=== PATIENT | female | born 1950 | race Caucasian/White ===

== ENCOUNTER → 2017-12-15 10:20 | Outpatient (CLI) | payer MEDICARE, OTHER, SELFPAY ==
--- NOTE | 2017-12-15 10:50 | MRI_ITS ---
STUDY: MRI RIGHT SHOULDER REASON FOR EXAM: Right shoulder pain, no specific injury. TECHNIQUE: Standardized fat and water weighted pulse sequences were obtained in all 3 orthogonal planes. COMPARISON: Radiographs 09/30/2017. FINDINGS: There is supraspinatus tendinosis (T2 coronal images 9-13) without discrete tendon tear. Normal infraspinatus tendon. Normal subscapularis tendon. Normal teres minor tendon. Normal supraspinatus muscle. There is a small cyst at the infraspinatus musculotendinous junction (T2 coronal image 6). Normal subscapularis muscle. Normal teres minor muscle. There is mild glenohumeral arthrosis with small marginal osteophytes of the humeral head, mild chondral thinning (T2 coronal image 11) and a small subchondral cyst of the glenoid. There is mild cystic change of the greater tuberosity. There is a tear with nonvisualization of the intracapsular long biceps tendon. Normal labrum. There is soft tissue fullness in the rotator interval and thickening of the coracohumeral ligament (T2 sagittal image 18). Normal acromioclavicular articulation. There is a Type II morphology (curved), with a neutral orientation. There is subacromial-subdeltoid bursal fluid. Normal deltoid muscle. Normal trapezius muscle. MRI/Upper Ext Joint Only(Routine) IMPRESSION: Supraspinatus tendinosis without demonstrated rotator cuff tear. Tear of the long biceps tendon. Mild glenohumeral arthrosis. Soft tissue fullness in the rotator cuff interval and thickening of the coracohumeral ligament, possible MRI manifestations of adhesive capsulitis. Subacromial-subdeltoid bursitis. Electronically Signed: Rik Connor MD at 12:54 EDT Tel , Service support ,
[2017-12-15 11:02] LABS: Absolute Lymphocyte Count 1.42 X10^3/ul (0.83-4.51); Absolute Neutrophil Count 2.4 X10^3/uL (2.0-7.7); Basophil# 0.03 X10^3/uL; Basophil% 0.7 % (0-1); Eosinophil# 0.13 X10^3/uL; Hematocrit 42.2 % (37-47); Hemoglobin 13.4 g/dl (12.0-15.0); Lymphocyte # 1.42 X10^3/ul (4.0); Lymphocyte % 32.3 % (19-41); Mean Corp Hgb Conc 31.8 g/gl (32-36); Mean Corpuscular Hgb 28.8 pg (27.0-32.0); Mean Corpuscular Volume 90.6 fL (81-99); Mean Platelet Vol. 10.8 fl (6.2-12.0); Monocyte# 0.36 X10^3/uL; Monocyte% 8.2 % (0-10); Neutrophil # 2.44 X10^3/uL (2.7-7.7); Neutrophil % 55.6 % (47-70); Platelet Count 177 K/mm3 (150-450); RBC Distribution Width SD 42.6 fl (35.1-43.9); Red Blood Count 4.66 M/mm3 (4.2-5.4); White Blood Count 4.4 K/mm3 (4.4-11.0)
[2017-12-15 11:05] LABS: POSITIVE COUNT NO; POSITIVE DIFFERENTIAL NO; POSITIVE MORPHOLOGY NO
[2017-12-15 11:33] LABS: ALB/GLOB Ratio 0.9 RATIO (0.9-2.4); AST(SGOT) 27 U/L (15-37); Alanine Aminotransfer ALT/SGPT 41 U/L (13-56); Albumin, Serum 3.4 g/dL (3.2-5.0); Alkaline Phosphatase 101 U/L (45-117); Anion Gap 5 (5-15); BUN 17 mg/dL (7-18); BUN/Creat Ratio 26.4 RATIO (10-20); Calcium,Total 8.9 mg/dL (8.5-10.1); Chloride 101 mmol/L (98-107); Creatinine, Serum 0.64 mg/dL (0.55-1.02); EST Glomerular Filtration Rate 98 mL/min (>60); Est Glom Filt Rate - Afr Amer 118 mL/min (>60); Globulin 3.9 g/dL (2.2-4.2); Glucose 105 mg/dL (74-106); Potassium 3.3 mmol/L (3.5-5.1); Protein, Total 7.3 g/dL (6.4-8.2); Sodium Level 140 mmol/L (136-145)
== END ==
PROVIDERS: Internal Medicine Rheumatology; Family Provider Family Medicine; PCP Family Medicine; Visit Provider Family Medicine
DX: M25.511 Pain in right shoulder (principal); M06.4 Inflammatory polyarthropathy; Z79.899 Other long term (current) drug therapy; D86.9 Sarcoidosis, unspecified; M79.7 Fibromyalgia; G47.33 Obstructive sleep apnea (adult) (pediatric); K21.9 Gastro-esophageal reflux disease without esophagitis; F41.9 Anxiety disorder, unspecified; K76.0 Fatty (change of) liver, not elsewhere classified
CPT/HCPCS: 36415; 73221; 80053; 85025

== ENCOUNTER → 2018-01-05 10:17 | Outpatient (CLI) | payer MEDICARE, OTHER, SELFPAY ==
--- NOTE | 2018-01-05 10:21 | BI_ITS ---
MAMMOGRAPHY - BILATERAL SCREENING REASON FOR EXAM: Female, 67 years old. Routine annual screening examination. PERTINENT HISTORY: Mother with breast cancer. TECHNIQUE: Digital bilateral breast shameka (3D mammographic acquisition) in the CC and MLO projections. 2-D mediolateral oblique (MLO) and craniocaudad (CC) views of both breasts were obtained. CAD: Full Field Digital Mammography with Computer Added Detection was performed. COMPARISON: Comparison is made with prior study dated November 19, 2016 and August 24, 2015. FINDINGS: Breast Composition: There are scattered areas of fibroglandular density. There are no dominant masses or suspicious calcifications. No other significant abnormalities are identified. There has been no significant change since the prior study. BI/SCREENING MAMM (CAD), BILAT IMPRESSION: Stable bilateral screening mammogram. Yearly follow-up mammogram recommended. (A) ASSESSMENT CATEGORY: BIRADS Category 1: Negative. A letter regarding these results will be sent to the patient by the facility within 30 days. Approximately 10% of breast cancers are not detected by mammography. A normal mammogram should not delay biopsy of a clinically suspicious abnormality. [id number] Electronically Signed: Jovanny Antoine MD at 14:36 EDT Tel [phone], Service support ,
== END ==
PROVIDERS: Family Provider Family Medicine; PCP Family Medicine; Visit Provider Family Medicine
DX: Z12.31 Encounter for screening mammogram for malignant neoplasm of breast (principal)
CPT/HCPCS: 77063; 77067

== ENCOUNTER → 2018-03-29 09:57 | Outpatient (CLI) | payer MEDICARE, OTHER, SELFPAY ==
[2018-03-29 11:57] LABS: Absolute Lymphocyte Count 1.05 X10^3/ul (0.83-4.51); Absolute Neutrophil Count 2.3 X10^3/uL (2.0-7.7); Basophil# 0.02 X10^3/uL; Basophil% 0.5 % (0-1); Eosinophils% 2.6 % (0-5); Hematocrit 41.2 % (37-47); Hemoglobin 13.1 g/dl (12.0-15.0); Lymphocyte # 1.05 X10^3/ul (4.0); Lymphocyte % 27.1 % (19-41); Mean Corp Hgb Conc 31.8 g/gl (32-36); Mean Corpuscular Hgb 28.5 pg (27.0-32.0); Mean Corpuscular Volume 89.8 fL (81-99); Mean Platelet Vol. 11.4 fl (6.2-12.0); Monocyte# 0.42 X10^3/uL; Monocyte% 10.9 % (0-10); Neutrophil # 2.28 X10^3/uL (2.7-7.7); Neutrophil % 58.9 % (47-70); Platelet Count 163 K/mm3 (150-450); RBC Distribution Width CV 13.1 % (11.6-14.6); RBC Distribution Width SD 42.7 fl (35.1-43.9); Red Blood Count 4.59 M/mm3 (4.2-5.4); White Blood Count 3.9 K/mm3 (4.4-11.0)
[2018-03-29 11:58] LABS: POSITIVE COUNT NO; POSITIVE DIFFERENTIAL NO; POSITIVE MORPHOLOGY NO
[2018-03-29 12:16] LABS: AST(SGOT) 35 U/L (15-37); Alanine Aminotransfer ALT/SGPT 55 U/L (13-56); Albumin, Serum 3.6 g/dL (3.2-5.0); Alkaline Phosphatase 96 U/L (45-117); Anion Gap 7 (5-15); BUN 23 mg/dL (7-18); BUN/Creat Ratio 32.9 RATIO (10-20); Chloride 104 mmol/L (98-107); EST Glomerular Filtration Rate 89 mL/min (>60); Est Glom Filt Rate - Afr Amer 107 mL/min (>60); Globulin 3.6 g/dL (2.2-4.2); Glucose 101 mg/dL (74-106); Potassium 3.9 mmol/L (3.5-5.1); Protein, Total 7.2 g/dL (6.4-8.2); Sodium Level 141 mmol/L (136-145)
== END ==
PROVIDERS: Family Provider Family Medicine; PCP Family Medicine; Visit Provider Internal Medicine Rheumatology
DX: M06.4 Inflammatory polyarthropathy (principal); Z79.899 Other long term (current) drug therapy; D86.9 Sarcoidosis, unspecified; M79.7 Fibromyalgia; M75.41 Impingement syndrome of right shoulder; M17.0 Bilateral primary osteoarthritis of knee; M18.0 Bilateral primary osteoarthritis of first carpometacarpal joints; K22.70 Barrett's esophagus without dysplasia; K76.0 Fatty (change of) liver, not elsewhere classified; H35.30 Unspecified macular degeneration; G47.33 Obstructive sleep apnea (adult) (pediatric); K21.9 Gastro-esophageal reflux disease without esophagitis; F41.9 Anxiety disorder, unspecified
CPT/HCPCS: 36415; 80053; 85025

== ENCOUNTER 2018-04-09 13:00 | Outpatient (RCR) | payer MEDICARE, OTHER, SELFPAY ==
--- NOTE | 2018-02-01 09:46 | HP.PTEVAL_ITS ---
Patient's Visit Information RICKIE OCONNOR is a 67 year old F referred to Physical Therapy by Leydi Hobbs DO with a diagnosis of R SHLD TRC TENDONITIS/SUBACROMIAL IMPINGEMENT. Date of Evaluation: 02/01/18 Physical Therapist: Deepthi San - Visit Plan Frequency: 2-3x /Week Duration: 4-6 Weeks Plan: RIGHT SHOULDER US, MH, AND/OR CP NEEDED. POSTURE CORRECTION/ STRENGTHENING, INSTRUCTION IN APPROPRIATE BODY MECHANICS AND ACTIVITY MODIFICATIONS. SYDNEE UE ROM, STRETCHING AND STRENGTHENING. HEP INSTRUCTION. - Subjective Subjective: Diagnosis: R SHLD TRC TENDONITIS/SUBACROMIAL IMPINGEMENT. Work/ Leisure: RETIRED. Disability: NOT NOW BUT RETIRED DUE TO DISABILITY FOR SARCOIDOSIS AND FIBROMYALGIA. Present symptoms: RIGHT SHOULDER PAIN. NO NUMBNESS OR TINGLING. NO NECK PAIN. Present since: ABOUT MAY 2017. Pain Scale: WORST: 10/10. LEAST: 10/07. Currently: 10/07. Commenced as a result of: NO APPARENT REASON. Symptoms at onset: RIGHT SHOULDER. Worse: PULLING, REACHING UP, GETTING DRESSED, PUTTING DEODRANT ON, COOKING, LAUNDRY, LIFTING, VACUUMING, SWEEPING. Better: ALEVE. Disturbed sleep: YES. Previous history/ Previous treatment: NO PRIOR HISTORY OF RIGHT SHOULDER PROBLEMS. NO HISTORY OF NECK PROBLEMS. NO SHOULDER OR NECK SURGERY OF HISTORY OF INJECTIONS UNTIL RIGHT SHOULDER INJECTION BY DR. OHBBS ABOUT 3 WEEKS AGO THAT RESULTED IN RELEIF FOR ABOUT 4 DAYS. THIS EPISODE, PATIENT REPORTS THAT SHE DECIDED TO GO TO A CHIROPRACTOR TO SEE IF ADJUSTING HER SPINE WOULD HELP HER SHOULDER PAIN. SHE STARTED GOING IN JUNE AND SHE IS STILL GOING BUT HE HAS QUIT WORKING ON THE SHOULDER. HER SHOULDER HAS CONTINUED TO WORSEN SINCE STARTING WITH THE CHIROPRACTOR. MASSAGE THURSDAY - HELPED SOME BUT DIDN'T WORK ON THE SHOULDER A LOT. Dizziness: NO. Tinnitis: YES. Nausea: NO. Difficulty Swollowing: NO. Gait: NORMAL WITH NO AD USE. Accidents: NO. Unexplained weight loss: NO. Imaging: MILD CHANGES RIGHT SHOULDER ON X-RAY. RECENT MRI: IMPRESSION: Supraspinatus tendinosis without demonstrated rotator cuff tear. Tear of the long biceps tendon. Mild glenohumeral arthrosis. Soft tissue fullness in the rotator cuff interval and thickening of the. coracohumeral ligament, possible MRI manifestations of adhesive capsulitis. Subacromial-subdeltoid bursitis. PMH: FIBROMYALGIA, SARCOIDOSIS, ALLEN'S ESOPHAGUS. Recent major surgery: NO - Objective Sitting Posture: POOR. Standing Posture: POOR. Active Correction of posture : NE. Other Observations: PATIENT IS RIGHT HAND DOMINANT. INDEP GAIT AND TRANSFERS. 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 LEFT UE WFL. Sensory deficit: NO. ROM deficit : LEFT SHOULDER WFL. RIGHT SHOULDER ACTIVE FLEX IN SITTING 60 DEG, ABD 50 DEG. SUPINE PROM FLEX 140 DEG, ABD 130 DEG, ER 75 DEG, IR 30 DEG. ERP AT THE END OF THE AVAILABLE RANGE ALL PLANES. Cervical Mvmt Loss: Flex: NIL. Pro: NIL. Ext: MOD. Ret: [place]. RSB: MOD. LSB: MOD. R Rot: MOD. L Rot: MOD. Postural strength: POOR. Palpation: NO ACUTE TENDERNESS WITH PALPATION OF THE CERVICAL OR UPPER THORACIC SPINE. NO ACUTE TENDERNESS OF RIGHT SHOULDER EITHER AND PATIENT REPORTS SHE FEELS IT IS DEEP INSIDE. - Goals Goal 1:: DECREASE C/O RIGHT SHOULER PAIN Goal Time Frame: 4-6 Weeks Goal 2:: IMPROVE LIFTING, REACHING, ADL AND SLEEP FUNCTION Goal Time Frame: 4-6 Weeks Goal 3:: INDEP HEP Goal Time Frame: 4-6 Weeks - Rehabilitation Potential Rehabilitation Potential: Fair - Anticipated Interventions Patient/Client Instruction: Educate patient on: Condition, Plan of Care, Risk Factors, Benefits of Fitness Program For the Purpose of:: To improve self management Therapeutic Exercise to Include: Strength training, Body mechanics, Postural training, Passive ROM, Active ROM, Scapular Strength/Stabilization For the Purpose of:: To improve ability of physical actions for home/community/ work/leisure Cryotherapy (ice pack, ice massage): Yes Thermo therapy (hot pack): Yes Ultrasound (thermal/non thermal): Yes For the Purpose of:: To decrease pain, To decrease swelling/inflammation, To increase ROM Thank you for the opportunity to evaluate your patient. For Medicare and Medicare HMO plans, please review the plan of care and approve it. It will need to be FAXED BACK to us at [phone] for Medicare purposes. Please let me know if there are questions or concerns regarding this plan of care. Physician Signature: Date:
--- NOTE | 2018-04-09 13:58 | HP.PTDCSUM_ITS ---
HP - PT D/C Summary It has been my pleasure to treat RICKIE OCONNOR under orders from Leydi Hobbs DO, for the diagnosis of R SHLD TRC TENDONITIS/SUBACROMIAL IMPINGEMENT for a total of 18 visit(s). Discharge Date: Please see the following information for a summary of their discharge status. - Subjective Subjective: PATIENT REPORTS HER SHOULDER FEELS BETTER SINCE RESTING IT BUT IT IS STILL ACHING AND KEEPING HER AWAKE. SHE REPORTS THAT HER RIGHT SHOULDER IS A LEAST 75% BETTER THAN IT WAS BEFORE SHE STARTED ANY PT BECAUSE SHE CAN REACH UP NOW AND LESS PAIN. SHE HAS AN APPOINTMENT WITH DR. QUESADA AT 1:45. SHE HAS NOT FOLLOWED UP WITH DR. HOBBS. SHE STATES IF SHE HAS TO GET SOMETHING HEAVY REACHING UP SHE JUST DOESN'T HAVE ANY STRENGTH AND TRYING TO STRENGTHENING IT SEEMED TO START TO MAKE IT WORSE. SHE REPORTS SHE IS GETTING BETTER AT DOING HER HAIR. RIGHT SHOULDER PAIN CURRENTLY RANGES FROM 2/10 TO 7/ 10. SHE REPORTS IT USE TO GET UP TO A 10 AND SHE WOULD CRY. - Pain R SH Pain Intensity (Out of 10): 2 - Overall Improvement % Improvement: 75 - Objective Objective/Function: PATIENT HAS HAD SIGNIFICANT IMPROVEMENT WITH PT AND IS INDEP WITH A HEP BUT NOT TOLERATING FURTHER PROGRESSION OF STRENGTHENING WELL AT THIS TIME. RECOMMENDED FOLLOW UP WITH DR. HOBBS AND CONTINUED HEP TOLERATED. UPON EXAM: AROM IN SITTING RIGHT SHOULD FLEX 170 DEG, SCAPTION 168. SUPINE RIGHT SHOULDER FLEX 167 DEG, ABD 160 DEG, IR 68 DEG, ER 75 DEG (WITH 90 DEG ABD). PATIENT HAS PAIN AT THE END OF THE AVAILABLE ROM WITH TESTING ALL PLANES. - Goals Goal 1:: DECREASE C/O RIGHT SHOULER PAIN Goal Progress: Not Progressing Goal 2:: IMPROVE LIFTING, REACHING, ADL AND SLEEP FUNCTION Goal Progress: Goal Met Goal 3:: INDEP HEP Goal Progress: Goal Met - Plan Plan: D/C TO INDEP HEP AND FOLLOW UP WITH DR. HOBBS - D/C Information If there are questions or concerns regarding this patient's physical therapy, please feel free to call me at [phone]. Thank you for the referral of this patient. Sincerely, Deepthi San
--- NOTE | 2018-04-09 13:58 | HP.PTEVAL ---
Patient's Visit Information RICKIE OCONNOR is a 67 year old F referred to Physical Therapy by Leydi Hobbs DO with a diagnosis of R SHLD TRC TENDONITIS/SUBACROMIAL IMPINGEMENT. Date of Evaluation: 02/01/18 Physical Therapist: Deepthi Gomez Visit Plan Frequency: 2-3x /Week Duration: 4-6 Weeks Plan: D/C TO [facility] AND FOLLOW UP WITH DR. HOBBS - Subjective Subjective: Diagnosis: R SHLD TRC TENDONITIS/SUBACROMIAL IMPINGEMENT. Work/Leisure: RETIRED. Disability: NOT NOW BUT RETIRED DUE TO DISABILITY FOR SARCOIDOSIS AND FIBROMYALGIA. Present symptoms: RIGHT SHOULDER PAIN. NO NUMBNESS OR TINGLING. NO NECK PAIN. Present since: ABOUT MAY 2017. Pain Scale: WORST: 10/10. LEAST: 10/07. Currently: 10/07. Commenced as a result of: NO APPARENT REASON. Symptoms at onset: RIGHT SHOULDER. Worse: PULLING, REACHING UP, GETTING DRESSED, PUTTING DEODRANT ON, COOKING, LAUNDRY, LIFTING, VACUUMING, SWEEPING. Better: ALEVE. Disturbed sleep: YES. Previous history/Previous treatment: NO PRIOR HISTORY OF RIGHT SHOULDER PROBLEMS. NO HISTORY OF NECK PROBLEMS. NO SHOULDER OR NECK SURGERY OF HISTORY OF INJECTIONS UNTIL RIGHT SHOULDER INJECTION BY DR. HOBBS ABOUT 3 WEEKS AGO THAT RESULTED IN RELEIF FOR ABOUT 4 DAYS. THIS EPISODE, PATIENT REPORTS THAT SHE DECIDED TO GO TO A CHIROPRACTOR TO SEE IF ADJUSTING HER SPINE WOULD HELP HER SHOULDER PAIN. SHE STARTED GOING IN JUNE AND SHE IS STILL GOING BUT HE HAS QUIT WORKING ON THE SHOULDER. HER SHOULDER HAS CONTINUED TO WORSEN SINCE STARTING WITH THE CHIROPRACTOR. MASSAGE THURSDAY - HELPED SOME BUT DIDN'T WORK ON THE SHOULDER A LOT. Dizziness: NO. Tinnitis: YES. Nausea: NO. Difficulty Swollowing: NO. Gait: NORMAL WITH NO AD USE. Accidents: NO. Unexplained weight loss: NO. Imaging: MILD CHANGES RIGHT SHOULDER ON X-RAY. RECENT MRI: IMPRESSION: Supraspinatus tendinosis without demonstrated rotator cuff tear. Tear of the long biceps tendon. Mild glenohumeral arthrosis. Soft tissue fullness in the rotator cuff interval and thickening of the. coracohumeral ligament, possible MRI manifestations of adhesive capsulitis. Subacromial-subdeltoid bursitis. PMH: FIBROMYALGIA, SARCOIDOSIS, ALLEN'S ESOPHAGUS. Recent major surgery: NO - Pain R SH Pain Intensity (Out of 10): 2 Comment: anterior - Objective Sitting Posture: POOR. Standing Posture: POOR. Active Correction of posture: NE. Other Observations: PATIENT IS RIGHT HAND DOMINANT. INDEP GAIT AND TRANSFERS. 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 LEFT UE WFL. Sensory deficit: NO. ROM deficit: LEFT SHOULDER WFL. RIGHT SHOULDER ACTIVE FLEX IN SITTING 60 DEG, ABD 50 DEG. SUPINE PROM FLEX 140 DEG, ABD 130 DEG, ER 75 DEG, IR 30 DEG. ERP AT THE END OF THE AVAILABLE RANGE ALL PLANES. Cervical Mvmt Loss: Flex: NIL. Pro: NIL. Ext: MOD. Ret: [place]IV[place]AD. RSB: MOD. LSB: MOD. R Rot: MOD. L Rot: MOD. Postural strength: POOR. Palpation: NO ACUTE TENDERNESS WITH PALPATION OF THE CERVICAL OR UPPER THORACIC SPINE. NO ACUTE TENDERNESS OF RIGHT SHOULDER EITHER AND PATIENT REPORTS SHE FEELS IT IS DEEP INSIDE. - Goals Goal 1:: DECREASE C/O RIGHT SHOULER PAIN Goal Time Frame: 4-6 Weeks Goal 2:: IMPROVE LIFTING, REACHING, ADL AND SLEEP FUNCTION Goal Time Frame: 4-6 Weeks Goal 3:: INDEP HEP Goal Time Frame: 4-6 Weeks - Rehabilitation Potential Rehabilitation Potential: Fair - Anticipated Interventions Patient/Client Instruction: Educate patient on: Condition, Plan of Care, Risk Factors, Benefits of Fitness Program For the Purpose of:: To improve self management Therapeutic Exercise to Include: Strength training, Body mechanics, Postural training, Passive ROM, Active ROM, Scapular Strength/Stabilization For the Purpose of:: To improve ability of physical actions for home/community/work/leisure Cryotherapy (ice pack, ice massage): Yes Thermo therapy (hot pack): Yes Ultrasound (thermal/non thermal): Yes For the Purpose of:: To decrease pain, To decrease swelling/inflammation, To increase ROM Thank you for the opportunity to evaluate your patient. For Medicare and Medicare HMO plans, please review the plan of care and approve it. It will need to be FAXED BACK to us at [phone] for Medicare purposes. Please let me know if there are questions or concerns regarding this plan of care. Physician Signature: Date:
== END 2018-04-09 19:00 | disposition home or self-care (01) ==
LOC: PT 13:00
PROVIDERS: Family Provider Family Medicine; PCP Family Medicine; Visit Provider Orthopaedic Surgery
DX: S46.011D Strain of muscle(s) and tendon(s) of the rotator cuff of right shoulder, subsequent encounter (principal); M25.811 Other specified joint disorders, right shoulder
CPT/HCPCS: 97035; 97110; 97140; 97162; 97164; 97530; G8978; G8979

== ENCOUNTER → 2018-06-02 12:28 | Outpatient (CLI) | payer MEDICARE, OTHER, SELFPAY ==
[2018-06-02 14:46] LABS: Absolute Neutrophil Count 3.7 X10^3/uL (2.0-7.7); Basophil# 0.02 X10^3/uL; Basophil% 0.4 % (0-1); Eosinophil# 0.11 X10^3/uL; Eosinophils% 2.1 % (0-5); Hematocrit 40.9 % (37-47); Hemoglobin 13.4 g/dl (12.0-15.0); Lymphocyte % 20.8 % (19-41); Mean Corp Hgb Conc 32.8 g/gl (32-36); Mean Corpuscular Hgb 29.5 pg (27.0-32.0); Mean Corpuscular Volume 90.1 fL (81-99); Mean Platelet Vol. 11.3 fl (6.2-12.0); Monocyte# 0.39 X10^3/uL; Monocyte% 7.4 % (0-10); Neutrophil # 3.65 X10^3/uL (2.7-7.7); Neutrophil % 69.1 % (47-70); Platelet Count 190 K/mm3 (150-450); RBC Distribution Width SD 42.4 fl (35.1-43.9); Red Blood Count 4.54 M/mm3 (4.2-5.4); White Blood Count 5.3 K/mm3 (4.4-11.0)
[2018-06-02 14:50] LABS: POSITIVE COUNT NO; POSITIVE DIFFERENTIAL NO; POSITIVE MORPHOLOGY NO
[2018-06-02 15:11] LABS: ALB/GLOB Ratio 1.1 RATIO (0.9-2.4); AST(SGOT) 26 U/L (15-37); Alanine Aminotransfer ALT/SGPT 45 U/L (13-56); Albumin, Serum 3.5 g/dL (3.2-5.0); Alkaline Phosphatase 86 U/L (45-117); Anion Gap 9 (5-15); BUN 17 mg/dL (7-18); Calcium,Total 9.2 mg/dL (8.5-10.1); Chloride 103 mmol/L (98-107); Creatinine, Serum 0.71 mg/dL (0.55-1.02); EST Glomerular Filtration Rate 87 mL/min (>60); Est Glom Filt Rate - Afr Amer 106 mL/min (>60); Globulin 3.3 g/dL (2.2-4.2); Glucose 91 mg/dL (74-106); Potassium 3.7 mmol/L (3.5-5.1); Protein, Total 6.8 g/dL (6.4-8.2); Sodium Level 143 mmol/L (136-145)
== END ==
PROVIDERS: Family Provider Family Medicine; PCP Family Medicine; Visit Provider Internal Medicine Rheumatology
DX: M06.4 Inflammatory polyarthropathy (principal); D86.9 Sarcoidosis, unspecified; M79.7 Fibromyalgia; M75.41 Impingement syndrome of right shoulder; M17.0 Bilateral primary osteoarthritis of knee; M18.0 Bilateral primary osteoarthritis of first carpometacarpal joints; K76.0 Fatty (change of) liver, not elsewhere classified; K22.70 Barrett's esophagus without dysplasia; H35.30 Unspecified macular degeneration; G47.33 Obstructive sleep apnea (adult) (pediatric); K21.9 Gastro-esophageal reflux disease without esophagitis; F41.9 Anxiety disorder, unspecified; Z79.899 Other long term (current) drug therapy
CPT/HCPCS: 36415; 80053; 85025

== ENCOUNTER → 2018-07-01 13:55 | Outpatient (CLI) | payer MEDICARE, OTHER, SELFPAY ==
--- NOTE | 2018-07-01 13:58 | CT_ITS ---
STUDY: CT ABDOMEN AND PELVIS WITHOUT CONTRAST REASON FOR EXAM: Female, 68 years old. Flank pain. Family history of kidney cancer. RADIATION DOSAGE (If Supplied By Facility): CTDIvol = ( 22.46 ) mGy, DLP = ( 1060.34 ) mGycm TECHNIQUE: Transaxial images were obtained from the dome of the diaphragm to the symphysis pubis without oral contrast, and without intravenous contrast. Sagittal and coronal images were reconstructed. Individualized dose optimization techniques were used for this CT. COMPARISON: None. FINDINGS: Limited views through the lower chest show a 5 mm pleural-based nodule in the right middle lobe on image 3. There is a 7 mm nodule in the center of the left lung base, image 14. There is fatty liver with hepatomegaly. No definite focal mass. The gallbladder is not seen, question cholecystectomy for complete contraction. No definite stones. Pancreas and spleen are unremarkable. Normal right adrenal gland. Left adrenal gland has a 4.8 cm mass with a few calcifications. This needs further evaluation. No definite abnormalities of the kidneys. No stones. No hydronephrosis. There are no definite masses but note that noncontrast CT is limited when evaluating the kidneys. Evaluation of the GI tract is limited by absence of oral contrast. Cannot exclude stomach wall thickening. No dilated loops of bowel or evidence for obstruction. Cannot exclude segmental thickening of the [place] of the small or large bowel. Cannot exclude enteritis or colitis. Moderate to marked diffuse fecal retention. Appendix not definitely seen. Normal aorta. No retroperitoneal adenopathy. In the pelvis, normal uterus. Normal bladder contour. No free fluid. Skeletal structures show degenerative changes of the lower lumbar spine. CT/Abdomen/Pelvis without Cont IMPRESSION: Exam is limited by the absence of IV contrast. There is a 4.8 cm mass of the left adrenal gland, further evaluation with contrasted CT is recommended. Fatty liver with hepatomegaly. Electronically Signed: Cesar Mujica MD at 17:56 EDT , Service support ,
== END ==
PROVIDERS: Family Provider Family Medicine; PCP Family Medicine; Referring Provider Family Medicine; Visit Provider Family Medicine
DX: R10.9 Unspecified abdominal pain (principal); Z80.51 Family history of malignant neoplasm of kidney
CPT/HCPCS: 74176

== ENCOUNTER → 2018-07-02 13:49 | Outpatient (CLI) | payer MEDICARE, OTHER, SELFPAY ==
--- NOTE | 2018-07-02 13:54 | CT_ITS ---
STUDY: CT RIGHT SHOULDER REASON FOR EXAM: Female, 68 years old. Right shoulder pain RADIATION DOSAGE (If Supplied By Facility): CTDIvol = ( 73.65 ) mGy, DLP = ( 998.25 ) mGycm TECHNIQUE: The patient was scanned in a multi detector CT scanner. High resolution transaxial imaging was performed without the administration of intravenous contrast material. Sagittal and coronal images were reconstructed. Individualized dose optimization techniques were used for this CT. COMPARISON: X-ray right shoulder 09/30/2017. FINDINGS: Particular soft tissues exhibit no acute process. There is a moderate joint effusion. The achromic liquor joint exhibits no significant degenerative features. There is mild narrowing of the glenohumeral articulation suggesting chondral degeneration. There is superior subluxation of the humeral head to the undersurface of the acromion, consistent with subacromial impingement. Also consistent with rotator cuff insufficiency. The supraspinatus appears to be attenuated. There is inferior joint margin osteophytic lipping of the glenohumeral articulation. There is subcortical cyst formation of the greater tubercle of the humerus also consistent with subacromial impingement. CT/Extremity Upper without Contra IMPRESSION: Prominent joint effusion. Possible synovitis. Suspected rotator cuff insufficiency/tear. Suspected subacromial impingement. Electronically Signed: [place] Juan, at 12:52 EDT Tel , Service support ,
== END ==
PROVIDERS: Family Provider Family Medicine; PCP Family Medicine; Referring Provider Specialist; Visit Provider Specialist
DX: M19.011 Primary osteoarthritis, right shoulder (principal)
CPT/HCPCS: 73200

== ENCOUNTER → 2018-08-04 12:35 | Outpatient (CLI) | payer MEDICARE, OTHER, SELFPAY ==
--- NOTE | 2018-08-04 14:48 | CT_ITS ---
STUDY: CT ABDOMEN AND PELVIS WITH CONTRAST REASON FOR EXAM: Female, 68 years old. Left adrenal mass RADIATION DOSAGE (If Supplied By Facility): CTDIvol = ( 23.95 ) mGy, DLP = ( 1949.76 ) mGycm TECHNIQUE: Transaxial images were obtained from the lower chest to the upper thighs without oral contrast. 100 ml of Isovue 300 contrast was administered. Sagittal and coronal images were reconstructed. Individualized dose optimization techniques were used for this CT. COMPARISON: CT abdomen and pelvis without contrast dated July 01, 2018 FINDINGS: There is minimal dependent atelectasis in both lung bases. A 5 mm opacity is again seen in the periphery of the right middle lobe on image 5. A 7-8 mm opacity is again seen in the periphery of the left lower lobe at the diaphragm on image 9. There is no pleural effusion. The heart is normal in size. There is fatty infiltration of the liver. The gallbladder is surgically absent. The spleen is unremarkable. The pancreas is unremarkable. The right adrenal gland is normal in appearance. A 4.7 cm mass is again seen in the left adrenal gland with minimal coarse calcifications. At three different levels of the lesion, absolute washout ranges from about 28% to about 45%. No level shows absolute washout greater than 60%. Additionally, relative washout ranges from about 23% to about 35% and does not measure more than 40%. The right kidney is unremarkable. There is no dilatation of the collecting system in the right kidney. The left kidney is unremarkable. There is no dilatation of the collecting system in the left kidney. The stomach is unremarkable. The small bowel is unremarkable. There are diverticula in the distal colon without adjacent stranding. The appendix is surgically absent. There are minimal vascular calcifications. The inferior vena cava is unremarkable. The retroperitoneum is unremarkable. There is no free fluid in the abdomen. The urinary bladder is unremarkable. The uterus is normal in appearance. There are no abnormal masses in the adnexal regions. There are small phleboliths scattered in the lower pelvis. The soft tissues of the abdominal wall are unremarkable. There are moderate degenerative changes in the visualized spine. This is most pronounced at L5-S1. CT/Abdomen/Pelvis WITH Contrast IMPRESSION: A mass is again seen in the left adrenal gland measuring at least 4.7 cm in size. Assessment of absolute and relative washouts using Hounsfield units do not definitively confirm an adenoma. Although characterization may be altered by the size of the lesion and the presence of calcifications, consideration should be made for needle biopsy or short-term follow-up CT in 2-3 months. Given the persistent small opacities in both lung bases, a CT of the chest can also be obtained in 2-3 months to reassess the 7-8 mm nodule in the left lower lobe and to assess the remainder of the lungs. There is diverticulosis of the distal colon. There is no ascites or significant lymphadenopathy. Electronically Signed: Mary Hurst MD at 0:43 EST Tel Direct: [phone], Service support ,
[2018-08-04 15:15] LABS: CREATININE FINGERSTICK 0.8 mg/dL (0.55-1.02); EGFR FINGERSTICK > 60.0000 mL/min (>60)
== END ==
PROVIDERS: Family Provider Family Medicine; PCP Family Medicine; Referring Provider Family Medicine; Visit Provider Family Medicine
DX: E27.9 Disorder of adrenal gland, unspecified (principal)
CPT/HCPCS: 74177; Q9967

== ENCOUNTER 2018-08-17 08:27 | Inpatient (IN) | payer MEDICARE, OTHER, SELFPAY ==
[2018-08-04 13:24] VITALS: BP 151/79; PULSE 82; RESP 16; TEMP 36.3; O2SAT 95; BMI 43.0
--- NOTE | 2018-08-04 14:37 | SDCEKG_ITS ---
Test Reason : Blood Pressure : / mmHG Vent. Rate : 079 BPM Atrial Rate : 079 BPM P-R Int : 186 ms QRS Dur : 076 ms QT Int : 394 ms P-R-T Axes : 078 051 041 degrees QTc Int : 451 ms Normal sinus rhythm Normal ECG Confirmed by SHERRIE SMITH ([id number]), movie editor KELLEY WHITLOCK ([id number]) on 08/09/2018 2:34:06 PM Referred By: Sotero Crabtree Confirmed By:SHERRIE SMITH
[2018-08-04 16:44] LABS: Absolute Lymphocyte Count 1.31 X10^3/ul (0.83-4.51); Absolute Neutrophil Count 3.1 X10^3/uL (2.0-7.7); Basophil# 0.03 X10^3/uL; Basophil% 0.6 % (0-1); Eosinophil# 0.09 X10^3/uL; Eosinophils% 1.8 % (0-5); Hemoglobin 13.6 g/dl (12.0-15.0); Lymphocyte # 1.31 X10^3/ul (4.0); Lymphocyte % 26.2 % (19-41); Mean Corp Hgb Conc 32.4 g/gl (32-36); Mean Corpuscular Hgb 29.4 pg (27.0-32.0); Mean Corpuscular Volume 90.9 fL (81-99); Mean Platelet Vol. 10.8 fl (6.2-12.0); Monocyte# 0.48 X10^3/uL; Monocyte% 9.6 % (0-10); Neutrophil # 3.08 X10^3/uL (2.7-7.7); Neutrophil % 61.6 % (47-70); Platelet Count 188 K/mm3 (150-450); RBC Distribution Width CV 13.5 % (11.6-14.6); RBC Distribution Width SD 44.7 fl (35.1-43.9); Red Blood Count 4.62 M/mm3 (4.2-5.4)
--- NOTE | 2018-08-04 16:54 | PCM.HP.BLA ---
History and Physical DATE OF SURGERY: 08/17/2018 SCHEDULED PROCEDURE: Right Reverse Total Shoulder Arthroplasty HISTORY OF PRESENT ILLNESS: This is a 68-year-old female who is been having ongoing pain in her right dominant shoulder for over one year. Patient was seen in the past with previous MRI in November 2017. Patient saw Dr. Fili Brown in April in which a repeat MRI was done. MRI did reveal rotator cuff tear. Patient's pain can reach is highly as a 9/10. Her pain has been intermittent, dull, aching, sharp, and sore. She does complain of grinding sensation and popping in the right shoulder. She has difficult time with activities of daily living that require any overhead activity. She also gets pain with driving. Pain does awaken her at night. Patient has tried conservative measures in the past including 6 weeks of physical therapy with no improvement in motion. Previous corticosteroid injection with minimal relief, nonsteroidal anti-inflammatories. After failing conservative measures and discussing all treatment options with Dr. Sotero Crabtree, the patient would like to proceed with a right reverse total shoulder arthroplasty. Patient has a medical history pertinent for sarcoidosis, hypertension, and Haney's esophagitis, and fibromyalgia. She currently denies chest pain, shortness of breath, fevers chills, recent infections. We are obtaining surgical clearance from patient's primary care physician. REVIEW OF SYSTEMS: ROS: Const: Reports weight change, but denies anorexia, change in appetite, fever, hard of hearing and vision problems. CV: Denies chest pain, heart murmur, irregular heartbeat and peripheral vascular disease. Resp: Reports sleep apnea, SOB and wheezing, but denies asthma, cough, pneumonia and tuberculosis. GI: Reports constipation and difficulty swallowing, but denies diarrhea, heartburn, nausea, bloody stools and vomiting. : Urinary: reports incontinence. Musculo: Reports leg swelling, trouble walking and weakness, but denies limp. Skin: Denies Raynaud's, history of shingles and tattoo. Neuro: Reports numbness/tingling but denies ambulatory dysfunction, dizziness and tremor. Psych: Reports anxiety, depression, insomnia and stress, but denies mental illness. Romario/Lymph: Denies anemia, bleeding/bruising tendency and past transfusion. Reviewed, no changes. PAST MEDICAL HISTORY: PMH: Problem List: Body mass index 40+ - severely obese, Obesity, Essential hypertension, Localized, secondary osteoarthritis of the shoulder region, Bicipital tenosynovitis, Sprain of shoulder rotator cuff, Acquired spondylolisthesis, Degeneration of lumbar intervertebral disc, Displacement of lumbar intervertebral disc without myelopathy, Low back pain, Disorder of bursa of shoulder region, Degenerative joint disease of shoulder region Medical Problems: Arthritis, Fibromyalgia, High Blood Pressure, Barretts Esophageous, Sarcoidoisis Accidents: None Surgical Hx: Appendectomy - 1970,[facility] Gallbladder - 1970,[facility] Tonsillectomy - 1954,[place],[facility] Tubal Ligation - 1979,[facility] Reverse Tubal Ligation,[facility],1983, Lung Biopsy,2007,[facility] Carpal Tunnel Release LT - 2000 K[facility] SANDERS Carpal Tunnel Release RT - 2000 [facility] Anesthesia Complications: None Assistive Devices: Glasses, Hearing Aid - ONE EAR Reviewed, no changes. SOCIAL HISTORY: SH: Marital: .Occupation: Disabled.Work Status: Disabled.Hand Dominance: Right-handed. Personal Habits: Cigarette Use: Former.Alcohol: Weekly use.Drug Use: Denies Use.Enjoy Exercising: Never Exercises. Reviewed, no changes. VITALS: Ht: 62 Wt: 235lb Wt k.596 BMI: 43.0 BP: 146/72 Pulse: 91 Resp: 16 T: 97.9 T: 36.6C ALLERGIES: Celebrex - Hives,Swelling,Itching MEDICATIONS: Meloxicam 7.5 mg 1 by mouth twice a day, Lyrica 100 mg 1 po Tid, Alprazolam 0.1 mg tid, prn, Vitamin D3 1000 Unit 1 tab pq qday, Calcium 600 600-400 MG-Unit 1po qday, Cpap Machine qhs, Melatonin 10 mg 1po qhs, Zinc 100 mg 1po qday, Vitamin B Complex 1po qday, Folic Acid 1 mg 2po qday, Losartan Potassium/Hydrochlorothiazide 100-25 mg 1po qday, Venlafaxine HCL 75 mg 1po qday, Methotrexate 2.5 mg 5 once weekly, Dexilant 60 mg 1po qday, Tramadol HCL 50 mg 1-2 by mouth every 6 hours as needed pain, Amlodipine Besylate 5 mg 1po qday, Magnesium 250 mg 2po qday, Lutein 20 mg 1po qday, Vitamin C 1000 mg 1po qday, Biotin 60498 mcg 1po qday PRE-OP EXAM: General appearance:NORMAL Other: Eyes: Conjunctivae and lids: NORMAL Pupils: ERR Ears, Nose, Mouth, and Throat: NORMAL Other: Inspection of lips, teeth and gums: NORMAL Other: Neck: Examination of neck: no masses noted. Respiratory: Assessment of respiratory effort: NORMAL Other: Auscultation of lungs: clear to auscultation no wheezes, rhonchi or rales. Cardiovascular: Auscultation of heart: regular rate and rhythm, no murmurs, gallops or rubs. Exam of carotid arteries: NORMAL Other: Gastrointestinal: Exam of abdomen: soft, nontender, nondistended bowel sounds present. PHYSICAL EXAMINATION: Right shoulder is cool to touch without erythema. Patient has tenderness to palpation along the anterior and lateral shoulder. Range of motion right shoulder: Active forward flexion 110, 150 passive range of motion, internal rotation to T7 on the left and L2 on the right, external rotation 5 on the right, 15 on the left. Patient has significant weakness with the supraspinatus testin/5 on the right and 5/5 on the left. Sensation intact to light touch. Neurovascularly intact. IMAGING STUDIES: MRI was done in April 2018 which does show severe retracted supraspinatus rotator cuff tear to be at the level of the glenoid. There is significant atrophy of the supraspinatus. Superior head migration and articular cartilage wear. Saline of the humeral head and associated subchondral edema consistent with severe osteoarthritis of the right shoulder. IMPRESSION: 1. Severe right shoulder osteoarthritis with retracted rotator cuff tear 2. Fibromyalgia 3. Sarcoidosis 4. Haney's esophagitis 5. Hypertension 6. Lumbar degenerative disc disease PLAN: Dr. Sotero Crabtree did discuss and review with the patient all treatment options including surgical versus nonsurgical options. Patient does wish to proceed with the above-stated procedure. Potential risks, benefits, and complications of the procedure were discussed in detail including but not limited to , infection, nerve and blood vessel damage, persistent pain, numbness, tingling, paresthesias, blood clot, pulmonary embolism, and requirement for possible further surgery. The patient expressed full understanding and has no further questions for the doctor. Patient does agree to proceed with the above-stated procedure and has signed the surgery consent form. This dictation was created using voice recognition software. Phonetic and/or grammatical errors may exist.. ___ I have re-examined the patient. There are no clinical changes since date of exam. ___ See progress notes for changes. ___ Dictated on admission Date: Time: Signature:
[2018-08-04 17:10] LABS: POSITIVE COUNT NO; POSITIVE DIFFERENTIAL NO; POSITIVE MORPHOLOGY NO
[2018-08-04 17:22] LABS: Anion Gap 7 (5-15); BUN 23 mg/dL (7-18); BUN/Creat Ratio 31.2 RATIO (10-20); Calcium,Total 9.1 mg/dL (8.5-10.1); Chloride 104 mmol/L (98-107); Creatinine, Serum 0.74 mg/dL (0.55-1.02); EST Glomerular Filtration Rate 83 mL/min (>60); Est Glom Filt Rate - Afr Amer 101 mL/min (>60); Estimated Creatinine Clearance 42.59 ml/min; Glucose 96 mg/dL (74-106); Potassium 3.6 mmol/L (3.5-5.1); Sodium Level 143 mmol/L (136-145)
[2018-08-11 17:38] LABS: Albumin, Serum 3.9 g/dL (3.2-5.0)
[2018-08-17] VITALS (9 sets, daily range): BP systolic 92–142; BP diastolic 49–111; PULSE 75–85; RESP 14–18; TEMP 36.4–36.9; O2SAT 94–100; BMI 43.0
[2018-08-17] MEDS: Acetaminophen 500 MG Tablet 1000 MG PO ×2 (09:27→22:40)
[2018-08-17] MEDS: oxyCODONE HCl Cr 10 MG Tablet PO (09:27)
[2018-08-17] MEDS: Cefazolin 2 GM in 0.9% Normal Saline 100 ML IV (11:35)
--- NOTE | 2018-08-17 13:17 | PCM.OPRPT ---
Report of Operation Date of Procedure: 08/17/18 Pre-Operative Diagnosis: Right shoulder cuff tear arthropathy Post-Operative Diagnosis: Right shoulder cuff tear arthropathy Surgery/Procedure Performed:: Right reverse total shoulder replacement Description of Surgical Findings:: Stable shoulder buckle coverer: Juancarlos Ramon Type of Anesthesia:: General Anesthesiologist: Roberto Sage Special Medications: 2 g Ancef, 1 g TXA at incision, 1 g TXA closure, 10 mg Decadron, joint cocktail (5 mg Duramorph, 30 mL of 0.5% Ropivicaine, 1000 units of epinephrine, 30 mg of Toradol), IV vancomycin throughout the case Specimen's removed: esteban cuts Estimated Blood Loss (mL): 150 Fluids Replaced: 1500 ml crystalloid Description of Procedure: Components used 1. glenoid baseplate from Navi for reverse TSA 2. 32, +6 mm Glenosphere 3. 32 mm, 4mm humeral liner 4. reverse TSA humeral adapter tray 4mm 5. humeral stem primary press-fit 9mm size Brief history/Operative indications: 68 yo f with history of right shoulder pain and cuff tear arthropathy. Patient failed conservative measures as mentioned in the H&P. After discussion of risk and benefits of reverse total shoulder replacement including but not limited to blood loss, DVTs, PEs, nerve vessel damage, infection, general risk of anesthesia including loss of life, instability and stiffness patient demonstrating understanding wish to proceed was able to sign informed consent. Medical clearance was obtained. Procedure: On the date of the procedure, patient's R upper extremity was marked in the preoperative area. Patient was taken back to the operating room where they were placed on the table in the supine position. Anesthesia assumed control of the C-spine and airway, then administered anesthetic. All bony prominences were identified well-padded, the head was secured and the patient was placed in the beachchair position at about 35? inclination. Anesthesia remained in control of the C-spine airway throughout the remainder of the procedure. Patient was then appropriately fastened to the table and the R upper extremity was prepped in a sterile fashion. The surgeons then scrubbed. Upon reentering the room, the R upper extremity was draped in a sterile fashion and the incision was marked out. Timeout was called, everyone agreed upon the side, the site, the procedure to be performed, patient identity and antibiotics given. Incision was taken down through skin and subcutaneous tissue, fat down to fascia. The stripe of the deltopectoral interval and cephalic vein were identified and blunt dissection was used to retract the deltoid. The cephalic vein was retracted laterally. Clavipectoral fascia was then incised and a cobra retractor was placed in the wound. The proximal one third of the pectoralis major insertion was released. Pectoralis tendon insertion was used to tenodesed the biceps tendon which was identified in the bicipital groove. Tenodesis was done with #1 Vicryl. Proximally we followed the biceps tendon after transecting it into the rotator interval. The rotator interval was split and the arm was externally rotated. The split was 1 cm medial to the bicipital groove. Subscapularis tendon was released. We released down the anterior portion of the humeral head and a stroud elevator was used to release the inferior portion of the humeral head. The arm was externally rotated and the shoulder was dislocated. The humeral head cutting guide was used to make humeral cut. This was done at 20? retroversion. Once his humeral head cut was made humerus was retracted out of the way and the glenoid was exposed. After exposing the glenoid, the labrum and the remaining proximal biceps were debrided. At this time we are able to view the entire outer edge of the glenoid. A central pin was placed we sequentially reamed over this central pin to 32mm. Once this was completed the central pedicle was drilled. The glenoid baseplate was impacted into place. Wound was closely irrigated out with normal saline we then drilled sequentially for 4 screws. Screws were placed superiorly and inferiorly and tightened down the screws. Then anteriorly and posteriorly. Once the screws were appropriately tightened into place the glenoid baseplate was compressed against the exposed subchondral bone. A 32, +6mm glenosphere was impacted into place engaging the Flores taper. Attention was then turned towards the humerus. The humerus was again externally rotated exposing the proximal portion of the humerus. Central canal finder was then used to open up the canal. We reamed to a 9mm reamer. We then broached to a 9mm stem. We trialed the 4mm liner, with the 4mm humeral baseplate. We obtained an adequate reduction at this time with a nice stable shoulder. Good internal rotation to the gluteus, forward elevation to 140?, external rotation to 20?. Final components were then assembled on the back table, trials were removed and the wound was copiously irrigated with normal saline after dislocating the shoulder. Once the final components were assembled they were impacted into place. Shoulder was then reduced and found to be stable with good range of motion. Subscapularis tendon not repairable. The wound was then copiously irrigated out with a 1 L normal saline lavage. The deltopectoral fascia was then closed using #1 Vicryl skin was closed using 2-0 Vicryl interrupted sutures and final skin closure was done with 3-0 Monocryl. Steri-Strips are placed for final skin closure. Sterile dressing was placed patient was then placed in a sling and awakened by anesthesia. Patient was then transferred to the PACU for recovery. Postoperative plan: Patient will be admitted to the hospital overnight. They will get physical therapy starting in 2 weeks with normal postoperative regimen. Patient will be placed on 325 mg daily for DVT prophylaxis. The first postoperative appointment will be in 2 weeks for wound check and initiation of phase 1 physical therapy. Grafts/Implants Used: Navi reunion total shoulder reverse - Complications None - Admit VTE Documentation VTE Present on Admission: No VTE Mechan Device Prophylaxis: SCD's, Knee High TUNDE Hose VTE Pharm Prophylaxis ordered?: Yes
--- NOTE | 2018-08-17 14:20 | RAD_ITS ---
STUDY: X-RAY - RIGHT SHOULDER REASON FOR EXAM: Female, 68 years old. Postop total shoulder arthroplasty. TECHNIQUE: 1 view(s) of the shoulder. COMPARISON: 4 images of the right shoulder September 30, 2017. FINDINGS: The patient has undergone right total shoulder arthroplasty. Following resection of the humeral head, a metal prosthesis was placed, its stem extending to nearly the mid humeral shaft. The metal prosthesis at the glenoid of the scapula secured by at least 3 metal screws. The metal prosthetic components are in anatomic alignment. Normal acromioclavicular joint. Normal acromion. The soft tissue structures are unremarkable. There is no demonstrated acute fracture. Normal visualized pulmonary apex. RAD/Shoulder One View IMPRESSION: Status post right total shoulder arthroplasty. Electronically Signed: Suhail Hui MD at 18:22 EST , Service support ,
[2018-08-17] MEDS: Ondansetron 4 MG/2 ML Vial IV (16:04)
[2018-08-17] MEDS: Cefazolin 1 GM/50 ML BAG IV (18:54)
[2018-08-17] MEDS: Lactated Ringers 1,000 ML 125 ML IV (20:16)
[2018-08-17] MEDS: oxyCODONE 5 MG Tablet PO (20:24)
[2018-08-17] MEDS: MELATONIN 10 MG TABLET PO (22:40)
[2018-08-17] MEDS: Meloxicam 7.5 MG Tablet PO (22:41)
[2018-08-17] MEDS: Pregabalin 50 MG Capsule 100 MG PO (22:58)
[2018-08-18] MEDS: Cefazolin 1 GM/50 ML BAG IV (03:51)
[2018-08-18 03:59] VITALS: BP 118/53; PULSE 93; RESP 18; TEMP 37.3; O2SAT 95
[2018-08-18] MEDS: Acetaminophen 500 MG Tablet 1000 MG PO ×2 (06:24→14:34)
[2018-08-18] MEDS: Pregabalin 50 MG Capsule 100 MG PO ×2 (06:24→14:34)
[2018-08-18 07:25] VITALS: BP 126/57; PULSE 87; RESP 16; TEMP 37.2; O2SAT 93
--- NOTE | 2018-08-18 07:34 | PCM.PN.ORT ---
Subjective: Patient sitting at bedside eating breakfast. Patient states pain is well managed. Denies chest pain, shortness breath, calf pain, nausea vomiting. Patient states she is ready for discharge home today Objective: Dressings clean dry intact. Negative signs and symptoms of DVT. Patient's last vitals are within normal limits. Patient has no respiratory distress. 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 Flexion extension of the elbow with good strength good supination pronation of the wrist. - Physical Exam General: Alert, Oriented x3, Cooperative Oral: Moist Mucosa Neurological: Cranial nerves II-XII grossly intact Psych/Mental Status: Normal Affect, Alert and oriented to time, place, person, mood and affect Vital Signs Temp Pulse Resp BP Pulse Ox 99.0 F 87 16 126/57 H 93 08/18/18 07:25 08/18/18 07:25 08/18/18 07:25 08/18/18 07:25 08/18/18 07:25 Oxygen Flow Rate (L/min) 4 Oxygen Delivery Method Room Air Weight: 106.594 kg Body Mass Index (BMI) 43.0 Intake and Output for Last 24 Hours 08/16/18 08/17/18 08/18/18 23:59 23:59 23:59 Intake Total 1300 / 1300 1823 / 1823 Balance 1300 / 1300 1823 / 1823 Medical Necessity - Tobacco Use Smoking Status: Former smoker Assessment/Plan That is post right shoulder hemiarthroplasty Plan 1. Continue all pain medications as prescribed 2. Aspirin 81 mg as prescribed for postop DVT prophylaxis 3. Continue postop physical therapy 4. Encourage incentive spirometry 5. Probable discharge home this afternoon after being seen by Dr. Crabtree.
--- NOTE | 2018-08-18 07:37 | PN.ORTHO_ITS ---
Subjective: Patient sitting at bedside eating breakfast. Patient states pain is well managed. Denies chest pain, shortness breath, calf pain, nausea vomiting. Patient states she is ready for discharge home today Objective: Dressings clean dry intact. Negative signs and symptoms of DVT. Patient's last vitals are within normal limits. Patient has no respiratory distress. 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 Flexion extension of the elbow with good strength good supination pronation of the wrist. - Physical Exam General: Alert, Oriented x3, Cooperative Oral: Moist Mucosa Neurological: Cranial nerves II-XII grossly intact Psych/Mental Status: Normal Affect, Alert and oriented to time, place, person, mood and affect Vital Signs Temp Pulse Resp BP Pulse Ox 99.0 F 87 16 126/57 H 93 08/18/18 07:25 08/18/18 07:25 08/18/18 07:25 08/18/18 07:25 08/18/18 07:25 Oxygen Flow Rate (L/min) 4 Oxygen Delivery Method Room Air Weight: 106.594 kg Body Mass Index (BMI) 43.0 Intake and Output for Last 24 Hours 08/16/18 08/17/18 08/18/18 23:59 23:59 23:59 Intake Total 1300 / 1300 1823 / 1823 Balance 1300 / 1300 1823 / 1823 Medical Necessity - Tobacco Use Smoking Status: Former smoker Assessment/Plan That is post right shoulder hemiarthroplasty Plan 1. Continue all pain medications as prescribed 2. Aspirin 81 mg as prescribed for postop DVT prophylaxis 3. Continue postop physical therapy 4. Encourage incentive spirometry 5. Probable discharge home this afternoon after being seen by Dr. Crabtree.
[2018-08-18] MEDS: Calcium (Elemental) 500 MG Tablet PO (07:41)
[2018-08-18] MEDS: Folic Acid 1 MG Tablet PO (07:41)
[2018-08-18] MEDS: Vitamin B Comp W-C Capsule 1 CAP PO (07:41)
[2018-08-18] MEDS: Aspirin 325 MG Tablet PO (07:41)
[2018-08-18] MEDS: Losartan Potassium 100 MG Tablet PO (09:12)
[2018-08-18] MEDS: Venlafaxine HCl 75 MG Tablet PO (09:13)
[2018-08-18] MEDS: hydroCHLOROthiazide 25 MG Tablet PO (09:13)
[2018-08-18] MEDS: Leflunomide 10 MG TABLET PO (09:15)
[2018-08-18] MEDS: Magnesium Oxide 400 MG Tablet 200 MG PO (09:15)
[2018-08-18] MEDS: Pantoprazole Sodium 40 MG Tablet PO (09:22)
[2018-08-18] MEDS: Famotidine 20 MG Tablet PO (09:22)
[2018-08-18] MEDS: amLODIPine 5 MG Tablet PO (09:22)
[2018-08-18] MEDS: Meloxicam 7.5 MG Tablet PO (09:22)
[2018-08-18] MEDS: Ascorbic Acid 500 MG Tablet 1000 MG PO (09:23)
[2018-08-18 14:36] VITALS: BP 136/80; PULSE 82; RESP 18; TEMP 36.9; O2SAT 94
--- NOTE | 2018-08-18 15:37 | DCINST_ITS ---
Discharge Diet: No Restrictions Discharge Activity: May Not Drive May shower in (days): 1 Ice area for (Minutes): 20 - Ice area for 20 minutes each hour while awake Weight Bearing Status: No weight bearing - R arm Call your doctor if your incision/area has: Continuous Slow Oozing, Sudden Increased Bleeding, Increased Pain/ Swelling, Increased Redness, Foul Smelling Discharge Call your doctor if you observe: Fever of 101 or Higher, Coldness, Increased Pain, Numbness or Tingling, Change in Color Remove Dressing in (days):: 08-22-2018 Cleanse incision/area with: Soap & Water Additional Dressing/Incision Instructions:: If incision is clean dry and intact may leave the wound open to air and continue showering. If there is continued drainage continue daily dry dressing changes and keep incision clean dry and intact until there is no drainage. Allergies/Adverse Reactions: Allergies Sulfa (Sulfonamide Antibiotics) Allergy (Mild, Verified 08/04/18 13:10) Unknown Medications to take at Discharge alprazolam 1 mg tablet 1 mg PO TID PRN 30 Days #90 01/05/18 ascorbic acid (vitamin C) 500 mg capsule 1,000 mg PO DAILY 01/05/18 calcium carbonate 500 mg calcium (1,250 mg) tablet 600 mg PO DAILY tab 01/05/18 cholecalciferol (vitamin D3) 1,000 unit capsule 1,000 unit PO QDAY 01/05/18 dexlansoprazole 60 mg capsule,biphase delayed release 60 mg PO DAILY 90 Days #90 01/05/18 leflunomide 10 mg tablet 10 mg PO DAILY 30 Days #15 01/05/18 losartan 100 mg-hydrochlorothiazide 25 mg tablet 1 tab PO DAILY 90 Days #90 01/05/18 lutein 20 mg-zeaxanthin 1,000 mcg capsule 1 cap PO DAILY 01/05/18 magnesium 30 mg tablet 250 mg PO DAILY 01/05/18 potassium chloride ER 20 mEq tablet,extended release 20 meq PO BID 90 Days #180 01/05/18 tramadol 50 mg tablet 50 mg PO PRN PRN 30 Days #90 01/05/18 venlafaxine 75 mg tablet 75 mg PO DAILY 90 Days #90 01/05/18 vitamin B complex tablet 1 tab PO QDAY 01/05/18 zinc 50 mg tablet 100 mg PO QDAY 01/05/18 Amlodipine Besylate [Norvasc] 5 mg PO DAILY 08/04/18 Biotin 1 mg PO DAILY 08/04/18 Folic Acid 1 mg PO DAILY 08/04/18 Melatonin 10 mg PO QHS 08/04/18 Meloxicam [Mobic] 7.5 mg PO BID 08/04/18 Methotrexate 12.5 mg PO Q7D 08/04/18 Pregabalin [Lyrica] 100 mg PO TID 08/04/18 Acetaminophen [Tylenol] 1,000 mg PO Q8 #90 tablet 08/18/18 Aspirin 325 mg PO DAILY@0800 #30 tablet 08/18/18 Ensure Enlive 120 ml PO TID liquid 08/18/18 Famotidine [Pepcid] 20 mg PO DAILY #30 tablet 08/18/18 Oxycodone [Oxyir] 5 - 10 mg PO Q4H PRN PRN 7 Days #60 tablet 08/18/18 Senna/Docusate Sodium [Senokot-S] 2 tablet PO BID PRN PRN #30 tablet 08/18/18 The following prescriptions were given: Oxycodone [Oxyir] 5 - 10 mg PO Q4H PRN PRN 7 Days #60 tablet PRN Reason: Pain Acetaminophen [Tylenol] 1,000 mg PO Q8 #90 tablet Aspirin 325 mg PO DAILY@0800 #30 tablet Famotidine [Pepcid] 20 mg PO DAILY #30 tablet Senna/Docusate Sodium [Senokot-S] 2 tablet PO BID PRN PRN #30 tablet PRN Reason: Constipation Primary Care Physician: Shakira Fuchs DO [Primary Care Provider] - Test Results: Test results from this visit will be discussed in further detail at your follow- up appointment, if applicable. Please Follow Up With: Prosper Bustillos PA-C When: 08-30-2018
--- NOTE | 2018-08-18 15:53 | CASEMGMT ---
RN NAS Face to Face with patient for initial transition planning/care coordination assessment. RN CM introduced self and role at [facility]. Patient lying in bed, alert and oriented. Patient willing to participate in assessment and is able to answer all questions appropriately. Care providers, pharmacy, and demographics verified. Patient wishes to discharge home, denies need for home health at this time. Patient states she has no further needs or concerns at this time. CM to follow for discharge planning needs that may arise. PCP: Shila Specialists: None Preferred Pharmacy: [facility] Insurance: [facility] Prescription Benefit: Silver Script Living Will/HPOA: None LNOK: Living Arrangements: Patient lives with in 2 story home with bed and bath on first floor. Transportation: DME/HHC: walker Disposition Plan: Patient to discharge with family support and follow-up plans in place. Tiffany PATTERSON, RN, CM
== END 2018-08-18 16:21 | disposition home or self-care (01) | DRG 483 ==
LOC: ACINP 08:28 → MS3 11:40
PROVIDERS: Admitting Provider Specialist; Family Provider Family Medicine; PCP Family Medicine; Referring Provider Specialist; Visit Provider Specialist
PROC: 0RRJ00Z Replacement of Right Shoulder Joint with Reverse Ball and Socket Synthetic Substitute, Open Approach (ICD-10-PCS; CPT 23472; principal; 2018-08-17 10:30)
DX: M75.101 Unspecified rotator cuff tear or rupture of right shoulder, not specified as traumatic (principal); Z68.41 Body mass index [BMI] 40.0-44.9, adult; M12.811 Other specific arthropathies, not elsewhere classified, right shoulder; I10 Essential (primary) hypertension; D86.9 Sarcoidosis, unspecified; M79.7 Fibromyalgia; E66.01 Morbid (severe) obesity due to excess calories; K22.70 Barrett's esophagus without dysplasia; M51.36 Other intervertebral disc degeneration, lumbar region; Z87.891 Personal history of nicotine dependence
CPT/HCPCS: 36415; 73020; 80048; 82040; 85025; 87081; 93005; 97165; C1776; J7040; J7120; J2405

== ENCOUNTER → 2018-08-26 14:51 | Outpatient (CLI) | payer MEDICARE, OTHER, SELFPAY ==
[2018-08-17 15:10] VITALS: BMI 43.0
[2018-08-26 17:33] LABS: Absolute Lymphocyte Count 1.39 X10^3/ul (0.83-4.51); Absolute Neutrophil Count 4.9 X10^3/uL (2.0-7.7); Basophil# 0.03 X10^3/uL; Basophil% 0.4 % (0-1); Eosinophil# 0.15 X10^3/uL; Eosinophils% 2.1 % (0-5); Hematocrit 39.7 % (37-47); Hemoglobin 12.6 g/dl (12.0-15.0); Lymphocyte # 1.39 X10^3/ul (4.0); Lymphocyte % 19.8 % (19-41); Mean Corp Hgb Conc 31.7 g/gl (32-36); Mean Corpuscular Hgb 29.2 pg (27.0-32.0); Mean Corpuscular Volume 91.9 fL (81-99); Mean Platelet Vol. 10.5 fl (6.2-12.0); Monocyte# 0.53 X10^3/uL; Monocyte% 7.5 % (0-10); Neutrophil # 4.91 X10^3/uL (2.7-7.7); Neutrophil % 70.1 % (47-70); Platelet Count 283 K/mm3 (150-450); RBC Distribution Width CV 13.5 % (11.6-14.6); RBC Distribution Width SD 44.2 fl (35.1-43.9); Red Blood Count 4.32 M/mm3 (4.2-5.4)
[2018-08-26 17:38] LABS: POSITIVE COUNT NO; POSITIVE DIFFERENTIAL NO; POSITIVE MORPHOLOGY NO
[2018-08-26 17:51] LABS: ALB/GLOB Ratio 0.9 RATIO (0.9-2.4); AST(SGOT) 24 U/L (15-37); Alanine Aminotransfer ALT/SGPT 75 U/L (13-56); Albumin, Serum 3.5 g/dL (3.2-5.0); Alkaline Phosphatase 153 U/L (45-117); Anion Gap 4 (5-15); BUN 18 mg/dL (7-18); BUN/Creat Ratio 23.3 RATIO (10-20); Calcium,Total 9.4 mg/dL (8.5-10.1); Chloride 103 mmol/L (98-107); Creatinine, Serum 0.77 mg/dL (0.55-1.02); EST Glomerular Filtration Rate 79 mL/min (>60); Est Glom Filt Rate - Afr Amer 96 mL/min (>60); Globulin 4.1 g/dL (2.2-4.2); Glucose 96 mg/dL (74-106); Potassium 4.1 mmol/L (3.5-5.1); Protein, Total 7.6 g/dL (6.4-8.2); Sodium Level 142 mmol/L (136-145)
--- OUTSIDE RECORDS SUMMARY | 2018-10-21 20:26 | XMS RPT_ITS ---
:1950 Author Organization OHIP Support Name Relationship Address Phone RIK OCONNOR Unavailable [id number] + [place] [address] R Unavailable Unavailable Unavailable OCONNOR, RIK Unavailable [address] + [place] [address] R Unavailable Unavailable Unavailable OCONNOR, RIK Unavailable [address] + [place] [address] R Unavailable Unavailable Unavailable OCONNOR, RIK Unavailable [address] + [place] [address] R Unavailable Unavailable Unavailable OCONNOR, RIK Unavailable [address] + [place] [address] R Unavailable Unavailable Unavailable OCONNOR, RIK Unavailable [address] + [place] [address] R Unavailable Unavailable Unavailable OCONNOR, RIK Unavailable [address] + [place] [address] R Unavailable Unavailable Unavailable OCONNOR, RIK Unavailable [address] + [place] [address] R Unavailable Unavailable Unavailable OCONNOR, RIK Unavailable [address] + [place] [address] R Unavailable Unavailable Unavailable OCONNOR, RIK Unavailable [address] [phone] [place] [address] R Unavailable Unavailable Unavailable OCONNOR, RIK Unavailable [address] [phone] [place] [address] R Unavailable Unavailable Unavailable OCONNOR, RIK Unavailable [address] [phone] [place] [address] R Unavailable Unavailable Unavailable OCONNOR, RIK Unavailable [address] [phone] [place] [address] R Unavailable Unavailable Unavailable OCONNOR, RIK Unavailable [address] [phone] [place] [address] R Unavailable Unavailable Unavailable Care Team Providers Name Role Phone Fredericlanjl, Jocelin Attending Unavailable Malys, Shakira Primary Care Unavailable Vellanki, Jocelin Attending Unavailable Vellanki, Jocelin Referring Unavailable Malys, Shakira Primary Care Unavailable Malys, Shakira Attending Unavailable Malys, Shakira Primary Care Unavailable Malys, Shakira Attending Unavailable Malys, Shakira Primary Care Unavailable Chicorelli, Leydi Attending Unavailable Malys, Shakira Referring Unavailable Malys, Shakira Primary Care Unavailable Chicorelli, Leydi Attending Unavailable Chicorelli, Leydi Referring Unavailable Malys, Shakira Primary Care Unavailable Vellanki, Jocelin Attending Unavailable Vellanki, Jocelin Referring Unavailable Malys, Shakira Primary Care Unavailable Vellanki, Jocelin Attending Unavailable Vellanki, Jocelin Referring Unavailable Malys, Shakira Primary Care Unavailable Malys, Shakira Attending Unavailable Malys, Shakira Primary Care Unavailable Malys, Shakira Referring Unavailable Sotero Crabtree Attending Unavailable Bro, Sotero Referring Unavailable Malys, Shakira Primary Care Unavailable Sotero Crabtree Admitting Unavailable BroSotero Attending Unavailable Bro, Sotero Referring Unavailable Malys, Shakira Primary Care Unavailable Malys, Shakira Attending Unavailable Malys, Shakira Referring Unavailable Malys, Shakira Primary Care Unavailable Stone Smith Attending Unavailable Bro, Sotero Referring Unavailable Vellanki, Jocelin Attending Unavailable Vellanki, Jocelin Referring Unavailable Malys, Shakira Primary Care Unavailable PROBLEMS PROBLEMS DATE TYPE CONDITION / CODE ATTENDING STATUS SOURCE 08/18/2018 Unknown G89.18 - Other acute Sotero Crabtree [facility] postprocedural pain / Community G89.18(ICD-10) Hospital Repository 08/17/2018 Unknown Z01.810 - Encounter Stone Smith [facility] for preprocedural [facility] cardiovascular Hospital examination / Repository Z01.810(ICD-10) 06/02/2018 Unknown Z79.899 - Other long Vellanlj, Jocelin [facility] term (current[facility] drug [facility] therapy / Hospital Z79.899(ICD-10) Repository 06/02/2018 Unknown D86.9 - Sarcoidosis, Vellanki, Jocelin [facility] unspecified / Community D86.9(ICD-10) Hospital Repository 06/02/2018 Unknown M79.7 - Fibromyalgia Vellanki, Jocelin [facility] / M79.7(ICD-10) [facility] Hospital Repository 06/02/2018 Unknown M17.0 - Bilateral Vellanki, Jocelin [facility] primary [facility] osteoarthritis of Hospital knee / M17.0(ICD-10) Repository 06/02/2018 Unknown M18.0 - Bilateral Vellanki, Jocelin [facility] primary [facility] osteoarthritis of Hospital first carpometacarpal Repository joints / M18.0(ICD-10) 06/02/2018 Unknown M15.9 - Vellanki, 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, Community unspecified / Hospital M15.9(ICD-10) Repository 06/02/2018 Unknown M75.41 - Impingement Vellanki, Jocelin [facility] syndrome of right Community shoulder / Hospital M75.41(ICD-10) Repository 06/02/2018 Unknown K76.0 - Fatty (change Vellanki, Jocelin [facility] of) liver, not Community elsewhere classified Hospital / K76.0(ICD-10) Repository 06/02/2018 Unknown 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, 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 / Hospital K22.70(ICD-10) Repository 06/02/2018 Unknown H35.30 - Unspecified Vellanki, Jocelin [facility] macular degeneration Community / H35.30(ICD-10) Hospital Repository 06/02/2018 Unknown G47.33 - Obstructive Vellanki, Jocelin [facility] sleep apnea (adult) Community (pediatric) / Hospital G47.33(ICD-10) Repository 06/02/2018 Unknown K21.9 - Vellanki, Jocelin [facility] Gastro-esophageal Community reflux disease Hospital without esophagitis / Repository K21.9(ICD-10) 06/02/2018 Unknown F41.9 - Anxiety Vellanki, Jocelin [facility] disorder, unspecified Community / F41.9(ICD-10) Hospital Repository 04/12/2018 Unknown S46.011D - Strain of Chicorelli, [facility] muscle(s) and Leydi Community tendon(s) of the Hospital rotator cuff of right Repository shoulder, subsequent encounter / S46.011D(ICD-10) 01/05/2018 Unknown Z12.31 - Encounter Shakira Fuchs [facility] for screening Community mammogram for Hospital malignant neoplasm of Repository breast / Z12.31(ICD-10) 12/15/2017 Unknown M25.511 - Pain in Shakira Fuchs [facility] right shoulder / Community M25.511(ICD-10) Hospital Repository 09/30/2017 Unknown 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 / [facility] M06.4(ICD-10) Hospital Repository PROCEDURES PROCEDURES No Procedure Records FoundRESULTS RESULTS CBC W/DIFF, AUTOMATED Collected: 08/26/2018 Status: F Source: [facility] 2:57 PM [facility] TYPE CODE TESTS RESULT OUT OF RANGE REFERENCE UNITS LAB L100.1000 4.4-11.0 K/mm3 Normal WBC 7.0 LAB L100.1200 4.2-5.4 M/mm3 Normal RBC 4.32 LAB L100.1300 12.0-15.0 g/dl Normal HGB 12.6 LAB L100.1400 37-47 % Normal HCT 39.7 LAB L100.1500 81-99 fL Normal MCV 91.9 LAB L100.1600 27.0-32.0 pg Normal MCH 29.2 LAB L100.1700 32-36 g/gl Low MCHC 31.7 LAB L100.1810 11.6-14.6 % Normal RDW CV 13.5 LAB L100.1820 35.1-43.9 fl High RDW SD 44.2 LAB L100.1900 150-450 K/mm3 Normal PLT 283 LAB L100.2000 6.2-12.0 fl Normal MPV 10.5 LAB L100.2100 47-70 % High NEUT% 70.1 LAB L100.2200 19-41 % Normal LY% 19.8 LAB L100.2300 0-10 % Normal MONO% 7.5 LAB L100.2400 0-5 % Normal EO% 2.1 LAB L100.2500 0-1 % Normal BASO% 0.4 LAB L100.2550 0.0-0.9 % Normal IM GRAN % 0.100 Result Comment: IG% - Immature Granulocytes (promyelocytes, myelocytes and metamyelocytes) > 1% indicates that a LEFT SHIFT is Present. LAB L100.2620 2.0-7.7 X10 3/uL Normal Absolute Neut 4.9 LAB L100.2720 0.83-4.51 X10 3/ul Normal Absolute Lymph 1.39 Performed By: #### L100.0100 #### [facility] [address] [place], [address] COMPREHENSIVE METABOLIC Collected: 08/26/2018 Status: F Source: [facility] 2:57 PM [facility] REPOSITORY TYPE CODE TESTS RESULT OUT OF RANGE REFERENCE UNITS LAB L501.0100 74-106 mg/dL Normal GLU 96 Result Comment: Please note revised GLUCOSE reference range effective 2017. LAB L501.1000 7-18 mg/dL Normal BUN 18 LAB L501.1100 0.55-1.02 mg/dL Normal CREAT,SERUM 0.77 Result Comment: The validity of the calculated GFR AND GFRAA in patients over 70 years has not been determined. Clinical correlation is essential. LAB L501.1110 >60 mL/min Normal EST GFR 79 Result Comment: Non- GFR Calc LAB L501.1115 >60 mL/min Normal EST GFR - AA 96 Result Comment: GFR Calc LAB L501.1300 10-20 RATIO High BUN/CRE 23.3 LAB L501.1500 6.4-8.2 g/dL T Normal PROT 7.6 LAB L501.1800 3.2-5.0 g/dL Normal ALB 3.5 LAB L501.1950 2.2-4.2 g/dL Normal GLOB 4.1 LAB L501.2000 0.9-2.4 RATIO Normal A/G 0.9 LAB L501.2200 8.5-10.1 mg/dL CA Normal 9.4 LAB L501.4100 15-37 U/L Normal AST 24 LAB L501.4305 45-117 U/L High ALK P 153 LAB L501.4405 13-56 U/L High ALT 75 LAB L501.4600 0.20-1.00 mg/dL T Normal BILI 0.30 LAB L501.5300 136-145 mmol/L NA Normal 142 LAB L501.5600 3.5-5.1 mmol/L K Normal 4.1 LAB L501.5900 98-107 mmol/L CL Normal 103 LAB L501.6100 21.0-32.0 mmol/L High CO2 35.0 LAB L501.6200 5-15 Low GAP 4 Performed By: #### L500.4050 #### [facility] [address] [place], [address] DISCHARGE INSTRUCTION Observed: 08/18/2018 Status: F Source: [facility] 3:37 PM [facility] REPOSITORY [facility] Medical Records Department [address] [place] [address] Instructions for Home/Discharge Instructions 08/18/18 1536 MR#: [id number] Acct: [id number] Name: JAMILAH OCONNOR Rep #: [id number] : 1950 68 From: Sotero Crabtree MD PCP: Shakira Fuchs DO Status: ADM IN Discharge Diet: No Restrictions Discharge Activity: May Not Drive May shower in (days): 1 Ice area for (Minutes): 20 - Ice area for 20 minutes each hour while awake Weight Bearing Status: No weight bearing - R arm Call your doctor if your incision/area has: Continuous Slow Oozing, Sudden Increased Bleeding, Increased Pain/ Swelling, Increased Redness, Foul Smelling Discharge Call your doctor if you observe: Fever of 101 or Higher, Coldness, Increased Pain, Numbness or Tingling, Change in Color Remove Dressing in (days):: 08-22-2018 Cleanse incision/area with: Soap AND Water Additional Dressing/Incision Instructions:: If incision is clean dry and intact may leave the wound open to air and continue showering. If there is continued drainage continue daily dry dressing changes and keep incision clean dry and intact until there is no drainage. Allergies/Adverse Reactions: Allergies Sulfa (Sulfonamide Antibiotics) Allergy (Mild, Verified 08/04/18 13:10) Unknown Medications to take at Discharge alprazolam 1 mg tablet 1 mg PO TID PRN 30 Days #90 01/05/18 ascorbic acid (vitamin C) 500 mg capsule 1,000 mg PO DAILY 01/05/18 calcium carbonate 500 mg calcium (1,250 mg) tablet 600 mg PO DAILY tab 01/05/18 cholecalciferol (vitamin D3) 1,000 unit capsule 1,000 unit PO QDAY 01/05/18 dexlansoprazole 60 mg capsule,biphase delayed release 60 mg PO DAILY 90 Days #90 01/05/18 leflunomide 10 mg tablet 10 mg PO DAILY 30 Days #15 01/05/18 losartan 100 mg-hydrochlorothiazide 25 mg tablet 1 tab PO DAILY 90 Days #90 01/05/18 lutein 20 mg-zeaxanthin 1,000 mcg capsule 1 cap PO DAILY 01/05/18 magnesium 30 mg tablet 250 mg PO DAILY 01/05/18 potassium chloride ER 20 mEq tablet,extended release 20 meq PO BID 90 Days #180 01/05/18 tramadol 50 mg tablet 50 mg PO PRN PRN 30 Days #90 01/05/18 venlafaxine 75 mg tablet 75 mg PO DAILY 90 Days #90 01/05/18 vitamin B complex tablet 1 tab PO QDAY 01/05/18 zinc 50 mg tablet 100 mg PO QDAY 01/05/18 Amlodipine Besylate [Norvasc] 5 mg PO DAILY 08/04/18 Biotin 1 mg PO DAILY 08/04/18 Folic Acid 1 mg PO DAILY 08/04/18 Melatonin 10 mg PO QHS 08/04/18 Meloxicam [Mobic] 7.5 mg PO BID 08/04/18 Methotrexate 12.5 mg PO Q7D 08/04/18 Pregabalin [Lyrica] 100 mg PO TID 08/04/18 Acetaminophen [Tylenol] 1,000 mg PO Q8 #90 tablet 08/18/18 Aspirin 325 mg PO DAILY@0800 #30 tablet 08/18/18 Ensure Enlive 120 ml PO TID liquid 08/18/18 Famotidine [Pepcid] 20 mg PO DAILY #30 tablet 08/18/18 Oxycodone [Oxyir] 5 - 10 mg PO Q4H PRN PRN 7 Days #60 tablet 08/18/18 Senna/Docusate Sodium [Senokot-S] 2 tablet PO BID PRN PRN #30 tablet 08/18/18 The following prescriptions were given: Oxycodone [Oxyir] 5 - 10 mg PO Q4H PRN PRN 7 Days #60 tablet PRN Reason: Pain Acetaminophen [Tylenol] 1,000 mg PO Q8 #90 tablet Aspirin 325 mg PO DAILY@0800 #30 tablet Famotidine [Pepcid] 20 mg PO DAILY #30 tablet Senna/Docusate Sodium [Senokot-S] 2 tablet PO BID PRN PRN #30 tablet PRN Reason: Constipation Primary Care Physician: Shakira Fuchs DO [Primary Care Provider] - Test Results: Test results from this visit will be discussed in further detail at your follow-up appointment, if applicable. Please Follow Up With: Prosper Bustillos PA-C When: 08-30-2018 08/18/18 1537 <Electronically signed by Sotero Crabtree MD> Date Sotero Crabtree MD CC: Shakira Fuchs DO OPERATIVE REPORT Observed: 08/18/2018 Status: F Source: [facility] 3:35 PM [facility] REPOSITORY [facility] Medical Records Department [address] [place] [address] Operative Report 08/17/18 1317 MR#: [id number] Acct: [id number] Name: JAMILAH OCONNOR Rep #: [id number] : 1950 68 From: Sotero Crabtree MD PCP: Shakira Fuchs DO Status: ADM IN [facility] Operation Date of Procedure: 08/17/18 Pre-Operative Diagnosis: Right shoulder cuff tear arthropathy Post-Operative Diagnosis: Right shoulder cuff tear arthropathy Surgery/Procedure Performed:: Right reverse total shoulder replacement Description of Surgical Findings:: Stable shoulder ham pumper: Juancarlos Ramon Type of Anesthesia:: General Anesthesiologist: Roberto Sage Special Medications: 2 g Ancef, 1 g TXA at incision, 1 g TXA closure, 10 mg Decadron, joint cocktail (5 mg Duramorph, 30 mL of 0.5% Ropivicaine, 1000 units of epinephrine, 30 mg of Toradol), IV vancomycin throughout the case Specimen's removed: esteban cuts Estimated Blood Loss (mL): 150 Fluids Replaced: 1500 ml crystalloid Description of Procedure: Components used 1. glenoid baseplate from Navi for reverse TSA 2. 32, +6 mm Glenosphere 3. 32 mm, 4mm humeral liner 4. reverse TSA humeral adapter tray 4mm 5. humeral stem primary press-fit 9mm size Brief history/Operative indications: 68 yo f with history of right shoulder pain and cuff tear arthropathy. Patient failed conservative measures as mentioned in the H AND P. After discussion of risk and benefits of reverse total shoulder replacement including but not limited to blood loss, DVTs, PEs, nerve vessel damage, infection, general risk of anesthesia including loss of life, instability and stiffness patient demonstrating understanding wish to proceed was able to sign informed consent. Medical clearance was obtained. Procedure: On the date of the procedure, patient's R upper extremity was marked in the preoperative area. Patient was taken back to the operating room where they were placed on the table in the supine position. Anesthesia assumed control of the C-spine and airway, then administered anesthetic. All bony prominences were identified well-padded, the head was secured and the patient was placed in the beachchair position at about 35 inclination. Anesthesia remained in control of the C-spine airway throughout the remainder of the procedure. Patient was then appropriately fastened to the table and the R upper extremity was prepped in a sterile fashion. The surgeons then scrubbed. Upon reentering the room, the R upper extremity was draped in a sterile fashion and the incision was marked out. Timeout was called, everyone agreed upon the side, the site, the procedure to be performed, patient identity and antibiotics given. Incision was taken down through skin and subcutaneous tissue, fat down to fascia. The stripe of the deltopectoral interval and cephalic vein were identified and blunt dissection was used to retract the deltoid. The cephalic vein was retracted laterally. Clavipectoral fascia was then incised and a cobra retractor was placed in the wound. The proximal one third of the pectoralis major insertion was released. Pectoralis tendon insertion was used to tenodesed the biceps tendon which was identified in the bicipital groove. Tenodesis was done with #1 Vicryl. Proximally we followed the biceps tendon after transecting it into the rotator interval. The rotator interval was split and the arm was externally rotated. The split was 1 cm medial to the bicipital groove. Subscapularis tendon was released. We released down the anterior portion of the humeral head and a stroud elevator was used to release the inferior portion of the humeral head. The arm was externally rotated and the shoulder was dislocated. The humeral head cutting guide was used to make humeral cut. This was done at 20 retroversion. Once his humeral head cut was made humerus was retracted out of the way and the glenoid was exposed. After exposing the glenoid, the labrum and the remaining proximal biceps were debrided. At this time we are able to view the entire outer edge of the glenoid. A central pin was placed we sequentially reamed over this central pin to 32mm. Once this was completed the central pedicle was drilled. The glenoid baseplate was impacted into place. Wound was closely irrigated out with normal saline we then drilled sequentially for 4 screws. Screws were placed superiorly and inferiorly and tightened down the screws. Then anteriorly and posteriorly. Once the screws were appropriately tightened into place the glenoid baseplate was compressed against the exposed subchondral bone. A 32, +6mm glenosphere was impacted into place engaging the Flores taper. Attention was then turned towards the humerus. The humerus was again externally rotated exposing the proximal portion of the humerus. Central canal finder was then used to open up the canal. We reamed to a 9mm reamer. We then broached to a 9mm stem. We trialed the 4mm liner, with the 4mm humeral baseplate. We obtained an adequate reduction at this time with a nice stable shoulder. Good internal rotation to the gluteus, forward elevation to 140 , external rotation to 20 . Final components were then assembled on the back table, trials were removed and the wound was copiously irrigated with normal saline after dislocating the shoulder. Once the final components were assembled they were impacted into place. Shoulder was then reduced and found to be stable with good range of motion. Subscapularis tendon not repairable. The wound was then copiously irrigated out with a 1 L normal saline lavage. The deltopectoral fascia was then closed using #1 Vicryl skin was closed using 2-0 Vicryl interrupted sutures and final skin closure was done with 3- 0 Monocryl. Steri-Strips are placed for final skin closure. Sterile dressing was placed patient was then placed in a sling and awakened by anesthesia. Patient was then transferred to the PACU for recovery. Postoperative plan: Patient will be admitted to the hospital overnight. They will get physical therapy starting in 2 weeks with normal postoperative regimen. Patient will be placed on 325 mg daily for DVT prophylaxis. The first postoperative appointment will be in 2 weeks for wound check and initiation of phase 1 physical therapy. Grafts/Implants Used: Navi reunion total shoulder reverse - Complications None - Admit VTE Documentation VTE Present on Admission: No VTE Mechan Device Prophylaxis: SCD's, Knee High TUNDE Hose VTE Pharm Prophylaxis ordered?: Yes 08/18/18 1535 <Electronically signed by Sotero Crabtree MD> Date Sotero Crabtree MD CC: Shakira Fuchs DO; Sotero Crabtree MD Signed SHOULDER ONE VIEW Observed: 08/17/2018 Status: F Source: [facility] 1:16 PM [facility] REPOSITORY [facility] Imaging Services [address] [place] [address] Shoulder One View MR#: [id number] Acct: [id number] Name: JAMILAH OCONNOR Rep #: [id number] : 1950 F 68 From: Crow Hui MD PCP: Shakira Fuchs DO Status: ADM IN Study: Shoulder One View Date of Exam: 08/17/18 Exam# [id number] Ordering Dr: Sotero Crabtree MD STUDY: X-RAY - RIGHT SHOULDER REASON FOR EXAM: Female, 68 years old. Postop total shoulder arthroplasty. TECHNIQUE: 1 view(s) of the shoulder. COMPARISON: 4 images of the right shoulder September 30, 2017. FINDINGS: The patient has undergone right total shoulder arthroplasty. Following resection of the humeral head, a metal prosthesis was placed, its stem extending to nearly the mid humeral shaft. The metal prosthesis at the glenoid of the scapula secured by at least 3 metal screws. The metal prosthetic components are in anatomic alignment. Normal acromioclavicular joint. Normal acromion. The soft tissue structures are unremarkable. There is no demonstrated acute fracture. Normal visualized pulmonary apex. RAD/Shoulder One View IMPRESSION: Status post right total shoulder arthroplasty. Electronically Signed: Suhail Hui MD at 18:22 EST , Service support , CC: Shakira Fuchs DO; Sotero Crabtree MD Deicer Repairer: Signed ALBUMIN, SERUM Collected: 08/11/2018 Status: F Source: [facility] 2:58 PM [facility] REPOSITORY TYPE CODE TESTS RESULT OUT OF RANGE REFERENCE UNITS LAB L501.1800 3.2-5.0 g/dL Normal ALB 3.9 Performed By: #### L501.1800 #### [facility] [address] [facility] [place], [address] 12 LEAD ELECTROCARDIOGRAM Observed: 08/09/2018 Status: F Source: [facility] 2:34 PM [facility] REPOSITORY [facility] Cardiovascular Services [address] [place] [address] EKG - [facility] 08/04/18 1406 MR#: [id number] Acct: [id number] Name: JAMILAH OCONNOR Rep #: [id number] : 1950 68 From: Stone Smith MD Attending Dr: Sotero Crabtree MD Status: PRE IN Ordering Dr: Sotero Crabtree MD Date: 08/04/18 Location: [facility] Sex: F C Admitted: Test Reason : Blood Pressure : / mmHG Vent. Rate : 079 BPM Atrial Rate : 079 BPM P-R Int : 186 ms QRS Dur : 076 ms QT Int : 394 ms P-R-T Axes : 078 051 041 degrees QTc Int : 451 ms Normal sinus rhythm Normal ECG Confirmed by STONE SMITH ([id number]), staff editor KELLEY WHITLOCK ([id number]) on 08/09/2018 2:34:06 PM Referred By: Sotero Crabtree Confirmed By:STONE SMITH 08/09/18 1434 Date Stone Smith MD CC: Shakira Fuchs DO; Sotero Crabtree MD Date Dictated: 08/04/181405 Date Transcribed: 08/04/181405 Deicer Repairer: Signed HISTORY AND PHYSICAL Observed: 08/04/2018 Status: F Source: [facility]AM 4:57 PM [facility] REPOSITORY [facility] Medical Records Department [address] [place] [address] History and Physical 08/04/18 1654 MR#: [id number] Acct: [id number] Name: JAMILAH OCONNOR Rep #: [id number] : 1950 68 From: Prosper Bustillos PA-C PCP: Shakira Fuchs DO Status: PRE IN Y Location: [facility] History and Physical DATE OF SURGERY: 08/17/2018 SCHEDULED PROCEDURE: Right Reverse Total Shoulder Arthroplasty HISTORY OF PRESENT ILLNESS: This is a 68-year-old female who is been having ongoing pain in her right dominant shoulder for over one year. Patient was seen in the past with previous MRI in November 2017. Patient saw Dr. Fili Brown in April in which a repeat MRI was done. MRI did reveal rotator cuff tear. Patient's pain can reach is highly as a 9/10. Her pain has been intermittent, dull, aching, sharp, and sore. She does complain of grinding sensation and popping in the right shoulder. She has difficult time with activities of daily living that require any overhead activity. She also gets pain with driving. Pain does awaken her at night. Patient has tried conservative measures in the past including 6 weeks of physical therapy with no improvement in motion. Previous corticosteroid injection with minimal relief, nonsteroidal anti-inflammatories. After failing conservative measures and discussing all treatment options with Dr. Sotero Crabtree, the patient would like to proceed with a right reverse total shoulder arthroplasty. Patient has a medical history pertinent for sarcoidosis, hypertension, and Haney's esophagitis, and fibromyalgia. She currently denies chest pain, shortness of breath, fevers chills, recent infections. We are obtaining surgical clearance from patient's primary care physician. REVIEW OF SYSTEMS: ROS: Const: Reports weight change, but denies anorexia, change in appetite, fever, hard of hearing and vision problems. CV: Denies chest pain, heart murmur, irregular heartbeat and peripheral vascular disease. Resp: Reports sleep apnea, SOB and wheezing, but denies asthma, cough, pneumonia and tuberculosis. GI: Reports constipation and difficulty swallowing, but denies diarrhea, heartburn, nausea, bloody stools and vomiting. : Urinary: reports incontinence. Musculo: Reports leg swelling, trouble walking and weakness, but denies limp. Skin: Denies Raynaud's, history of shingles and tattoo. Neuro: Reports numbness/tingling but denies ambulatory dysfunction, dizziness and tremor. Psych: Reports anxiety, depression, insomnia and stress, but denies mental illness. Romario/Lymph: Denies anemia, bleeding/bruising tendency and past transfusion. Reviewed, no changes. PAST MEDICAL HISTORY: PMH: Problem List: Body mass index 40+ - severely obese, Obesity, Essential hypertension, Localized, secondary osteoarthritis of the shoulder region, Bicipital tenosynovitis, Sprain of shoulder rotator cuff, Acquired spondylolisthesis, Degeneration of lumbar intervertebral disc, Displacement of lumbar intervertebral disc without myelopathy, Low back pain, Disorder of bursa of shoulder region, Degenerative joint disease of shoulder region Medical Problems: Arthritis, Fibromyalgia, High Blood Pressure, Barretts Esophageous, Sarcoidoisis Accidents: None Surgical Hx: Appendectomy - 1970,[facility] Gallbladder - 1970,[facility] Tonsillectomy - 1954,[facility] Tubal Ligation - 1979,[facility] Reverse Tubal Ligation,[facility],1983, Lung Biopsy,2007,[facility] Carpal Tunnel Release LT - 2000 KISHAN SANDERS Carpal Tunnel Release RT - 2000 KISHAN SANDERS Anesthesia Complications: None Assistive Devices: Glasses, Hearing Aid - ONE EAR Reviewed, no changes. SOCIAL HISTORY: SH: Marital: .Occupation: Disabled.Work Status: Disabled.Hand Dominance: Right-handed. Personal Habits: Cigarette Use: Former.Alcohol: Weekly use.Drug Use: Denies Use.Enjoy Exercising: Never Exercises. Reviewed, no changes. VITALS: Ht: 62 Wt: 235lb Wt k.596 BMI: 43.0 BP: 146/72 Pulse: 91 Resp: 16 T: 97.9 T: 36.6C ALLERGIES: Celebrex - Hives,Swelling,Itching MEDICATIONS: Meloxicam 7.5 mg 1 by mouth twice a day, Lyrica 100 mg 1 po Tid, Alprazolam 0.1 mg tid, prn, Vitamin D3 1000 Unit 1 tab pq qday, Calcium 600 600-400 MG- Unit 1po qday, Cpap Machine qhs, Melatonin 10 mg 1po qhs, Zinc 100 mg 1po qday, Vitamin B Complex 1po qday, Folic Acid 1 mg 2po qday, Losartan Potassium/Hydrochlorothiazide 100-25 mg 1po qday, Venlafaxine HCL 75 mg 1po qday, Methotrexate 2.5 mg 5 once weekly, Dexilant 60 mg 1po qday, Tramadol HCL 50 mg 1-2 by mouth every 6 hours as needed pain, Amlodipine Besylate 5 mg 1po qday, Magnesium 250 mg 2po qday, Lutein 20 mg 1po qday, Vitamin C 1000 mg 1po qday, Biotin 95005 mcg 1po qday PRE-OP EXAM: General appearance:NORMAL Other: Eyes: Conjunctivae and lids: NORMAL Pupils: ERR Ears, Nose, Mouth, and Throat: NORMAL Other: Inspection of lips, teeth and gums: NORMAL Other: Neck: Examination of neck: no masses noted. Respiratory: Assessment of respiratory effort: NORMAL Other: Auscultation of lungs: clear to auscultation no wheezes, rhonchi or rales. Cardiovascular: Auscultation of heart: regular rate and rhythm, no murmurs, gallops or rubs. Exam of carotid arteries: NORMAL Other: Gastrointestinal: Exam of abdomen: soft, nontender, nondistended bowel sounds present. PHYSICAL EXAMINATION: Right shoulder is cool to touch without erythema. Patient has tenderness to palpation along the anterior and lateral shoulder. Range of motion right shoulder: Active forward flexion 110, 150 passive range of motion, internal rotation to T7 on the left and L2 on the right, external rotation 5 on the right, 15 on the left. Patient has significant weakness with the supraspinatus testin/5 on the right and 5/5 on the left. Sensation intact to light touch. Neurovascularly intact. IMAGING STUDIES: MRI was done in April 2018 which does show severe retracted supraspinatus rotator cuff tear to be at the level of the glenoid. There is significant atrophy of the supraspinatus. Superior head migration and articular cartilage wear. Saline of the humeral head and associated subchondral edema consistent with severe osteoarthritis of the right shoulder. IMPRESSION: 1. Severe right shoulder osteoarthritis with retracted rotator cuff tear 2. Fibromyalgia 3. Sarcoidosis 4. Haney's esophagitis 5. Hypertension 6. Lumbar degenerative disc disease PLAN: Dr. Sotero Crabtree did discuss and review with the patient all treatment options including surgical versus nonsurgical options. Patient does wish to proceed with the above-stated procedure. Potential risks, benefits, and complications of the procedure were discussed in detail including but not limited to , infection, nerve and blood vessel damage, persistent pain, numbness, tingling, paresthesias, blood clot, pulmonary embolism, and requirement for possible further surgery. The patient expressed full understanding and has no further questions for the doctor. Patient does agree to proceed with the above-stated procedure and has signed the surgery consent form. This dictation was created using voice recognition software. Phonetic and/or grammatical errors may exist.. ___ I have re-examined the patient. There are no clinical changes since date of exam. ___ See progress notes for changes. ___ Dictated on admission Date: Time: Signature: 08/04/18 1657 <Electronically signed by Prosper Bustillos PA-C> Date Prosper Bustillos PA-C Cosigner Signature: Date (if applicable) CC: Shakira Fuchs DO; Prosper PARKER Signed CREATININE FINGERSTICK Collected: 08/04/2018 Status: F Source: [place] 3:06 PM [facility] REPOSITORY TYPE CODE TESTS RESULT OUT OF RANGE REFERENCE UNITS LAB L9100.0210 0.55-1.02 mg/dL Normal CREATININE WB 0.8 LAB L9100.0220 >60 mL/min EGFR WB Normal > 60.0000 Performed By: #### L9100.0200 #### [facility] Laboratory Point of Care [address] [place] [address] ABDOMEN/PELVIS WITH Observed: 08/04/2018 Status: F Source: [place] CONTRAST 2:48 PM [facility] REPOSITORY [facility] Imaging Services [address] [place] [address] Abdomen/Pelvis WITH Contrast MR#: [id number] Acct: [id number] Name: JAMILAH OCONNOR Rep #: [id number] : 1950 F 68 From: Mary Hurst MD PCP: Shakira Fuchs DO Status: REG CLI Study: Abdomen/Pelvis WITH Contrast Date of Exam: 08/04/18 Exam# [id number] Ordering Dr: Shakira Fuchs DO STUDY: CT ABDOMEN AND PELVIS WITH CONTRAST REASON FOR EXAM: Female, 68 years old. Left adrenal mass RADIATION DOSAGE (If Supplied By Facility): CTDIvol = ( 23.95 ) mGy, DLP = ( 1949.76 ) mGycm TECHNIQUE: Transaxial images were obtained from the lower chest to the upper thighs without oral contrast. 100 ml of Isovue 300 contrast was administered. Sagittal and coronal images were reconstructed. Individualized dose optimization techniques were used for this CT. COMPARISON: CT abdomen and pelvis without contrast dated July 01, 2018 FINDINGS: There is minimal dependent atelectasis in both lung bases. A 5 mm opacity is again seen in the periphery of the right middle lobe on image 5. A 7-8 mm opacity is again seen in the periphery of the left lower lobe at the diaphragm on image 9. There is no pleural effusion. The heart is normal in size. There is fatty infiltration of the liver. The gallbladder is surgically absent. The spleen is unremarkable. The pancreas is unremarkable. The right adrenal gland is normal in appearance. A 4.7 cm mass is again seen in the left adrenal gland with minimal coarse calcifications. At three different levels of the lesion, absolute washout ranges from about 28% to about 45%. No level shows absolute washout greater than 60%. Additionally, relative washout ranges from about 23% to about 35% and does not measure more than 40%. The right kidney is unremarkable. There is no dilatation of the collecting system in the right kidney. The left kidney is unremarkable. There is no dilatation of the collecting system in the left kidney. The stomach is unremarkable. The small bowel is unremarkable. There are diverticula in the distal colon without adjacent stranding. The appendix is surgically absent. There are minimal vascular calcifications. The inferior vena cava is unremarkable. The retroperitoneum is unremarkable. There is no free fluid in the abdomen. The urinary bladder is unremarkable. The uterus is normal in appearance. There are no abnormal masses in the adnexal regions. There are small phleboliths scattered in the lower pelvis. The soft tissues of the abdominal wall are unremarkable. There are moderate degenerative changes in the visualized spine. This is most pronounced at L5-S1. CT/Abdomen/Pelvis WITH Contrast IMPRESSION: A mass is again seen in the left adrenal gland measuring at least 4.7 cm in size. Assessment of absolute and relative washouts using Hounsfield units do not definitively confirm an adenoma. Although characterization may be altered by the size of the lesion and the presence of calcifications, consideration should be made for needle biopsy or short-term follow-up CT in 2-3 months. Given the persistent small opacities in both lung bases, a CT of the chest can also be obtained in 2-3 months to reassess the 7-8 mm nodule in the left lower lobe and to assess the remainder of the lungs. There is diverticulosis of the distal colon. There is no ascites or significant lymphadenopathy. Electronically Signed: Mary Hurst MD at 0:43 EST Tel Direct: [phone], Service support , CC: Shakira Fuchs DO Deicer Repairer: Signed CBC W/DIFF, AUTOMATED Collected: 08/04/2018 Status: F Source: [place] 2:36 PM [facility] REPOSITORY TYPE CODE TESTS RESULT OUT OF RANGE REFERENCE UNITS LAB L100.1000 4.4-11.0 K/mm3 Normal WBC 5.0 LAB L100.1200 4.2-5.4 M/mm3 Normal RBC 4.62 LAB L100.1300 12.0-15.0 g/dl Normal HGB 13.6 LAB L100.1400 37-47 % Normal HCT 42.0 LAB L100.1500 81-99 fL Normal MCV 90.9 LAB L100.1600 27.0-32.0 pg Normal MCH 29.4 LAB L100.1700 32-36 g/gl Normal MCHC 32.4 LAB L100.1810 11.6-14.6 % Normal RDW CV 13.5 LAB L100.1820 35.1-43.9 fl High RDW SD 44.7 LAB L100.1900 150-450 K/mm3 Normal PLT 188 LAB L100.2000 6.2-12.0 fl Normal MPV 10.8 LAB L100.2100 47-70 % Normal NEUT% 61.6 LAB L100.2200 19-41 % Normal LY% 26.2 LAB L100.2300 0-10 % Normal MONO% 9.6 LAB L100.2400 0-5 % Normal EO% 1.8 LAB L100.2500 0-1 % Normal BASO% 0.6 LAB L100.2550 0.0-0.9 % Normal IM GRAN % 0.200 Result Comment: IG% - Immature Granulocytes (promyelocytes, myelocytes and metamyelocytes) > 1% indicates that a LEFT SHIFT is Present. LAB L100.2620 2.0-7.7 X10 3/uL Normal Absolute Neut 3.1 LAB L100.2720 0.83-4.51 X10 3/ul Normal Absolute Lymph 1.31 Performed By: #### L100.0100 #### [facility] [address] [place], [place], [address] BASIC METABOLIC Collected: 08/04/2018 Status: F Source: [place] PROFILE (BMP) 2:36 PM [facility] REPOSITORY TYPE CODE TESTS RESULT OUT OF RANGE REFERENCE UNITS LAB L501.0100 74-106 mg/dL Normal GLU 96 Result Comment: Please note revised GLUCOSE reference range effective 2017. LAB L501.1000 7-18 mg/dL High BUN 23 LAB L501.1100 0.55-1.02 mg/dL Normal CREAT,SERUM 0.74 Result Comment: The validity of the calculated GFR AND GFRAA in patients over 70 years has not been determined. Clinical correlation is essential. LAB L501.1110 >60 mL/min Normal EST GFR 83 Result Comment: Non- GFR Calc LAB L501.1115 >60 mL/min Normal EST GFR - AA 101 Result Comment: GFR Calc LAB L501.1255 ml/min Normal Estimated CRCL 42.59 LAB L501.1300 10-20 RATIO High BUN/CRE 31.2 LAB L501.2200 8.5-10 mg/dL Normal .1 CA 9.1 LAB L501.5300 136-14 mmol/L Normal 5 NA 143 LAB L501.5600 3.5-5. mmol/L Normal 1 K 3.6 LAB L501.5900 98-107 mmol/L Normal CL 104 LAB L501.6100 21.0-3 mmol/L Normal 2.0 CO2 32.0 LAB L501.6200 5-15 Normal GAP 7 Performed By: #### L500.2500 #### [facility] [address] [place], [place], [address] Observed: 08/04/2018 Status: F Source: [place] MRSA/SAID SCREEN 2:36 PM [facility] REPOSITORY MRSA/SAID SCRN S. AUREUS S. aureus Negative MRSA MRSA Negative Performed By: #### M100.651 #### [facility] [address] [place], [place], [address] EXTREMITY UPPER Observed: 07/02/2018 Status: F Source: [place] WITHOUT CONTRA 1:54 PM [facility] REPOSITORY [facility] Imaging Services [address] [place] [address] Extremity Upper without Contra MR#: [id number] Acct: [id number] Name: JAMILAH COONNOR Rep #: [id number] : 1950 F 68 From: [place] Juan MD PCP: Shakira Fuchs DO Status: REG CLI Study: Extremity Upper without Contra Date of Exam: 07/02/18 Exam# [id number] Ordering Dr: Sotero Crabtree MD STUDY: CT RIGHT SHOULDER REASON FOR EXAM: Female, 68 years old. Right shoulder pain RADIATION DOSAGE (If Supplied By Facility): CTDIvol = ( 73.65 ) mGy, DLP = ( 998.25 ) mGycm TECHNIQUE: The patient was scanned in a multi detector CT scanner. High resolution transaxial imaging was performed without the administration of intravenous contrast material. Sagittal and coronal images were reconstructed. Individualized dose optimization techniques were used for this CT. COMPARISON: X-ray right shoulder 09/30/2017. FINDINGS: Particular soft tissues exhibit no acute process. There is a moderate joint effusion. The achromic liquor joint exhibits no significant degenerative features. There is mild narrowing of the glenohumeral articulation suggesting chondral degeneration. There is superior subluxation of the humeral head to the undersurface of the acromion, consistent with subacromial impingement. Also consistent with rotator cuff insufficiency. The supraspinatus appears to be attenuated. There is inferior joint margin osteophytic lipping of the glenohumeral articulation. There is subcortical cyst formation of the greater tubercle of the humerus also consistent with subacromial impingement. CT/Extremity Upper without Contra IMPRESSION: Prominent joint effusion. Possible synovitis. Suspected rotator cuff insufficiency/tear. Suspected subacromial impingement. Electronically Signed: Washingotn Yessica, at 12:52 EDT Tel , Service support , CC: Shakira Fuchs DO; Sotero Crabtree MD Deicer Repairer: Signed ABDOMEN/PELVIS WITHOUT Observed: 07/01/2018 Status: F Source: [place] CONT 1:59 PM [facility] REPOSITORY [facility] Imaging Services [address] [place] [address] Abdomen/Pelvis without Cont MR#: [id number] Acct: [id number] Name: JAMILAH OCONNOR Rep #: [id number] : 1950 F 68 From: Cesar Mujica MD PCP: Shakira Fuchs DO Status: REG CLI Study: Abdomen/Pelvis without Cont Date of Exam: 07/01/18 Exam# [id number] Ordering Dr: Shakira Fuchs DO STUDY: CT ABDOMEN AND PELVIS WITHOUT CONTRAST REASON FOR EXAM: Female, 68 years old. Flank pain. Family history of kidney cancer. RADIATION DOSAGE (If Supplied By Facility): CTDIvol = ( 22.46 ) mGy, DLP = ( 1060.34 ) mGycm TECHNIQUE: Transaxial images were obtained from the dome of the diaphragm to the symphysis pubis without oral contrast, and without intravenous contrast. Sagittal and coronal images were reconstructed. Individualized dose optimization techniques were used for this CT. COMPARISON: None. FINDINGS: Limited views through the lower chest show a 5 mm pleural- based nodule in the right middle lobe on image 3. There is a 7 mm nodule in the center of the left lung base, image 14. There is fatty liver with hepatomegaly. No definite focal mass. The gallbladder is not seen, question cholecystectomy for complete contraction. No definite stones. Pancreas and spleen are unremarkable. Normal right adrenal gland. Left adrenal gland has a 4.8 cm mass with a few calcifications. This needs further evaluation. No definite abnormalities of the kidneys. No stones. No hydronephrosis. There are no definite masses but note that noncontrast CT is limited when evaluating the kidneys. Evaluation of the GI tract is limited by absence of oral contrast. Cannot exclude stomach wall thickening. No dilated loops of bowel or evidence for obstruction. Cannot exclude segmental thickening of the [place] of the small or large bowel. Cannot exclude enteritis or colitis. Moderate to marked diffuse fecal retention. Appendix not definitely seen. Normal aorta. No retroperitoneal adenopathy. In the pelvis, normal uterus. Normal bladder contour. No free fluid. Skeletal structures show degenerative changes of the lower lumbar spine. CT/Abdomen/Pelvis without Cont IMPRESSION: Exam is limited by the absence of IV contrast. There is a 4.8 cm mass of the left adrenal gland, further evaluation with contrasted CT is recommended. Fatty liver with hepatomegaly. Electronically Signed: Cesar Mujica MD at 17:56 EDT , Service support , CC: Shakira Fuchs DO Deicer Repairer: Signed CBC W/DIFF, AUTOMATED Collected: 06/02/2018 Status: F Source: [place] 12:32 PM [facility] REPOSITORY TYPE CODE TESTS RESULT OUT OF RANGE REFERENCE UNITS LAB L100.1000 4.4-11.0 K/mm3 Normal WBC 5.3 LAB L100.1200 4.2-5.4 M/mm3 Normal RBC 4.54 LAB L100.1300 12.0-15.0 g/dl Normal HGB 13.4 LAB L100.1400 37-47 % Normal HCT 40.9 LAB L100.1500 81-99 fL Normal MCV 90.1 LAB L100.1600 27.0-32.0 pg Normal MCH 29.5 LAB L100.1700 32-36 g/gl Normal MCHC 32.8 LAB L100.1810 11.6-14.6 % Normal RDW CV 13.0 LAB L100.1820 35.1-43.9 fl Normal RDW SD 42.4 LAB L100.1900 150-450 K/mm3 Normal PLT 190 LAB L100.2000 6.2-12.0 fl Normal MPV 11.3 LAB L100.2100 47-70 % Normal NEUT% 69.1 LAB L100.2200 19-41 % Normal LY% 20.8 LAB L100.2300 0-10 % Normal MONO% 7.4 LAB L100.2400 0-5 % Normal EO% 2.1 LAB L100.2500 0-1 % Normal BASO% 0.4 LAB L100.2550 0.0-0.9 % Normal IM GRAN % 0.200 Result Comment: IG% - Immature Granulocytes (promyelocytes, myelocytes and metamyelocytes) > 1% indicates that a LEFT SHIFT is Present. LAB L100.2620 2.0-7.7 X10 3/uL Normal Absolute Neut 3.7 LAB L100.2720 0.83-4.51 X10 3/ul Normal Absolute Lymph 1.10 Performed By: #### L100.0100 #### [facility] [address] [place], [place], [address] COMPREHENSIVE METABOLIC Collected: 06/02/2018 Status: F Source: [place] 12:32 PM [facility] REPOSITORY TYPE CODE TESTS RESULT OUT OF RANGE REFERENCE UNITS LAB L501.0100 74-106 mg/dL Normal GLU 91 Result Comment: Please note revised GLUCOSE reference range effective 2017. LAB L501.1000 7-18 mg/dL Normal BUN 17 LAB L501.1100 0.55-1.02 mg/dL Normal CREAT,SERUM 0.71 Result Comment: The validity of the calculated GFR AND GFRAA in patients over 70 years has not been determined. Clinical correlation is essential. LAB L501.1110 >60 mL/min Normal EST GFR 87 Result Comment: Non- GFR Calc LAB L501.1115 >60 mL/min Normal EST GFR - AA 106 Result Comment: GFR Calc LAB L501.1300 10-20 RATIO High BUN/CRE 24.0 LAB L501.1500 6.4-8.2 g/dL T Normal PROT 6.8 LAB L501.1800 3.2-5.0 g/dL Normal ALB 3.5 LAB L501.1950 2.2-4.2 g/dL Normal GLOB 3.3 LAB L501.2000 0.9-2.4 RATIO Normal A/G 1.1 LAB L501.2200 8.5-10.1 mg/dL CA Normal 9.2 LAB L501.4100 15-37 U/L Normal AST 26 LAB L501.4305 45-117 U/L Normal ALK P 86 LAB L501.4405 13-56 U/L Normal ALT 45 LAB L501.4600 0.20-1.00 mg/dL T Normal BILI 0.30 LAB L501.5300 136-145 mmol/L NA Normal 143 LAB L501.5600 3.5-5.1 mmol/L K Normal 3.7 LAB L501.5900 98-107 mmol/L CL Normal 103 LAB L501.6100 21.0-32.0 mmol/L Normal CO2 31.0 LAB L501.6200 5-15 Normal GAP 9 Performed By: #### L500.4050 #### [facility] [address] [place], [address] INITAL EVALUATION (1) Observed: 04/09/2018 Status: F Source: [place] - PT 1:58 PM [facility] REPOSITORY [facility] Therapy [facility] [address] [place], [place] [address] Fax REHABILITATION SERVICES INITIAL EVALUATION MR#: [id number] Acct: [id number] Name: JAMILAH OCONNOR Rep #: [id number] : 1950 67 From: Deepthi San PT, Cert. MDT Referring Dr.: Leydi Younger DO Status: REG RCR Insurance: MEDICARE PART A B [facility] Patient's Visit Information JAMILAH OCONNOR is a 67 year old F referred to Physical Therapy by Leydi Younger DO with a diagnosis of R SHLD TRC TENDONITIS/SUBACROMIAL IMPINGEMENT. Date of Evaluation: 02/01/18 Physical Therapist: Deepthi San - Visit Plan Frequency: 2-3x /Week Duration: 4-6 Weeks Plan: D/C TO [facility] AND FOLLOW UP WITH DR. YOUNGER - Subjective Subjective: Diagnosis: R SHLD TRC TENDONITIS/SUBACROMIAL IMPINGEMENT. Work/Leisure: RETIRED. Disability: NOT NOW BUT RETIRED DUE TO DISABILITY FOR SARCOIDOSIS AND FIBROMYALGIA. Present symptoms: RIGHT SHOULDER PAIN. NO NUMBNESS OR TINGLING. NO NECK PAIN. Present since: ABOUT MAY 2017. Pain Scale: WORST: 10/10. LEAST: /10. Currently: 10/07. Commenced as a result of: NO APPARENT REASON. Symptoms at onset: RIGHT SHOULDER. Worse: PULLING, REACHING UP, GETTING DRESSED, PUTTING DEODRANT ON, COOKING, LAUNDRY, LIFTING, VACUUMING, SWEEPING. Better: ALEVE. Disturbed sleep: YES. Previous history/Previous treatment: NO PRIOR HISTORY OF RIGHT SHOULDER PROBLEMS. NO HISTORY OF NECK PROBLEMS. NO SHOULDER OR NECK SURGERY OF HISTORY OF INJECTIONS UNTIL RIGHT SHOULDER INJECTION BY DR. YOUNGER ABOUT 3 WEEKS AGO THAT RESULTED IN RELEIF FOR ABOUT 4 DAYS. THIS EPISODE, PATIENT REPORTS THAT SHE DECIDED TO GO TO A CHIROPRACTOR TO SEE IF ADJUSTING HER SPINE WOULD HELP HER SHOULDER PAIN. SHE STARTED GOING IN JUNE AND SHE IS STILL GOING BUT HE HAS QUIT WORKING ON THE SHOULDER. HER SHOULDER HAS CONTINUED TO WORSEN SINCE STARTING WITH THE CHIROPRACTOR. MASSAGE THURSDAY - HELPED SOME BUT DIDN'T WORK ON THE SHOULDER A LOT. Dizziness: NO. Tinnitis: YES. Nausea: NO. Difficulty Swollowing: NO. Gait: NORMAL WITH NO AD USE. Accidents: NO. Unexplained weight loss: NO. Imaging: MILD CHANGES RIGHT SHOULDER ON X-RAY. RECENT MRI: IMPRESSION: Supraspinatus tendinosis without demonstrated rotator cuff tear. Tear of the long biceps tendon. Mild glenohumeral arthrosis. Soft tissue fullness in the rotator cuff interval and thickening of the. coracohumeral ligament, possible MRI manifestations of adhesive capsulitis. Subacromial-subdeltoid bursitis. PMH: FIBROMYALGIA, SARCOIDOSIS, HANEY'S ESOPHAGUS. Recent major surgery: NO - Pain R SH Pain Intensity (Out of 10): 2 Comment: anterior - Objective Sitting Posture: POOR. Standing Posture: POOR. Active Correction of posture: NE. Other Observations: PATIENT IS RIGHT HAND DOMINANT. INDEP GAIT AND TRANSFERS. Motor deficit: RIGHT SHOULDER FLEX 2-/5, ABD 2-/5, ELBOW FLEX 3-/5, ELBOW EXT 3+/5, PRO 3/5, SUPINATION 3/5, WRIST FLEX 3+/5, WRIST EXT 3+/5, RIGHT DIET TECHNICIAN REGISTERED 35 LBS, LEFT 45 LBS. LEFT UE WFL. Sensory deficit: NO. ROM deficit: LEFT SHOULDER WFL. RIGHT SHOULDER ACTIVE FLEX IN SITTING 60 DEG, ABD 50 DEG. SUPINE PROM FLEX 140 DEG, ABD 130 DEG, ER 75 DEG, IR 30 DEG. ERP AT THE END OF THE AVAILABLE RANGE ALL PLANES. Cervical Mvmt Loss: Flex: NIL. Pro: NIL. Ext: MOD. Ret: [place]. RSB: MOD. LSB: MOD. R Rot: MOD. L Rot: MOD. Postural strength: POOR. Palpation: NO ACUTE TENDERNESS WITH PALPATION OF THE CERVICAL OR UPPER THORACIC SPINE. NO ACUTE TENDERNESS OF RIGHT SHOULDER EITHER AND PATIENT REPORTS SHE FEELS IT IS DEEP INSIDE. - Goals Goal 1:: DECREASE C/O RIGHT SHOULER PAIN Goal Time Frame: 4-6 Weeks Goal 2:: IMPROVE LIFTING, REACHING, ADL AND SLEEP FUNCTION Goal Time Frame: 4-6 Weeks Goal 3:: INDEP HEP Goal Time Frame: 4-6 Weeks - Rehabilitation Potential Rehabilitation Potential: Fair - Anticipated Interventions Patient/Client Instruction: Educate patient on: Condition, Plan of Care, Risk Factors, Benefits of Fitness Program For the Purpose of:: To improve self management Therapeutic Exercise to Include: Strength training, Body mechanics, Postural training, Passive ROM, Active ROM, Scapular Strength/Stabilization For the Purpose of:: To improve ability of physical actions for home/community/work/leisure Cryotherapy (ice pack, ice massage): Yes Thermo therapy (hot pack): Yes Ultrasound (thermal/non thermal): Yes For the Purpose of:: To decrease pain, To decrease swelling/inflammation, To increase ROM Thank you for the opportunity to evaluate your patient. For Medicare and Medicare HMO plans, please review the plan of care and approve it. It will need to be FAXED BACK to us at [phone] for Medicare purposes. Please let me know if there are questions or concerns regarding this plan of care. Physician Signature: Date: <Electronically signed by Deepthi San PT, Cert. MDT> 04/09/18 1358 CC: Leydi Fuchs DO RADHA Signed For Medicare only, by signing this I certify the plan of care. Physicians Signature Date PT D/C SUMMARY (1) Observed: 04/09/2018 Status: F Source: [place] 1:58 PM [facility] REPOSITORY [facility] [address] [place] [address]. [address] [place] [address] Fax REHABILITATION SERVICES DISCHARGE SUMMARY MR#: [id number] Acct: [id number] Name: JAMILAH OCONNOR Rep #: [id number] : 1950 67 From: Deepthi San PT, Cert. MDT Referring DrDinora: Leydi Younger DO Status: REG RCR Insurance: MEDICARE PART A B AARP HP - PT D/C Summary It has been my pleasure to treat JAMILAH OCONNOR under orders from Leydi Younger DO, for the diagnosis of R SHLD TRC TENDONITIS/SUBACROMIAL IMPINGEMENT for a total of 18 visit(s). Discharge Date: Please see the following information for a summary of their discharge status. - Subjective Subjective: PATIENT REPORTS HER SHOULDER FEELS BETTER SINCE RESTING IT BUT IT IS STILL ACHING AND KEEPING HER AWAKE. SHE REPORTS THAT HER RIGHT SHOULDER IS A LEAST 75% BETTER THAN IT WAS BEFORE SHE STARTED ANY PT BECAUSE SHE CAN REACH UP NOW AND LESS PAIN. SHE HAS AN APPOINTMENT WITH DR. QUESADA AT 1:45. SHE HAS NOT FOLLOWED UP WITH DR. YOUNGER. SHE STATES IF SHE HAS TO GET SOMETHING HEAVY REACHING UP SHE JUST DOESN'T HAVE ANY STRENGTH AND TRYING TO STRENGTHENING IT SEEMED TO START TO MAKE IT WORSE. SHE REPORTS SHE IS GETTING BETTER AT DOING HER HAIR. RIGHT SHOULDER PAIN CURRENTLY RANGES FROM 2/10 TO 7/10. SHE REPORTS IT USE TO GET UP TO A 10 AND SHE WOULD CRY. - Pain R SH Pain Intensity (Out of 10): 2 - Overall Improvement % Improvement: 75 - Objective Objective/Function: PATIENT HAS HAD SIGNIFICANT IMPROVEMENT WITH PT AND IS INDEP WITH A HEP BUT NOT TOLERATING FURTHER PROGRESSION OF STRENGTHENING WELL AT THIS TIME. RECOMMENDED FOLLOW UP WITH DR. YOUNGER AND CONTINUED HEP TOLERATED. UPON EXAM: AROM IN SITTING RIGHT SHOULD FLEX 170 DEG, SCAPTION 168. SUPINE RIGHT SHOULDER FLEX 167 DEG, ABD 160 DEG, IR 68 DEG, ER 75 DEG (WITH 90 DEG ABD). PATIENT HAS PAIN AT THE END OF THE AVAILABLE ROM WITH TESTING ALL PLANES. - Goals Goal 1:: DECREASE C/O RIGHT SHOULER PAIN Goal Progress: Not Progressing Goal 2:: IMPROVE LIFTING, REACHING, ADL AND SLEEP FUNCTION Goal Progress: Goal Met Goal 3:: INDEP HEP Goal Progress: Goal Met - Plan Plan: D/C TO INDEP HEP AND FOLLOW UP WITH DR. YOUNGER - D/C Information If there are questions or concerns regarding this patient's physical therapy, please feel free to call me at [phone]. Thank you for the referral of this patient. Sincerely, Deepthi San <Electronically signed by Deepthi San PT, Cert. MDT> 04/09/18 1358 CC: Leydi Carisa DO; Shakira Fuchs DO RADHA Signed CBC W/DIFF, AUTOMATED Collected: 03/29/2018 Status: F Source: [place] 10:05 AM [facility] REPOSITORY TYPE CODE TESTS RESULT OUT OF RANGE REFERENCE UNITS LAB L100.1000 4.4-11.0 K/mm3 Low WBC 3.9 LAB L100.1200 4.2-5.4 M/mm3 Normal RBC 4.59 LAB L100.1300 12.0-15.0 g/dl Normal HGB 13.1 LAB L100.1400 37-47 % Normal HCT 41.2 LAB L100.1500 81-99 fL Normal MCV 89.8 LAB L100.1600 27.0-32.0 pg Normal MCH 28.5 LAB L100.1700 32-36 g/gl Low MCHC 31.8 LAB L100.1810 11.6-14.6 % Normal RDW CV 13.1 LAB L100.1820 35.1-43.9 fl Normal RDW SD 42.7 LAB L100.1900 150-450 K/mm3 Normal PLT 163 LAB L100.2000 6.2-12.0 fl Normal MPV 11.4 LAB L100.2100 47-70 % Normal NEUT% 58.9 LAB L100.2200 19-41 % Normal LY% 27.1 LAB L100.2300 0-10 % High MONO% 10.9 LAB L100.2400 0-5 % Normal EO% 2.6 LAB L100.2500 0-1 % Normal BASO% 0.5 LAB L100.2550 0.0-0.9 % Normal IM GRAN % 0.000 Result Comment: IG% - Immature Granulocytes (promyelocytes, myelocytes and metamyelocytes) > 1% indicates that a LEFT SHIFT is Present. LAB L100.2620 2.0-7.7 X10 3/uL Normal Absolute Neut 2.3 LAB L100.2720 0.83-4.51 X10 3/ul Normal Absolute Lymph 1.05 Performed By: #### L100.0100 #### [facility] [address] [place], [place], [id number] COMPREHENSIVE METABOLIC Collected: 03/29/2018 Status: F Source: [place] TERAN 10:05 AM [facility] REPOSITORY TYPE CODE TESTS RESULT OUT OF RANGE REFERENCE UNITS LAB L501.0100 74-106 mg/dL Normal GLU 101 Result Comment: Fasting Glucose result from 100 to 125 mg/dL suggests IMPAIRED HOMEOSTASIS per A.D.A. criteria. Please note revised GLUCOSE reference range effective 2017. LAB L501.1000 7-18 mg/dL High BUN 23 LAB L501.1100 0.55-1.02 mg/dL Normal CREAT,SERUM 0.70 Result Comment: The validity of the calculated GFR AND GFRAA in patients over 70 years has not been determined. Clinical correlation is essential. LAB L501.1110 >60 mL/min Normal EST GFR 89 Result Comment: Non- GFR Calc LAB L501.1115 >60 mL/min Normal EST GFR - AA 107 Result Comment: GFR Calc LAB L501.1300 10-20 RATIO High BUN/CRE 32.9 LAB L501.1500 6.4-8.2 g/dL T Normal PROT 7.2 LAB L501.1800 3.2-5.0 g/dL Normal ALB 3.6 LAB L501.1950 2.2-4.2 g/dL Normal GLOB 3.6 LAB L501.2000 0.9-2.4 RATIO Normal A/G 1.0 LAB L501.2200 8.5-10.1 mg/dL CA Normal 9.0 LAB L501.4100 15-37 U/L Normal AST 35 LAB L501.4305 45-117 U/L Normal ALK P 96 LAB L501.4405 13-56 U/L Normal ALT 55 LAB L501.4600 0.20-1.00 mg/dL T Normal BILI 0.40 LAB L501.5300 136-145 mmol/L NA Normal 141 LAB L501.5600 3.5-5.1 mmol/L K Normal 3.9 LAB L501.5900 98-107 mmol/L CL Normal 104 LAB L501.6100 21.0-32.0 mmol/L Normal CO2 30.0 LAB L501.6200 5-15 Normal GAP 7 Performed By: #### L500.4050 #### [facility] [address] [place], [address] INITAL EVALUATION (1) Observed: 02/01/2018 Status: F Source: [place] - PT 9:46 AM [facility] REPOSITORY [facility] [address] [place] [address] Fax REHABILITATION SERVICES INITIAL EVALUATION MR#: [id number] Acct: [id number] Name: JAMILAH OCONNOR Rep #: [id number] : 1950 67 From: Deepthi San PT, Cert. MDT Referring Dr.: Leydi Younger DO Status: REG RCR Insurance: MEDICARE PART A B [facility] Patient's Visit Information JAMILAH OCONNOR is a 67 year old F referred to Physical Therapy by Leydi Younger DO with a diagnosis of R SHLD TRC TENDONITIS/SUBACROMIAL IMPINGEMENT. Date of Evaluation: 02/01/18 Physical Therapist: Deepthi San - Visit Plan Frequency: 2-3x /Week Duration: 4-6 Weeks Plan: RIGHT SHOULDER US, MH, AND/OR CP NEEDED. POSTURE CORRECTION/STRENGTHENING, INSTRUCTION IN APPROPRIATE BODY MECHANICS AND ACTIVITY MODIFICATIONS. SYDNEE UE ROM, STRETCHING AND STRENGTHENING. HEP INSTRUCTION. - Subjective Subjective: Diagnosis: R SHLD TRC TENDONITIS/SUBACROMIAL IMPINGEMENT. Work/Leisure: RETIRED. Disability: NOT NOW BUT RETIRED DUE TO DISABILITY FOR SARCOIDOSIS AND FIBROMYALGIA. Present symptoms: RIGHT SHOULDER PAIN. NO NUMBNESS OR TINGLING. NO NECK PAIN. Present since: ABOUT MAY 2017. Pain Scale: WORST: 10/10. LEAST: /10. Currently: 10/07. Commenced as a result of: NO APPARENT REASON. Symptoms at onset: RIGHT SHOULDER. Worse: PULLING, REACHING UP, GETTING DRESSED, PUTTING DEODRANT ON, COOKING, LAUNDRY, LIFTING, VACUUMING, SWEEPING. Better: ALEVE. Disturbed sleep: YES. Previous history/Previous treatment: NO PRIOR HISTORY OF RIGHT SHOULDER PROBLEMS. NO HISTORY OF NECK PROBLEMS. NO SHOULDER OR NECK SURGERY OF HISTORY OF INJECTIONS UNTIL RIGHT SHOULDER INJECTION BY DR. YOUNGER ABOUT 3 WEEKS AGO THAT RESULTED IN RELEIF FOR ABOUT 4 DAYS. THIS EPISODE, PATIENT REPORTS THAT SHE DECIDED TO GO TO A CHIROPRACTOR TO SEE IF ADJUSTING HER SPINE WOULD HELP HER SHOULDER PAIN. SHE STARTED GOING IN JUNE AND SHE IS STILL GOING BUT HE HAS QUIT WORKING ON THE SHOULDER. HER SHOULDER HAS CONTINUED TO WORSEN SINCE STARTING WITH THE CHIROPRACTOR. MASSAGE THURSDAY - HELPED SOME BUT DIDN'T WORK ON THE SHOULDER A LOT. Dizziness: NO. Tinnitis: YES. Nausea: NO. Difficulty Swollowing: NO. Gait: NORMAL WITH NO AD USE. Accidents: NO. Unexplained weight loss: NO. Imaging: MILD CHANGES RIGHT SHOULDER ON X-RAY. RECENT MRI: IMPRESSION: Supraspinatus tendinosis without demonstrated rotator cuff tear. Tear of the long biceps tendon. Mild glenohumeral arthrosis. Soft tissue fullness in the rotator cuff interval and thickening of the. coracohumeral ligament, possible MRI manifestations of adhesive capsulitis. Subacromial-subdeltoid bursitis. PMH: FIBROMYALGIA, SARCOIDOSIS, HANEY'S ESOPHAGUS. Recent major surgery: NO - Objective Sitting Posture: POOR. Standing Posture: POOR. Active Correction of posture: NE. Other Observations: PATIENT IS RIGHT HAND DOMINANT. INDEP GAIT AND TRANSFERS. Motor deficit: RIGHT SHOULDER FLEX 2-/5, ABD 2-/5, ELBOW FLEX 3-/5, ELBOW EXT 3+/5, PRO 3/5, SUPINATION 3/5, WRIST FLEX 3+/5, WRIST EXT 3+/5, RIGHT DIET TECHNICIAN REGISTERED 35 LBS, LEFT 45 LBS. LEFT UE WFL. Sensory deficit: NO. ROM deficit: LEFT SHOULDER WFL. RIGHT SHOULDER ACTIVE FLEX IN SITTING 60 DEG, ABD 50 DEG. SUPINE PROM FLEX 140 DEG, ABD 130 DEG, ER 75 DEG, IR 30 DEG. ERP AT THE END OF THE AVAILABLE RANGE ALL PLANES. Cervical Mvmt Loss: Flex: NIL. Pro: NIL. Ext: MOD. Ret: [place]IV[place]. RSB: MOD. LSB: MOD. R Rot: MOD. L Rot: MOD. Postural strength: POOR. Palpation: NO ACUTE TENDERNESS WITH PALPATION OF THE CERVICAL OR UPPER THORACIC SPINE. NO ACUTE TENDERNESS OF RIGHT SHOULDER EITHER AND PATIENT REPORTS SHE FEELS IT IS DEEP INSIDE. - Goals Goal 1:: DECREASE C/O RIGHT SHOULER PAIN Goal Time Frame: 4-6 Weeks Goal 2:: IMPROVE LIFTING, REACHING, ADL AND SLEEP FUNCTION Goal Time Frame: 4-6 Weeks Goal 3:: INDEP HEP Goal Time Frame: 4-6 Weeks - Rehabilitation Potential Rehabilitation Potential: Fair - Anticipated Interventions Patient/Client Instruction: Educate patient on: Condition, Plan of Care, Risk Factors, Benefits of Fitness Program For the Purpose of:: To improve self management Therapeutic Exercise to Include: Strength training, Body mechanics, Postural training, Passive ROM, Active ROM, Scapular Strength/Stabilization For the Purpose of:: To improve ability of physical actions for home/community/work/leisure Cryotherapy (ice pack, ice massage): Yes Thermo therapy (hot pack): Yes Ultrasound (thermal/non thermal): Yes For the Purpose of:: To decrease pain, To decrease swelling/inflammation, To increase ROM Thank you for the opportunity to evaluate your patient. For Medicare and Medicare HMO plans, please review the plan of care and approve it. It will need to be FAXED BACK to us at [phone] for Medicare purposes. Please let me know if there are questions or concerns regarding this plan of care. Physician Signature: Date: <Electronically signed by Deepthi San PT, Cert. MDT> 02/01/18 0946 CC: Leydi Younger DOAlessandra Fuchs DO RADHA Signed For Medicare only, by signing this I certify the plan of care. Physicians Signature Date ORTHOPEDIC VISIT Observed: 01/05/2018 Status: F Source: [place] REPORT 1:51 PM [facility] REPOSITORY [facility] Orthopaedics AND Sports Medicine [address] [place] [address] [place] [address] OFFICE VISIT Date of Service: 01/05/18 MR#: [id number] Acct: [id number] Name: JAMILAH OCONNOR Rep #: [id number] : 1950 Provider: Leydi Younger DO Age/Sex: 67/F Location: [facility] [place] Status: Signed Intake Vital Signs01/05/18 Height 5 ft Intake Visit Reasons: RIGHT SHOULDER Acid Bleacher Required: No Accompanied by: None Is patient in pain?: Yes (right shoulder) Pain scale (1-10): 1 Allergies Sulfa (Sulfonamide Antibiotics) Allergy (Mild, Verified 01/05/18 12:52) Unknown Medications alprazolam 1 mg tablet PO 30 Days #90 01/05/18 [History Confirmed 01/05/18] ascorbic acid (vitamin C) 500 mg capsule mg PO 01/05/18 [History Confirmed 01/05/18] calcium carbonate 500 mg calcium (1,250 mg) tablet 500 mg PO BID tab 01/05/18 [History Confirmed 01/05/18] cholecalciferol (vitamin D3) 1,000 unit capsule 1,000 unit PO QDAY 01/05/18 [History Confirmed 01/05/18] dexlansoprazole 60 mg capsule,biphase delayed release PO 90 Days #90 01/05/18 [History Confirmed 01/05/18] hydrochlorothiazide 25 mg tablet PO 30 Days #30 01/05/18 [History Confirmed 01/05/18] ibuprofen 200 mg tablet 200 mg PO TID-QID PRN 01/05/18 [History Confirmed 01/05/18] leflunomide 10 mg tablet PO 30 Days #15 01/05/18 [History Confirmed 01/05/18] losartan 100 mg-hydrochlorothiazide 25 mg tablet PO 90 Days #90 01/05/18 [History Confirmed 01/05/18] lutein 20 mg-zeaxanthin 1,000 mcg capsule cap PO 01/05/18 [History Confirmed 01/05/18] magnesium 30 mg tablet PO 01/05/18 [History Confirmed 01/05/18] potassium chloride ER 20 mEq tablet,extended release PO 90 Days #180 01/05/18 [History Confirmed 01/05/18] pregabalin 100 mg capsule PO 30 Days #90 01/05/18 [History Confirmed 01/05/18] tramadol 50 mg tablet PO 30 Days #90 01/05/18 [History Confirmed 01/05/18] venlafaxine 75 mg tablet PO 90 Days #90 01/05/18 [History Confirmed 01/05/18] vitamin B complex tablet 1 tab PO QDAY 01/05/18 [History Confirmed 01/05/18] zinc 50 mg tablet 50 mg PO QDAY 01/05/18 [History Confirmed 01/05/18] [facility] Medical History Barretts esophagus (Acute) Fibromyalgia (Acute) Sarcoidosis (Acute) HTN (hypertension) (Chronic) Surgical History History of appendectomy (Acute) History of carpal tunnel surgery (Acute) History of cholecystectomy (Acute) History of reversal of tubal ligation (Acute) History of tubal ligation (Acute) Family History Mother Breast cancer Hypertension Father Myocardial infarction Dementia Brother Cancer Social History Smoking Status: Former smoker alcohol intake: current alcohol intake frequency: a few times a week Alcohol type: wine, beer what type of physical activity do you participate in: none HPI RIGHT SHOULDER: Details: JAMILAH OCONNOR is a 67 year old F here today for right shoulder pain. Patient states no known injury. Patient states she has been having shoulder pain for about 7 or 8 months. She has previously seen a chiropractor, had xrays and mri done in September and November respectively both done [facility], no therapy, no injections. Patient rates her pain 1/10 and describes as deep dull ache that hurts more when she raises her arm up and back. The pain is worse when trying to sleep and is somewhat relieved with rest and some medication. The pain is mostly in the posterior shoulder and sometimes radiates to the anterior. Patient denies numbness or tingling. Ortho Exam Right Shoulder Skin/Wound: Yes CDI Contralateral Normal: Yes Testing: Positive AROM-Forward Elevation 0-180 (160), Neer's, TTP Biceps, empty can and Hawkin's; negative Drop Arm Internal Rotation: T12 SHOULDER: subscap intact, Office Procedures Ortho Injections Injections Yes Subacromial Injection Right Details: Obtained consent for injection. Under sterile conditions, injected the patients right subacromial joint with a 10cc cocktail of 8cc bupivacaine and 2cc kenalog. The patient tolerated the injection well without any noted complication. Patient should call our office if redness develops, pain worsens or if they have any concerns. Office Meds Kenindigo Performing Provider: Leydi Younger DO Administered by: Leydi Younger DO on 01/05/18 13:41 Dose Route Admin Location Lot Number Expiration DateNDC Merchandise Distributor 2 mg Intra-Articularright [id number] 01/26/19 4865-1611-51 JABIER BAHENA [employer] Assessment AND Plan 1. Subacromial impingement of right shoulder M75.41 Plan Personally reviewed the patient's medical history, medications, surgeries and recent exams if available. MRI and X-rays were reviewed. Educated the patient on the anatomy of the shoulder and etiology of her pain. Her MRI shows tendonitis and a partial rtc and bicep tear. She has impingement and rtc syndrome with beginning OA. Her treatment options are do nothing, HEP and/or steroid injection. Explained that too many injections can weakned the rtc and that she can have them 4 months apart. Follow up as needed or sooner if pain, swelling, numbness or associated symptoms, or concerns develop. All questions answered. Patient in agreement of plan. Orders Orders: Medications Discontinued: Kenalog (triamcinolone acetonide) Disc2 mg (0.2 mL) Intra- Articular ONCE NS Carter Perrin ontinued Reason: Office Medication has b een Documented as given 2. Rotator cuff syndrome of right shoulder M75.101 Coding Level of Care Code Off vis,new,level 3 Diagnoses Subacromial impingement of right shoulder M75.41 Rotator cuff syndrome of right shoulder M75.101 Additional Codes hand drawer in helper.sub ([id number]) 01/05/18 1351 <Electronically signed by Leydi Younger DO> Date Leydi Younger DO Cosigner Signature: Date (if applicable) CC: Shakira Fuchs DO SCREENING MAMM (CAD), Observed: 01/05/2018 Status: F Source: [place] MAXWELL 10:21 AM [facility] REPOSITORY [facility] Imaging Services [address] [place] [place] [address] SCREENING MAMM (CAD), BILJUDI MR#: [id number] Acct: [id number] Name: JAMILAH OCONNOR Rep #: [id number] : 1950 F 67 From: Jovanny Antoine MD PCP: Shakira Fuchs DO Status: REG CLI Study: SCREENING MAMM (CAD), BILAT Date of Exam: 01/05/18 Exam# [id number] Ordering Dr: Shakira Fuchs DO MAMMOGRAPHY - BILATERAL SCREENING REASON FOR EXAM: Female, 67 years old. Routine annual screening examination. PERTINENT HISTORY: Mother with breast cancer. TECHNIQUE: Digital bilateral breast shameka (3D mammographic acquisition) in the CC and MLO projections. 2-D mediolateral oblique (MLO) and craniocaudad (CC) views of both breasts were obtained. CAD: Full Field Digital Mammography with Computer Added Detection was performed. COMPARISON: Comparison is made with prior study dated November 19, 2016 and August 24, 2015. FINDINGS: Breast Composition: There are scattered areas of fibroglandular density. There are no dominant masses or suspicious calcifications. No other significant abnormalities are identified. There has been no significant change since the prior study. BI/SCREENING MAMM (CAD), BILAT IMPRESSION: Stable bilateral screening mammogram. Yearly follow-up mammogram recommended. (A) ASSESSMENT CATEGORY: BIRADS Category 1: Negative. A letter regarding these results will be sent to the patient by the facility within 30 days. Approximately 10% of breast cancers are not detected by mammography. A normal mammogram should not delay biopsy of a clinically suspicious abnormality. [id number] Electronically Signed: Jovanny Antoine MD at 14:36 EDT Tel [phone], Service support , CC: Shakira Fuchs DO Deicer Repairer: Signed UPPER EXT JOINT Observed: 12/15/2017 Status: F Source: [place] ONLY(ROUTINE) 10:51 AM [facility] REPOSITORY [facility] Imaging Services [address] [place] [address] Upper Ext Joint Only(Routine) MR#: [id number] Acct: [id number] Name: JAMILAH OCONNOR Rep #: [id number] : 1950 F 67 From: Rik Connor MD PCP: Shakira Fuchs DO Status: REG CLI Study: Upper Ext Joint Only(Routine) Date of Exam: 12/15/17 Exam# [id number] Ordering Dr: Shakira Fuchs DO STUDY: MRI RIGHT SHOULDER REASON FOR EXAM: Right shoulder pain, no specific injury. TECHNIQUE: Standardized fat and water weighted pulse sequences were obtained in all 3 orthogonal planes. COMPARISON: Radiographs 09/30/2017. FINDINGS: There is supraspinatus tendinosis (T2 coronal images 9-13) without discrete tendon tear. Normal infraspinatus tendon. Normal subscapularis tendon. Normal teres minor tendon. Normal supraspinatus muscle. There is a small cyst at the infraspinatus musculotendinous junction (T2 coronal image 6). Normal subscapularis muscle. Normal teres minor muscle. There is mild glenohumeral arthrosis with small marginal osteophytes of the humeral head, mild chondral thinning (T2 coronal image 11) and a small subchondral cyst of the glenoid. There is mild cystic change of the greater tuberosity. There is a tear with nonvisualization of the intracapsular long biceps tendon. Normal labrum. There is soft tissue fullness in the rotator interval and thickening of the coracohumeral ligament (T2 sagittal image 18). Normal acromioclavicular articulation. There is a Type II morphology (curved), with a neutral orientation. There is subacromial-subdeltoid bursal fluid. Normal deltoid muscle. Normal trapezius muscle. MRI/Upper Ext Joint Only(Routine) IMPRESSION: Supraspinatus tendinosis without demonstrated rotator cuff tear. Tear of the long biceps tendon. Mild glenohumeral arthrosis. Soft tissue fullness in the rotator cuff interval and thickening of the coracohumeral ligament, possible MRI manifestations of adhesive capsulitis. Subacromial-subdeltoid bursitis. Electronically Signed: Rik Connor MD at 12:54 EDT Tel , Service support , CC: Shakira Fuchs DO Deicer Repairer: Signed CBC W/DIFF, AUTOMATED Collected: 12/15/2017 Status: F Source: [place] 10:25 AM [facility] REPOSITORY TYPE CODE TESTS RESULT OUT OF RANGE REFERENCE UNITS LAB L100.1000 4.4-11.0 K/mm3 Normal WBC 4.4 LAB L100.1200 4.2-5.4 M/mm3 Normal RBC 4.66 LAB L100.1300 12.0-15.0 g/dl Normal HGB 13.4 LAB L100.1400 37-47 % Normal HCT 42.2 LAB L100.1500 81-99 fL Normal MCV 90.6 LAB L100.1600 27.0-32.0 pg Normal MCH 28.8 LAB L100.1700 32-36 g/gl Low MCHC 31.8 LAB L100.1810 11.6-14.6 % Normal RDW CV 13.0 LAB L100.1820 35.1-43.9 fl Normal RDW SD 42.6 LAB L100.1900 150-450 K/mm3 Normal PLT 177 LAB L100.2000 6.2-12.0 fl Normal MPV 10.8 LAB L100.2100 47-70 % Normal NEUT% 55.6 LAB L100.2200 19-41 % Normal LY% 32.3 LAB L100.2300 0-10 % Normal MONO% 8.2 LAB L100.2400 0-5 % Normal EO% 3.0 LAB L100.2500 0-1 % Normal BASO% 0.7 LAB L100.2550 0.0-0.9 % Normal IM GRAN % 0.200 Result Comment: IG% - Immature Granulocytes (promyelocytes, myelocytes and metamyelocytes) > 1% indicates that a LEFT SHIFT is Present. LAB L100.2620 2.0-7.7 X10 3/uL Normal Absolute Neut 2.4 LAB L100.2720 0.83-4.51 X10 3/ul Normal Absolute Lymph 1.42 Performed By: #### L100.0100 #### [facility] [address] [place], [address] COMPREHENSIVE METABOLIC Collected: 12/15/2017 Status: F Source: [place] [facility] 10:25 AM [facility] REPOSITORY TYPE CODE TESTS RESULT OUT OF RANGE REFERENCE UNITS LAB L501.0100 74-106 mg/dL Normal GLU 105 Result Comment: Fasting Glucose result from 100 to 125 mg/dL suggests IMPAIRED HOMEOSTASIS per A.D.A. criteria. Please note revised GLUCOSE reference range effective 2017. LAB L501.1000 7-18 mg/dL Normal BUN 17 LAB L501.1100 0.55-1.02 mg/dL Normal CREAT,SERUM 0.64 Result Comment: The validity of the calculated GFR AND GFRAA in patients over 70 years has not been determined. Clinical correlation is essential. LAB L501.1110 >60 mL/min Normal EST GFR 98 Result Comment: Non- GFR Calc LAB L501.1115 >60 mL/min Normal EST GFR - AA 118 Result Comment: GFR Calc LAB L501.1300 10-20 RATIO High BUN/CRE 26.4 LAB L501.1500 6.4-8.2 g/dL T Normal PROT 7.3 LAB L501.1800 3.2-5.0 g/dL Normal ALB 3.4 LAB L501.1950 2.2-4.2 g/dL Normal GLOB 3.9 LAB L501.2000 0.9-2.4 RATIO Normal A/G 0.9 LAB L501.2200 8.5-10.1 mg/dL CA Normal 8.9 LAB L501.4100 15-37 U/L Normal AST 27 LAB L501.4305 45-117 U/L Normal ALK P 101 LAB L501.4405 13-56 U/L Normal ALT 41 Result Comment: Please note revised ALT reference range effective 2017. LAB L501.4600 0.20-1.00 mg/dL Normal T BILI 0.30 LAB L501.5300 136-145 mmol/L Normal NA 140 LAB L501.5600 3.5-5.1 mmol/L Low K 3.3 LAB L501.5900 98-107 mmol/L Normal CL 101 LAB L501.6100 21.0-32.0 mmol/L High CO2 34.0 LAB L501.6200 5-15 Normal GAP 5 Performed By: #### L500.4050 #### [facility] [address] [facility] [place], [address] SHOULDER MIN 2 VIEWS Observed: 09/30/2017 Status: F Source: [place] 4:27 PM [facility] REPOSITORY [facility] Imaging Services [address] [place] [address] Shoulder min 2 Views MR#: [id number] Acct: [id number] Name: JAMILAH OCONNOR Rep #: [id number] : 1950 F 67 From: Sotero Augustin MD PCP: Shakira Fuchs DO Status: REG CLI Study: Shoulder min 2 Views Date of Exam: 09/30/17 Exam# [id number] Ordering Dr: Jocelin Barclay MD STUDY: X-RAY - RIGHT SHOULDER REASON FOR EXAM: Female, 67 years old. Inflammatory arthropathy TECHNIQUE: 4 view(s) of the shoulder. COMPARISON: None. FINDINGS: There is mild spurring at the glenohumeral joint. Normal acromioclavicular joint. Normal acromion. Normal humeral head and visualized proximal humerus. The soft tissue structures are unremarkable. Normal visualized pulmonary apex. RAD/Shoulder min 2 Views IMPRESSION: Mild degenerative spurring of the glenohumeral joint Electronically Signed: Sotero Augustin MD at 21:38 EST Tel , Service support , CC: Shakira Fuchs DO; Jocelin Barclay MD Deicer Repairer: Signed CBC W/DIFF, AUTOMATED Collected: 09/25/2017 Status: F Source: [place] 12:58 PM [facility] REPOSITORY TYPE CODE TESTS RESULT OUT OF RANGE REFERENCE UNITS LAB L100.1000 4.4-11.0 K/mm3 Normal WBC 5.4 LAB L100.1200 4.2-5.4 M/mm3 Normal RBC 4.89 LAB L100.1300 12.0-15.0 g/dl Normal HGB 14.2 LAB L100.1400 37-47 % Normal HCT 44.1 LAB L100.1500 81-99 fL Normal MCV 90.2 LAB L100.1600 27.0-32.0 pg Normal MCH 29.0 LAB L100.1700 32-36 g/gl Normal MCHC 32.2 LAB L100.1810 11.6-14.6 % Normal RDW CV 13.4 LAB L100.1820 35.1-43.9 fl High RDW SD 44.1 LAB L100.1900 150-450 K/mm3 Normal PLT 205 LAB L100.2000 6.2-12.0 fl Normal MPV 11.4 LAB L100.2100 47-70 % Normal NEUT% 64.6 LAB L100.2200 19-41 % Normal LY% 26.6 LAB L100.2300 0-10 % Normal MONO% 7.1 LAB L100.2400 0-5 % Normal EO% 1.1 LAB L100.2500 0-1 % Normal BASO% 0.4 LAB L100.2550 0.0-0.9 % Normal IM GRAN % 0.200 Result Comment: IG% - Immature Granulocytes (promyelocytes, myelocytes and metamyelocytes) > 1% indicates that a LEFT SHIFT is Present. LAB L100.2620 2.0-7.7 X10 3/uL Normal Absolute Neut 3.5 LAB L100.2720 0.83-4.51 X10 3/ul Normal Absolute Lymph 1.43 Performed By: #### L100.0100 #### [facility] [address]. [place], [place], [id number] VITAMIN D,25 HYDROXY Collected: 09/25/2017 Status: F Source: [place] 12:58 PM [facility] REPOSITORY TYPE CODE TESTS RESULT OUT OF RANGE REFERENCE UNITS LAB L506.1000 ng/mL Normal Vitamin D 47.1 25-OH Result Comment: Vitamin D 25(OH) Status Range Deficiency <20 ng/mL (50nmol/L) Insuffciency 20 - 30 ng/mL (50 - 75 nmol/L) Sufficiency 30 - 100 ng/mL (75 - 250 nmol/L) Toxicity >100 ng/mL (>250 nmol/L) Performed By: #### L506.1000 #### [facility] [address] [place], [place], [address] COMPREHENSIVE METABOLIC Collected: 09/25/2017 Status: F [facility] PM [facility] REPOSITORY TYPE CODE TESTS RESULT OUT OF RANGE REFERENCE UNITS LAB L501.0100 70-110 mg/dL Normal GLU 96 LAB L501.1000 7-18 mg/dL Normal BUN 13 LAB L501.1100 0.55-1.02 mg/dL Normal 0.73 CREAT,SERUM Result Comment: The validity of the calculated GFR AND GFRAA in patients over 70 years has not been determined. Clinical correlation is essential. LAB L501.1110 >60 mL/min Normal EST GFR 85 Result Comment: Non- GFR Calc LAB L501.1115 >60 mL/min Normal EST GFR - AA 102 Result Comment: GFR Calc LAB L501.1300 10-20 RATIO Normal BUN/CRE 17.8 LAB L501.1500 6.4-8.2 g/dL T Normal PROT 7.8 LAB L501.1800 3.4-5.0 g/dL Normal ALB 3.9 Result Comment: Please note revised Albumin AND Globulin reference range effective 2017. LAB L501.1950 2.2-4.2 g/dL Normal GLOB 3.9 LAB L501.2000 0.9-2.4 RATIO Normal A/G 1.0 LAB L501.2200 8.5-10.1 mg/dL Normal CA 9.3 LAB L501.4100 15-37 U/L Normal AST 26 LAB L501.4305 45-117 U/L Normal ALK P 98 LAB L501.4405 12-78 U/L Normal ALT 42 LAB L501.4600 0.20-1.00 mg/dL Normal T BILI 0.30 LAB L501.5300 136-145 mmol/L Normal NA 139 LAB L501.5600 3.5-5.1 mmol/L Normal K 3.5 LAB L501.5900 98-107 mmol/L Normal CL 101 LAB L501.6100 21.0-32.0 mmol/L Normal CO2 31.0 LAB L501.6200 5-15 Normal GAP 7 Performed By: #### L500.4050, L500.4100 #### [facility] [address] [place], [place], [address] LIPID PROFILE Collected: 09/25/2017 Status: F Source: [place] 12:58 PM [facility] REPOSITORY TYPE CODE TESTS RESULT OUT OF RANGE REFERENCE UNITS LAB L501.4900 200 mg/dL Normal CHOL 179 Result Comment: <200 mg/dL Desirable 200-240 mg/dL Borderline >240 mg/dL High Risk LAB L501.5000 mg/dL Normal TRIG 137 Result Comment: The drugs N-Acetylcysteine and Metamizole may falsely depress this assay. Serum Triglycerides Reference Interval Normal <150 mg/dL Borderline high 150 - 199 mg/dL High 200 - 499 mg/dL Very High > or = 500 mg/dL LAB L501.6400 mg/dL Normal HDL 59 Result Comment: The drugs N-Acetylcysteine and Metamizole may falsely depress this assay. Reference Range HDL <40 mg/dL Low HDL Cholesterol HDL >or= 60 mg/dL High HDL Cholesterol LAB L501.6500 0-130 mg/dL Normal LDL 93 LAB L501.6600 5-40 mg/dL Normal VLDL 27 Performed By: #### L500.4050, L500.4100 #### [facility] [address] [facility] [place], [address] ALLERGIES ALLERGIES DATE TYPE / CODE NAME / CODE REACTION SEVERITY SOURCE 08/04/2018 Drug Sulfa Unknown [facility] Allergy/4160 (Sulfonamide Hospital 37438(SNOMED Antibiotics)/ Repository CT) [id number](RX NORM) ENCOUNTERS ENCOUNTERS ADMIT/DISCHARGE ACCOUNT ADMITTING ENCOUNTER LOCATION SOURCE NUMBER CLASS 08/26/2018 [id number] Ambulatory [place] 1 [facility] Hospital ing:MTLAB Repository 08/17/2018/ [id number] Bro, Inpatient [place] 8 1 [place] Encounter [facility] ing:ZY3Erlh: Repository ZJ087Fns: 1 08/04/2018 [id number] Ambulatory [place] [facility] 1 [facility] Hospital ing:CT Repository 08/04/2018 [id number] Ambulatory BMSBuilding:W [place] 2 [facility] Repository 07/02/2018 [id number] Ambulatory [place] 6 [facility] ing:CT Repository 07/01/2018 [id number] Ambulatory [place] 0 [facility] Hospital ing:CT Repository 06/02/2018 [id number] Ambulatory [place] 4 [facility] Hospital ing:MTLAB Repository 04/09/2018/ [id number] Ambulatory [place] 8 1 [facility] Hospital ing:PT Repository 03/29/2018 [id number] Ambulatory [place] [facility] 3 [facility] Hospital ing:MTLAB Repository 01/05/2018/ [id number] Ambulatory BMSBuilding:B [place] 8 2 [facility] Repository 01/05/2018 [id number] Ambulatory [place] 2 [facility] Hospital ing:OPBI Repository 12/15/2017 [id number] Ambulatory [place] 9 [facility] Hospital ing:MRI Repository 09/30/2017 [id number] Ambulatory [place] 6 [facility] Hospital ing:MTRAD Repository 09/25/2017 [id number] Ambulatory [place] 2 [facility] Hospital ing:MTLAB Repository PAYERS PAYERS ENCOUNTER GUARANTOR PAYER SUBSCRIBER SOURCE 08/26/2018 JAMILAH James Primary JAMILAH [id number] TR Insurance:MEDICARE BARNESDOB: [address] PART A [facility] [id number] Hospital [address]Etv: (330) Number: Repository [phone] (HP) [id number] Date:2018-08-26 08/26/2018 Secondary JAMILAH K [place] Insurance:AARPPolicy BARNESDOB: Community Number: [id number] Hospital [id number] Repository Date:4872-40-21[address], [place] [address]LB: 08/26/2018 Tertiary NOT GIVENUNK [place] Insurance:SELF PAY [facility] Number: Effective Repository Date:2018-08-26 08/17/2018 JAMILAH K Primary JAMILAH K [place] [id number] TR Insurance:MEDICARE BARNESDOB: Community [address] [place] [address] PART A [facility] [id number] Hospital [address]89[address]Xgt: (330) Number: Repository [phone] ) [id number] Date:2018-07-02 08/17/2018 Secondary JAMILAH K [place] Insurance:AARPPolicy BARNESDOB: Community Number: [id number] Hospital [id number] Repository Date:4388-30-31[address], [place] [address]OB: 08/17/2018 Tertiary NOT GIVENUNK [place] Insurance:SELF PAY [facility] Number: Effective Repository Date:2018-07-02 08/04/2018 JAMILAH Erika Primary JAMILAH Erika [place] [id number] TR Insurance:MEDICARE BARNESDOB: [address] PART A [facility] [id number] Hospital [address]Irl: (330) Number: Repository [phone] () [id number] Date:2018-07-19 08/04/2018 Secondary JAMILAH K [place] Insurance:AARPPolicy BARNESDOB: Community Number: [id number] Hospital [id number] Repository Date:7324-22-44[address]X [address], [place] [address]RV: 08/04/2018 Tertiary NOT GIVENUNK [place] Insurance:SELF PAY [facility] Number: Effective Repository Date:2018-07-19 08/04/2018 JAMILAH K Primary JAMILAH K [place] [id number] TR Insurance:MEDICARE BARNESDOB: Community [address] [place] [address], [place] PART [place] olic [id number] Hospital [address]Kzt: (330) Number: Repository [phone] () [id number] Date:2018-07-19 08/04/2018 Secondary JAMILAH Erika [place] Insurance:AARPPolicy BARNESDOB: Community Number: [id number] Hospital [id number] Repository Date:5341-28-66HG [facility] [address], [place] [address]RB: 08/04/2018 Tertiary NOT GIVENUNK [place] Insurance:SELF PAY [facility] Number: Effective Repository Date:2018-08-04 07/02/2018 JAMILAH K Primary JAMILAH K [place] [id number] TR Insurance:MEDICARE BARNESDOB: [address] PART A olic [id number] Hospital [address]Cfy: (330) Number: Repository [phone] () [id number] Date:2018-07-01 07/02/2018 Secondary JAMILAH K [place] Insurance:AARPPolicy BARNESDOB: Community Number: [id number] Hospital [id number] Repository Date:1115-42-55NZ [facility] [place], [place] [address]FI: 07/02/2018 Tertiary NOT GIVENUNK [place] Insurance:SELF PAY [facility] Number: Effective Repository Date:2018-07-01 07/01/2018 JAMILAH K Primary JAMILAH Erika [place] [id number] TR Insurance:MEDICARE BARNESDOB: [address] PART A [facility] [id number] Hospital [address]Pdn: (330) Number: Repository [phone] () [id number] Date:2018-06-15 07/01/2018 Secondary JAMILAH K [place] Insurance:AARPPolicy BARNESDOB: Community Number: [id number] Hospital [id number] Repository Date:9912-02-40YX [facility] [address]66[address], [place] [address]HC: 07/01/2018 Tertiary NOT GIVENUNK [place] Insurance:SELF PAY [facility] Number: Effective Repository Date:2018-06-15 06/02/2018 JAMILAH James Primary JAMILAH James [place] [id number] TR Insurance:MEDICARE BARNESDOB: Community [address] [place] [address], pr PART A [facility] [id number] Hospital 37696Rxz: (330) Number: Repository [phone] () [id number] Date:2018-06-02 06/02/2018 Secondary JAMILAH K [place] Insurance:AARPPolicy BARNESDOB: Community Number: [id number] Hospital [id number] Repository Date:1551-95-30NB [facility] [place]18[place], [place] [address]VL: 06/02/2018 Tertiary NOT GIVENUNK [place] Insurance:SELF PAY [facility] Number: Effective Repository Date:2018-06-02 04/09/2018 JAMILAH K Primary JAMILAH James [place] [id number] TR Insurance:MEDICARE BARNESDOB: Community [address] [place] [address] PART A [facility] [id number] Hospital 079[address]Kkt: (330) Number: Repository [phone] () [id number] Date:2010-03-28 04/09/2018 Secondary JAMILAH Erika [place] Insurance:AARPPolicy BARNESDOB: Community Number: [id number] Hospital [id number] Repository Date:3115-48-55[address], [place] [address]SH: 04/09/2018 Tertiary NOT GIVENUNK [place] Insurance:SELF PAY [facility] Number: Effective Repository Date:2018-01-29 03/29/2018 JAMILAH Erika Primary JAMILAH Erika [place] [id number] TR Insurance:MEDICARE BARNESDOB: Community [address] [place] [address], pr [facility] [id number] Hospital [address]Jqr: (330) Number: Repository [phone] () [id number] Date:2018-03-29 03/29/2018 Secondary JAMILAH K [place] Insurance:AARPPolicy BARNESDOB: Community Number: [id number] Hospital [id number] Repository Date:0093-58-69YN [facility] [address]99[place], [place] [address]QE: 03/29/2018 Tertiary NOT GIVENUNK [place] Insurance:SELF PAY [facility] Number: Effective Repository Date:2018-03-29 01/05/2018 JAMILAH K Primary JAMILAH K [place] [id number] TR Insurance:MEDICARE BARNESDOB: Community [address] [place] [address] PART A [facility] [id number] Hospital 579[address]Xdt: Number: Repository [phone] [id number] (HP) Date:2017-12-16 01/05/2018 Secondary JAMILAH K [place] Insurance:AARPPolicy BARNESDOB: Community Number: [id number] Hospital [id number] Repository Date:8013-00-32ZP [facility] 3624[place], [place] [address]PD: 01/05/2018 Tertiary NOT GIVENUNK [place] Insurance:SELF PAY [facility] Number: Effective Repository Date:2017-12-28 01/05/2018 JAMILAH K Primary JAMILAH K [place] [id number] TR Insurance:MEDICARE BARNESDOB: [address], pr PART A [facility] [id number] Hospital [address]Rnt: Number: Repository [phone] [id number] (HP) Date:2017-12-07 01/05/2018 Secondary JAMILAH K [place] Insurance:AARPPolicy BARNESDOB: Community Number: [id number] Hospital [id number] Repository Date:7794-40-13[address], [place] [address]IZ: 01/05/2018 Tertiary NOT GIVENUNK [place] Insurance:SELF PAY [facility] Number: Effective Repository Date:2017-12-07 12/15/2017 Jamilha K Primary Jamilah K [place] [id number] Tr Insurance:MEDICARE BarnesDOB: [address], [place] PART A [facility] [id number] Hospital [address]Avk: Number: Repository [phone] [id number] (HP) Date:2017-12-07 12/15/2017 Secondary Jamilah Erika [place] Insurance:AARPPolicy BarnesDOB: Community Number: [id number] Hospital [id number] Repository Date:2117-38-89TW [facility] [address]32[address], [place] [address]TV: 12/15/2017 Tertiary NOT GIVENUNK [place] Insurance:SELF PAY [facility] Number: Effective Repository Date:2017-12-07 09/30/2017 Jamilah K Primary Jamilah Erika [place] [id number] Tr Insurance:MEDICARE BarnesDOB: [address] PART A [facility] [id number] Hospital [address]Gzu: Number: Repository [phone] [id number] (HP) Date:2017-09-30 09/30/2017 Secondary Jamilah K [place] Insurance:AARPPolicy BarnesDOB: Community Number: [id number] Hospital [id number] Repository Date:0405-20-01WN [address], [place] [address]KU: 09/30/2017 Tertiary NOT GIVENUNK [place] Insurance:SELF PAY [facility] Number: Effective Repository Date:2017-09-30 09/25/2017 Jamilah K Primary Jamilah Erika [place] [id number] Tr Insurance:MEDICARE BarnesDOB: [address] PART A [facility] [id number] Hospital [address]Kzj: Number: Repository [phone] [id number] (HP) Date:2017-09-25 09/25/2017 Secondary Jamilah K [place] Insurance:AARPPolicy BarnesDOB: Community Number: [id number] Hospital [id number] Repository Date:5601-79-44YW [facility] [place]05[place], [place] [address]EM: 09/25/2017 Tertiary NOT GIVENUNK [place] Insurance:SELF PAY [facility] Number: Effective Repository Date:2017-09-25
== END ==
PROVIDERS: Family Provider Family Medicine; PCP Family Medicine; Referring Provider Internal Medicine Rheumatology; Visit Provider Internal Medicine Rheumatology
DX: M06.4 Inflammatory polyarthropathy (principal)
CPT/HCPCS: 36415; 80053; 85025

== ENCOUNTER → 2018-10-18 12:44 | Outpatient (CLI) | payer MEDICARE, SELFPAY ==
[2018-08-17 15:10] VITALS: BMI 43.0
[2018-10-18 13:58] LABS: Absolute Lymphocyte Count 1.16 X10^3/ul (0.83-4.51); Absolute Neutrophil Count 2.9 X10^3/uL (2.0-7.7); Basophil# 0.03 X10^3/uL; Basophil% 0.7 % (0-1); Eosinophil# 0.08 X10^3/uL; Eosinophils% 1.8 % (0-5); Hematocrit 43.5 % (37-47); Lymphocyte # 1.16 X10^3/ul (4.0); Lymphocyte % 25.4 % (19-41); Mean Corp Hgb Conc 32.2 g/gl (32-36); Mean Corpuscular Volume 90.2 fL (81-99); Mean Platelet Vol. 10.7 fl (6.2-12.0); Monocyte% 8.8 % (0-10); Neutrophil # 2.89 X10^3/uL (2.7-7.7); Neutrophil % 63.1 % (47-70); Platelet Count 184 K/mm3 (150-450); RBC Distribution Width CV 13.3 % (11.6-14.6); RBC Distribution Width SD 43.6 fl (35.1-43.9); Red Blood Count 4.82 M/mm3 (4.2-5.4); White Blood Count 4.6 K/mm3 (4.4-11.0)
[2018-10-18 13:59] LABS: POSITIVE COUNT NO; POSITIVE DIFFERENTIAL NO; POSITIVE MORPHOLOGY NO
[2018-10-18 14:05] LABS: ALB/GLOB Ratio 1.1 RATIO (0.9-2.4); AST(SGOT) 30 U/L (15-37); Alanine Aminotransfer ALT/SGPT 52 U/L (13-56); Albumin, Serum 3.9 g/dL (3.2-5.0); Alkaline Phosphatase 111 U/L (45-117); Anion Gap 7 (5-15); BUN 22 mg/dL (7-18); BUN/Creat Ratio 29.9 RATIO (10-20); Calcium,Total 9.7 mg/dL (8.5-10.1); Chloride 103 mmol/L (98-107); Creatinine, Serum 0.74 mg/dL (0.55-1.02); EST Glomerular Filtration Rate 83 mL/min (>60); Est Glom Filt Rate - Afr Amer 101 mL/min (>60); Globulin 3.6 g/dL (2.2-4.2); Glucose 109 mg/dL (74-106); Potassium 3.7 mmol/L (3.5-5.1); Protein, Total 7.5 g/dL (6.4-8.2); Sodium Level 141 mmol/L (136-145)
--- OUTSIDE RECORDS SUMMARY | 2018-12-20 23:44 | XMS RPT_ITS ---
:1950 Author Organization OHIP Support Name Relationship Address Phone RIK OCONNOR Unavailable [id number] + [place] [address] R Unavailable Unavailable Unavailable OCONNOR, RIK Unavailable [address] + [place] [address] R Unavailable Unavailable Unavailable OCONNOR, RIK Unavailable [address] + [place] [address] R Unavailable Unavailable Unavailable OCONNOR, RIK Unavailable [address] + [place] [address] R Unavailable Unavailable Unavailable OCONNOR, RIK Unavailable [address] + [place] [address] R Unavailable Unavailable Unavailable OCONNOR, RIK Unavailable [address] + [place] [address] R Unavailable Unavailable Unavailable OCONNOR, RIK Unavailable [address] + [place] [address] R Unavailable Unavailable Unavailable OCONNOR, RIK Unavailable [address] + [place] [address] R Unavailable Unavailable Unavailable OCONNOR, RIK Unavailable [address] + [place] [address] R Unavailable Unavailable Unavailable OCONNOR, RIK Unavailable [address] + [place] [address] R Unavailable Unavailable Unavailable OCONNOR, RIK Unavailable [address] [phone] [place] [address] R Unavailable Unavailable Unavailable OCONNOR, RIK Unavailable [address] [phone] [place] [address] R Unavailable Unavailable Unavailable OCONNOR, RIK Unavailable [address] [phone] [place] [address] R Unavailable Unavailable Unavailable Care Team Providers Name Role Phone Vellanki, Jocelin Attending Unavailable Malys, Shakira Primary Care Unavailable Vellanki, Jocelin Referring Unavailable Malys, Shakira Attending Unavailable Malys, Shakira [...] Primary Care Unavailable Malys, Shakira Referring Unavailable Bro, Sotero Attending Unavailable Bro, Sotero Referring Unavailable Malys, Shakira Primary Care Unavailable Bro, Sotero Admitting Unavailable Bro, Sotero Attending Unavailable Bro, Sotero Referring Unavailable Malys, [...] G89.18 - Other acute Sotero Crabtree Active [place] postprocedural pain / Community G89.18(ICD-10) Hospital Repository 08/17/2018 Unknown Z01.810 - Encounter Stone Smith Active [place] for preprocedural [facility] cardiovascular Hospital examination / Repository Z01.810(ICD-10) 06/02/2018 Unknown M75.41 - Impingement Vellanlj, Jocelin Active [place] syndrome of right Community shoulder / Hospital M75.41(ICD-10) Repository 06/02/2018 Unknown Z79.899 - Other long Vellanki, Jocelin Active [place] term (current) drug Community therapy / Hospital Z79.899(ICD-10) Repository 06/02/2018 Unknown D86.9 - Sarcoidosis, Vellanki, Jocelin Active [place] unspecified / Community D86.9(ICD-10) Hospital Repository 06/02/2018 Unknown M79.7 - Fibromyalgia Fredericlanlj, Jocelin Active [place] / M79.7(ICD-10) Community Hospital Repository 06/02/2018 Unknown M17.0 - Bilateral Vellanki, Jocelin Active [place] primary Community osteoarthritis of Hospital knee / M17.0(ICD-10) Repository 06/02/2018 Unknown M18.0 - Bilateral Vellanki, Jocelin Active [place] primary Community osteoarthritis of Hospital first carpometacarpal Repository joints / M18.0(ICD-10) 06/02/2018 Unknown M15.9 - Vellanki, 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, Community unspecified / Hospital M15.9(ICD-10) Repository 06/02/2018 Unknown K76.0 - Fatty (change Vellanki, Jocelin Active [place] of) liver, not Community elsewhere classified Hospital / K76.0(ICD-10) Repository 06/02/2018 Unknown 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, 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 / Hospital K22.70(ICD-10) Repository 06/02/2018 Unknown H35.30 - Unspecified Vellanki, Jocelin Active [place] macular degeneration Community / H35.30(ICD-10) Hospital Repository 06/02/2018 Unknown G47.33 - Obstructive Vellanki, Jocelin Active [place] sleep apnea (adult) Community (pediatric) / Hospital G47.33(ICD-10) Repository 06/02/2018 Unknown K21.9 - Vellanki, Joceiln Active [place] Gastro-esophageal Community reflux disease Hospital without esophagitis / Repository K21.9(ICD-10) 06/02/2018 Unknown F41.9 - Anxiety Vellanki, Jocelin Active [place] disorder, unspecified Community / F41.9(ICD-10) Hospital Repository 04/12/2018 Unknown S46.011D - Strain of Chicorelli, Active [place] muscle(s) and Leydi Community tendon(s) of the Hospital rotator cuff of right Repository shoulder, subsequent encounter / S46.011D(ICD-10) 01/05/2018 Unknown Z12.31 - Encounter RojeliorenettaShakira Active [place] for screening Community mammogram for Hospital malignant neoplasm of Repository breast / Z12.31(ICD-10) 12/15/2017 Unknown M25.511 - Pain in Malys, Shakira Active [place] right shoulder / Community M25.511(ICD-10) Hospital Repository PROCEDURES PROCEDURES No Procedure Records FoundRESULTS RESULTS CBC W/DIFF, AUTOMATED Collected: 10/18/2018 Status: F Source: [place] 12:55 PM [facility] REPOSITORY TYPE CODE TESTS RESULT OUT OF RANGE REFERENCE UNITS LAB L100.1000 4.4-11.0 K/mm3 Normal WBC 4.6 LAB L100.1200 4.2-5.4 M/mm3 Normal RBC 4.82 LAB L100.1300 12.0-15.0 g/dl Normal HGB 14.0 LAB L100.1400 37-47 % Normal HCT 43.5 LAB L100.1500 81-99 fL Normal MCV 90.2 LAB L100.1600 27.0-32.0 pg Normal MCH 29.0 LAB L100.1700 32-36 g/gl Normal MCHC 32.2 LAB L100.1810 11.6-14.6 % Normal RDW CV 13.3 LAB L100.1820 35.1-43.9 fl Normal RDW SD 43.6 LAB L100.1900 150-450 K/mm3 Normal PLT 184 LAB L100.2000 6.2-12.0 fl Normal MPV 10.7 LAB L100.2100 47-70 % Normal NEUT% 63.1 LAB L100.2200 19-41 % Normal LY% 25.4 LAB L100.2300 0-10 % Normal MONO% 8.8 LAB L100.2400 0-5 % Normal EO% 1.8 LAB L100.2500 0-1 % Normal BASO% 0.7 LAB L100.2550 0.0-0.9 % Normal IM GRAN % 0.200 Result Comment: IG% - Immature Granulocytes (promyelocytes, myelocytes and metamyelocytes) > 1% indicates that a LEFT SHIFT is Present. LAB L100.2620 2.0-7.7 X10 3/uL Normal Absolute Neut 2.9 LAB L100.2720 0.83-4.51 X10 3/ul Normal Absolute Lymph 1.16 Performed By: #### L100.0100 #### [facility] [address] [place], [address] COMPREHENSIVE METABOLIC Collected: 10/18/2018 Status: F Source: [place] TERAN 12:55 PM [facility] REPOSITORY TYPE CODE TESTS RESULT OUT OF RANGE REFERENCE UNITS LAB L501.0100 74-106 mg/dL High GLU 109 Result Comment: Fasting Glucose result from 100 to 125 mg/dL suggests IMPAIRED HOMEOSTASIS per A.D.A. criteria. Please note revised GLUCOSE reference range effective 2017. LAB L501.1000 7-18 mg/dL High BUN 22 LAB L501.1100 0.55-1.02 mg/dL Normal CREAT,SERUM 0.74 Result Comment: The validity of the calculated GFR AND GFRAA in patients over 70 years has not been determined. Clinical correlation is essential. LAB L501.1110 >60 mL/min Normal EST GFR 83 Result Comment: Non- GFR Calc LAB L501.1115 >60 mL/min Normal EST GFR - AA 101 Result Comment: GFR Calc LAB L501.1300 10-20 RATIO High BUN/CRE 29.9 LAB L501.1500 6.4-8.2 g/dL T Normal PROT 7.5 LAB L501.1800 3.2-5.0 g/dL Normal ALB 3.9 LAB L501.1950 2.2-4.2 g/dL Normal GLOB 3.6 LAB L501.2000 0.9-2.4 RATIO Normal A/G 1.1 LAB L501.2200 8.5-10.1 mg/dL CA Normal 9.7 LAB L501.4100 15-37 U/L Normal AST 30 LAB L501.4305 45-117 U/L Normal ALK P 111 LAB L501.4405 13-56 U/L Normal ALT 52 LAB L501.4600 0.20-1.00 mg/dL T Normal BILI 0.30 LAB L501.5300 136-145 mmol/L NA Normal 141 LAB L501.5600 3.5-5.1 mmol/L K Normal 3.7 LAB L501.5900 98-107 mmol/L CL Normal 103 LAB L501.6100 21.0-32.0 mmol/L Normal CO2 31.0 LAB L501.6200 5-15 Normal GAP 7 Performed By: #### L500.4050 #### [facility] [place], [address] CBC W/DIFF, AUTOMATED Collected: 08/26/2018 Status: F Source: [place] 2:57 PM [facility] REPOSITORY TYPE CODE TESTS RESULT OUT OF [...] Lymph 1.39 Performed By: #### L100.0100 #### [facility] [address] [place], [place], [address] COMPREHENSIVE METABOLIC Collected: 08/26/2018 Status: F Source: [facility] 2:57 PM [facility] REPOSITORY TYPE CODE TESTS RESULT OUT OF [...] GAP 4 Performed By: #### L500.4050 #### [facility] [address] [place], [address] DISCHARGE INSTRUCTION Observed: 08/18/2018 Status: F Source: [place] 3:37 PM [facility] REPOSITORY [facility] Medical Records Department [facility] [place] [address] Instructions for Home/Discharge Instructions 11/21/18 1536 MR#: [id number] Acct: [id number] Name: JAMILAH OCONNOR Rep #: [id number] : 1950 68 From: Sotero Crabtree MD [...] OPERATIVE REPORT Observed: 08/18/2018 Status: F Source: [place] 3:35 PM [facility] REPOSITORY [facility] Medical Records Department [address] [place] [address] Operative Report 08/17/18 1317 MR#: [id number] Acct: [id number] Name: JAMILAH OCONNOR Rep #: [id number] : 1950 68 From: Sotero Crabtree MD PCP: Shakira Fuchs DO Status: ADM IN Y [facility] Report of Operation Date of Procedure: 08/17/18 Pre-Operative Diagnosis: Right shoulder cuff tear arthropathy Post-Operative Diagnosis: Right shoulder cuff tear arthropathy Surgery/Procedure Performed:: Right reverse total shoulder replacement Description of Surgical Findings:: Stable shoulder food supervisor: Juancarlos Ramon Type of Anesthesia:: General Anesthesiologist: [...] of phase 1 physical therapy. Grafts/Implants Used: [employer] reunion total shoulder reverse - Complications None - Admit VTE Documentation VTE Present on Admission: No VTE Mechan Device Prophylaxis: SCD's, Knee High TUNDE Hose VTE Pharm Prophylaxis ordered?: Yes 08/18/18 5375 <Electronically signed by Sotero Crabtree MD> Date Sotero Crabtree MD CC: Shakira Fuchs DO; Sotero Crabtree MD Signed SHOULDER ONE VIEW Observed: 08/17/2018 Status: F Source: [place] 1:16 PM [facility] REPOSITORY [facility] Imaging Services [address] [place] [address] Shoulder One View MR#: [id number] Acct: [id number] Name: JAMILAH OCONNOR Rep #: [id number] : 1950 F 68 From: Crow Hui MD PCP: Shakira Fuchs DO Status: ADM IN Study: Shoulder One View Date of Exam: 08/17/18 Exam# [id number] Ordering Dr: Sotero Crabtree MD STUDY: X-RAY [...] CC: Shakira Fuchs DO; Sotero Crabtree MD Building Construction Ironworker: Signed ALBUMIN, SERUM Collected: 08/11/2018 Status: F Source: [place] 2:58 PM [facility] REPOSITORY TYPE CODE TESTS RESULT OUT OF RANGE REFERENCE UNITS LAB L501.1800 3.2-5.0 g/dL Normal ALB 3.9 Performed By: #### L501.1800 #### [facility] [address] [place], [address] 12 LEAD ELECTROCARDIOGRAM Observed: 08/09/2018 Status: F Source: [place] 2:34 PM [facility] REPOSITORY [facility] Cardiovascular Services [address] [place] [address] EKG - SDC 08/04/18 1406 MR#: [id number] Acct: [id number] Name: JAMILAH OCONNOR Rep #: [id number] : 1950 68 From: Stone Smith MD Attending Dr: Sotero Crabtree MD Status: PRE IN Ordering Dr: Sotero Crabtree MD Date: 08/04/18 Location: [facility] Sex: F C Admitted: Test Reason : Blood Pressure : / mmHG Vent. Rate : 079 BPM Atrial Rate : 079 BPM P-R Int : 186 ms QRS Dur : 076 ms QT Int : 394 ms P-R-T Axes : 078 051 041 degrees QTc Int : 451 ms Normal sinus rhythm Normal ECG Confirmed by STONE SMITH ([id number]), film editor KELLEY WHITLOCK ([id number]) on 08/09/2018 2:34:06 PM Referred By: Sotero Crabtree Confirmed By:STONE SMITH 08/09/18 1434 Date Stone Smith MD CC: Shakira Fuchs DO; Sotero Crabtree MD Date Dictated: 08/04/18 140 Date Transcribed: 08/04/18 140 Building Construction Ironworker: Signed HISTORY AND PHYSICAL Observed: 08/04/2018 Status: F Source: [place] EXAM 4:57 PM [facility] REPOSITORY [facility] Medical Records Department [address] [address] History and Physical 08/04/18 1654 MR#: [id number] Acct: [id number] Name: JAMILAH OCONNOR Rep #: [id number] : 1950 68 From: Prosper Bustillos PA-C PCP: Shakira Fuchs DO Status: PRE IN Y Location: [facility] History and Physical DATE OF SURGERY: 08/17/2018 [...] Sarcoidoisis Accidents: None Surgical Hx: Appendectomy - 1970,[facility] Gallbladder - 1970,[facility] Tonsillectomy - [facility] Tubal Ligation - 1979,[facility] Reverse Tubal Ligation,[facility],1983, Lung Biopsy,2007,[facility] Carpal Tunnel Release LT - 2000 [...] Vitamin C 1000 mg 1po qday, Biotin 12458 mcg 1po qday PRE-OP EXAM: General appearance:NORMAL [...] ___ Dictated on admission Date: Time: Signature: 08/04/181656 <Electronically signed by Prosper Bustillos PA-C> Date Prosper Bustillos PA-C Cosigner Signature: Date (if applicable) CC: Shakira Fuchs DO; Prosper PARKER Signed CREATININE FINGERSTICK Collected: 08/04/2018 Status: F Source: [place] 3:06 PM [facility] REPOSITORY TYPE CODE TESTS RESULT OUT OF RANGE REFERENCE UNITS LAB L9100.0210 0.55-1.02 mg/dL Normal CREATININE WB 0.8 LAB L9100.0220 >60 mL/min EGFR WB Normal > 60.0000 Performed By: #### L9100.0200 #### [facility] Point of Care [facility] [place] [address] ABDOMEN/PELVIS WITH Observed: 08/04/2018 Status: F Source: [place] CONTRAST 2:48 PM [facility] REPOSITORY [facility] Imaging Services [address] [place] [address] Abdomen/Pelvis WITH Contrast MR#: [id number] Acct: [id number] Name: JAMILAH OCONNOR Rep #: [id number] : 1950 F 68 From: Mary Hurst MD PCP: Shakira Fuchs DO Status: REG CLI Study: Abdomen/Pelvis WITH Contrast Date of Exam: 08/04/18 Exam# [id number] Ordering Dr: Shakira Fuchs DO STUDY: CT [...] Hurst MD at 0:43 EST Tel Direct: [phone], Service support , CC: Shakira Fuchs DO Building Construction Ironworker: Signed CBC W/DIFF, AUTOMATED Collected: 08/04/2018 Status: F Source: [place] 2:36 PM [facility] REPOSITORY TYPE CODE TESTS RESULT OUT OF [...] Lymph 1.31 Performed By: #### L100.0100 #### [facility] [address] [place], [address] BASIC METABOLIC Collected: 08/04/2018 Status: F Source: [facility] PROFILE ([facility]) 2:36 PM [facility] REPOSITORY TYPE CODE TESTS RESULT OUT OF [...] GAP 7 Performed By: #### L500.2500 #### [facility] [address] [place], [address] Observed: 08/04/2018 Status: F Source: [facility] MRSA/SAID SCREEN 2:36 PM [facility] REPOSITORY MRSA/SAID SCRN S. AUREUS S. aureus Negative MRSA MRSA Negative Performed By: #### M100.651 #### [facility] [address] [place], [place], [address] EXTREMITY UPPER Observed: 07/02/2018 Status: F Source: [place] WITHOUT CONTRA 1:54 PM [facility] REPOSITORY [facility] Imaging Services [address] [place] [address] Extremity Upper without Contra MR#: [id number] Acct: [id number] Name: JAMILAH OOCNNOR Erika Rep #: [id number] : 1950 F 68 From: Washington Juan MD PCP: Shakira Fuhcs DO Status: REG CLI Study: Extremity Upper without Contra Date of Exam: 07/02/18 Exam# [id number] Ordering Dr: Sotero Crabtree MD STUDY: CT [...] cuff insufficiency/tear. Suspected subacromial impingement. Electronically Signed: Washington Juan, at 12:52 EDT Tel , Service support , CC: Shakira Fuchs DO; Sotero Crabtree MD Building Construction Ironworker: Signed ABDOMEN/PELVIS WITHOUT Observed: 07/01/2018 Status: F Source: [facility] CONT 1:59 PM [facility] REPOSITORY [facility] Imaging Services [address] [place] [address] Abdomen/Pelvis without Cont MR#: [id number] Acct: [id number] Name: JAMILAH OCONNOR Rep #: [id number] : 1950 F 68 From: Cesar Mujica MD PCP: Shakira Fuchs DO Status: REG CLI Study: Abdomen/Pelvis without Cont Date of Exam: 07/01/18 Exam# [id number] Ordering Dr: Shakira Fuchs DO STUDY: CT [...] Service support , CC: Shakira Fuchs DO Building Construction Ironworker: Signed CBC W/DIFF, AUTOMATED Collected: 06/02/2018 Status: F Source: [place] 12[facility] PM [facility] TYPE CODE TESTS [...] Lymph 1.10 Performed By: #### L100.0100 #### [facility], [address] COMPREHENSIVE METABOLIC Collected: 06/02/2018 Status: F Source: [facility] 12:32 PM [facility] REPOSITORY TYPE CODE TESTS RESULT OUT OF [...] GAP 9 Performed By: #### L500.4050 #### [facility] [address] [place], [place], [address] INITAL EVALUATION (1) Observed: 04/09/2018 Status: F Source: [place] - PT 1:58 PM [facility] REPOSITORY [facility] [address] [place] [address]. [address] [place], [place] [address] Fax REHABILITATION SERVICES INITIAL EVALUATION MR#: [id number] Acct: [id number] Name: JAMILAH OCONNOR Rep #: [id number] : 1950 67 From: Deepthi San PT, Cert. MDT Referring DrDinora: Leydi Younger DO Status: REG RCR Insurance: MEDICARE PART A B [facility] Patient's Visit Information JAMILAH OCONNOR is a 67 year old F referred to Physical Therapy by Leydi Younger DO with a diagnosis of R SHLD TRC TENDONITIS/SUBACROMIAL IMPINGEMENT. Date of Evaluation: 02/01/18 Physical Therapist: Deepthi San - Visit Plan Frequency: 2-3x /Week Duration: 4-6 Weeks Plan: D/C TO [facility] AND FOLLOW UP WITH DR. YOUNGER - Subjective Subjective: Diagnosis: R SHLD TRC TENDONITIS/SUBACROMIAL IMPINGEMENT. Work/Leisure: RETIRED. Disability: NOT NOW BUT RETIRED DUE TO DISABILITY FOR SARCOIDOSIS AND FIBROMYALGIA. Present symptoms: RIGHT SHOULDER PAIN. NO NUMBNESS OR TINGLING. NO NECK PAIN. Present since: ABOUT MAY 2017. Pain Scale: WORST: 10/10. LEAST: 10/07. Currently: 10/07. Commenced as a result of: [...] WRIST FLEX 3+/5, WRIST EXT 3+/5, RIGHT PHOTORESIST CONTACT PRINTER 35 LBS, LEFT 45 LBS. LEFT UE [...] to be FAXED BACK to us at [phone] for Medicare purposes. Please let me know if there are questions or concerns regarding this plan of care. Physician Signature: Date: <Electronically signed by Cert. FILIPPO Davila PTT> 04/09/18 1358 CC: Leydi Younger DO; Shakira Fuchs DO RADHA Signed For Medicare only, by signing this I certify the plan of care. Physicians Signature Date PT D/C SUMMARY (1) Observed: 04/09/2018 Status: F Source: [facility] 1:58 PM [facility] REPOSITORY [facility] [address] [place] [address] Fax REHABILITATION SERVICES DISCHARGE SUMMARY MR#: [id number] Acct: [id number] Name: JAMILAH OCONNOR Rep #: [id number] : 1950 67 From: Deepthi San PT CertDinora BARKLEYT Referring Dr.: Leydi Younger DO Status: REG [...] please feel free to call me at [phone]. Thank you for the referral of this patient. Sincerely, Deepthi San <Electronically signed by Deepthi San PT, Cert. MDT> 04/09/18 1358 CC: Leydi Younger DO; Shakira Fuchs DO RADHA Signed CBC W/DIFF, AUTOMATED Collected: 03/29/2018 Status: F Source: [place] 10:05 AM [facility] REPOSITORY TYPE CODE TESTS RESULT OUT OF [...] Lymph 1.05 Performed By: #### L100.0100 #### [facility] [address] [place], [place], [address] COMPREHENSIVE METABOLIC Collected: 03/29/2018 Status: F Source: [facility] 10:05 AM [facility] REPOSITORY TYPE CODE TESTS RESULT OUT OF [...] GAP 7 Performed By: #### L500.4050 #### [facility] [address] [place], [place], [address] INITAL EVALUATION (1) Observed: 02/01/2018 Status: F Source: [place] - UNA 9:46 AM [facility] REPOSITORY [facility] [address] [place], [place] [address] Fax REHABILITATION SERVICES INITIAL EVALUATION MR#: [id number] Acct: [id number] Name: JAMILAH OCONNOR Rep #: [id number] : 1950 67 From: Deepthi San PT, Cert. MDT Referring Dr.: Leydi Younger DO Status: REG RCR Insurance: MEDICARE PART A B [facility] Patient's Visit Information JAMILAH OCONNOR is a [...] MAY 2017. Pain Scale: WORST: 10/10. LEAST: 1/10. Currently: 10/07. Commenced as a result of: [...] WRIST FLEX 3+/5, WRIST EXT 3+/5, RIGHT PHOTORESIST CONTACT PRINTER 35 LBS, LEFT 45 LBS. LEFT UE [...] to be FAXED BACK to us at [phone] for Medicare purposes. Please let me know if there are questions or concerns regarding this plan of care. Physician Signature: Date: <Electronically signed by Deepthi San PT, Cert. MDT> 02/01/18 0946 CC: Leydi Younger DO; Shakira Fuchs DO RADHA Signed For Medicare only, by signing this I certify the plan of care. Physicians Signature Date ORTHOPEDIC VISIT Observed: 01/05/2018 Status: F Source: [place] REPORT 1:51 PM [facility] REPOSITORY [facility] Orthopaedics AND Sports Medicine [address] [place] [address] OFFICE VISIT Date of Service: 01/05/18 MR#: [id number] Acct: [id number] Name: JAMILAH OCONNOR Rep #: [id number] : 1950 Provider: Leydi Younger DO Age/Sex: 67/F Location: [facility] Status: Signed Intake Vital Signs01/05/18 Height 5 ft Intake Visit Reasons: RIGHT SHOULDER Humidifier Operator Required: No Accompanied by: None Is patient [...] mg PO QDAY 01/05/18 [History Confirmed 01/05/18] PFSH Medical History Barretts esophagus (Acute) Fibromyalgia (Acute) [...] in September and November respectively [facility], no therapy, no injections. Patient rates her [...] if they have any concerns. Office Meds Kenalog Performing Provider: Leydi Younger DO Administered by: Leydi Younger DO on 01/05/18 13:41 Dose Route Admin Location Lot Number Expiration DateNDC Senior Oracle Database Administrator 2 mg Intra-Articularright [id number] 01/26/19 8725-1475-09 [employer] Assessment AND Plan 1. Subacromial impingement of [...] syndrome of right shoulder M75.101 Additional Codes pv design and installation technician.sub ([id number]) 01/05/18 1351 <Electronically signed by Leydi Younger DO> Date Leydi Younger DO Cosigner Signature: Date (if applicable) CC: Shakira Fuchs DO SCREENING MAMM (CAD), Observed: 01/05/2018 Status: F Source: [facility] 10:21 AM [facility] REPOSITORY [facility] Imaging Services [address] [place] [address] SCREENING MAMM (CAD), BILAT MR#: [id number] Acct: [id number] Name: JAMILAH OCONNOR Rep #: [id number] : 1950 F 67 From: Jovanny Antoine MD PCP: Shakira Fuchs DO Status: [facility] Study: SCREENING MAMM (CAD), BILAT Date of Exam: 01/05/18 Exam# [id number] Ordering Dr: Shakiar Fuchs DO MAMMOGRAPHY - BILATERAL SCREENING REASON [...] delay biopsy of a clinically suspicious abnormality. [id number] Electronically Signed: Jovanny Antoine MD at 14:36 EDT Tel [phone], Service support , CC: Shakira Fuchs DO Building Construction Ironworker: Signed UPPER EXT JOINT Observed: 12/15/2017 Status: F Source: [facility] ONLY(ROUTINE) 10:51 AM [facility] REPOSITORY [facility] Imaging Services [address] [place] [address] Upper Ext Joint Only(Routine) MR#: [id number] Acct: [id number] Name: JAMILAH OCONNOR Rep #: [id number] : 1950 F 67 From: Rik Connor MD PCP: Shakira Fuchs DO Status: REG CLI Study: Upper Ext Joint Only(Routine) Date of Exam: 12/15/17 Exam# [id number] Ordering Dr: Shakira Fuchs DO STUDY: MRI [...] Service support , CC: Shakira Fuchs DO Building Construction Ironworker: Signed CBC W/DIFF, AUTOMATED Collected: 12/15/2017 Status: F Source: [facility] 10:25 AM [facility] REPOSITORY TYPE CODE TESTS RESULT OUT OF [...] Lymph 1.42 Performed By: #### L100.0100 #### [facility] [place], [address] COMPREHENSIVE METABOLIC Collected: 12/15/2017 Status: F Source: [facility] 10:25 AM [facility] REPOSITORY TYPE CODE TESTS RESULT OUT OF [...] GAP 5 Performed By: #### L500.4050 #### [facility] [address] [place], [address] ALLERGIES ALLERGIES DATE TYPE / CODE NAME / CODE REACTION SEVERITY SOURCE 08/04/[address] [facility] Allergy/4160 (Sulfonamide Hospital 34531(SNOMED Antibiotics)/ Repository CT) [id number](RX NORM) ENCOUNTERS ENCOUNTERS ADMIT/DISCHARGE ACCOUNT ADMITTING ENCOUNTER LOCATION SOURCE NUMBER CLASS 10/18/2018 [id number] Ambulatory [place] 9 [facility] ing:LAB.KULWANT Repository E 08/26/2018 [id number] Ambulatory [place] 1 [facility] ing:MTLAB Repository 08/17/2018/ [id number] Bro, Inpatient [place] 1 [facility] ing:MR2Cwak: Repository CB258Meg: 1 08/04/2018 [id number] Ambulatory [place] [facility] ing:CT Repository 08/04/2018 [id number] Ambulatory BMSBuilding:W [place] 2 [facility] Repository 07/02/2018 [id number] Ambulatory [place] 6 [facility] ing:CT Repository 07/01/2018 [id number] Ambulatory [place] 0 [facility] ing:CT Repository 06/02/2018 [id number] Ambulatory [place] 4 [facility] ing:MTLAB Repository 04/09/2018/ [id number] Ambulatory [place] 8 1 [facility] ing:PT Repository 03/29/2018 [id number] Ambulatory [place] 3 [facility] ing:MTLAB Repository 01/05/2018/ [id number] Ambulatory BMSBuilding:B [place] 8 2 [place] Repository 01/05/2018 [id number] Ambulatory [place] 2 [facility] ing:OPBI Repository 12/15/2017 [id number] Ambulatory [place] 9 [facility] ing:MRI Repository PAYERS PAYERS ENCOUNTER GUARANTOR PAYER SUBSCRIBER SOURCE 10/18/2018 JAMILAH James Primary JAMILAH [id number] TR Insurance:MEDICARE BARNESDOB: [address] PART A [facility] [id number] Hospital [address]Pwr: (330) Number: Repository [phone] () [id number] Date:2018-10-16 10/18/2018 Secondary JAMILAH K [place] Insurance:MMO BARNESDOB: Community MEDICAREPolicy [id number] Hospital Number: Repository [id number] Date:6299-08-44[address] [place] [address]RU: 10/18/2018 Tertiary NOT GIVENUNK [place] Insurance:SELF PAY [facility] Number: Effective Repository Date:2018-10-16 08/26/2018 JAMILAH K Primary JAMILAH K [place] [id number] TR Insurance:MEDICARE BARNESDOB: [address] PART A [facility] [id number] Hospital [address]Kvh: (330) Number: Repository [phone] () [id number] Date:2018-08-26 08/26/2018 Secondary JAMILAH K [place] Insurance:AARPPolicy BARNESDOB: Community Number: [id number] Hospital [id number] Repository Date:3949-41-31WH [facility] 471034BHVJYBH, [place] [address]EU: 08/26/2018 Tertiary NOT GIVENUNK [place] Insurance:SELF PAY [facility] Number: Effective Repository Date:2018-08-26 08/17/2018 JAMILAH K Primary JAMILAH K [place] [id number] TR Insurance:MEDICARE BARNESDOB: [address] PART A [facility] [id number] Hospital [address]Cur: (330) Number: Repository [phone] () [id number] Date:2018-07-02 08/17/2018 Secondary JAMILAH K [place] Insurance:AARPPolicy BARNESDOB: Community Number: [id number] Hospital [id number] Repository Date:7311-64-22[address]RX, [place] [address]VX: 08/17/2018 Tertiary NOT GIVENUNK [place] Insurance:SELF PAY [facility] Number: Effective Repository Date:2018-07-02 08/04/2018 JAMILAH K Primary JAMILAH K [place] [id number] TR Insurance:MEDICARE BARNESDOB: Community [address] [place] [address], [place] [facility] [id number] Hospital [address]Qth: (330) Number: Repository [phone] () [id number] Date:2018-07-19 08/04/2018 Secondary JAMILAH K [place] Insurance:AARPPolicy BARNESDOB: Community Number: [id number] Hospital [id number] Repository Date:9228-16-62ZP [facility] 122295HKFNBOO, [place] [address]YV: 08/04/2018 Tertiary NOT GIVENUNK [place] Insurance:SELF PAY [facility] Number: Effective Repository Date:2018-07-19 08/04/2018 JAMILAH K Primary JAMILAH K [place] [id number] TR Insurance:MEDICARE BARNESDOB: Community [address] [place] [address], [place] [facility] [id number] Hospital [address]Qlh: (330) Number: Repository [phone] () [id number] Date:2018-07-19 08/04/2018 Secondary JAMILAH K [place] Insurance:AARPPolicy BARNESDOB: Community Number: [id number] Hospital [id number] Repository Date:8958-29-07WP [facility] 912708EVSRHSD, [place] [address]BE: 08/04/2018 Tertiary NOT GIVENUNK [place] Insurance:SELF PAY [facility] Number: Effective Repository Date:2018-08-04 07/02/2018 JAMILAH K Primary JAMILAH K [place] [id number] TR Insurance:MEDICARE BARNESDOB: Community [address] [place] [address], [place] [facility] [id number] Hospital [address]Xih: (330) Number: Repository [phone] () [id number] Date:2018-07-01 07/02/2018 Secondary JAMILAH K [place] Insurance:AARPPolicy BARNESDOB: Community Number: [id number] Hospital [id number] Repository Date:2763-13-11FA [facility] 773050LSMBGBP, [place] [address]HB: 07/02/2018 Tertiary NOT GIVENUNK [place] Insurance:SELF PAY [facility] Number: Effective Repository Date:2018-07-01 07/01/2018 JAMILAH K Primary JAMILAH K [place] [id number] TR Insurance:MEDICARE BARNESDOB: Community [address] [place] [address] PART A [facility] [id number] Hospital [address]Fnx: (330) Number: Repository [phone] () [id number] Date:2018-06-15 07/01/2018 Secondary JAMILAH K [place] Insurance:AARPPolicy BARNESDOB: Community Number: [id number] Hospital [id number] Repository Date:4938-37-07SI [facility] 808300[place]PT[place]VD[place], [place] [address]DY: 07/01/2018 Tertiary NOT GIVENUNK [place] Insurance:SELF PAY [facility] Number: Effective Repository Date:2018-06-15 06/02/2018 JAMILAH K Primary JAMILAH K [place] [id number] TR Insurance:MEDICARE BARNESDOB: Community [address] [place] [address] PART A [facility] [id number] Hospital [address]Wfq: (330) Number: Repository [phone] () [id number] Date:2018-06-02 06/02/2018 Secondary JAMILAH K [place] Insurance:AARPPolicy BARNESDOB: Community Number: [id number] Hospital [id number] Repository Date:5588-57-43DC [facility] 825723GLTUG[place], [place] [address]KM: 06/02/2018 Tertiary NOT GIVENUNK [place] Insurance:SELF PAY [facility] Number: Effective Repository Date:2018-06-02 04/09/2018 JAMILAH K Primary JAMILAH K [place] [id number] TR Insurance:MEDICARE BARNESDOB: [facility] [place] [facility] [id number] Hospital [address]Mhl: (330) Number: Repository [phone] () [id number] Date:2010-03-28 04/09/2018 Secondary JAMILAH K [place] Insurance:AARPPolicy BARNESDOB: Community Number: [id number] Hospital [id number] Repository Date:3054-04-86UC [facility] 370190A[place], [place] [address]DA: 04/09/2018 Tertiary NOT GIVENUNK [place] Insurance:SELF PAY [facility] Number: Effective Repository Date:2018-01-29 03/29/2018 JAMILAH K Primary JAMILAH K [place] [id number] TR Insurance:MEDICARE BARNESDOB: [address] PART A [facility] [id number] Hospital [address]Nqt: (330) Number: Repository [phone] () [id number] Date:2018-03-29 03/29/2018 Secondary JAMILAH K [place] Insurance:AARPPolicy BARNESDOB: Community Number: [id number] Hospital [id number] Repository Date:7910-98-11EJ [facility] 557367AIHUDRU, [place] [address]ZD: 03/29/2018 Tertiary NOT GIVENUNK [place] Insurance:SELF PAY [facility] Number: Effective Repository Date:2018-03-29 01/05/2018 JAMILAH K Primary JAMILAH K [place] [id number] TR Insurance:MEDICARE BARNESDOB: [address] PART A [facility] [id number] Hospital 67[address]Zwl: Number: Repository [phone] [id number] () Date:2017-12-16 01/05/2018 Secondary JAMILAH K [place] Insurance:AARPPolicy BARNESDOB: Community Number: [id number] Hospital [id number] Repository Date:3992-20-83ZS [facility] 843750[place], [place] [address]DK: 01/05/2018 Tertiary NOT GIVENUNK [place] Insurance:SELF PAY [facility] Number: Effective Repository Date:2017-12-28 01/05/2018 JAMILAH James Primary JAMILAH James [place] [id number] TR Insurance:MEDICARE BARNESDOB: Community [address] [place] [address] PART A [facility] [id number] Hospital [address]10[address]Idt: Number: Repository [phone] [id number] (HP) Date:2017-12-07 01/05/2018 Secondary JAMILAH Erika [place] Insurance:AARPPolicy BARNESDOB: Community Number: [id number] Hospital [id number] Repository Date:9818-89-54BU [facility] 710236[place]FY[place]K, [place] [address]YA: 01/05/2018 Tertiary NOT GIVENUNK [place] Insurance:SELF PAY [facility] Number: Effective Repository Date:2017-12-07 12/15/2017 Jamilah James Primary Jamilah James [place] [id number] Tr Insurance:MEDICARE BarnesDOB: [address] PART A [facility] [id number] Hospital [address]Yct: Number: Repository [phone] [id number] (HP) Date:2017-12-07 12/15/2017 Secondary Jamilah Erika [place] Insurance:AARPPolicy BarnesDOB: Community Number: [id number] Hospital [id number] Repository Date:3475-37-65BY [facility] 660501XJBEEFN, [place] [address]US: 12/15/2017 Tertiary NOT GIVENUNK [place] Insurance:SELF PAY [facility] Number: Effective Repository Date:2017-12-07
== END ==
PROVIDERS: Family Provider Family Medicine; PCP Family Medicine; Referring Provider Internal Medicine Rheumatology; Visit Provider Internal Medicine Rheumatology
DX: M06.4 Inflammatory polyarthropathy (principal); Z79.899 Other long term (current) drug therapy; D86.9 Sarcoidosis, unspecified; M79.7 Fibromyalgia; M75.41 Impingement syndrome of right shoulder; M17.0 Bilateral primary osteoarthritis of knee; M18.0 Bilateral primary osteoarthritis of first carpometacarpal joints; K76.0 Fatty (change of) liver, not elsewhere classified; K22.70 Barrett's esophagus without dysplasia; H35.30 Unspecified macular degeneration; K21.9 Gastro-esophageal reflux disease without esophagitis; F41.9 Anxiety disorder, unspecified
CPT/HCPCS: 36415; 80053; 85025

== ENCOUNTER → 2018-11-30 12:38 | Outpatient (CLI) | payer MEDICARE, OTHER, SELFPAY ==
[2018-08-17 15:10] VITALS: BMI 43.0
--- NOTE | 2018-11-30 13:07 | CT_ITS ---
STUDY: CT CHEST WITH CONTRAST REASON FOR EXAM: Female, 68 years old. Follow-up nodules of the left lung. Follow-up liver and adrenal. Sarcoidosis. RADIATION DOSAGE (If Supplied By Facility): CTDIvol = ( 18.09 ) mGy, DLP = ( 1611.04 ) mGycm TECHNIQUE: Transaxial imaging was performed following intravenous administration of Isovue 300 100 IV. Coronal and sagittal 2-D MPR Individualized dose optimization techniques were used for this CT. COMPARISON: CT abdomen and pelvis 11/30/2018, 08/04/2018, 07/01/2018. X-ray chest 07/03/2015. There is no prior CT chest imaging available for comparison.. FINDINGS: Supraclavicular: Normal. Body wall soft tissues: No acute process. Upper abdomen: Partially evaluated left adrenal nodule. The evaluated portions measure 4.65 cm anterior-posterior, 3.1 cm transverse, and greater than 3.4 cm craniocaudal. Please see report of CT abdomen and pelvis performed today for additional details. There is evidence of hepatic steatosis and pancreatic atrophy. Osseous structures: No acute process. Mediastinum: Normal esophagus. No mass or lymphadenopathy. Lungs: Right lower lobe lateral basilar segment 3 mm pulmonary nodule, stable compared to CT abdomen and pelvis imaging of 07/01/2018. Right upper lobe anterior segment subpleural 5 mm pulmonary nodule, stable. Left lung base 7 mm pulmonary nodule abutting the diaphragmatic pleura, stable. Lingular subpleural 2.5 mm pulmonary nodule. This nodule was not visualized within the [id number] on prior CT abdomen and pelvis imaging. Cardiovascular: Unremarkable heart. No evidence of coronary atherosclerosis. Nondilated aorta with mild arch atherosclerosis. Unremarkable central pulmonary arteries. CT/Chest WITH Contrast IMPRESSION: Several bilateral lower lung pulmonary nodules are stable since imaging of 07/03/2015. A lingular subpleural pulmonary nodule on the left was not visualized on prior imaging and cannot be assessed for stability. This nodule is quite small, measuring less than 3 mm. No other acute cardio prominent process is evident. Hepatic steatosis. Left adrenal nodule. See dictation of CT abdomen and pelvis performed today for further details. Electronically Signed: Washington Juan MD at 15:35 EST Tel , Service support ,
--- NOTE | 2018-11-30 13:08 | CT_ITS ---
STUDY: CT ABDOMEN AND PELVIS WITHOUT CONTRAST REASON FOR EXAM: Female, 68 years old. F/U NODULES IN LEFT LUNG,LIVER AND ADRENAL. SARCOIDOSIS. RADIATION DOSAGE (If Supplied By Facility): CTDIvol = ( 18.09 ) mGy, DLP = ( 1611.04 ) mGycm TECHNIQUE: Transaxial images were obtained from the dome of the diaphragm to the symphysis pubis without oral contrast, and without intravenous contrast. Sagittal and coronal images were reconstructed. Individualized dose optimization techniques were used for this CT. COMPARISON: 08/04/2018. FINDINGS: Stable peripheral 5 mm nodule in the lateral right middle lobe. Stable 8 mm nodule just above the diaphragm in the center of the left lung base. The visualized portions of the heart are within normal limits. Normal liver. Status post cholecystectomy. Normal spleen. Normal pancreas. Normal right adrenal gland. Stable 4.7 cm heterogeneous mass of the left adrenal gland. Normal right kidney. Normal left kidney. Evaluation of the GI tract is limited by absence of oral contrast. Cannot exclude stomach wall thickening. No dilated loops of bowel or evidence for obstruction. Cannot exclude segmental thickening of the tinoco of the small or large bowel. Cannot exclude enteritis or colitis. Moderate to marked diffuse fecal retention. Diverticulosis without definite diverticulitis. Normal abdominal aorta. Normal inferior vena cava. Normal retroperitoneum. Normal urinary bladder. There is atrophy of the uterus. Normal abdominal wall. There are diffuse degenerative changes of the visualized lumbar spine. CT/Abdomen/Pelvis W IV Cont ONLY IMPRESSION: No changes or acute abnormalities. Stable small nodules in the lung bases. Stable mass of the left adrenal gland. Moderate to marked diffuse fecal retention. Electronically Signed: Cesar Mujica MD at 15:21 EST , Service support ,
[2018-11-30 13:21] LABS: CREATININE FINGERSTICK 0.8 mg/dL (0.55-1.02); EGFR FINGERSTICK > 60.0000 mL/min (>60)
== END ==
PROVIDERS: Family Provider Family Medicine; PCP Family Medicine; Referring Provider Family Medicine; Visit Provider Family Medicine
DX: R91.1 Solitary pulmonary nodule (principal); E27.9 Disorder of adrenal gland, unspecified; D86.9 Sarcoidosis, unspecified
CPT/HCPCS: 71260; 74177; Q9967

== ENCOUNTER → 2018-12-17 13:06 | Outpatient (CLI) | payer MEDICARE, OTHER, SELFPAY ==
[2018-08-17 15:10] VITALS: BMI 43.0
[2018-12-17 14:06] LABS: Absolute Lymphocyte Count 1.15 X10^3/ul (0.83-4.51); Basophil# 0.02 X10^3/uL; Basophil% 0.4 % (0-1); Eosinophil# 0.07 X10^3/uL; Eosinophils% 1.5 % (0-5); Hematocrit 43.3 % (37-47); Lymphocyte # 1.15 X10^3/ul (4.0); Lymphocyte % 25.3 % (19-41); Mean Corp Hgb Conc 32.3 g/gl (32-36); Mean Corpuscular Hgb 28.6 pg (27.0-32.0); Mean Corpuscular Volume 88.4 fL (81-99); Mean Platelet Vol. 10.8 fl (6.2-12.0); Monocyte# 0.34 X10^3/uL; Monocyte% 7.5 % (0-10); Neutrophil # 2.96 X10^3/uL (2.7-7.7); Neutrophil % 65.3 % (47-70); Platelet Count 195 K/mm3 (150-450); RBC Distribution Width CV 13.5 % (11.6-14.6); RBC Distribution Width SD 43.3 fl (35.1-43.9); White Blood Count 4.5 K/mm3 (4.4-11.0)
[2018-12-17 14:16] LABS: ALB/GLOB Ratio 1.1 RATIO (0.9-2.4); AST(SGOT) 25 U/L (15-37); Alanine Aminotransfer ALT/SGPT 37 U/L (13-56); Albumin, Serum 3.9 g/dL (3.2-5.0); Alkaline Phosphatase 110 U/L (45-117); Anion Gap 6 (5-15); BUN 19 mg/dL (7-18); BUN/Creat Ratio 23.9 RATIO (10-20); Calcium,Total 9.4 mg/dL (8.5-10.1); Chloride 104 mmol/L (98-107); EST Glomerular Filtration Rate 76 mL/min (>60); Est Glom Filt Rate - Afr Amer 92 mL/min (>60); Globulin 3.4 g/dL (2.2-4.2); Glucose 104 mg/dL (74-106); Potassium 3.5 mmol/L (3.5-5.1); Protein, Total 7.3 g/dL (6.4-8.2); Sodium Level 141 mmol/L (136-145)
[2018-12-17 14:17] LABS: POSITIVE COUNT NO; POSITIVE DIFFERENTIAL NO; POSITIVE MORPHOLOGY NO
== END ==
PROVIDERS: Family Provider Family Medicine; PCP Family Medicine; Referring Provider Internal Medicine Rheumatology; Visit Provider Internal Medicine Rheumatology
DX: M06.4 Inflammatory polyarthropathy (principal); Z79.899 Other long term (current) drug therapy; D86.9 Sarcoidosis, unspecified; M79.7 Fibromyalgia; M17.0 Bilateral primary osteoarthritis of knee; M18.0 Bilateral primary osteoarthritis of first carpometacarpal joints
CPT/HCPCS: 36415; 80053; 85025

== ENCOUNTER → 2018-12-27 10:50 | Outpatient (CLI) | payer MEDICARE, OTHER, SELFPAY ==
[2018-08-17 15:10] VITALS: BMI 43.0
--- NOTE | 2018-12-27 10:53 | RAD_ITS ---
STUDY: X-RAY - LUMBAR SPINE REASON FOR EXAM: Female, 68 years old. Back pain TECHNIQUE: 5 view(s) of the lumbar spine were obtained. COMPARISON: None FINDINGS: There is no evidence of fracture or dislocation in the lumbar spine. The vertebral body heights are well-maintained. There are moderate degenerative changes with disc space narrowing and facet hypertrophy. This is most pronounced at L5/S1. RAD/L/S Spine Min 4 Views IMPRESSION: No fracture or dislocation in the lumbar spine. Moderate degenerative change Electronically Signed: Sotero Stevens, at 15:49 EDT Tel , Service support ,
[2018-12-27 12:38] LABS: ALB/GLOB Ratio 1.1 RATIO (0.9-2.4); AST(SGOT) 20 U/L (15-37); Alanine Aminotransfer ALT/SGPT 36 U/L (13-56); Albumin, Serum 3.7 g/dL (3.2-5.0); Alkaline Phosphatase 110 U/L (45-117); Anion Gap 8 (5-15); BUN 17 mg/dL (7-18); BUN/Creat Ratio 20.6 RATIO (10-20); Chloride 103 mmol/L (98-107); Cholesterol 168 mg/dL (200); Creatinine, Serum 0.83 mg/dL (0.55-1.02); EST Glomerular Filtration Rate 73 mL/min (>60); Est Glom Filt Rate - Afr Amer 88 mL/min (>60); Globulin 3.4 g/dL (2.2-4.2); Glucose 89 mg/dL (74-106); High Density Lipoprotein 50 mg/dL; Potassium 3.5 mmol/L (3.5-5.1); Protein, Total 7.1 g/dL (6.4-8.2); Sodium Level 142 mmol/L (136-145); T4 Free Direct 0.81 ng/dL (0.76-1.46); Thyroid Stim Hormone (TSH) 1.31 uIU/mL (0.358-3.74); Triglycerides 173 mg/dL; Very Low Density Lipoprotein 35 mg/dL (5-40)
[2018-12-27 13:55] LABS: Absolute Lymphocyte Count 1.14 X10^3/ul (0.83-4.51); Absolute Neutrophil Count 2.3 X10^3/uL (2.0-7.7); Basophil# 0.02 X10^3/uL; Basophil% 0.5 % (0-1); Eosinophil# 0.06 X10^3/uL; Eosinophils% 1.6 % (0-5); Lymphocyte # 1.14 X10^3/ul (4.0); Lymphocyte % 29.8 % (19-41); Mean Corp Hgb Conc 32.6 g/gl (32-36); Mean Corpuscular Hgb 28.5 pg (27.0-32.0); Mean Corpuscular Volume 87.6 fL (81-99); Monocyte# 0.34 X10^3/uL; Monocyte% 8.9 % (0-10); Neutrophil # 2.26 X10^3/uL (2.7-7.7); Neutrophil % 59.2 % (47-70); Platelet Count 191 K/mm3 (150-450); RBC Distribution Width CV 13.4 % (11.6-14.6); RBC Distribution Width SD 42.5 fl (35.1-43.9); Red Blood Count 4.91 M/mm3 (4.2-5.4); White Blood Count 3.8 K/mm3 (4.4-11.0)
[2018-12-27 14:14] LABS: POSITIVE COUNT NO; POSITIVE DIFFERENTIAL NO; POSITIVE MORPHOLOGY NO
== END ==
PROVIDERS: Family Provider Family Medicine; PCP Family Medicine; Referring Provider Family Medicine; Visit Provider Family Medicine
DX: M54.16 Radiculopathy, lumbar region (principal); K75.81 Nonalcoholic steatohepatitis (NASH); E78.5 Hyperlipidemia, unspecified; Z51.81 Encounter for therapeutic drug level monitoring; R53.83 Other fatigue
CPT/HCPCS: 36415; 72110; 80053; 80061; 84439; 84443; 85025

== ENCOUNTER → 2019-02-28 | Outpatient (CLI) | payer MEDICARE, OTHER, SELFPAY ==
[2018-08-17 15:10] VITALS: BMI 43.0
[2019-02-28 13:59] LABS: Absolute Lymphocyte Count 1.25 X10^3/ul (0.83-4.51); Absolute Neutrophil Count 3.3 X10^3/uL (2.0-7.7); Basophil# 0.02 X10^3/uL; Basophil% 0.4 % (0-1); Eosinophil# 0.07 X10^3/uL; Eosinophils% 1.4 % (0-5); Hematocrit 40.7 % (37-47); Hemoglobin 13.5 g/dl (12.0-15.0); Lymphocyte # 1.25 X10^3/ul (4.0); Mean Corp Hgb Conc 33.2 g/gl (32-36); Mean Corpuscular Hgb 29.5 pg (27.0-32.0); Mean Corpuscular Volume 89.1 fL (81-99); Mean Platelet Vol. 10.8 fl (6.2-12.0); Monocyte# 0.35 X10^3/uL; POSITIVE COUNT NO; POSITIVE DIFFERENTIAL NO; POSITIVE MORPHOLOGY NO; Platelet Count 183 K/mm3 (150-450); RBC Distribution Width CV 13.4 % (11.6-14.6); RBC Distribution Width SD 43.5 fl (35.1-43.9); Red Blood Count 4.57 M/mm3 (4.2-5.4)
[2019-02-28 14:08] LABS: AST(SGOT) 26 U/L (15-37); Alanine Aminotransfer ALT/SGPT 47 U/L (13-56); Albumin, Serum 3.6 g/dL (3.2-5.0); Alkaline Phosphatase 108 U/L (45-117); Anion Gap 8 (5-15); BUN 15 mg/dL (7-18); BUN/Creat Ratio 22.1 RATIO (10-20); Calcium,Total 9.1 mg/dL (8.5-10.1); Chloride 103 mmol/L (98-107); Creatinine, Serum 0.68 mg/dL (0.55-1.02); EST Glomerular Filtration Rate 91 mL/min (>60); Est Glom Filt Rate - Afr Amer 111 mL/min (>60); Globulin 3.6 g/dL (2.2-4.2); Glucose 101 mg/dL (74-106); Potassium 3.4 mmol/L (3.5-5.1); Protein, Total 7.2 g/dL (6.4-8.2); Sodium Level 144 mmol/L (136-145)
== END | disposition home or self-care (01) ==
LOC: MTLAB 12:17
PROVIDERS: Family Provider Family Medicine; PCP Family Medicine; Referring Provider Internal Medicine Rheumatology; Visit Provider Internal Medicine Rheumatology
DX: M06.4 Inflammatory polyarthropathy (principal); Z79.899 Other long term (current) drug therapy; D86.9 Sarcoidosis, unspecified; M79.7 Fibromyalgia; M17.0 Bilateral primary osteoarthritis of knee; M18.0 Bilateral primary osteoarthritis of first carpometacarpal joints; M15.9 Polyosteoarthritis, unspecified; K76.0 Fatty (change of) liver, not elsewhere classified; K22.70 Barrett's esophagus without dysplasia; H35.30 Unspecified macular degeneration; K21.9 Gastro-esophageal reflux disease without esophagitis; H81.02 Meniere's disease, left ear
CPT/HCPCS: 36415; 80053; 85025

== ENCOUNTER → 2019-05-18 14:06 | Outpatient (CLI) | payer MEDICARE, OTHER, SELFPAY ==
[2018-08-17 15:10] VITALS: BMI 43.0
[2019-05-18 15:46] LABS: Absolute Lymphocyte Count 1.18 X10^3/uL (0.83-4.51); Absolute Neutrophil Count 2.4 X10^3/uL (2.0-7.7); Basophil# 0.03 X10^3/uL; Basophil% 0.8 % (0-1); Eosinophil# 0.05 X10^3/uL; Eosinophils% 1.3 % (0-5); Hematocrit 42.8 % (37-47); Hemoglobin 13.8 g/dL (12.0-15.0); Lymphocyte # 1.18 X10^3/ul (4.0); Lymphocyte % 29.6 % (19-41); Mean Corp Hgb Conc 32.2 g/dL (32-36); Mean Corpuscular Hgb 29.4 pg (27.0-32.0); Mean Corpuscular Volume 91.1 fL (81-99); Mean Platelet Vol. 10.7 fl (6.2-12.0); Monocyte# 0.28 X10^3/uL; NRBC Flagged by Analyzer 0 % (0-5); Neutrophil # 2.43 X10^3/uL (2.7-7.7); Platelet Count 192 K/mm3 (150-450); RBC Distribution Width CV 12.9 % (11.6-14.6); RBC Distribution Width SD 42.9 fl (35.1-43.9)
[2019-05-18 16:16] LABS: ALB/GLOB Ratio 1.1 RATIO (0.9-2.4); AST(SGOT) 37 U/L (15-37); Alanine Aminotransfer ALT/SGPT 59 U/L (13-56); Albumin, Serum 3.8 g/dL (3.2-5.0); Alkaline Phosphatase 112 U/L (45-117); Anion Gap 9 (5-15); BUN 16 mg/dL (7-18); BUN/Creat Ratio 19.8 RATIO (10-20); Calcium,Total 9.3 mg/dL (8.5-10.1); Chloride 102 mmol/L (98-107); Creatinine, Serum 0.81 mg/dL (0.55-1.02); EST Glomerular Filtration Rate 75 mL/min (>60); Est Glom Filt Rate - Afr Amer 90 mL/min (>60); Globulin 3.5 g/dL (2.2-4.2); Glucose 89 mg/dL (74-106); Potassium 3.2 mmol/L (3.5-5.1); Protein, Total 7.3 g/dL (6.4-8.2); Sodium Level 142 mmol/L (136-145)
== END ==
PROVIDERS: Family Provider Family Medicine; PCP Family Medicine; Referring Provider Internal Medicine Rheumatology; Visit Provider Internal Medicine Rheumatology
DX: M06.4 Inflammatory polyarthropathy (principal); Z79.899 Other long term (current) drug therapy; D86.9 Sarcoidosis, unspecified; M79.7 Fibromyalgia; M75.41 Impingement syndrome of right shoulder; M17.0 Bilateral primary osteoarthritis of knee; M18.0 Bilateral primary osteoarthritis of first carpometacarpal joints
CPT/HCPCS: 36415; 80053; 85025

== ENCOUNTER 2019-06-22 08:37 | Day surgery (SDC) | payer MEDICARE, OTHER, SELFPAY ==
[2018-08-17 15:10] VITALS: BMI 43.0
--- NOTE | 2019-06-22 08:44 | H&P.OPEN ---
History of Present Illness Date of Admission: 06/22/19 The patient is a 69 year old F presents for screening colonoscopy. Patient's last colonoscopy was 20-25 years ago. It was negative per the patient. Patient denies any family history of colon cancer. Patient has bowel movements almost daily, denies any blood or abdominal pain or nausea or vomiting. Past Medical/Surgical History - Planned Operation Planned Operative Procedure/s: COLONOSCOPY Date of Operative Procedure: 06/22/19 Permit Signed: Yes S.O.S: No Is This Patient Having a Total Joint: No - Previous Hospitalizations/Surgeries HX Hospitalizations: No HX of Surgeries: GALLBLADDER, APPENDECTOMY. TUBAL, REVERSAL TUBAL. SYDNEE CTR. TONSILS. R REVERSE TOTAL SHOULDER 08/15 Any Problems With Anesthesia: No You/Your Family Experience Fever (Hyperthermia) With Anes: No Cholinesterase deficiency: No - Cardiovascular Hx Chest Pain within Last 2 months: No Hx of Irregular Heartbeat and/or Afib: No Hx Heart Attack: No Hx Congestive Heart Failure: No Hx Rheumatic Fever: No Hx Hypertension: Yes - ON MEDS, CONTROLLED Hx Internal Defibrillator: No Hx Pacemaker: No Hx Cardiac Catheterization: No Hx Cardiac Surgery/Stents/Etc.: No Hx Stress Test: Yes - BARBERTON 20+ YRS AGO HX Edema: Yes - SYDNEE FEET & LEGS Hx Pain in Legs when Walking/Leg Cramps: Yes - FIBROMYALGIA - Respiratory Chronic Cough: No HX of Shortness of Breath: Yes Hoarseness: No Hx Chronic Obstructive Pulmonary Disease (COPD): No Hx Asthma: No Hx Emphysema: No Hx Sleep Apnea: Yes CPAP: Yes BIPAP: No Hx Respiratory Tract Infection/Cold (presently): No Result (for STOP score): Positive Hx Smoking: Yes - QUIT 2006 Smoking Status: Former smoker - Gastrointestinal Hx Gastroesophageal Reflux: Yes Controlled With Meds: Yes - BARRETTS ESOPHAGUS Hx Gastrointestinal Disorders: No Hx Gastrointestinal Bleed: No Hx Ulcer: No Hx Hiatal Hernia: No Difficulty Chewing/Swallowing: No Recent Onset of Swallowing Problems: No Special diet followed at home: No Hx Unplanned Weight Loss of 20#: No HX Unplanned Weight Gain of 20#: No - Neurological Hx Seizures: No HX Syncope/Blackout Spells/Unconsciousness: No - VERTIGO Hx CVA/Stroke: No Hx Transient Ischemic Attacks (TIA): No Hx Multiple Sclerosis: No Hx Parkinson's Disease: No Hx Head/Neck Injury: No Hx Headaches: No Hx Back Injury/Pain: No Recent Onset of Speech Difficulty: No Restless Legs: Yes Does patient have nerve stimulator: No - Blood Disorder Hx Leukemia: No Bleeding Tendencies: No Hx Deep Vein Thrombosis: No Hx High Cholesterol: No Blood Transmitted Disease: No Hx Hepatitis: No Hx Cirrhosis: No Hx Anemia: No Hx Blood Disorders: No - Reproduction Is Patient Lactating: No Hx Hysterectomy: No Hx Tubal Ligation: Yes - THEN REVERSAL Are You Post Menopause: Yes - Genitourinary Hx Renal Disease: No - Musculoskeletal Hx Arthritis: Yes Hx Rheumatoid Arthritis: Yes - ON METHOTREXATE Hx Gout: No Recent Onset of an Orthopedic Problem: Yes - Endocrine Hx Diabetes: No Thyroid Disease: No Hx Steroid Therapy: No - Psycho/Social Hx Substance Use: No Hx Alcohol Use: Yes - SOCIAL Hx Anxiety: No Hx Depression: No Mental Illness: No Hx Dementia: No - Miscellaneous Hx Cancer: No Recent Exposure to Contagious Disease: No Active MRSA: No Hx of C-Diff: No Any Loose Teeth: Yes - UPPER PARTIAL Allergies Sulfa (Sulfonamide Antibiotics) Allergy (Mild, Verified 06/21/19 08:36) Unknown - Discharge Is Pt Admitted From a Correction, or a Custodial: No Who Could Help: After D/C, Where Do you Plan to Go: Return Home - From the PAT History Number of Risk Factors: 3 - Physical Exam General: Alert, Oriented x3, Cooperative, No apparent distress HEENT: Atraumatic Lungs: Normal air movement Cardiovascular: Regular rate Abdomen: Soft, Non Tender, Non-Distended, Obese Extremities: No clubbing, No cyanosis, No edema Neurological: Cranial nerves II-XII grossly intact Body Mass Index (BMI) 43.0 Assessment/Plan 69-year-old female for screening for colon cancer Surgery Risks - Colonoscopy I discussed with the patient the risks of the procedure: Yes Risks Include but are not Limited To: Risks include but are not limited to: Bleeding, perforation requiring further surgery, inability to complete colonoscopy requiring barium enema. Patient no further questions this time
[2019-06-22 09:11] VITALS: BP 157/78; PULSE 67; RESP 16; TEMP 36.6; O2SAT 97; BMI 44.0
[2019-06-22] MEDS: Lactated Ringers 1,000 ML 100 ML IV (09:17)
--- NOTE | 2019-06-22 09:45 | COLBX_PTH ---
PATIENT: RICKIE OCONNOR LOC: EN U#:[id number] AGE/SX: 69/F ROOM: RE06/22/[address]: Dr. Betsy Cartwright MD : 1950 BED: DIS: 06/22/2019 SPEC #: [id number] RECD: 06/22/19 12:12 STATUS: EILEEN OCTAVIO #: [id number] HELEN: 06/22/19 09:[address]: Betsy Cartwright DEPT: SURGICAL PATHOLOGY RECD BY: Tayler Vega ENTERED: 06/22/19 13:52 SP TYPE: COLON BX OTHR DR: Dr. Shakira Fuchs, DO Tissues: Cecum, NOS Procedures: Surgery Specimen Level IV HEADER OPERATION: Colonoscopy - open access (MAC) PRE-OP DIAGNOSIS: Screening TISSUE SUBMITTED: Cecal polyp biopsy with 3 polyps MICROSCOPIC DIAGNOSIS Cecal polyps, biopsy: Fragments of tubular adenoma. LILI:trav 06/23/19 COMMENT All three pieces show tubular adenomatous changes. MICROSCOPIC DESCRIPTION Slides are reviewed. GROSS DESCRIPTION Received in fixative is one container labeled with the patient's name and designated cecal polyps biopsy. The specimen consists of three irregular fragments of light hernandez soft tissue that in aggregate measure 1 x 0.5 x 0.1 cm. The specimen is totally submitted in one cassette. / SJ:rg 06/22/19 TC:1 CPT: 41122
[2019-06-22 10:26] VITALS: BP 157/78; BP 89/70; PULSE 68; RESP 16; TEMP 36.7; O2SAT 100
--- NOTE | 2019-06-22 10:26 | OP.ENDO_ITS ---
06/22/2019 Shakira Fuchs [address] [place] [address] Re : Colonoscopy procedure for Jamilah Edge Dear Dr. Fuchs This procedure was performed on Saturday, June 22, 2019. My impressions and recommendations are as follows: Impressions : - Hemorrhoids found on perianal exam. - Three less than 5 mm polyps in the cecum, removed with a cold biopsy forceps. Resected and retrieved. - Diverticulosis in the sigmoid colon. - External and internal hemorrhoids. - The examination was otherwise normal. Recommendations : - Discharge patient to home. - High fiber diet. - Continue present medications. - Await pathology results. - Repeat colonoscopy in 3 - 5 years for surveillance based on pathology results. My findings are described in the full procedure note, which is enclosed. If I can be of further assistance, please feel free to contact me at Doctor phone number(s): , Work: . Sincerely, MD Betsy Copeland MD 06/22/2019 10:25:38 AM This report has been signed electronically.
[2019-06-22 10:30] VITALS: BP 119/52; BP 157/78; PULSE 66; RESP 16; O2SAT 100
[2019-06-22 10:35] VITALS: BP 127/55; BP 157/78; PULSE 65; RESP 16; O2SAT 100
[2019-06-22 10:45] VITALS: BP 137/70; BP 157/78; PULSE 76; RESP 16; TEMP 36.4; O2SAT 100
[2019-06-22 11:07] VITALS: BP 157/78
== END 2019-06-22 11:19 | disposition home or self-care (01) ==
LOC: EN 08:38 → AC 08:39
PROVIDERS: Family Provider Family Medicine; PCP Family Medicine; Referring Provider Family Medicine; Visit Provider Surgery
PROC: 0DJD8ZZ Inspection of Lower Intestinal Tract, Via Natural or Artificial Opening Endoscopic (ICD-10-PCS; CPT 45378; principal; 2019-06-22 09:40)
DX: Z12.11 Encounter for screening for malignant neoplasm of colon (principal); D12.0 Benign neoplasm of cecum; K57.30 Diverticulosis of large intestine without perforation or abscess without bleeding; K64.0 First degree hemorrhoids; K64.4 Residual hemorrhoidal skin tags; I10 Essential (primary) hypertension; K21.9 Gastro-esophageal reflux disease without esophagitis; K22.70 Barrett's esophagus without dysplasia; M06.9 Rheumatoid arthritis, unspecified; M79.7 Fibromyalgia; Z87.891 Personal history of nicotine dependence; Z88.2 Allergy status to sulfonamides
CPT/HCPCS: 45380; 88305; J7120; J2405

== ENCOUNTER → 2019-07-25 | Outpatient (CLI) | payer MEDICARE, OTHER, SELFPAY ==
--- NOTE | 2019-07-25 11:33 | CT_ITS ---
STUDY: CT ABDOMEN WITH CONTRAST REASON FOR EXAM: Female, 69 years old. Left upper abdominal pain. History of sarcoidosis, hypertension, cholecystectomy, appendectomy and tubal ligation. RADIATION DOSAGE (If Supplied By Facility): CTDIvol = ( 19.68 ) mGy, DLP = ( 798.01 ) mGycm TECHNIQUE: Transaxial images were obtained post I.V. administration of Oral and amp; IV Gastrografin and amp; 100mL Isovue-300 100mL, and with oral contrast. Sagittal and coronal images were reconstructed. Individualized dose optimization techniques were used for this CT. COMPARISON: 11/30/2018. FINDINGS: There is mild posterior dependent atelectasis, remainder of the lung bases are clear. The visualized portions of the heart are within normal limits. Normal liver. Normal gallbladder and extrahepatic biliary system. Normal spleen. Normal pancreas. Normal right adrenal gland. Redemonstrated left-sided adrenal mass measuring 4.4 x 3.0 cm in axial plane by 4.5 cm in craniocaudal dimension. This is stable since prior examination 07/01/2018. On previous CT examination 07/11/2018, performed without contrast as measured Hounsfield units compatible with adenoma. Normal right kidney. Normal left kidney. Normal visualized stomach. Normal small intestine. Normal colon. Nonvisualized appendix consistent with known history of prior appendectomy. There is mild atherosclerotic calcification of the abdominal aorta with elongation and tortuosity, but without a demonstrated aneurysm. Normal inferior vena cava. Normal retroperitoneum. Normal abdominal wall. There are diffuse degenerative changes of the visualized lumbar spine. There is multilevel vacuum phenomenon from L3-L4 to L5-S1. CT/Abdomen WITH IV Contrast IMPRESSION: Stable left-sided adrenal mass most compatible with benign process such as adenoma given exam dated 07/01/2018 and stability in the interval. Remainder of the CT of the abdomen unremarkable with no acute process identified. Electronically Signed: Daysi Glaser MD at 3:44 EDT , Service support ,
[2019-07-25 13:31] LABS: CREATININE FINGERSTICK < 0.6 mg/dL (0.55-1.02); EGFR FINGERSTICK > 60.0000 mL/min (>60)
== END | disposition home or self-care (01) ==
LOC: CT 11:31
PROVIDERS: Family Provider Family Medicine; PCP Family Medicine; Referring Provider Family Medicine; Visit Provider Family Medicine
DX: D17.1 Benign lipomatous neoplasm of skin and subcutaneous tissue of trunk (principal); R10.12 Left upper quadrant pain
CPT/HCPCS: 74160; Q9967

== ENCOUNTER → 2019-08-18 13:15 | Outpatient (CLI) | payer MEDICARE, OTHER, SELFPAY ==
[2019-08-18 15:30] LABS: Absolute Lymphocyte Count 1.28 X10^3/uL (0.83-4.51); Absolute Neutrophil Count 3.6 X10^3/uL (2.0-7.7); Basophil# 0.04 X10^3/uL; Basophil% 0.7 % (0-1); Eosinophil# 0.08 X10^3/uL; Eosinophils% 1.5 % (0-5); Hematocrit 43.1 % (37-47); Hemoglobin 13.9 g/dL (12.0-15.0); Lymphocyte # 1.28 X10^3/ul (4.0); Mean Corp Hgb Conc 32.3 g/dL (32-36); Mean Platelet Vol. 11.2 fl (6.2-12.0); Monocyte# 0.35 X10^3/uL; Monocyte% 6.6 % (0-10); NRBC Flagged by Analyzer 0 % (0-5); Neutrophil # 3.58 X10^3/uL (2.7-7.7); Platelet Count 182 K/mm3 (150-450); RBC Distribution Width CV 12.9 % (11.6-14.6); RBC Distribution Width SD 42.8 fl (35.1-43.9); Red Blood Count 4.79 M/mm3 (4.2-5.4); White Blood Count 5.3 K/mm3 (4.4-11.0)
[2019-08-18 16:01] LABS: ALB/GLOB Ratio 1.2 RATIO (0.9-2.4); AST(SGOT) 27 U/L (15-37); Alanine Aminotransfer ALT/SGPT 43 U/L (13-56); Alkaline Phosphatase 92 U/L (45-117); Anion Gap 8 (5-15); BUN 21 mg/dL (7-18); BUN/Creat Ratio 33.2 RATIO (10-20); Calcium,Total 9.1 mg/dL (8.5-10.1); Chloride 102 mmol/L (98-107); Creatinine, Serum 0.63 mg/dL (0.55-1.02); EST Glomerular Filtration Rate 99 mL/min (>60); Est Glom Filt Rate - Afr Amer 120 mL/min (>60); Globulin 3.4 g/dL (2.2-4.2); Glucose 93 mg/dL (74-106); Potassium 3.4 mmol/L (3.5-5.1); Protein, Total 7.4 g/dL (6.4-8.2); Sodium Level 141 mmol/L (136-145)
== END ==
PROVIDERS: Family Provider Family Medicine; PCP Family Medicine; Referring Provider Internal Medicine Rheumatology; Visit Provider Internal Medicine Rheumatology
DX: M06.4 Inflammatory polyarthropathy (principal); Z79.899 Other long term (current) drug therapy; D86.9 Sarcoidosis, unspecified; M79.7 Fibromyalgia; M17.0 Bilateral primary osteoarthritis of knee; M18.0 Bilateral primary osteoarthritis of first carpometacarpal joints; M47.897 Other spondylosis, lumbosacral region
CPT/HCPCS: 36415; 80053; 85025

== ENCOUNTER → 2019-11-17 14:59 | Outpatient (CLI) | payer MEDICARE, OTHER, SELFPAY ==
[2019-11-17 17:36] LABS: Absolute Lymphocyte Count 1.43 X10^3/uL (0.83-4.51); Basophil# 0.04 X10^3/uL; Basophil% 0.7 % (0-1); Eosinophil# 0.08 X10^3/uL; Eosinophils% 1.3 % (0-5); Hematocrit 43.9 % (37-47); Hemoglobin 13.9 g/dL (12.0-15.0); Lymphocyte # 1.43 X10^3/ul (4.0); Lymphocyte % 24.1 % (19-41); Mean Corp Hgb Conc 31.7 g/dL (32-36); Mean Corpuscular Hgb 28.8 pg (27.0-32.0); Mean Corpuscular Volume 90.9 fL (81-99); Monocyte# 0.41 X10^3/uL; Monocyte% 6.9 % (0-10); NRBC Flagged by Analyzer 0 % (0-5); Neutrophil # 3.96 X10^3/uL (2.7-7.7); Neutrophil % 66.7 % (47-70); Platelet Count 197 K/mm3 (150-450); RBC Distribution Width CV 13.5 % (11.6-14.6); RBC Distribution Width SD 45.1 fl (35.1-43.9); Red Blood Count 4.83 M/mm3 (4.2-5.4); White Blood Count 5.9 K/mm3 (4.4-11.0)
[2019-11-17 17:49] LABS: ALB/GLOB Ratio 1.1 RATIO (0.9-2.4); AST(SGOT) 24 U/L (15-37); Alanine Aminotransfer ALT/SGPT 44 U/L (13-56); Alkaline Phosphatase 96 U/L (45-117); Anion Gap 7 (5-15); BUN 16 mg/dL (7-18); BUN/Creat Ratio 19.4 RATIO (10-20); Calcium,Total 9.8 mg/dL (8.5-10.1); Chloride 101 mmol/L (98-107); Creatinine, Serum 0.82 mg/dL (0.55-1.02); EST Glomerular Filtration Rate 73 mL/min (>60); Est Glom Filt Rate - Afr Amer 88 mL/min (>60); Globulin 3.5 g/dL (2.2-4.2); Glucose 92 mg/dL (74-106); Potassium 3.7 mmol/L (3.5-5.1); Protein, Total 7.5 g/dL (6.4-8.2); Sodium Level 140 mmol/L (136-145)
== END ==
PROVIDERS: PCP Family Medicine; Referring Provider Internal Medicine Rheumatology; Visit Provider Internal Medicine Rheumatology
DX: M06.4 Inflammatory polyarthropathy (principal); Z79.899 Other long term (current) drug therapy; D86.9 Sarcoidosis, unspecified; M79.7 Fibromyalgia; M17.0 Bilateral primary osteoarthritis of knee; M18.0 Bilateral primary osteoarthritis of first carpometacarpal joints; M15.9 Polyosteoarthritis, unspecified; M47.897 Other spondylosis, lumbosacral region
CPT/HCPCS: 36415; 80053; 85025

== ENCOUNTER → 2020-02-17 11:40 | Outpatient (CLI) | payer MEDICARE, OTHER, SELFPAY ==
[2020-02-17 15:20] LABS: Absolute Lymphocyte Count 1.11 X10^3/uL (0.83-4.51); Absolute Neutrophil Count 2.6 X10^3/uL (2.0-7.7); Basophil# 0.04 X10^3/uL; Eosinophils% 2.4 % (0-5); Hematocrit 43.7 % (37-47); Hemoglobin 13.9 g/dL (12.0-15.0); Lymphocyte # 1.11 X10^3/ul (4.0); Lymphocyte % 26.7 % (19-41); Mean Corp Hgb Conc 31.8 g/dL (32-36); Mean Corpuscular Hgb 29.6 pg (27.0-32.0); Mean Corpuscular Volume 93.2 fL (81-99); Mean Platelet Vol. 10.9 fl (6.2-12.0); Monocyte# 0.34 X10^3/uL; Monocyte% 8.2 % (0-10); NRBC Flagged by Analyzer 0 % (0-5); Neutrophil # 2.56 X10^3/uL (2.7-7.7); Neutrophil % 61.5 % (47-70); Platelet Count 199 K/mm3 (150-450); RBC Distribution Width CV 13.2 % (11.6-14.6); RBC Distribution Width SD 45.1 fl (35.1-43.9); Red Blood Count 4.69 M/mm3 (4.2-5.4); White Blood Count 4.2 K/mm3 (4.4-11.0)
[2020-02-17 16:02] LABS: ALB/GLOB Ratio 1.1 RATIO (0.9-2.4); AST(SGOT) 26 U/L (15-37); Alanine Aminotransfer ALT/SGPT 46 U/L (13-56); Albumin, Serum 3.8 g/dL (3.2-5.0); Alkaline Phosphatase 82 U/L (45-117); Anion Gap 5 (5-15); BUN 20 mg/dL (7-18); BUN/Creat Ratio 27.2 RATIO (10-20); Calcium,Total 9.3 mg/dL (8.5-10.1); Chloride 103 mmol/L (98-107); Cholesterol 182 mg/dL (200); Creatinine, Serum 0.74 mg/dL (0.55-1.02); EST Glomerular Filtration Rate 83 mL/min (>60); Est Glom Filt Rate - Afr Amer 101 mL/min (>60); Globulin 3.4 g/dL (2.2-4.2); Glucose 94 mg/dL (74-106); High Density Lipoprotein 65 mg/dL; Potassium 3.6 mmol/L (3.5-5.1); Protein, Total 7.2 g/dL (6.4-8.2); Sodium Level 140 mmol/L (136-145); T4 Free Direct 0.87 ng/dL (0.76-1.46); Thyroid Stim Hormone (TSH) 1.58 uIU/mL (0.358-3.74); Triglycerides 90 mg/dL; Very Low Density Lipoprotein 18 mg/dL (5-40)
== END ==
PROVIDERS: PCP Family Medicine; Referring Provider Family Medicine; Visit Provider Family Medicine
DX: E87.6 Hypokalemia (principal); E78.5 Hyperlipidemia, unspecified; R53.83 Other fatigue; Z51.81 Encounter for therapeutic drug level monitoring; M06.4 Inflammatory polyarthropathy; Z79.899 Other long term (current) drug therapy; D86.9 Sarcoidosis, unspecified; M79.7 Fibromyalgia; M17.0 Bilateral primary osteoarthritis of knee; M18.0 Bilateral primary osteoarthritis of first carpometacarpal joints; M47.897 Other spondylosis, lumbosacral region; K76.0 Fatty (change of) liver, not elsewhere classified; K22.70 Barrett's esophagus without dysplasia; H35.30 Unspecified macular degeneration; G47.33 Obstructive sleep apnea (adult) (pediatric); K21.9 Gastro-esophageal reflux disease without esophagitis; F41.9 Anxiety disorder, unspecified; H81.02 Meniere's disease, left ear
CPT/HCPCS: 36415; 80053; 80061; 84439; 84443; 85025

== ENCOUNTER → 2020-05-14 10:30 | Outpatient (CLI) | payer MEDICARE, OTHER, SELFPAY ==
[2020-05-14 12:22] LABS: Absolute Lymphocyte Count 1.31 X10^3/uL (0.83-4.51); Absolute Neutrophil Count 2.1 X10^3/uL (2.0-7.7); Basophil# 0.03 X10^3/uL; Basophil% 0.8 % (0-1); Eosinophils% 2.6 % (0-5); Hemoglobin 13.6 g/dL (12.0-15.0); Lymphocyte # 1.31 X10^3/ul (4.0); Lymphocyte % 33.9 % (19-41); Mean Corp Hgb Conc 31.6 g/dL (32-36); Mean Corpuscular Hgb 29.3 pg (27.0-32.0); Mean Corpuscular Volume 92.7 fL (81-99); Mean Platelet Vol. 10.5 fl (6.2-12.0); Monocyte# 0.36 X10^3/uL; Monocyte% 9.3 % (0-10); NRBC Flagged by Analyzer 0 % (0-5); Neutrophil # 2.06 X10^3/uL (2.7-7.7); Neutrophil % 53.1 % (47-70); Platelet Count 185 K/mm3 (150-450); RBC Distribution Width CV 13.2 % (11.6-14.6); RBC Distribution Width SD 45.1 fl (35.1-43.9); Red Blood Count 4.64 M/mm3 (4.2-5.4); White Blood Count 3.9 K/mm3 (4.4-11.0)
[2020-05-14 12:35] LABS: ALB/GLOB Ratio 1.1 RATIO (0.9-2.4); AST(SGOT) 19 U/L (15-37); Alanine Aminotransfer ALT/SGPT 29 U/L (13-56); Albumin, Serum 3.8 g/dL (3.2-5.0); Alkaline Phosphatase 76 U/L (45-117); Anion Gap 3 (5-15); BUN 18 mg/dL (7-18); BUN/Creat Ratio 26.9 RATIO (10-20); Calcium,Total 9.1 mg/dL (8.5-10.1); Chloride 104 mmol/L (98-107); Creatinine, Serum 0.67 mg/dL (0.55-1.02); EST Glomerular Filtration Rate 93 mL/min (>60); Est Glom Filt Rate - Afr Amer 112 mL/min (>60); Globulin 3.5 g/dL (2.2-4.2); Glucose 94 mg/dL (74-106); Protein, Total 7.3 g/dL (6.4-8.2); Sodium Level 142 mmol/L (136-145)
== END ==
PROVIDERS: PCP Family Medicine; Referring Provider Internal Medicine Rheumatology; Visit Provider Internal Medicine Rheumatology
DX: M06.4 Inflammatory polyarthropathy (principal); Z79.899 Other long term (current) drug therapy; D86.9 Sarcoidosis, unspecified; M79.7 Fibromyalgia; M17.0 Bilateral primary osteoarthritis of knee; M18.0 Bilateral primary osteoarthritis of first carpometacarpal joints; M47.897 Other spondylosis, lumbosacral region
CPT/HCPCS: 36415; 80053; 85025

== ENCOUNTER → 2020-08-08 13:19 | Outpatient (CLI) | payer MEDICARE, OTHER, SELFPAY ==
--- NOTE | 2020-08-08 13:23 | CT_ITS ---
STUDY: CT ABDOMEN WITH CONTRAST REASON FOR EXAM: Female, 70 years old. ADRENAL MASS FOLLOW UP RADIATION DOSAGE (If Supplied By Facility): CTDIvol = ( 13.91 ) mGy, DLP = ( 650.27 ) mGycm TECHNIQUE: Transaxial images were obtained post I.V. administration of IV 100ML ISOVUE 300, and without oral contrast. Sagittal and coronal images were reconstructed. Individualized dose optimization techniques were used for this CT. COMPARISON: Comparison is made with prior study dated 07/25/2019. FINDINGS: The visualized lung bases are unremarkable. The visualized portions of the heart are within normal limits. Normal liver. The patient is status post cholecystectomy. Normal spleen. Normal pancreas. Once again, there is a 4.3 cm x 4.6 x 2.6 cm fat-containing mass in the left adrenal gland. Punctate calcifications are seen within it. This is essentially unchanged. Normal right kidney. Normal left kidney. Normal visualized stomach. Normal small intestine. Normal colon. The patient is status post appendectomy. There is diffuse atherosclerotic calcification of the abdominal aorta, without a demonstrated aneurysm. Normal inferior vena cava. Normal retroperitoneum. Normal abdominal wall. There are diffuse degenerative changes of the visualized lumbar spine. CT/Abdomen WITH IV Contrast IMPRESSION: Stable fat-containing mass in the left adrenal gland. Electronically Signed: Jovanny Antoine, at 14:13 EST , Service support ,
[2020-08-08 13:45] LABS: CREATININE FINGERSTICK < 0.6 mg/dL (0.55-1.02)
[2020-08-08 15:16] LABS: Absolute Lymphocyte Count 1.19 X10^3/uL (0.83-4.51); Absolute Neutrophil Count 2.5 X10^3/uL (2.0-7.7); Basophil# 0.02 X10^3/uL; Basophil% 0.5 % (0-1); Eosinophil# 0.05 X10^3/uL; Eosinophils% 1.2 % (0-5); Hematocrit 43.4 % (37-47); Hemoglobin 13.9 g/dL (12.0-15.0); Lymphocyte # 1.19 X10^3/ul (4.0); Mean Corpuscular Hgb 29.3 pg (27.0-32.0); Mean Corpuscular Volume 91.6 fL (81-99); Mean Platelet Vol. 10.4 fl (6.2-12.0); Monocyte# 0.36 X10^3/uL; Monocyte% 8.8 % (0-10); NRBC Flagged by Analyzer 0 % (0-5); Neutrophil # 2.48 X10^3/uL (2.7-7.7); Neutrophil % 60.3 % (47-70); Platelet Count 194 K/mm3 (150-450); RBC Distribution Width CV 13.1 % (11.6-14.6); RBC Distribution Width SD 43.9 fl (35.1-43.9); Red Blood Count 4.74 M/mm3 (4.2-5.4); White Blood Count 4.1 K/mm3 (4.4-11.0)
[2020-08-08 16:01] LABS: ALB/GLOB Ratio 1.1 RATIO (0.9-2.4); AST(SGOT) 19 U/L (15-37); Alanine Aminotransfer ALT/SGPT 31 U/L (13-56); Albumin, Serum 3.8 g/dL (3.2-5.0); Alkaline Phosphatase 82 U/L (45-117); Anion Gap 4 (5-15); BUN 20 mg/dL (7-18); BUN/Creat Ratio 31.5 RATIO (10-20); Calcium,Total 9.2 mg/dL (8.5-10.1); Chloride 99 mmol/L (98-107); Creatinine, Serum 0.64 mg/dL (0.55-1.02); EST Glomerular Filtration Rate 98 mL/min (>60); Est Glom Filt Rate - Afr Amer 119 mL/min (>60); Globulin 3.6 g/dL (2.2-4.2); Glucose 84 mg/dL (74-106); Potassium 3.3 mmol/L (3.5-5.1); Protein, Total 7.4 g/dL (6.4-8.2); Sodium Level 138 mmol/L (136-145)
== END ==
PROVIDERS: PCP Family Medicine; Referring Provider Family Medicine; Visit Provider Family Medicine
DX: E27.8 Other specified disorders of adrenal gland (principal); M06.4 Inflammatory polyarthropathy; Z79.899 Other long term (current) drug therapy; D86.9 Sarcoidosis, unspecified; M79.7 Fibromyalgia; M17.0 Bilateral primary osteoarthritis of knee; M18.0 Bilateral primary osteoarthritis of first carpometacarpal joints; M47.897 Other spondylosis, lumbosacral region; K76.0 Fatty (change of) liver, not elsewhere classified; K22.70 Barrett's esophagus without dysplasia; H35.30 Unspecified macular degeneration; G47.33 Obstructive sleep apnea (adult) (pediatric); K21.9 Gastro-esophageal reflux disease without esophagitis
CPT/HCPCS: 36415; 74160; 80053; 85025; Q9967

== ENCOUNTER → 2020-08-17 13:18 | Outpatient (CLI) | payer MEDICARE, OTHER, SELFPAY ==
--- NOTE | 2020-08-17 13:32 | BI_ITS ---
MAMMOGRAPHY - BILATERAL SCREENING REASON FOR EXAM: Female, 70 years old. Routine annual screening examination. PERTINENT HISTORY: Mother with breast cancer. TECHNIQUE: Digital bilateral breast anne marie (3D mammographic acquisition) in the CC and MLO projections. 2-D mediolateral oblique (MLO) and craniocaudad (CC) views of both breasts were obtained. CAD: Full Field Digital Mammography with Computer Added Detection was performed. COMPARISON: Comparison is made with prior study dated 01/05/2018 and 11/19/2016. FINDINGS: Breast Composition: There are scattered areas of fibroglandular density. There are no dominant masses or suspicious calcifications. No other significant abnormalities are identified. There has been no significant change since the prior study. BI/SCREEN MAMM (CAD) W/ANNE MARIE BILAT IMPRESSION: Stable bilateral screening mammogram. Yearly follow-up mammogram recommended. (A) ASSESSMENT CATEGORY: BIRADS Category 1: Negative. A letter regarding these results will be sent to the patient by the facility within 30 days. Approximately 10% of breast cancers are not detected by mammography. A normal mammogram should not delay biopsy of a clinically suspicious abnormality. [id number] Electronically Signed: Jovanny Antoine, at 15:15 EST , Service support ,
== END ==
PROVIDERS: PCP Family Medicine; Referring Provider Family Medicine; Visit Provider Family Medicine
DX: Z12.31 Encounter for screening mammogram for malignant neoplasm of breast (principal); Z80.3 Family history of malignant neoplasm of breast
CPT/HCPCS: 77063; 77067

== ENCOUNTER → 2020-11-01 12:26 | Outpatient (CLI) | payer MEDICARE, OTHER, SELFPAY ==
[2020-11-01 15:33] LABS: Absolute Lymphocyte Count 1.21 X10^3/uL (0.83-4.51); Basophil# 0.03 X10^3/uL; Basophil% 0.8 % (0-1); Eosinophil# 0.09 X10^3/uL; Eosinophils% 2.4 % (0-5); Hematocrit 44.2 % (37-47); Hemoglobin 13.8 g/dL (12.0-15.0); Lymphocyte # 1.21 X10^3/ul (4.0); Lymphocyte % 32.8 % (19-41); Mean Corp Hgb Conc 31.2 g/dL (32-36); Mean Corpuscular Hgb 29.4 pg (27.0-32.0); Mean Corpuscular Volume 94.2 fL (81-99); Mean Platelet Vol. 10.7 fl (6.2-12.0); Monocyte# 0.35 X10^3/uL; Monocyte% 9.5 % (0-10); NRBC Flagged by Analyzer 0 % (0-5); Neutrophil % 54.2 % (47-70); Platelet Count 164 K/mm3 (150-450); RBC Distribution Width CV 13.2 % (11.6-14.6); RBC Distribution Width SD 45.8 fl (35.1-43.9); Red Blood Count 4.69 M/mm3 (4.2-5.4); White Blood Count 3.7 K/mm3 (4.4-11.0)
[2020-11-01 15:48] LABS: ALB/GLOB Ratio 1.1 RATIO (0.9-2.4); AST(SGOT) 20 U/L (15-37); Alanine Aminotransfer ALT/SGPT 31 U/L (13-56); Albumin, Serum 3.9 g/dL (3.2-5.0); Alkaline Phosphatase 73 U/L (45-117); Anion Gap 5 (5-15); BUN 17 mg/dL (7-18); BUN/Creat Ratio 21.4 RATIO (10-20); Calcium,Total 9.4 mg/dL (8.5-10.1); Chloride 105 mmol/L (98-107); EST Glomerular Filtration Rate 76 mL/min (>60); Est Glom Filt Rate - Afr Amer 92 mL/min (>60); Globulin 3.4 g/dL (2.2-4.2); Glucose 107 mg/dL (74-106); Potassium 3.5 mmol/L (3.5-5.1); Protein, Total 7.3 g/dL (6.4-8.2); Sodium Level 142 mmol/L (136-145)
== END ==
PROVIDERS: PCP Family Medicine; Referring Provider Internal Medicine Rheumatology; Visit Provider Internal Medicine Rheumatology
DX: M06.4 Inflammatory polyarthropathy (principal); Z79.899 Other long term (current) drug therapy; D86.9 Sarcoidosis, unspecified; M79.7 Fibromyalgia; M18.0 Bilateral primary osteoarthritis of first carpometacarpal joints; M17.0 Bilateral primary osteoarthritis of knee; M47.897 Other spondylosis, lumbosacral region; K76.0 Fatty (change of) liver, not elsewhere classified; K22.70 Barrett's esophagus without dysplasia; H35.30 Unspecified macular degeneration; G47.33 Obstructive sleep apnea (adult) (pediatric); K21.9 Gastro-esophageal reflux disease without esophagitis; F41.9 Anxiety disorder, unspecified; H81.02 Meniere's disease, left ear
CPT/HCPCS: 36415; 80053; 85025

== ENCOUNTER → 2021-01-29 15:25 | Outpatient (CLI) | payer MEDICARE, OTHER, SELFPAY ==
[2021-01-29 17:45] LABS: Absolute Lymphocyte Count 1.17 X10^3/uL (0.83-4.51); Absolute Neutrophil Count 3.6 X10^3/uL (2.0-7.7); Basophil# 0.02 X10^3/uL; Basophil% 0.4 % (0-1); Eosinophil# 0.07 X10^3/uL; Eosinophils% 1.3 % (0-5); Hematocrit 43.8 % (37-47); Hemoglobin 14.1 g/dL (12.0-15.0); Lymphocyte # 1.17 X10^3/ul (0.83-4.51); Lymphocyte % 22.1 % (19-41); Mean Corp Hgb Conc 32.2 g/dL (32-36); Mean Corpuscular Hgb 29.7 pg (27.0-32.0); Mean Corpuscular Volume 92.4 fL (81-99); Mean Platelet Vol. 10.9 fl (6.2-12.0); Monocyte# 0.45 X10^3/uL; Monocyte% 8.5 % (0-10); NRBC Flagged by Analyzer 0 % (0-5); Neutrophil # 3.57 X10^3/uL (2.7-7.7); Neutrophil % 67.5 % (47-70); Platelet Count 199 K/mm3 (150-450); RBC Distribution Width CV 13.3 % (11.6-14.6); RBC Distribution Width SD 45.2 fl (35.1-43.9); Red Blood Count 4.74 M/mm3 (4.2-5.4); White Blood Count 5.3 K/mm3 (4.4-11.0)
[2021-01-29 18:00] LABS: ALB/GLOB Ratio 1.1 RATIO (0.9-2.4); AST(SGOT) 16 U/L (15-37); Alanine Aminotransfer ALT/SGPT 32 U/L (13-56); Albumin, Serum 3.9 g/dL (3.2-5.0); Alkaline Phosphatase 80 U/L (45-117); Anion Gap 7 (5-15); BUN 22 mg/dL (7-18); BUN/Creat Ratio 29.8 RATIO (10-20); Calcium,Total 9.4 mg/dL (8.5-10.1); Chloride 104 mmol/L (98-107); Creatinine, Serum 0.74 mg/dL (0.55-1.02); EST Glomerular Filtration Rate 82 mL/min (>60); Est Glom Filt Rate - Afr Amer 100 mL/min (>60); Globulin 3.5 g/dL (2.2-4.2); Glucose 96 mg/dL (74-106); Potassium 3.6 mmol/L (3.5-5.1); Protein, Total 7.4 g/dL (6.4-8.2); Sodium Level 143 mmol/L (136-145)
== END ==
PROVIDERS: PCP Family Medicine; Referring Provider Internal Medicine Rheumatology; Visit Provider Internal Medicine Rheumatology
DX: M06.4 Inflammatory polyarthropathy (principal); Z79.899 Other long term (current) drug therapy; D86.9 Sarcoidosis, unspecified; M79.7 Fibromyalgia; M17.0 Bilateral primary osteoarthritis of knee; M18.0 Bilateral primary osteoarthritis of first carpometacarpal joints; M47.897 Other spondylosis, lumbosacral region; K76.0 Fatty (change of) liver, not elsewhere classified; K22.70 Barrett's esophagus without dysplasia; H35.30 Unspecified macular degeneration; G47.33 Obstructive sleep apnea (adult) (pediatric); K21.9 Gastro-esophageal reflux disease without esophagitis; F41.9 Anxiety disorder, unspecified; H81.02 Meniere's disease, left ear
CPT/HCPCS: 36415; 80053; 85025

== ENCOUNTER → 2021-04-12 11:45 | Outpatient (CLI) | payer MEDICARE, OTHER, SELFPAY ==
[2021-04-12 15:37] LABS: Absolute Lymphocyte Count 1.09 X10^3/uL (0.83-4.51); Absolute Neutrophil Count 3.3 X10^3/uL (2.0-7.7); Basophil# 0.03 X10^3/uL; Basophil% 0.6 % (0-1); Hematocrit 44.3 % (37-47); Hemoglobin 13.9 g/dL (12.0-15.0); Lymphocyte # 1.09 X10^3/ul (0.83-4.51); Lymphocyte % 22.2 % (19-41); Mean Corp Hgb Conc 31.4 g/dL (32-36); Mean Corpuscular Hgb 29.2 pg (27.0-32.0); Mean Corpuscular Volume 93.1 fL (81-99); Mean Platelet Vol. 10.7 fl (6.2-12.0); Monocyte# 0.39 X10^3/uL; NRBC Flagged by Analyzer 0 % (0-5); Neutrophil # 3.28 X10^3/uL (2.7-7.7); Platelet Count 193 K/mm3 (150-450); RBC Distribution Width CV 13.6 % (11.6-14.6); RBC Distribution Width SD 46.2 fl (35.1-43.9); Red Blood Count 4.76 M/mm3 (4.2-5.4); White Blood Count 4.9 K/mm3 (4.4-11.0)
[2021-04-12 16:44] LABS: ALB/GLOB Ratio 1.1 RATIO (0.9-2.4); AST(SGOT) 28 U/L (15-37); Alanine Aminotransfer ALT/SGPT 43 U/L (13-56); Albumin, Serum 3.9 g/dL (3.2-5.0); Alkaline Phosphatase 80 U/L (45-117); Anion Gap 6 (5-15); BUN 18 mg/dL (7-18); BUN/Creat Ratio 23.8 RATIO (10-20); Calcium,Total 9.1 mg/dL (8.5-10.1); Chloride 102 mmol/L (98-107); Creatinine, Serum 0.76 mg/dL (0.55-1.02); EST Glomerular Filtration Rate 80 mL/min (>60); Est Glom Filt Rate - Afr Amer 97 mL/min (>60); Globulin 3.5 g/dL (2.2-4.2); Glucose 83 mg/dL (74-106); Potassium 3.5 mmol/L (3.5-5.1); Protein, Total 7.4 g/dL (6.4-8.2); Sodium Level 139 mmol/L (136-145)
== END ==
PROVIDERS: PCP Family Medicine; Referring Provider Internal Medicine Rheumatology; Visit Provider Internal Medicine Rheumatology
DX: M06.4 Inflammatory polyarthropathy (principal); Z79.899 Other long term (current) drug therapy; D86.9 Sarcoidosis, unspecified; M79.7 Fibromyalgia; M18.0 Bilateral primary osteoarthritis of first carpometacarpal joints; M17.0 Bilateral primary osteoarthritis of knee; M47.897 Other spondylosis, lumbosacral region; K76.0 Fatty (change of) liver, not elsewhere classified; K22.70 Barrett's esophagus without dysplasia; H35.30 Unspecified macular degeneration; G47.33 Obstructive sleep apnea (adult) (pediatric); K21.9 Gastro-esophageal reflux disease without esophagitis; F41.9 Anxiety disorder, unspecified; H81.02 Meniere's disease, left ear
CPT/HCPCS: 36415; 80053; 85025

== ENCOUNTER → 2021-07-03 16:25 | Outpatient (CLI) | payer MEDICARE, OTHER, SELFPAY ==
[2021-07-03 17:51] LABS: Absolute Lymphocyte Count 1.34 X10^3/uL (0.83-4.51); Absolute Neutrophil Count 3.4 X10^3/uL (2.0-7.7); Basophil# 0.03 X10^3/uL; Basophil% 0.6 % (0-1); Eosinophil# 0.08 X10^3/uL; Eosinophils% 1.6 % (0-5); Hematocrit 44.3 % (37-47); Hemoglobin 14.1 g/dL (12.0-15.0); Lymphocyte # 1.34 X10^3/ul (0.83-4.51); Mean Corp Hgb Conc 31.8 g/dL (32-36); Mean Platelet Vol. 10.7 fl (6.2-12.0); Monocyte# 0.32 X10^3/uL; Monocyte% 6.2 % (0-10); NRBC Flagged by Analyzer 0 % (0-5); Neutrophil # 3.37 X10^3/uL (2.7-7.7); Neutrophil % 65.2 % (47-70); Platelet Count 204 K/mm3 (150-450); RBC Distribution Width CV 13.2 % (11.6-14.6); RBC Distribution Width SD 43.7 fl (35.1-43.9); Red Blood Count 4.87 M/mm3 (4.2-5.4); White Blood Count 5.2 K/mm3 (4.4-11.0)
[2021-07-03 18:00] LABS: AST(SGOT) 20 U/L (15-37); Alanine Aminotransfer ALT/SGPT 33 U/L (13-56); Albumin, Serum 3.8 g/dL (3.2-5.0); Alkaline Phosphatase 82 U/L (45-117); Anion Gap 7 (5-15); BUN 16 mg/dL (7-18); BUN/Creat Ratio 22.8 RATIO (10-20); Calcium,Total 9.6 mg/dL (8.5-10.1); Chloride 101 mmol/L (98-107); EST Glomerular Filtration Rate 88 mL/min (>60); Est Glom Filt Rate - Afr Amer 106 mL/min (>60); Globulin 3.9 g/dL (2.2-4.2); Glucose 103 mg/dL (74-106); Potassium 3.5 mmol/L (3.5-5.1); Protein, Total 7.7 g/dL (6.4-8.2); Sodium Level 140 mmol/L (136-145)
== END ==
PROVIDERS: PCP Family Medicine; Referring Provider Internal Medicine Rheumatology; Visit Provider Internal Medicine Rheumatology
DX: M06.4 Inflammatory polyarthropathy (principal); Z79.899 Other long term (current) drug therapy; D86.9 Sarcoidosis, unspecified; M79.7 Fibromyalgia; M17.0 Bilateral primary osteoarthritis of knee; M18.0 Bilateral primary osteoarthritis of first carpometacarpal joints; M47.897 Other spondylosis, lumbosacral region; K76.0 Fatty (change of) liver, not elsewhere classified; K22.70 Barrett's esophagus without dysplasia; H35.30 Unspecified macular degeneration; G47.33 Obstructive sleep apnea (adult) (pediatric)
CPT/HCPCS: 36415; 80053; 85025

== ENCOUNTER 2021-10-18 12:25 | Outpatient (CLI) | payer MEDICARE, OTHER, SELFPAY ==
[2021-10-18 15:10] LABS: Absolute Lymphocyte Count 1.09 X10^3/uL (0.83-4.51); Absolute Neutrophil Count 3.5 X10^3/uL (2.0-7.7); Basophil# 0.04 X10^3/uL; Basophil% 0.8 % (0-1); Eosinophil# 0.07 X10^3/uL; Eosinophils% 1.4 % (0-5); Hematocrit 46.3 % (37-47); Hemoglobin 15.1 g/dL (12.0-15.0); Lymphocyte # 1.09 X10^3/ul (0.83-4.51); Lymphocyte % 21.5 % (19-41); Mean Corp Hgb Conc 32.6 g/dL (32-36); Mean Corpuscular Hgb 29.7 pg (27.0-32.0); Mean Corpuscular Volume 91.1 fL (81-99); Mean Platelet Vol. 10.8 fl (6.2-12.0); Monocyte# 0.42 X10^3/uL; Monocyte% 8.3 % (0-10); NRBC Flagged by Analyzer 0 % (0-5); Neutrophil # 3.45 X10^3/uL (2.7-7.7); Neutrophil % 67.8 % (47-70); Platelet Count 202 K/mm3 (150-450); RBC Distribution Width CV 13.6 % (11.6-14.6); RBC Distribution Width SD 45.9 fl (35.1-43.9); Red Blood Count 5.08 M/mm3 (4.2-5.4); White Blood Count 5.1 K/mm3 (4.4-11.0)
[2021-10-18 15:29] LABS: ALB/GLOB Ratio 1.1 RATIO (0.9-2.4); AST(SGOT) 20 U/L (15-37); Alanine Aminotransfer ALT/SGPT 43 U/L (13-56); Albumin, Serum 4.1 g/dL (3.2-5.0); Alkaline Phosphatase 76 U/L (45-117); Anion Gap 6 (5-15); BUN 19 mg/dL (7-18); BUN/Creat Ratio 24.1 RATIO (10-20); Calcium,Total 9.9 mg/dL (8.5-10.1); Chloride 104 mmol/L (98-107); Creatinine, Serum 0.79 mg/dL (0.55-1.02); EST Glomerular Filtration Rate 77 mL/min (>60); Est Glom Filt Rate - Afr Amer 93 mL/min (>60); Globulin 3.8 g/dL (2.2-4.2); Glucose 100 mg/dL (74-106); Potassium 3.8 mmol/L (3.5-5.1); Protein, Total 7.9 g/dL (6.4-8.2); Sodium Level 139 mmol/L (136-145)
== END 2021-10-18 23:59 | disposition short-term general hospital (02) ==
LOC: MTLAB 12:27
PROVIDERS: PCP Family Medicine; Referring Provider Internal Medicine Rheumatology; Visit Provider Internal Medicine Rheumatology
DX: M06.4 Inflammatory polyarthropathy (principal); D86.9 Sarcoidosis, unspecified; M79.7 Fibromyalgia; M17.0 Bilateral primary osteoarthritis of knee; M18.0 Bilateral primary osteoarthritis of first carpometacarpal joints; M47.897 Other spondylosis, lumbosacral region; K76.0 Fatty (change of) liver, not elsewhere classified; K22.70 Barrett's esophagus without dysplasia; H35.30 Unspecified macular degeneration; G47.33 Obstructive sleep apnea (adult) (pediatric); K21.9 Gastro-esophageal reflux disease without esophagitis; F41.9 Anxiety disorder, unspecified; H81.02 Meniere's disease, left ear; Z79.899 Other long term (current) drug therapy
CPT/HCPCS: 36415; 80053; 85025

== ENCOUNTER 2021-12-18 11:48 | Outpatient (CLI) | payer MEDICARE, OTHER, SELFPAY ==
[2021-12-18 15:22] LABS: ALB/GLOB Ratio 1.2 RATIO (0.9-2.4); AST(SGOT) 26 U/L (15-37); Alanine Aminotransfer ALT/SGPT 40 U/L (13-56); Alkaline Phosphatase 67 U/L (45-117); Anion Gap 5 (5-15); BUN 18 mg/dL (7-18); BUN/Creat Ratio 22.9 RATIO (10-20); Chloride 105 mmol/L (98-107); Creatinine, Serum 0.78 mg/dL (0.55-1.02); EST Glomerular Filtration Rate 77 mL/min (>60); Est Glom Filt Rate - Afr Amer 93 mL/min (>60); Globulin 3.4 g/dL (2.2-4.2); Glucose 106 mg/dL (74-106); Potassium 3.7 mmol/L (3.5-5.1); Protein, Total 7.4 g/dL (6.4-8.2); Sodium Level 142 mmol/L (136-145)
== END 2021-12-18 23:59 | disposition home or self-care (01) ==
LOC: MTLAB 11:50
PROVIDERS: PCP Family Medicine; Referring Provider Internal Medicine Rheumatology; Visit Provider Internal Medicine Rheumatology
DX: M06.4 Inflammatory polyarthropathy (principal); Z79.899 Other long term (current) drug therapy; D86.9 Sarcoidosis, unspecified; M79.7 Fibromyalgia; M17.0 Bilateral primary osteoarthritis of knee; M18.0 Bilateral primary osteoarthritis of first carpometacarpal joints; M19.041 Primary osteoarthritis, right hand; B35.6 Tinea cruris; M47.897 Other spondylosis, lumbosacral region; K76.0 Fatty (change of) liver, not elsewhere classified; K22.70 Barrett's esophagus without dysplasia; H35.30 Unspecified macular degeneration; G47.33 Obstructive sleep apnea (adult) (pediatric)
CPT/HCPCS: 36415; 80053

== ENCOUNTER → 2022-02-13 | Outpatient (CLI) | payer MEDICARE, OTHER, SELFPAY ==
[2022-02-13 18:18] LABS: Vitamin B12 849 pg/mL (211-911); Vitamin D,25 Hydroxy 127.8 ng/mL
[2022-02-13 18:28] LABS: Free T3 2.8 pg/mL (2.18-3.98); Iron 63 ug/dL (50-170); T4 Free Direct 0.93 ng/dL (0.76-1.46); Thyroid Stim Hormone (TSH) 1.78 uIU/mL (0.358-3.74)
== END | disposition home or self-care (01) ==
LOC: MTLAB 15:37
PROVIDERS: PCP Family Medicine; Referring Provider Family Medicine; Visit Provider Family Medicine
DX: E03.9 Hypothyroidism, unspecified (principal); Z51.81 Encounter for therapeutic drug level monitoring; E55.9 Vitamin D deficiency, unspecified; E61.1 Iron deficiency; E53.8 Deficiency of other specified B group vitamins; R53.83 Other fatigue
CPT/HCPCS: 36415; 82306; 82607; 83540; 84439; 84443; 84481

== ENCOUNTER → 2022-02-21 | Outpatient (CLI) | payer MEDICARE, OTHER, SELFPAY ==
--- NOTE | 2022-02-21 10:34 | BI_ITS ---
MAMMOGRAPHY - BILATERAL SCREENING REASON FOR EXAM: Female, 71 years old. Routine annual screening examination. PERTINENT HISTORY: Mother with breast cancer. TECHNIQUE: Digital bilateral breast anne marie (3D mammographic acquisition) in the CC and MLO projections. 2-D mediolateral oblique (MLO) and craniocaudad (CC) views of both breasts were obtained. CAD: Full Field Digital Mammography with Computer Added Detection was performed. COMPARISON: Bilateral screening mammograms from 08/17/2020, 01/05/2018, 11/19/2016, 08/24/2015. FINDINGS: Breast Composition: There are scattered areas of fibroglandular density. There are no dominant masses or suspicious calcifications. No other significant abnormalities are identified. There has been no significant change since the prior study. BI/SCRN MAMM (CAD)W/ANNE MARIE BILAT IMPRESSION: Stable bilateral screening mammogram. Yearly follow-up mammogram recommended. (A) ASSESSMENT CATEGORY: BIRADS Category 1: Negative. A letter regarding these results will be sent to the patient by the facility within 30 days. Approximately 10% of breast cancers are not detected by mammography. A normal mammogram should not delay biopsy of a clinically suspicious abnormality. [id number] Electronically Signed: Eber Polk, at 16:48 EDT ,
== END | disposition home or self-care (01) ==
LOC: OPBI 10:33
PROVIDERS: PCP Family Medicine; Referring Provider Family Medicine; Visit Provider Family Medicine
DX: Z12.31 Encounter for screening mammogram for malignant neoplasm of breast (principal); Z80.3 Family history of malignant neoplasm of breast
CPT/HCPCS: 77063; 77067

== ENCOUNTER → 2022-03-12 | Outpatient (CLI) | payer MEDICARE, OTHER, SELFPAY ==
[2022-03-12 12:11] LABS: Absolute Lymphocyte Count 0.77 X10^3/uL (0.83-4.51); Absolute Neutrophil Count 2.5 X10^3/uL (2.0-7.7); Basophil# 0.04 X10^3/uL; Basophil% 1.1 % (0-1); Eosinophil# 0.08 X10^3/uL; Eosinophils% 2.1 % (0-5); Hematocrit 45.1 % (37-47); Hemoglobin 14.5 g/dL (12.0-15.0); Lymphocyte # 0.77 X10^3/ul (0.83-4.51); Lymphocyte % 20.4 % (19-41); Mean Corp Hgb Conc 32.2 g/dL (32-36); Mean Corpuscular Hgb 29.6 pg (27.0-32.0); Mean Platelet Vol. 10.6 fl (6.2-12.0); Monocyte# 0.38 X10^3/uL; Monocyte% 10.1 % (0-10); NRBC Flagged by Analyzer 0 % (0-5); Neutrophil # 2.51 X10^3/uL (2.7-7.7); Neutrophil % 66.3 % (47-70); Platelet Count 187 K/mm3 (150-450); RBC Distribution Width CV 13.7 % (11.6-14.6); RBC Distribution Width SD 46.3 fl (35.1-43.9); White Blood Count 3.8 K/mm3 (4.4-11.0)
[2022-03-12 12:41] LABS: AST(SGOT) 18 U/L (15-37); Alanine Aminotransfer ALT/SGPT 29 U/L (13-56); Albumin, Serum 3.7 g/dL (3.2-5.0); Alkaline Phosphatase 79 U/L (45-117); Anion Gap 6 (5-15); BUN 19 mg/dL (7-18); BUN/Creat Ratio 22.2 RATIO (10-20); Calcium,Total 9.4 mg/dL (8.5-10.1); Chloride 105 mmol/L (98-107); Creatinine, Serum 0.86 mg/dL (0.55-1.02); EST Glomerular Filtration Rate 69 mL/min (>60); Est Glom Filt Rate - Afr Amer 84 mL/min (>60); Globulin 3.6 g/dL (2.2-4.2); Glucose 105 mg/dL (74-106); Potassium 3.6 mmol/L (3.5-5.1); Protein, Total 7.3 g/dL (6.4-8.2); Sodium Level 143 mmol/L (136-145)
== END | disposition home or self-care (01) ==
LOC: MTLAB 10:34
PROVIDERS: PCP Family Medicine; Referring Provider Internal Medicine Rheumatology; Visit Provider Internal Medicine Rheumatology
DX: M06.4 Inflammatory polyarthropathy (principal); Z79.899 Other long term (current) drug therapy; D86.9 Sarcoidosis, unspecified; M79.7 Fibromyalgia; M17.0 Bilateral primary osteoarthritis of knee; M18.0 Bilateral primary osteoarthritis of first carpometacarpal joints; M19.041 Primary osteoarthritis, right hand; B35.6 Tinea cruris; M47.897 Other spondylosis, lumbosacral region; K76.0 Fatty (change of) liver, not elsewhere classified; K22.70 Barrett's esophagus without dysplasia; H35.30 Unspecified macular degeneration; G47.33 Obstructive sleep apnea (adult) (pediatric)
CPT/HCPCS: 36415; 80053; 85025

== ENCOUNTER → 2022-06-14 | Outpatient (CLI) | payer MEDICARE, OTHER, SELFPAY ==
[2022-06-14 10:58] LABS: Absolute Lymphocyte Count 1.22 X10^3/uL (0.83-4.51); Basophil# 0.04 X10^3/uL; Basophil% 0.8 % (0-1); Eosinophil# 0.09 X10^3/uL; Eosinophils% 1.9 % (0-5); Hematocrit 46.8 % (37-47); Hemoglobin 15.3 g/dL (12.0-15.0); Lymphocyte # 1.22 X10^3/ul (0.83-4.51); Lymphocyte % 25.6 % (19-41); Mean Corp Hgb Conc 32.7 g/dL (32-36); Mean Corpuscular Hgb 30.9 pg (27.0-32.0); Mean Corpuscular Volume 94.5 fL (81-99); Mean Platelet Vol. 10.6 fl (6.2-12.0); Monocyte# 0.43 X10^3/uL; NRBC Flagged by Analyzer 0 % (0-5); Neutrophil # 2.98 X10^3/uL (2.7-7.7); Neutrophil % 62.5 % (47-70); Platelet Count 184 K/mm3 (150-450); RBC Distribution Width CV 13.6 % (11.6-14.6); RBC Distribution Width SD 47.3 fl (35.1-43.9); Red Blood Count 4.95 M/mm3 (4.2-5.4); White Blood Count 4.8 K/mm3 (4.4-11.0)
[2022-06-14 11:21] LABS: ALB/GLOB Ratio 1.1 RATIO (0.9-2.4); AST(SGOT) 16 U/L (15-37); Alanine Aminotransfer ALT/SGPT 33 U/L (13-56); Albumin, Serum 3.9 g/dL (3.2-5.0); Alkaline Phosphatase 69 U/L (45-117); Anion Gap 5 (5-15); BUN 21 mg/dL (7-18); Calcium,Total 9.8 mg/dL (8.5-10.1); Chloride 103 mmol/L (98-107); Creatinine, Serum 0.81 mg/dL (0.55-1.02); EST Glomerular Filtration Rate 74 mL/min (>60); Est Glom Filt Rate - Afr Amer 90 mL/min (>60); Globulin 3.7 g/dL (2.2-4.2); Glucose 99 mg/dL (74-106); Potassium 3.9 mmol/L (3.5-5.1); Protein, Total 7.6 g/dL (6.4-8.2); Sodium Level 142 mmol/L (136-145)
== END | disposition home or self-care (01) ==
LOC: LAB 10:11
PROVIDERS: PCP Family Medicine; Referring Provider Internal Medicine Rheumatology; Visit Provider Internal Medicine Rheumatology
DX: M06.4 Inflammatory polyarthropathy (principal); Z79.899 Other long term (current) drug therapy; D86.9 Sarcoidosis, unspecified; M17.0 Bilateral primary osteoarthritis of knee; M18.0 Bilateral primary osteoarthritis of first carpometacarpal joints; M19.041 Primary osteoarthritis, right hand; M47.897 Other spondylosis, lumbosacral region; K76.0 Fatty (change of) liver, not elsewhere classified; K22.70 Barrett's esophagus without dysplasia; H35.30 Unspecified macular degeneration; G47.33 Obstructive sleep apnea (adult) (pediatric); K21.9 Gastro-esophageal reflux disease without esophagitis
CPT/HCPCS: 36415; 80053; 85025

== ENCOUNTER → 2022-09-08 | Outpatient (CLI) | payer MEDICARE, OTHER, SELFPAY ==
[2022-09-08 12:05] LABS: Absolute Neutrophil Count 2.1 X10^3/uL (2.0-7.7); Basophil# 0.04 X10^3/uL; Basophil% 1.1 % (0-1); Eosinophil# 0.07 X10^3/uL; Hematocrit 43.1 % (37-47); Hemoglobin 14.8 g/dL (12.0-15.0); Lymphocyte % 28.2 % (19-41); Mean Corp Hgb Conc 34.3 g/dL (32-36); Mean Corpuscular Hgb 32.1 pg (27.0-32.0); Mean Corpuscular Volume 93.5 fL (81-99); Monocyte# 0.35 X10^3/uL; Monocyte% 9.9 % (0-10); NRBC Flagged by Analyzer 0 % (0-5); Neutrophil # 2.08 X10^3/uL (2.7-7.7); Neutrophil % 58.5 % (47-70); Platelet Count 154 K/mm3 (150-450); RBC Distribution Width CV 13.2 % (11.6-14.6); RBC Distribution Width SD 44.8 fl (35.1-43.9); Red Blood Count 4.61 M/mm3 (4.2-5.4); White Blood Count 3.6 K/mm3 (4.4-11.0)
[2022-09-08 12:38] LABS: ALB/GLOB Ratio 1.1 RATIO (0.9-2.4); AST(SGOT) 16 U/L (15-37); Alanine Aminotransfer ALT/SGPT 33 U/L (13-56); Albumin, Serum 3.6 g/dL (3.2-5.0); Alkaline Phosphatase 60 U/L (45-117); Anion Gap 4 (5-15); BUN 25 mg/dL (7-18); BUN/Creat Ratio 33.9 RATIO (10-20); Calcium,Total 9.4 mg/dL (8.5-10.1); Chloride 103 mmol/L (98-107); Creatinine, Serum 0.74 mg/dL (0.55-1.02); EST Glomerular Filtration Rate 82 mL/min (>60); Est Glom Filt Rate - Afr Amer 99 mL/min (>60); Globulin 3.3 g/dL (2.2-4.2); Glucose 100 mg/dL (74-106); Potassium 3.7 mmol/L (3.5-5.1); Protein, Total 6.9 g/dL (6.4-8.2); Sodium Level 140 mmol/L (136-145)
== END | disposition home or self-care (01) ==
PROVIDERS: PCP Family Medicine; Referring Provider Internal Medicine Rheumatology; Visit Provider Internal Medicine Rheumatology
DX: M06.4 Inflammatory polyarthropathy (principal); D86.9 Sarcoidosis, unspecified; Z79.899 Other long term (current) drug therapy
CPT/HCPCS: 36415; 80053; 85025

== ENCOUNTER → 2022-12-02 | Outpatient (CLI) | payer MEDICARE, OTHER, SELFPAY ==
[2022-12-02 12:49] LABS: Absolute Lymphocyte Count 1.15 X10^3/uL (0.83-4.51); Absolute Neutrophil Count 2.6 X10^3/uL (2.0-7.7); Basophil# 0.04 X10^3/uL; Basophil% 0.9 % (0-1); Eosinophil# 0.08 X10^3/uL; Eosinophils% 1.9 % (0-5); Hematocrit 43.5 % (37-47); Hemoglobin 14.1 g/dL (12.0-15.0); Lymphocyte # 1.15 X10^3/ul (0.83-4.51); Mean Corp Hgb Conc 32.4 g/dL (32-36); Mean Corpuscular Hgb 30.5 pg (27.0-32.0); Mean Platelet Vol. 10.9 fl (6.2-12.0); Monocyte# 0.34 X10^3/uL; NRBC Flagged by Analyzer 0 % (0-5); Neutrophil # 2.64 X10^3/uL (2.7-7.7); Platelet Count 201 K/mm3 (150-450); RBC Distribution Width CV 12.7 % (11.6-14.6); RBC Distribution Width SD 43.8 fl (35.1-43.9); Red Blood Count 4.63 M/mm3 (4.2-5.4); White Blood Count 4.3 K/mm3 (4.4-11.0)
[2022-12-02 13:16] LABS: ALB/GLOB Ratio 1.1 RATIO (0.9-2.4); AST(SGOT) 23 U/L (15-37); Alanine Aminotransfer ALT/SGPT 36 U/L (13-56); Albumin, Serum 3.7 g/dL (3.2-5.0); Alkaline Phosphatase 72 U/L (45-117); Anion Gap 6 (5-15); BUN 20 mg/dL (7-18); BUN/Creat Ratio 26.4 RATIO (10-20); Chloride 102 mmol/L (98-107); Creatinine, Serum 0.76 mg/dL (0.55-1.02); EST Glomerular Filtration Rate 80 mL/min (>60); Est Glom Filt Rate - Afr Amer 97 mL/min (>60); Globulin 3.5 g/dL (2.2-4.2); Glucose 107 mg/dL (74-106); Potassium 3.5 mmol/L (3.5-5.1); Protein, Total 7.2 g/dL (6.4-8.2); Sodium Level 140 mmol/L (136-145)
== END | disposition home or self-care (01) ==
LOC: MTLAB 11:00
PROVIDERS: PCP Family Medicine; Referring Provider Internal Medicine Rheumatology; Visit Provider Internal Medicine Rheumatology
DX: M06.4 Inflammatory polyarthropathy (principal); Z79.899 Other long term (current) drug therapy; D86.9 Sarcoidosis, unspecified; M79.7 Fibromyalgia; M17.0 Bilateral primary osteoarthritis of knee; M18.0 Bilateral primary osteoarthritis of first carpometacarpal joints; K21.9 Gastro-esophageal reflux disease without esophagitis; F41.9 Anxiety disorder, unspecified; M19.041 Primary osteoarthritis, right hand; M47.897 Other spondylosis, lumbosacral region; K76.0 Fatty (change of) liver, not elsewhere classified; K22.70 Barrett's esophagus without dysplasia; H35.30 Unspecified macular degeneration; G47.33 Obstructive sleep apnea (adult) (pediatric); H81.02 Meniere's disease, left ear
CPT/HCPCS: 36415; 80053; 85025

== ENCOUNTER → 2023-02-16 | Outpatient (CLI) | payer MEDICARE, OTHER, SELFPAY ==
[2023-02-16 15:44] LABS: Absolute Lymphocyte Count 1.06 X10^3/uL (0.83-4.51); Absolute Neutrophil Count 3.2 X10^3/uL (2.0-7.7); Basophil# 0.04 X10^3/uL; Basophil% 0.8 % (0-1); Eosinophil# 0.08 X10^3/uL; Eosinophils% 1.6 % (0-5); Hematocrit 43.6 % (37-47); Hemoglobin 14.6 g/dL (12.0-15.0); Lymphocyte # 1.06 X10^3/ul (0.83-4.51); Lymphocyte % 21.5 % (19-41); Mean Corp Hgb Conc 33.5 g/dL (32-36); Mean Corpuscular Hgb 31.6 pg (27.0-32.0); Mean Corpuscular Volume 94.4 fL (81-99); Monocyte# 0.52 X10^3/uL; Monocyte% 10.5 % (0-10); NRBC Flagged by Analyzer 0 % (0-5); Neutrophil # 3.23 X10^3/uL (2.7-7.7); Neutrophil % 65.4 % (47-70); Platelet Count 196 K/mm3 (150-450); RBC Distribution Width CV 14.6 % (11.6-14.6); RBC Distribution Width SD 50.4 fl (35.1-43.9); Red Blood Count 4.62 M/mm3 (4.2-5.4); White Blood Count 4.9 K/mm3 (4.4-11.0)
[2023-02-16 16:02] LABS: ALB/GLOB Ratio 1.1 RATIO (0.9-2.4); AST(SGOT) 21 U/L (15-37); Alanine Aminotransfer ALT/SGPT 39 U/L (13-56); Albumin, Serum 3.7 g/dL (3.2-5.0); Alkaline Phosphatase 72 U/L (45-117); Anion Gap 6 (5-15); BUN 19 mg/dL (7-18); BUN/Creat Ratio 29.1 RATIO (10-20); Calcium,Total 9.3 mg/dL (8.5-10.1); Chloride 104 mmol/L (98-107); Creatinine, Serum 0.65 mg/dL (0.55-1.02); EST Glomerular Filtration Rate 95 mL/min (>60); Est Glom Filt Rate - Afr Amer 114 mL/min (>60); Globulin 3.4 g/dL (2.2-4.2); Glucose 99 mg/dL (74-106); Potassium 3.7 mmol/L (3.5-5.1); Protein, Total 7.1 g/dL (6.4-8.2); Sodium Level 140 mmol/L (136-145)
== END | disposition home or self-care (01) ==
LOC: MTLAB 11:34
PROVIDERS: PCP Family Medicine; Referring Provider Internal Medicine Rheumatology; Visit Provider Internal Medicine Rheumatology
DX: M06.4 Inflammatory polyarthropathy (principal); D68.9 Coagulation defect, unspecified; Z79.899 Other long term (current) drug therapy; M79.7 Fibromyalgia; M17.0 Bilateral primary osteoarthritis of knee; M18.0 Bilateral primary osteoarthritis of first carpometacarpal joints; M19.041 Primary osteoarthritis, right hand; M47.897 Other spondylosis, lumbosacral region; K76.0 Fatty (change of) liver, not elsewhere classified; K22.70 Barrett's esophagus without dysplasia; H35.30 Unspecified macular degeneration; G47.33 Obstructive sleep apnea (adult) (pediatric); K21.9 Gastro-esophageal reflux disease without esophagitis; F41.9 Anxiety disorder, unspecified; H81.02 Meniere's disease, left ear
CPT/HCPCS: 36415; 80053; 85025

== ENCOUNTER 2023-02-27 10:30 | Outpatient (RCR) | payer MEDICARE, OTHER, SELFPAY ==
--- NOTE | 2023-01-28 11:03 | HP.PTEVAL_ITS ---
Patient's Visit Information RICKIE OCONNOR is a 72 year old F referred to Physical Therapy by Dr. Sotero Crabtree MD with a diagnosis of UNILATERAL PRIMARY OSTEOARHRITIS ,RIGHT KNEE ,OBESITY. Date of Evaluation: 01/28/23 Physical Therapist: Blas Fonseca, PT, Cert MDT, OCS - Visit Plan Frequency: 2x /Week Duration: 4 Weeks Plan: PT INTERVTIONS AQUATIC THERAPY WITH ROM ,FLEXABLITY KNEE ,STRENGTHENING QUADS/HAMS/HIP AND FUNCTIONAL EX'S - Subjective This 72 y/o female presents to physical therapy with right knee pain DJD. Patient has knee pain several years . Patient seen Dr viera to pain has been progressively worse . Patient Seen Dr Crabtree showed severe DJD and needs a TKR but wants Pre Rehab prior to surgery. Location pain global knee . Aggravating factors squatting/kneeling ,bending . Pain worsens with extended walking/standing affects ADL and housework tasks. Alleviating factors rest ,and Meds Tramadol. Patient goal to get stronger and TKR. Patient denies paresthesia/tingling-. Patient condition affects QOL and function. Patient is scheduled for surgery March 03. SOCAIL: . VOCATION: retired - Pain Right Knee Pain Intensity (Out of 10): 8 Pain Intensity Range: 10 - Objective POSTURE: mild forward posture ,knee valgus. GAIT: reciprocal pattern mild decrease stance time RLE. PALAPTION: tender medial/lateral joint. AROM: 0-115 supine knee flexion. EDEMA: mild effusion. MMT: quads/hams 4/5 ,hip flexion 4/5 ,hip abd 4-/5 ,ankle 5/5. STAIRS: one step at time with rails - Special Tests R Knee Valgus - MCL: Negative R Knee Varus - LCL: Negative - Balance/Special Test Scores Lower Extremity Functional Score: 24 - Goals Goal 1:: I with Aquatic therapy for knee Goal Time Frame: 4-6 Weeks Goal 2:: Patient to improve ROM knee flexion by 5 -10 degrees to improve function and stairs Goal Time Frame: 4-6 Weeks Goal 3:: Patient to improve LFES score by 5 points to improve function and QOL Goal Time Frame: 4-6 Weeks Goal 4:: Patient to demonstrate 30-40% improvement with function and ADLS Goal Time Frame: 4-6 Weeks - Rehabilitation Potential Physical Therapy Diagnosis: This patient has progressive severe DJD which will have TKR right with impairments of pain ,ROM ,decrease ROM ,weakness impairs walking and ADLS with housework tasks thus benefit from skilled PT Rehabilitation Potential: Good - Anticipated Interventions Patient/Client Instruction: Educate patient on: Condition, Plan of Care For the Purpose of:: To decrease pain, To increase ROM, To improve muscle performance and motor function, To improve ability to perform ADL's, To increase tolerance to activity/condition/position, To decrease level of supervision to perform tasks, To improve ability of physical actions for home/community/work/leisure, To improve health of tissue, To decrease soft tissue restriction, To increase flexibility/ROM Therapeutic Exercise to Include: Strength training, Endurance training, Balance training, Flexibilty training, In an aquatic setting, Passive ROM, Active ROM Comment: QUADS/HAMS/HIP For the Purpose of:: To decrease pain, To increase ROM, To improve muscle performance and motor function, To improve ability to perform ADL's, To increase tolerance to activity/condition/position, To improve ability of physical actions for home/community/work/leisure, To improve health of tissue, To decrease soft tissue restriction, To increase flexibility/ROM Thank you for the opportunity to evaluate your patient. For Medicare and Medicare HMO plans, please review the plan of care and approve it. It will need to be FAXED BACK to us at [phone] for Medicare purposes. For Medicare only, by signing this I certify the plan of care. Please let me know if there are questions or concerns regarding this plan of care. Physician Signature: Date:
--- NOTE | 2023-02-27 11:58 | HP.PTDCSUM ---
It has been my pleasure to treat RICKIE OCONNOR referred by Dr. Sotero Crabtree MD, with the diagnosis of UNILATERAL PRIMARY OSTEOARHRITIS ,RIGHT KNEE ,OBESITY for a total of 9 visit(s). Discharge Date: 02/27/23 Please see the following information for a summary of their discharge status. Subjective: Pt. reports overall doing well. Pt. is scheduled to have surgery on 03/03. She reports having R knee pain and crepitus. Pt. is still having issues with walking. Right Knee Pain Intensity (Out of 10): 2 % Improvement: 20 Objective/Function: ROM: R knee: AROM 0-2-130deg. PROM 0-0-132deg. Pt. has good HS length. MMT: RLE: ankle 5/5 throughout; knee: ext 23.7#, flexion 18.8#; LLE: ankle 5/5 throughout; knee: Ext 31#, flexion 24#. GAIT: Pt. has decent gait pattern, slight antalgic pattern during R stance phase. Pt. reports increased pain at lateral aspect with gait. Marked crepitus with MMT. I educated on post surgical exercises as well. Goal 1:: I with Aquatic therapy for knee Goal Progress: Goal Met Goal 2:: Patient to improve ROM knee flexion by 5 -10 degrees to improve function and stairs Goal Progress: Goal Met Goal 3:: Patient to improve LFES score by 5 points to improve function and QOL Goal Progress: Goal Met Goal 4:: Patient to demonstrate 30-40% improvement with function and ADLS Goal Progress: Progressing Plan: Pt. to be DC to physician with surgery on 03/03/23 for T TKA. Discharge Comments: Pt. was seen in aquatic setting with focus on strength and ROM. Her ROM has improved in both flexion and extension. She is scheduled to have R TKA on 03/03/23. If there are questions or concerns regarding this patient's physical therapy, please feel free to call me at [phone]. Thank you for the referral of this patient. Sincerely, Jorge Osorio Sipos, DPT Balance/Gait/Functional tests - Balance/Special Test Scores Lower Extremity Functional Score: 30
== END 2023-02-27 19:00 | disposition home or self-care (01) ==
LOC: PT 10:30
PROVIDERS: PCP Family Medicine; Referring Provider Specialist; Visit Provider Specialist
DX: M17.11 Unilateral primary osteoarthritis, right knee (principal); E66.8 Other obesity; Z71.3 Dietary counseling and surveillance
CPT/HCPCS: 97113; 97162; 97164

== ENCOUNTER → 2023-03-16 | Outpatient (CLI) | payer MEDICARE, OTHER, SELFPAY ==
--- NOTE | 2023-03-16 12:45 | VDLE_ITS ---
Reason For Study: pain RIGHT LEFT GSV is normal. CFV is compressible, spontaneous, phasic, CFV is compressible, spontaneous, phasic, competent, and demonstrates normal competent and demonstrates normal augmentation. augmentation. FV is compressible, spontaneous, phasic, competent and demonstrates normal augmentation. POP V is compressible, spontaneous, phasic, competent and demonstrates normal augmentation. T/P Trunk is compressible. PTV is compressible. RT PerV is compressible. Procedure Exam performed in department. This is a venous duplex using B-mode, color flow and spectral Doppler. The exam was diagnostic. A preliminary report was called and/or faxed to Kelvin Bustillos's office. VL/Venous Duplex US, Unilateral Interpretation Summary Deep veins of the right lower extremity are patent and compressible segmentally . There is no evidence of right lower extremity deep vein thrombosis. The right [place] vein appears patent and compressible segmentally. Ordering Physician: Kelvin Bustillos Performed By: Kip Calvin RVT
== END | disposition home or self-care (01) ==
LOC: CVS 12:44
PROVIDERS: PCP Family Medicine; Referring Provider Physician Assistant Surgical; Visit Provider Physician Assistant Surgical
DX: M79.661 Pain in right lower leg (principal)
CPT/HCPCS: 93971

== ENCOUNTER → 2023-05-06 | Outpatient (CLI) | payer MEDICARE, OTHER, SELFPAY ==
[2023-05-06 12:11] LABS: Absolute Lymphocyte Count 1.13 X10^3/uL (0.83-4.51); Absolute Neutrophil Count 2.8 X10^3/uL (2.0-7.7); Basophil# 0.03 X10^3/uL; Basophil% 0.7 % (0-1); Eosinophil# 0.06 X10^3/uL; Eosinophils% 1.4 % (0-5); Hematocrit 43.8 % (37-47); Hemoglobin 13.8 g/dL (12.0-15.0); Lymphocyte # 1.13 X10^3/ul (0.83-4.51); Lymphocyte % 25.5 % (19-41); Mean Corp Hgb Conc 31.5 g/dL (32-36); Mean Corpuscular Hgb 30.1 pg (27.0-32.0); Mean Corpuscular Volume 95.6 fL (81-99); Mean Platelet Vol. 10.9 fl (6.2-12.0); Monocyte# 0.42 X10^3/uL; Monocyte% 9.5 % (0-10); NRBC Flagged by Analyzer 0 % (0-5); Neutrophil # 2.77 X10^3/uL (2.7-7.7); Neutrophil % 62.4 % (47-70); Platelet Count 182 K/mm3 (150-450); RBC Distribution Width CV 12.6 % (11.6-14.6); RBC Distribution Width SD 44.4 fl (35.1-43.9); Red Blood Count 4.58 M/mm3 (4.2-5.4); White Blood Count 4.4 K/mm3 (4.4-11.0)
[2023-05-06 12:57] LABS: ALB/GLOB Ratio 0.9 RATIO (0.9-2.4); AST(SGOT) 43 U/L (15-37); Alanine Aminotransfer ALT/SGPT 69 U/L (13-56); Albumin, Serum 3.6 g/dL (3.2-5.0); Alkaline Phosphatase 107 U/L (45-117); Anion Gap 5 (5-15); BUN 17 mg/dL (7-18); BUN/Creat Ratio 25.4 RATIO (10-20); Calcium,Total 9.5 mg/dL (8.5-10.1); Chloride 103 mmol/L (98-107); Creatinine, Serum 0.67 mg/dL (0.55-1.02); EST Glomerular Filtration Rate 92 mL/min (>60); Est Glom Filt Rate - Afr Amer 111 mL/min (>60); Globulin 3.8 g/dL (2.2-4.2); Glucose 100 mg/dL (74-106); Potassium 3.6 mmol/L (3.5-5.1); Protein, Total 7.4 g/dL (6.4-8.2); Sodium Level 139 mmol/L (136-145)
== END | disposition home or self-care (01) ==
LOC: MTLAB 11:08
PROVIDERS: PCP Family Medicine; Referring Provider Internal Medicine Rheumatology; Visit Provider Internal Medicine Rheumatology
DX: M06.4 Inflammatory polyarthropathy (principal); Z79.899 Other long term (current) drug therapy
CPT/HCPCS: 36415; 80053; 85025

== ENCOUNTER → 2023-06-02 | Outpatient (CLI) | payer MEDICARE, OTHER, SELFPAY ==
[2023-06-02 12:39] LABS: AST(SGOT) 23 U/L (15-37); Alanine Aminotransfer ALT/SGPT 44 U/L (13-56); Albumin, Serum 3.6 g/dL (3.2-5.0); Alkaline Phosphatase 91 U/L (45-117); Anion Gap 6 (5-15); BUN 19 mg/dL (7-18); BUN/Creat Ratio 24.3 RATIO (10-20); Calcium,Total 9.8 mg/dL (8.5-10.1); Chloride 105 mmol/L (98-107); Creatinine, Serum 0.78 mg/dL (0.55-1.02); EST Glomerular Filtration Rate 77 mL/min (>60); Est Glom Filt Rate - Afr Amer 93 mL/min (>60); Globulin 3.7 g/dL (2.2-4.2); Glucose 89 mg/dL (74-106); Potassium 3.5 mmol/L (3.5-5.1); Protein, Total 7.3 g/dL (6.4-8.2); Sodium Level 143 mmol/L (136-145)
== END | disposition home or self-care (01) ==
LOC: MTLAB 09:43
PROVIDERS: PCP Family Medicine; Referring Provider Internal Medicine Rheumatology; Visit Provider Internal Medicine Rheumatology
DX: M06.4 Inflammatory polyarthropathy (principal); Z79.899 Other long term (current) drug therapy; D86.9 Sarcoidosis, unspecified; M79.7 Fibromyalgia; M17.0 Bilateral primary osteoarthritis of knee; M18.0 Bilateral primary osteoarthritis of first carpometacarpal joints; M19.041 Primary osteoarthritis, right hand
CPT/HCPCS: 36415; 80053

== ENCOUNTER → 2023-07-27 | Outpatient (CLI) | payer MEDICARE, OTHER, SELFPAY ==
[2023-07-27 16:10] LABS: Absolute Lymphocyte Count 1.22 X10^3/uL (0.83-4.51); Basophil# 0.05 X10^3/uL; Eosinophil# 0.09 X10^3/uL; Eosinophils% 1.9 % (0-5); Hematocrit 46.1 % (37-47); Hemoglobin 14.4 g/dL (12.0-15.0); Lymphocyte # 1.22 X10^3/ul (0.83-4.51); Lymphocyte % 25.4 % (19-41); Mean Corp Hgb Conc 31.2 g/dL (32-36); Mean Corpuscular Hgb 28.9 pg (27.0-32.0); Mean Corpuscular Volume 92.4 fL (81-99); Mean Platelet Vol. 10.9 fl (6.2-12.0); Monocyte# 0.42 X10^3/uL; Monocyte% 8.7 % (0-10); NRBC Flagged by Analyzer 0 % (0-5); Neutrophil # 3.01 X10^3/uL (2.7-7.7); Neutrophil % 62.6 % (47-70); Platelet Count 231 K/mm3 (150-450); RBC Distribution Width SD 47.1 fl (35.1-43.9); Red Blood Count 4.99 M/mm3 (4.2-5.4); White Blood Count 4.8 K/mm3 (4.4-11.0)
[2023-07-27 16:52] LABS: ALB/GLOB Ratio 0.9 RATIO (0.9-2.4); AST(SGOT) 27 U/L (15-37); Alanine Aminotransfer ALT/SGPT 64 U/L (13-56); Albumin, Serum 3.6 g/dL (3.2-5.0); Alkaline Phosphatase 91 U/L (45-117); Anion Gap 2 (5-15); BUN 15 mg/dL (7-18); BUN/Creat Ratio 20.4 RATIO (10-20); Calcium,Total 9.9 mg/dL (8.5-10.1); Chloride 104 mmol/L (98-107); Creatinine, Serum 0.74 mg/dL (0.55-1.02); EST Glomerular Filtration Rate 82 mL/min (>60); Est Glom Filt Rate - Afr Amer 100 mL/min (>60); Glucose 104 mg/dL (74-106); Potassium 3.9 mmol/L (3.5-5.1); Protein, Total 7.6 g/dL (6.4-8.2); Sodium Level 138 mmol/L (136-145)
== END | disposition home or self-care (01) ==
LOC: MTLAB 12:39
PROVIDERS: PCP Family Medicine; Referring Provider Internal Medicine Rheumatology; Visit Provider Internal Medicine Rheumatology
DX: M06.4 Inflammatory polyarthropathy (principal); Z79.899 Other long term (current) drug therapy; D86.9 Sarcoidosis, unspecified; M79.7 Fibromyalgia
CPT/HCPCS: 36415; 80053; 85025

== ENCOUNTER → 2023-08-28 | Outpatient (CLI) | payer MEDICARE, OTHER, SELFPAY ==
[2023-08-28 13:33] LABS: Absolute Lymphocyte Count 0.94 X10^3/uL (0.83-4.51); Absolute Neutrophil Count 4.4 X10^3/uL (2.0-7.7); Basophil# 0.03 X10^3/uL; Basophil% 0.5 % (0-1); Eosinophil# 0.05 X10^3/uL; Eosinophils% 0.9 % (0-5); Hematocrit 45.1 % (37-47); Hemoglobin 14.7 g/dL (12.0-15.0); Lymphocyte # 0.94 X10^3/ul (0.83-4.51); Lymphocyte % 16.1 % (19-41); Mean Corp Hgb Conc 32.6 g/dL (32-36); Mean Corpuscular Hgb 29.8 pg (27.0-32.0); Mean Corpuscular Volume 91.3 fL (81-99); Mean Platelet Vol. 10.6 fl (6.2-12.0); Monocyte# 0.41 X10^3/uL; NRBC Flagged by Analyzer 0 % (0-5); Neutrophil % 75.3 % (47-70); Platelet Count 205 K/mm3 (150-450); RBC Distribution Width SD 47.1 fl (35.1-43.9); Red Blood Count 4.94 M/mm3 (4.2-5.4); White Blood Count 5.8 K/mm3 (4.4-11.0)
[2023-08-28 14:07] LABS: AST(SGOT) 24 U/L (15-37); Alanine Aminotransfer ALT/SGPT 57 U/L (13-56); Albumin, Serum 3.7 g/dL (3.2-5.0); Alkaline Phosphatase 88 U/L (45-117); Anion Gap 6 (5-15); BUN 18 mg/dL (7-18); BUN/Creat Ratio 21.2 RATIO (10-20); Calcium,Total 9.8 mg/dL (8.5-10.1); Chloride 102 mmol/L (98-107); Creatinine, Serum 0.85 mg/dL (0.55-1.02); EST Glomerular Filtration Rate 70 mL/min (>60); Est Glom Filt Rate - Afr Amer 84 mL/min (>60); Globulin 3.7 g/dL (2.2-4.2); Glucose 148 mg/dL (74-106); Potassium 3.2 mmol/L (3.5-5.1); Protein, Total 7.4 g/dL (6.4-8.2); Sodium Level 140 mmol/L (136-145)
== END | disposition home or self-care (01) ==
LOC: LAB 12:49
PROVIDERS: PCP Family Medicine; Referring Provider Internal Medicine Rheumatology; Visit Provider Internal Medicine Rheumatology
DX: M06.4 Inflammatory polyarthropathy (principal); Z79.899 Other long term (current) drug therapy; D86.9 Sarcoidosis, unspecified; K76.0 Fatty (change of) liver, not elsewhere classified
CPT/HCPCS: 36415; 80053; 85025

== ENCOUNTER → 2023-09-08 | Outpatient (CLI) | payer MEDICARE, OTHER, SELFPAY ==
--- NOTE | 2023-09-08 09:45 | BI_ITS ---
MAMMOGRAPHY - BILATERAL SCREENING REASON FOR EXAM: Female, 73 years old. Routine annual screening examination. PERTINENT HISTORY: Mother with breast cancer. TECHNIQUE: Digital bilateral breast anne marie (3D mammographic acquisition) in the CC and MLO projections. 2-D mediolateral oblique (MLO) and craniocaudad (CC) views of both breasts were obtained. CAD: Full Field Digital Mammography with Computer Added Detection was performed. COMPARISON: Comparison is made with prior study dated February 21, 2022 and August 17, 2020. FINDINGS: Breast Composition: There are scattered areas of fibroglandular density. There are no dominant masses or suspicious calcifications. No other significant abnormalities are identified. There has been no significant change since the prior study. BI/SCRN MAMM (CAD)W/ANNE MARIE BILAT IMPRESSION: Stable bilateral screening mammogram. Yearly follow-up mammogram recommended. (A) ASSESSMENT CATEGORY: BIRADS Category 1: Negative. A letter regarding these results will be sent to the patient by the facility within 30 days. Approximately 10% of breast cancers are not detected by mammography. A normal mammogram should not delay biopsy of a clinically suspicious abnormality. [id number] Electronically Signed: Jovanyn Antoine MD at 11:14 EST ,
== END | disposition home or self-care (01) ==
LOC: OPBI 09:43
PROVIDERS: PCP Family Medicine; Referring Provider Family Medicine; Visit Provider Family Medicine
DX: Z12.31 Encounter for screening mammogram for malignant neoplasm of breast (principal); Z80.3 Family history of malignant neoplasm of breast
CPT/HCPCS: 77063; 77067

== ENCOUNTER → 2023-10-09 | Outpatient (CLI) | payer MEDICARE, OTHER, SELFPAY ==
--- OUTSIDE RECORDS SUMMARY | 2023-10-09 12:43 | XMS RPT_ITS | CCD ---
Author Name Unknown Address [address] [place] [address] Organization [facility] Care Team Providers [employer] Name Role Phone MAURI VELASCO, DR TOM Travis Primary Care Physician MAURI VELASCO, DR TOM Travis Primary Care Steve LEGER MD, DR VAN Travis Attending Uriel Oh MD, DR VAN Travis Attending Uriel Gomez DO, DR TOM Travis Primary Care Steve LEGER MD, DR VAN Travis Admitting Uriel Gomez DO, DR TOM Travis Primary Care TOM Brown Consulting Diana HUSSEIN, TOM Escobar Attending Diana LEGER MD, DR VAN Travis Referring Uriel le Allergies Allergy Classification Reported Allergen(s) Allergy Type Date of Onset Reaction(s) Facility (3 sources) Sulfonamides (Antibiotic); Translations: [sulfa drugs] Drug allergy [facility] Medications Current Medications Medication Drug Class(es) Dates Sig (Normalized) Sig (Original) acetaminophen 500 mg oral tablet (1 source) Start: 03-04-20 End: 04-03-20 acetaminophen 500 mg oral tablet Dose : 1,000 mg = 2 tab(s), Oral, TID, # 90 tab(s), 0 Refill(s), 04/03/23 7:38:00 EDT, Pharmacy: [id number], 153, cm, 03/03/23 11:55:00 EDT, Height Start Date: 03/04/23 Stop Date: 04/03/23 Status: Ordered ALPRAZolam 1 mg oral tablet (3 sources) Benzodiazepine Start: 02-03-20 ALPRAZolam 1 mg oral tablet Dose : 1 mg = 1 tab(s), Oral, TID, PRN PRN for anxiety, 0 Refill(s) Start Date: 02/02/23 Status: Ordered amLODIPine 5 mg oral tablet (3 sources) Dihydropyridine Calcium Channel Gwendolyn Start: 02-03-20 amLODIPine 5 mg oral tablet Dose : 5 mg = 1 tab(s), Oral, qDay, # 30 tab(s), 0 Refill(s) Start Date: 02/02/23 Status: Ordered aspirin 81 mg delayed release oral tablet (1 source) Platelet Aggregation Inhibitor, Nonsteroidal Anti-inflammatory Drug Start: 03-04-20 End: 04-03-20 aspirin 81 mg oral delayed release tablet Dose : 81 mg = 1 tab(s), Oral, BID, # 60 tab(s), 0 Refill(s), Pharmacy: [id number], 153, cm, 03/03/23 11:55:00 EDT, Height Start Date: 03/04/23 Stop Date: 04/03/23 Status: Ordered biotin 2.5 mg oral tablet (3 sources) Start: 02-03-20 biotin 2.5 mg oral tablet Dose : 2.5 mg = 1 tab(s), Oral, qDay, # 30 tab(s), 0 Refill(s) Start Date: 02/02/23 Status: Ordered calcium citrate 1040 mg oral tablet (3 sources) Start: 02-03-20 calcium (as calcium citrate) 250 mg oral tablet Dose : 250 mg = 1 tab(s), Oral, BID, 0 Refill(s) Start Date: 02/02/23 Status: Ordered CoQ10 100 mg oral capsule (3 sources) Start: 02-03-20 CoQ10 100 mg oral capsule Dose : 100 mg = 1 cap(s), Oral, qDay, 0 Refill(s) Start Date: 02/02/23 Status: Ordered dexlansoprazole 60 mg delayed release oral capsule (3 sources) Proton Pump Inhibitor Start: 02-03-20 dexlansoprazole 60 mg oral delayed release capsule Dose : 60 mg = 1 cap(s), Oral, qDay, # 30 cap(s), 0 Refill(s) Start Date: 02/02/23 Status: Ordered doxycycline hyclate 100 mg oral capsule (1 source) Tetracycline-class Drug Start: 03-04-20 End: 03-11-20 doxycycline hyclate 100 mg oral capsule Dose : 100 mg = 1 cap(s), Oral, q12h, X 7 day(s), # 14 cap(s), 0 Refill(s), 03/11/23 7:41:00 EDT, Pharmacy: [id number], 153, cm, 03/03/23 11:55:00 EDT, Height, 100 Start Date: 03/04/23 Stop Date: 03/11/23 Status: Ordered folic acid 1 mg oral tablet (3 sources) Start: 02-03-20 folic acid 1 mg oral tablet Dose : 1 mg = 1 tab(s), Oral, qDay, # 30 tab(s), 0 Refill(s) Start Date: 02/02/23 Status: Ordered hydroCHLOROthiazide 25 mg oral tablet (3 sources) Thiazide Diuretic Start: 02-03-20 hydroCHLOROthiazide 25 mg oral tablet Dose : 25 mg = 1 tab(s), Oral, Daily, 0 Refill(s) Start Date: 02/02/23 Status: Ordered losartan potassium 100 mg oral tablet (3 sources) Angiotensin 2 Receptor Gwendolyn Start: 02-03-20 losartan 100 mg oral tablet Dose : 100 mg = 1 tab(s), Oral, qDay, # 30 tab(s), 0 Refill(s) Start Date: 02/02/23 Status: Ordered Lutein (3 sources) Start: 02-03-20 lutein Oral, qDay, 0 Refill(s) Start Date: 02/02/23 Status: Ordered magnesium oxide 250 mg oral tablet (3 sources) Start: 02-03-20 Magnesium 250 mg tablet Dose : 500 mg = 2 tab(s), Oral, qDay, 0 Refill(s) Start Date: 02/02/23 Status: Ordered melatonin 5 mg oral tablet (3 sources) Start: 03-03-20 melatonin 5 mg oral tablet Dose : 5 mg = 1 tab(s), Oral, qHS, PRN as needed for insomnia, # 60 tab(s), 0 Refill(s) Start Date: 03/03/23 Status: Ordered Problems Problem Classification Problem Date Documented Da te Episodic/Chronic Anxiety disorders (1 source) Anxiety disorder; Translations: [Anxiety disorder, unspecified] Onset: 03-03-2023 Chronic Esophageal disorders (1 source) Haney's esophagus; 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] Onset: 03-03-2023 Chronic Essential hypertension (1 source) Essential hypertension; Translations: [Essential (primary) hypertension] Onset: 03-03-2023 Chronic Osteoarthritis (1 source) Osteoarthritis; Translations: [Unspecified osteoarthritis, unspecified site] Onset: 03-03-2023 Chronic Residual codes; unclassified (1 source) Sleep apnea; Translations: [Sleep apnea, unspecified] Onset: 03-03-2023 Chronic Results Test Name Value Interpretation Reference Range Facil ity Vital Signs Date Time Vital Sign Value Performing Clinician Faci lity 03-04-2023 13:56-04[address] Blood Pressure Cuff Size DR VAN LEGER MD [facility] 03-04-2023 13:56-[address] VAN LEGER MD [facility] 03-04-2023 13:56-[address] VAN Cox [facility] 03-04-2023 13:56-0400 Body temperature 97.88 [degF] DR VAN LEGER MD [facility] 03-04-2023 13:56-0400 Diastolic Blood Pressure Non-Invasive [address] VAN LEGER MD [facility] 03-04-2023 13:56-0400 Heart rate 80 /min DR VAN LEGER MD [facility] 03-04-2023 13:56-0400 Heart rate 84 /min DR VAN LEGER MD [facility] 03-04-2023 13:56-0400 Reason For Taking VItal Signs DR VAN LEGER MD [facility] 03-04-2023 13:56-0400 Respiratory rate 16 /min DR VAN LEGER MD [facility] 03-04-2023 13:56-0400 Systolic Blood Pressure Non-Invasive [address] VAN LEGER MD [facility] 03-04-2023 11:17-0400 Blood Pressure Cuff Size DR VAN LEGER MD [facility] 03-04-2023 11:17-[address] VAN LEGER MD [facility] 03-04-2023 11:17-[address] VAN Cox [facility] 03-04-2023 11:17-0400 Body temperature 97.34 [degF] DR VAN LEGER MD [facility] 03-04-2023 11:17-0400 Diastolic Blood Pressure Non-Invasive [address] VAN LEGER MD [facility] 03-04-2023 11:17-0400 Heart rate 89 /min DR VAN LEGER MD [facility] 03-04-2023 11:17-0400 Heart rate 84 /min DR VAN LEGER MD [facility] 03-04-2023 11:17-0400 Reason For Taking VItal Signs DR VAN LEGER MD [facility] 03-04-2023 11:17-0400 Respiratory rate 18 /min DR VAN LEGER MD [facility] 03-04-2023 11:17-0400 Systolic Blood Pressure Non-Invasive [address] VAN LEGER MD [facility] 03-04-2023 07:56-0400 Blood Pressure Cuff Size DR VAN LEGER MD [facility] 03-04-2023 07:56-[address] VAN LEGER MD [facility] 03-04-2023 07:56-[address] VAN Cox [facility] 03-04-2023 07:56-0400 Body temperature 98.24 [degF] DR VAN LEGER MD [facility] 03-04-2023 07:56-0400 Diastolic Blood Pressure Non-Invasive [address] VAN LEGER MD [facility] 03-04-2023 07:56-0400 Heart rate 87 /min DR VAN LEGER MD [facility] 03-04-2023 07:56-0400 Heart rate 88 /min DR VAN LEGER MD [facility] 03-04-2023 07:56-0400 Reason For Taking VItal Signs DR VAN LEGER MD [facility] 03-04-2023 07:56-0400 Respiratory rate 16 /min DR VAN LEGER MD [facility] 03-04-2023 07:56-0400 Systolic Blood Pressure Non-Invasive [address] VAN LEGER MD [facility] 03-03-2023 19:30-0400 Body temperature 97.16 [degF] DR VAN LEGER MD [facility] 03-03-2023 11:55-0400 Body height [address] VAN LEGER MD [facility] 03-03-2023 11:55-0400 Body weight [address] VAN LEGER MD [facility] 03-03-2023 11:55-0400 Body weight 42.72 kg/m2 DR VAN LEGER MD [facility] 03-03-2023 11:31-0400 Body temperature 96.44 [degF] DR VAN LEGER MD [facility] 03-03-2023 10:24-0400 Body temperature 96.44 [degF] DR VAN LEGER MD [facility] 03-03-2023 10:15-0400 Respiratory Rate - Anes 11 br/min DR VAN LEGER MD [facility] 03-03-2023 10:10-0400 Respiratory Rate - Anes 11 br/min DR VAN LEGER MD [facility] 03-03-2023 10:05-0400 Respiratory Rate - Anes 11 br/min DR VAN LEGER MD [facility] 03-03-2023 06:51-0400 Body height [address] VAN LEGER MD [facility] 03-03-2023 06:51-0400 Body weight [address] VAN LEGER MD [facility] 02-02-2023 14:05-[address] VAN LEGER MD [facility] 02-02-2023 14:05-[address] VAN Cox [facility] 02-02-2023 14:05-0400 Body height [address] VAN LEGER MD [facility] 02-02-2023 14:05-0400 Body weight [address] VAN LEGER MD [facility] 02-02-2023 14:05-0400 Body weight 42.72 kg/m2 DR VAN LEGER MD [facility] 02-02-2023 14:05-0400 Diastolic Blood Pressure Non-Invasive [address] VAN LEGER MD [facility] 02-02-2023 14:05-0400 Heart rate 80 /min DR VAN LEGER MD [facility] 02-02-2023 14:05-0400 Respiratory rate 18 /min DR VAN LEGER MD [facility] 02-02-2023 14:05-0400 Systolic Blood Pressure Non-Invasive [address] VAN LEGER MD [facility] Encounters Encounter Date Encounter Type Care Provider Facility Start: 03-03-2023 End: 03-04-[address] VAN LEGER MD Facility:[facility] Start: 03-03-2023 End: 03-04-[address] VAN LEGER MD [facility] Start: 02-02-2023 End: 02-03-[address] VAN LEGER MD Facility:[facility] Start: 02-02-2023 End: 02-02-[address] VAN LEGER MD [facility] Start: 02-02-2023 End: 02-02-[address] VAN LEGER MD [facility] Procedures Date Procedure Procedure Detail Performing Clinician Start: 03-03-2023 Structure of right jarek coffman (body structure) DR VAN LEGER MD Start: 09-28-[address] VAN LEGER MD Immunizations Immunization Date Immunization Notes Care Provider [facility] 07-09-2022 influenza virus vaccine, unspecified formulation DR VAN LEGER MD [facility] 08-16-2021 SARS-CoV-2 (COVID-19 ) mRNA-[address] VAN LEGER MD [facility] 07-03-2021 influenza virus vaccine, unspecified formulation DR VAN LEGER MD [facility] 12-06-2020 SARS-CoV-2 (COVID-19 ) mRNA-[address] VAN LEGER MD [facility] 11-08-2020 SARS-CoV-2 (COVID-19 ) mRNA-[address] VAN LEGER MD [facility] Payers Date Payer Category Payer Medicare [id number] 2023 Unknown [id number] 1950 Unknown [id number] 1950 Unknown [id number] 1950 Unknown [id number] Social History Date Type Detail Facility Start: 02-02-2023 Tobacco smoking status Ex-smoker (fi nding) [facility] Sex Assigned At Female [facility] Functional Status Date Assessment Result Facility 03-04-2023 Functional Status Mod I [facility] 03-04-2023 Functional Status [facility] 03-04-2023 Functional Status Mod I [facility] 03-04-2023 Functional Status 2 [facility] 03-04-2023 Functional Status 75 [facility] 03-03-2023 Functional Status Dinner Percent 100 [facility] 03-03-2023 [facility]23 Functional Status Single level home [facility] 03-03-2023 Functional Status ice on, tension pillow off [facility] 03-03-2023 Functional Status [facility] 02-02-2023 Functional Status Sensory Defici ts Hearing deficit, left ear [facility] Mental Status Date Assessment Result Facility 03-04-2023 Mental Status Orientation Oriented x 4 [facility] 03-04-2023 [facility] 03-03-2023 [facility] 03-03-2023 Mental Status [facility] Clinical Notes 02-02-2023 to 03-04-2023 Note Date & Type Note Facility 03-04-2023 Hospital Discharg e instructions Patient Education 03/04/2023 13:54:15 5 - [facility] Post-op Instruction 04/2017 (Custom)(CUSTOM) [facility] Post-operative Instructions PLEASE FOLLOW [facility] POST-OP INSTRUCTIONS GIVEN WATCH FOR SIGNS OF INFECTION: call the office ([phone]) if experencing any of the following: (Usually appears 36-48 hours after surgery) Increased temperature (101 degrees Fahrenheit or higher) Redness or swelling Increased uncontrolled pain Foul odor or drainage Calf discomfort Significant swelling Or if having any chest pain, shortness of breath, or difficulty breathing or swallowing call the office or go the nearest Emergency Room. If you have any questions, please call your doctor at the number listed on your follow up instructions. Form: 338A (60549) R: 02/01 Follow Up Care 01/20/2023 10:56:52 With:[facility] Address: [address] [place] [id number] [phone] When:03/06/2023 11:00:00 Comments:This is your first physical therapy appointment. Follow-up as scheduled. With:YUDY SCHWAB PA-C, Orthopedic Address: [facility] [address] [id number]- When:03/16/2023 09:45:00 Comments:This is your post-op appointment. Follow-up as scheduled. [facility] 03-04-2023 Nurse Discharge summary Discharged to home with . Escorted to the exit via myself. Left at 1500. [facility] 03-04-2023 Note Discharge Instructions Thank you for allowing [facility] to assist you with your healthcare needs. The following is important discharge information regarding your hospital visit. Your Care Team TOM DOTSON STEVEN MD KAPPER, LISA [facility] Your Diagnosis Osteoarthritis Hypertension Sleep apnea Haney's esophagus Anxiety and depression What to do next Follow Up Appointments Follow Up with YUDY SCHWAB PA-C, Orthopedic When 03/16/2023 09:45 AM EDT Why: This is your post-op appointment. Follow-up as scheduled. Where: [facility] [address] [place] [id number] Follow Up with [facility] When 03/06/2023 11:00 AM EDT Why: This is your first physical therapy appointment. Follow-up as scheduled. Where: [address] [place] [address] [phone] Allergies sulfa drug (Hives) Medications Please ask your primary doctor or pharmacist before taking any other medication not listed, including over the counter drugs, herbal medications, vitamins and or supplements as they may interact with your home medications. What How Much When Why Instructions Last Dose New acetaminophen (acetaminophen 500 mg oral tablet) 2 tab(s) by mouth Three (3) times a day Pickup at [place] [address] 03/04 10AM New aspirin (aspirin 81 mg oral delayed release tablet) 1 tab(s) by mouth Two (2) times a day Duration: 30 Days Pickup at [place] [address] 03/04 10AM New doxycycline (doxycycline hyclate 100 mg oral capsule) 1 cap by mouth Every 12 hours Duration: 7 Days Pickup at [place] [address] 03/04 9AM New oxyCODONE (oxyCODONE 5 mg oral tablet ( IMMEDIATE release )) 1-2 tablets by mouth Every 4 hours as needed for Pain, scale 4-6 Osteoarthritis Duration: 7 Days Pickup at [place] [address] 03/04 9AM Changed melatonin (melatonin 5 mg oral tablet) 1 tab(s) by mouth Daily at bedtime as needed for as needed for insomnia None While Here Changed venlafaxine (venlafaxine 75 mg oral tablet) 1 tab(s) by mouth Once a day (in the morning) Duration: 30 Days 03/04 9AM Unchanged ALPRAZolam (ALPRAZolam 1 mg oral tablet) 1 tab(s) by mouth Three (3) times a day as needed for for anxiety None While Here Unchanged amLODIPine (amLODIPine 5 mg oral tablet) 1 tab(s) by mouth Once a day 03/03 9PM Unchanged ascorbic acid (Vitamin C 250 mg oral tablet) 1 tab(s) by mouth Once a day None While Here Unchanged biotin (biotin 2.5 mg oral tablet) 1 tab(s) by mouth Once a day None While Here Unchanged calcium citrate (calcium (as calcium citrate) 250 mg oral tablet) 1 tab(s) by mouth Two (2) times a day None While Here Unchanged cholecalciferol (Vitamin D3) 100 Microgram by mouth Every day None While Here Unchanged dexlansoprazole (dexlansoprazole 60 mg oral delayed release capsule) 1 cap by mouth Once a day None While Here Unchanged folic acid (folic acid 1 mg oral tablet) 1 tab(s) by mouth Once a day 03/04 9AM Unchanged hydroCHLOROthiazide (hydroCHLOROthiazide 25 mg oral tablet) 1 tab(s) by mouth Every day 03/03 9PM Unchanged losartan (losartan 100 mg oral tablet) 1 tab(s) by mouth Once a day 03/04 9AM Unchanged lutein by mouth Once a day None While Here Unchanged magnesium oxide (Magnesium 250 mg tablet) 2 tab(s) by mouth Once a day None While Here Unchanged methotrexate (methotrexate 2.5 mg oral tablet) 1 tab(s) by mouth Every week None While Here Unchanged multivitamin (Vitamin B Complex 100) None While Here Unchanged multivitamin with minerals (PreserVision AREDS 2 oral capsule) 1 cap by mouth Every day None While Here Unchanged potassium chloride (Potassium Chloride (Vzw-Wbja-Joi M20) 20 mEq oral tablet, extended release) 1 tab(s) by mouth Two (2) times a day 03/04 9AM Unchanged pregabalin (pregabalin 100 mg oral capsule) 1 cap by mouth Two (2) times a day 03/04 9AM Unchanged ubiquinone (CoQ10 100 mg oral capsule) 1 cap by mouth Once a day None While Here Pharmacy Information [id number]: [address], [place] [phone] Please take this list to your next doctor s visit. Bring all medications you take, including over the counter medications, herbals and other supplements with you to your doctor s visit. Patients and families are reminded to discard old lists and to update any records with all medication providers or retail pharmacies. Medication Leaflets aspirin (oral) ( pir in) Arthritis Pain, Aspi-Cor, Aspir-Low, Nat Plus, Durlaza, Ecotrin, Miniprin, [place] What is the most important information I should know about aspirin? Aspirin can cause Wayne's syndrome, a serious and sometimes fatal condition in children. What is aspirin? Aspirin is a salicylate (mn-JGA-tn-ate) that is used to treat pain, and reduce fever or inflammation. Aspirin is sometimes used to treat or prevent heart attacks, strokes, and chest pain (angina). Aspirin should be used for these conditions only under the supervision of a doctor. Aspirin may also be used for purposes not listed in this medication guide. What should I discuss with my healthcare provider before taking aspirin? Using aspirin in a child or teenager with flu symptoms or chickenpox can cause a serious or fatal condition called Wayne's syndrome. You should not use aspirin if you are allergic to it, or if you have: a recent history of stomach or intestinal bleeding; a bleeding disorder such as hemophilia; or if you have ever had an asthma attack or severe allergic reaction after taking aspirin or an NSAID (non-steroidal anti-inflammatory drug). Tell your doctor if you have ever had: asthma or seasonal allergies; stomach ulcers; liver disease; kidney disease; a bleeding or blood clotting disorder; gout; or heart disease, high blood pressure, or congestive heart failure. Taking aspirin during late may cause bleeding in the mother or the baby during delivery. Tell your doctor if you are or plan to become . You should not breastfeed while using this medicine. How should I take aspirin? Use exactly as directed on the label, or as prescribed by your doctor. Always follow directions on the medicine label about giving aspirin to a child. Take with food if aspirin upsets your stomach. You must chew the chewable tablet before you swallow it. Do not crush, chew, break, or open an enteric-coated or delayed/extended-release pill. Swallow it whole. Tell your doctor if you have a planned surgery. Store at room temperature away from moisture and heat. Do not use aspirin if you smell a strong vinegar odor in the aspirin bottle. The medicine may no longer be effective. What happens if I miss a dose? Aspirin is used when needed. If you are on a dosing schedule, skip any missed dose. Do not use two doses at one time. What happens if I overdose? Seek emergency medical attention or call the Poison Help line at . Overdose may cause stomach pain, vomiting, diarrhea, vision or hearing problems, fast or slow breathing, or confusion. What should I avoid while taking aspirin? Avoid alcohol. Heavy drinking can increase your risk of stomach bleeding. Avoid taking ibuprofen if you take aspirin to prevent stroke or heart attack. Ibuprofen can make aspirin less effective in protecting your heart and blood vessels. Ask your doctor how far apart your doses should be. Ask a doctor or pharmacist before using other medicines for pain, fever, swelling, or cold/flu symptoms. They may contain ingredients similar to aspirin (such as magnesium salicylate, ibuprofen, ketoprofen, or naproxen). What are the possible side effects of aspirin? Get emergency medical help if you have signs of an allergic reaction: hives; difficult breathing; swelling of your face, lips, tongue, or throat. Stop using aspirin and call your doctor at once if you have: ringing in your ears, confusion, hallucinations, rapid breathing, seizure (convulsions); severe nausea, vomiting, or stomach pain; bloody or tarry stools, coughing up blood or vomit that looks like coffee grounds; fever lasting longer than 3 days; or swelling, or pain lasting longer than 10 days. Common side effects may include: upset stomach, heartburn; drowsiness; or mild headache. This is not a complete list of side effects and others may occur. Call your doctor for medical advice about side effects. You may report side effects to FDA at 6-039-JFO-0946. What other drugs will affect aspirin? Ask your doctor before using aspirin if you take an antidepressant. Taking certain antidepressants with aspirin may cause you to bruise or bleed easily. Ask a doctor or pharmacist before using aspirin with any other medications, especially: a blood thinner (warfarin, Coumadin, Jantoven), or other medication used to prevent blood clots; or other salicylates such as Nuprin Backache Caplet, Kaopectate, KneeRelief, Pamprin Cramp Formula, Pepto-Bismol, Tricosal, Trilisate, and others. This list is not complete. Other drugs may affect aspirin, including prescription and khou-shk-ipygzda medicines, vitamins, and herbal products. Not all possible drug interactions are listed here. Where can I get more information? Your pharmacist can provide more information about aspirin. Remember, keep this and all other medicines out of the reach of children, never share your medicines with others, and use this medication only for the indication prescribed. Every effort has been made to ensure that the information provided by [employer]. ('[employer]') is accurate, up-to-date, and complete, but no guarantee is made to that effect. Drug information contained herein may be time sensitive. [employer]chi information has been compiled for use by healthcare practitioners and consumers in the [place] and therefore [employer]chi does not warrant that uses outside of the [place] are appropriate, unless specifically indicated otherwise. [employer]'s drug information does not endorse drugs, diagnose patients or recommend therapy. [employer] drug information is an informational resource designed to assist licensed healthcare practitioners in caring for their patients and/or to serve consumers viewing this service as a supplement to, and not a substitute for, the expertise, skill, knowledge and judgment of healthcare practitioners. The absence of a warning for a given drug or drug combination in no way should be construed to indicate that the drug or drug combination is safe, effective or appropriate for any given patient. [facility] does not assume any responsibility for any aspect of healthcare administered with the aid of information [facility] provides. The information contained herein is not intended to cover all possible uses, directions, precautions, warnings, drug interactions, allergic reactions, or adverse effects. If you have questions about the drugs you are taking, check with your doctor, nurse or pharmacist. Copyright 3994-1879 [employer]. Version: 16.03. Revision Date: 03/25/2021. doxycycline (oral/injection) (DOX i PARDEEP valerio) Acticlate, Adoxa, Alodox, Avidoxy, Doryx, Mondoxyne NL, Monodox, Morgidox, Okebo, Oracea, Oraxyl, Targadox, Vibramycin What is the most important information I should know about doxycycline? You should not take this medicine if you are allergic to any tetracycline antibiotic. Children younger than 8 years old should use doxycycline only in cases of severe or life-threatening conditions. This medicine can cause permanent yellowing or graying of the teeth in children Using doxycycline during could harm the unborn baby or cause permanent tooth discoloration later in the baby's life. What is doxycycline? Doxycycline is a tetracycline antibiotic that Doxycycline is used to treat many different bacterial infections, such as acne, urinary tract infections, intestinal infections, eye infections, gonorrhea, chlamydia, periodontitis (gum disease), and others. Doxycycline is also used to treat blemishes, bumps, and acne-like lesions caused by rosacea. Doxycycline will not treat facial redness caused by rosacea. Some forms of doxycycline are used to prevent malaria, to treat anthrax, or to treat infections caused by mites, ticks, or lice. Doxycycline may also be used for purposes not listed in this medication guide. What should I discuss with my healthcare provider before taking doxycycline? You should not take this medicine if you are allergic to doxycycline or other tetracycline antibiotics such as demeclocycline, minocycline, tetracycline, or tigecycline. Tell your doctor if you have ever had: liver disease; kidney disease; asthma or sulfite allergy; increased pressure inside your skull; or if you also take isotretinoin, seizure medicine, or a blood thinner such as warfarin (Coumadin). If you are using doxycycline to treat gonorrhea, your doctor may test you to make sure you do not also have syphilis, another sexually transmitted disease. Taking this medicine during may affect tooth and bone development in the unborn baby. Taking doxycycline during the last half of can cause permanent tooth discoloration later in the baby's life. Tell your doctor if you are or if you become . Doxycycline can make control pills less effective. Ask your doctor about using a non-hormonal control (condom, diaphragm with spermicide) to prevent . Doxycycline can pass into breast milk and may affect bone and tooth development in a nursing infant. Do not breastfeed while you are taking doxycycline. Doxycycline can cause permanent yellowing or graying of the teeth in children younger than 8 years old. Children should use doxycycline only in cases of severe or life-threatening conditions such as anthrax or [place] spotted fever. The benefit of treating a serious condition may outweigh any risks to the child's tooth development. How should I take doxycycline? Follow all directions on your prescription label and read all medication guides or instruction sheets. Use the medicine exactly as directed. Take doxycycline with a full glass of water. Drink plenty of liquids while you are taking doxycycline. Read and carefully follow any Instructions for Use provided with your medicine. Ask your doctor or pharmacist if you do not understand these instructions. Most brands of doxycyline may be taken with food or milk if the medicine upsets your stomach. Different brands of doxycycline may have different instructions about taking them with or without food. Take Oracea on an empty stomach, at least 1 hour before or 2 hours after a meal. You may need to split a doxycycline tablet to get the correct dose. Follow your doctor's instructions. Swallow a delayed-release capsule or tablet whole. Do not crush, chew, break, or open it. Measure liquid medicine with the dosing syringe provided, or with a special dose-measuring spoon or medicine cup. If you do not have a dose-measuring device, ask your pharmacist for one. If you take doxycycline to prevent malaria: Start taking the medicine 1 or 2 days before entering an area where malaria is common. Continue taking the medicine every day during your stay and for at least 4 weeks after you leave the area. Doxycycline is usually given by injection only if you are unable to take the medicine by mouth. A healthcare provider will give you this injection as an infusion into a vein. Use this medicine for the full prescribed length of time, even if your symptoms quickly improve. Skipping doses can increase your risk of infection that is resistant to medication. Doxycycline will not treat a viral infection such as the flu or a common cold. Store at room temperature away from moisture, heat, and light. Throw away any unused medicine after the expiration date on the label has passed. Using doxycycline can cause damage to your kidneys. What happens if I miss a dose? Take the medicine as soon as you can, but skip the missed dose if it is almost time for your next dose. Do not take two doses at one time. What happens if I overdose? Seek emergency medical attention or call the Poison Help line at . What should I avoid while taking doxycycline? Do not take iron supplements, multivitamins, calcium supplements, antacids, or laxatives within 2 hours before or after taking doxycycline. Avoid taking any other antibiotics with doxycycline unless your doctor has told you to. Doxycycline could make you sunburn more easily. Avoid sunlight or tanning beds. Wear protective clothing and use sunscreen (SPF 30 or higher) when you are outdoors. Antibiotic medicines can cause diarrhea, which may be a sign of a new infection. If you have diarrhea that is watery or bloody, call your doctor. Do not use anti-diarrhea medicine unless your doctor tells you to. What are the possible side effects of doxycycline? Get emergency medical help if you have signs of an allergic reaction (hives, difficult breathing, swelling in your face or throat) or a severe skin reaction (fever, sore throat, burning in your eyes, skin pain, red or purple skin rash that spreads and causes blistering and peeling). Seek medical treatment if you have a serious drug reaction that can affect many parts of your body. Symptoms may include: skin rash, fever, swollen glands, flu-like symptoms, muscle aches, severe weakness, unusual bruising, or yellowing of your skin or eyes. This reaction may occur several weeks after you began using doxycycline. Call your doctor at once if you have: severe stomach pain, diarrhea that is watery or bloody; throat irritation, trouble swallowing; chest pain, irregular heart rhythm, feeling short of breath; little or no urination; low white blood cell counts--fever, chills, swollen glands, body aches, weakness, pale skin, easy bruising or bleeding; increased pressure inside the skull--severe headaches, ringing in your ears, dizziness, nausea, vision problems, pain behind your eyes; or signs of liver or pancreas problems--loss of appetite, upper stomach pain (that may spread to your back), tiredness, nausea or vomiting, fast heart rate, dark urine, jaundice (yellowing of the skin or eyes). Common side effects may include: nausea, vomiting, upset stomach, loss of appetite; mild diarrhea; skin rash or itching; darkened skin color; or vaginal itching or discharge. This is not a complete list of side effects and others may occur. Call your doctor for medical advice about side effects. You may report side effects to FDA at 7-571-NZJ-6359. What other drugs will affect doxycycline? Sometimes it is not safe to use certain medications at the same time. Some drugs can affect your blood levels of other drugs you take, which may increase side effects or make the medications less effective. Other drugs may affect doxycycline, including prescription and cctt-siz-iztcaar medicines, vitamins, and herbal products. Tell your doctor about all your current medicines and any medicine you start or stop using. Where can I get more information? Your pharmacist can provide more information about doxycycline. Remember, keep this and all other medicines out of the reach of children, never share your medicines with others, and use this medication only for the indication prescribed. Every effort has been made to ensure that the information provided by [employer]. ('[employer]') is accurate, up-to-date, and complete, but no guarantee is made to that effect. Drug information contained herein may be time sensitive. [employer] information has been compiled for use by healthcare practitioners and consumers in the [place] and therefore [employer]chi does not warrant that uses outside of the [place] are appropriate, unless specifically indicated otherwise. [employer]'s drug information does not endorse drugs, diagnose patients or recommend therapy. [facility]'s drug information is an informational resource designed to assist licensed healthcare practitioners in caring for their patients and/or to serve consumers viewing this service as a supplement to, and not a substitute for, the expertise, skill, knowledge and judgment of healthcare practitioners. The absence of a warning for a given drug or drug combination in no way should be construed to indicate that the drug or drug combination is safe, effective or appropriate for any given patient. [facility] does not assume any responsibility for any aspect of healthcare administered with the aid of information [facility] provides. The information contained herein is not intended to cover all possible uses, directions, precautions, warnings, drug interactions, allergic reactions, or adverse effects. If you have questions about the drugs you are taking, check with your doctor, nurse or pharmacist. Copyright [id number] [facility]. Version: 21.. Revision Date: 08/01/2020. oxycodone (ox i KOE done) Oxaydo, OxyCONTIN, Oxyfast, OxyIR, Roxicodone, Xtampza ER What is the most important information I should know about oxycodone? MISUSE OF OPIOID MEDICINE CAN CAUSE ADDICTION, OVERDOSE, OR . Keep the medication in a place where others cannot get to it. Taking opioid medicine during may cause life-threatening withdrawal symptoms in the . Fatal side effects can occur if you use opioid medicine with alcohol, or with other drugs that cause drowsiness or slow your breathing. What is oxycodone? Oxycodone is an opioid pain medication used to treat moderate to severe pain. The extended-release form of oxycodone is for mherir-bcr-wmral treatment of pain and should not be used on an as-needed basis for pain. Oxycodone may also be used for purposes not listed in this medication guide. What should I discuss with my healthcare provider before using oxycodone? You should not use oxycodone if you are allergic to it, or if you have: severe asthma or breathing problems; or a blockage in your stomach or intestines. You should not use oxycodone unless you are already using a similar opioid medicine and are tolerant to it. Most brands of oxycodone are not approved for use in people under 18. OxyContin should not be given to a child younger than 11 years old. Tell your doctor if you have ever had: breathing problems, sleep apnea; a head injury, or seizures; drug or alcohol addiction, or mental illness; liver or kidney disease; urination problems; or problems with your gallbladder, pancreas, or thyroid. If you use opioid medicine while you are , your baby could become dependent on the drug. This can cause life-threatening withdrawal symptoms in the baby after it is born. Babies born dependent on opioids may need medical treatment for several weeks. Ask a doctor before using opioid medicine if you are . Tell your doctor if you notice severe drowsiness or slow breathing in the nursing baby. How should I use oxycodone? Follow the directions on your prescription label and read all medication guides. Never use oxycodone in larger amounts, or for longer than prescribed. Tell your doctor if you feel an increased urge to take more of this medicine. Never share opioid medicine with another person, especially someone with a history of drug abuse or addiction. MISUSE CAN CAUSE ADDICTION, OVERDOSE, OR . Keep the medication in a place where others cannot get to it. Selling or giving away opioid medicine is against the law. Stop taking all other jrjfre-abm-ohghj opioid pain medicines when you start taking extended-release oxycodone. Take oxycodone with food. Swallow the capsule or tablet whole to avoid exposure to a potentially fatal overdose. Do not crush, chew, break, open, or dissolve. If you cannot swallow a capsule whole, open it and sprinkle the medicine into a spoonful of pudding or applesauce. Swallow the mixture right away without chewing. Do not save it for later use. Never crush or break an oxycodone pill to inhale the powder or mix it into a liquid to inject the drug into your vein. This can cause in . Measure liquid medicine carefully. Use the dosing syringe provided, or use a medicine dose-measuring device (not a kitchen spoon). You should not stop using oxycodone suddenly. Follow your doctor's instructions about tapering your dose. Store at room temperature, away from heat, moisture, and light. Keep track of your medicine. Oxycodone is a drug of abuse and you should be aware if anyone is using your medicine improperly or without a prescription. Do not keep leftover opioid medication. Just one dose can cause in someone using this medicine accidentally or improperly. Ask your pharmacist where to locate a drug take-back disposal program. If there is no take-back program, flush the unused medicine down the toilet. What happens if I miss a dose? Since oxycodone is used for pain, you are not likely to miss a dose. Skip any missed dose if it is almost time for your next dose. Do not use two doses at one time. What happens if I overdose? Seek emergency medical attention or call the Poison Help line at . An opioid overdose can be fatal, especially in a child or other person using the medicine without a prescription. Overdose symptoms may include severe drowsiness, pinpoint pupils, slow breathing, or no breathing. Your doctor may recommend you get naloxone (a medicine to reverse an opioid overdose) and keep it with you at all times. A person caring for you can give the naloxone if you stop breathing or don't wake up. Your caregiver must still get emergency medical help and may need to perform CPR (cardiopulmonary resuscitation) on you while waiting for help to arrive. Anyone can buy naloxone from a pharmacy or local health department. Make sure any person caring for you knows where you keep naloxone and how to use it. What should I avoid while using oxycodone? Do not drink alcohol. Dangerous side effects or could occur. Avoid driving or operating machinery until you know how oxycodone will affect you. Dizziness or severe drowsiness can cause falls or other accidents. Avoid medication errors. Always check the brand and strength of oxycodone you get from the pharmacy. What are the possible side effects of oxycodone? Get emergency medical help if you have signs of an allergic reaction: hives; difficult breathing; swelling of your face, lips, tongue, or throat. Opioid medicine can slow or stop your breathing, and may occur. A person caring for you should give naloxone and/or seek emergency medical attention if you have slow breathing with long pauses, blue colored lips, or if you are hard to wake up. Call your doctor at once if you have: noisy breathing, sighing, shallow breathing, breathing that stops during sleep; a slow heart rate or weak pulse; a light-headed feeling, like you might pass out; confusion, unusual thoughts or behavior; seizure (convulsions); low cortisol levels-- nausea, vomiting, loss of appetite, dizziness, worsening tiredness or weakness; or high levels of serotonin in the body--agitation, hallucinations, fever, sweating, shivering, fast heart rate, muscle stiffness, twitching, loss of coordination, nausea, vomiting, diarrhea. Serious breathing problems may be more likely in older adults and in those who are debilitated or have wasting syndrome or chronic breathing disorders. Common side effects may include: drowsiness, headache, dizziness, tiredness; or constipation, stomach pain, nausea, vomiting. This is not a complete list of side effects and others may occur. Call your doctor for medical advice about side effects. You may report side effects to FDA at 0-151-OSP-1738. What other drugs will affect oxycodone? You may have breathing problems or withdrawal symptoms if you start or stop taking certain other medicines. Tell your doctor if you also use an antibiotic, antifungal medication, heart or blood pressure medication, seizure medication, or medicine to treat HIV or hepatitis C. Opioid medication can interact with many other drugs and cause dangerous side effects or . Be sure your doctor knows if you also use: cold or allergy medicines, bronchodilator asthma/COPD medication, or a diuretic ('water pill'); medicines for motion sickness, irritable bowel syndrome, or overactive bladder; other opioids--opioid pain medicine or prescription cough medicine; a sedative like Valium--diazepam, alprazolam, lorazepam, Xanax, Klonopin, Versed, and others; drugs that make you sleepy or slow your breathing--a sleeping pill, muscle relaxer, medicine to treat mood disorders or mental illness; or drugs that affect serotonin levels in your body--a stimulant, or medicine for depression, Parkinson's disease, migraine headaches, serious infections, or nausea and vomiting. This list is not complete and many other drugs may affect oxycodone. This includes prescription and yfno-wbz-lfitjem medicines, vitamins, and herbal products. Not all possible drug interactions are listed here. Where can I get more information? Your pharmacist can provide more information about oxycodone. Remember, keep this and all other medicines out of the reach of children, never share your medicines with others, and use this medication only for the indication prescribed. Every effort has been made to ensure that the information provided by [employer]. ('[employer]') is accurate, up-to-date, and complete, but no guarantee is made to that effect. Drug information contained herein may be time sensitive. [employer] information has been compiled for use by healthcare practitioners and consumers in the [place] and therefore [employer] does not warrant that uses outside of the [place] are appropriate, unless specifically indicated otherwise. [employer]'s drug information does not endorse drugs, diagnose patients or recommend therapy. [employer]'s drug information is an informational resource designed to assist licensed healthcare practitioners in caring for their patients and/or to serve consumers viewing this service as a supplement to, and not a substitute for, the expertise, skill, knowledge and judgment of healthcare practitioners. The absence of a warning for a given drug or drug combination in no way should be construed to indicate that the drug or drug combination is safe, effective or appropriate for any given patient. [employer] does not assume any responsibility for any aspect of healthcare administered with the aid of information [employer] provides. The information contained herein is not intended to cover all possible uses, directions, precautions, warnings, drug interactions, allergic reactions, or adverse effects. If you have questions about the drugs you are taking, check with your doctor, nurse or pharmacist. Copyright 1073-1963 [employer]. Version: 14.02. Revision Date: 10/25/2020. Education Materials [facility] Post-operative Instructions PLEASE FOLLOW [facility] POST-OP INSTRUCTIONS GIVEN WATCH FOR SIGNS OF INFECTION: call the office ([phone]) if experencing any of the following: (Usually appears 36-48 hours after surgery) Increased temperature (101 degrees Fahrenheit or higher) Redness or swelling Increased uncontrolled pain Foul odor or drainage Calf discomfort Significant swelling Or if having any chest pain, shortness of breath, or difficulty breathing or swallowing call the office or go the nearest Emergency Room. If you have any questions, please call your doctor at the number listed on your follow up instructions. Form: 338A ([id number]) R: 02/01 Additional Information VACCINATE! IT SAVES LIVES! Members of the community who have not yet received the COVID-19 vaccine and would like to receive it can visit one of [facility] vaccine clinics. There are many vaccine clinic locations within the [facility]. For locations and available times, please visit [email or web address] It is important to note that some COVID mobile vaccine clinics are held outdoors and may be canceled in rainy or stormy conditions. To learn more about pediatric vaccinations (ages 5-11), we invite you to visit the [facility] webpage. [email or web address] To learn more about the COVID-19 vaccine, we invite you to visit the CDC website for a list of frequently asked questions.[email or web address].cdc.gov/floridalma navirus/2019-ncov/vaccines/faq.htm l [email or web address] Patient Portal Access Instructions: Stay connected with your healthcare team and access your personal medical information anytime with the [email or web address] Patient Portal. Please follow the directions below to create your [email or web address] account: 1.Access the email account you provided upon registration to the hospital/physician office.2.Look for an invitation email from [facility].3.Open the email and access the invitation link: Accept Invitation to [facility].4.Fill in the required diaz to create your account. To access your account, visit [facility]. Click the blue button labeled Access Patient Portal and then log in with the username and password that you created in the steps above. You will be able to view your test results, lab results, a summary of your visits, upcoming appointments and more. There is also a convenient messaging option where you can send secure messages to your provider. In addition, you will have the ability to download any documents or summaries to your computer and/or send the information securely to a physician. Remember that your healthcare information is confidential, so carefully consider who you will allow to register on the [email or web address] Patient Portal for access to your information. You can also access the [facility] Patient Portal on the [employer] carlos. Simply click on Patient Portal and then log into your account. If you would like to receive a full copy of your medical records, please contact the [facility] Medical Records Department by calling [phone], Thursday through Thursday between 8 a.m. and 4:30 p.m. HOW TO SAFELY DISPOSE OF PRESCRIPTION MEDICATIONS Please use one of the following methods to safely dispose of your unused medications. 1.Use a drug disposal kit: the drug disposal pouch allows you to safely discard your old and unused drugs. Ask your nurse to give you one when you are discharged.2.Visit a local take-back location: Many local pharmacies and police departments have programs that collect old and unwanted prescription drugs. Call your local pharmacy or go to [email or web address]/1J1Il5h to find one close to you.3.Make use of household items: Use cat litter or old coffee grounds to dispose medications if other options are not available. Mix your drugs with these household products, seal them in an airtight container and throw it into the garbage. Call [facility]: [phone] to be sure your drugs can be disposed of in this way. Some medicines may require a different approach.4.Never flush your medications down the toilet. IF YOU HAVE BEEN PRESCRIBED AN OPIOID FOR PAIN If you have been prescribed an opioid (such as hydrocodone, oxycodone or morphine), it is critical to understand the possible side effects and risks of opioid pain medications. Even when taken as directed, opioids can have several side effects including: Tolerance, meaning you might need to take more of a medication for the same pain relief. Nausea, vomiting and/or constipation. Sleepiness, dizziness, dry mouth, confusion, depression or itching. Physical dependence, meaning you have withdrawal symptoms when a medication is stopped, can develop within a few days. KNOW YOUR RESPONSIBILITIES It is important to know exactly how much and how often to take the opioid pain medications you are prescribed. Never take opioids in higher amounts or more often than prescribed. Do not combine opioids with alcohol or other drugs that cause drowsiness, such as benzodiazepines, also known as benzos, including diazepam and alprazolam, muscle relaxants or sleep aids. Never sell or share prescription opioids. This is illegal. Store opioids in a secure place and out of reach of others (including children, family, friends and visitors). The last page of this document has been signed and retained as a CHART COPY. Signatures Patient Education Materials [address] [place] [address] Post-op Instruction 04/2017 (Custom)(CUSTOM) Medication Leaflets aspirin (oral), doxycycline (oral/injection), oxycodone My discharge plan and instructions have been reviewed and explained to me and I,RICKIE OCONNOR understand my current condition and have read and understand these discharge instructions. I have received a written copy of the plan/instructions. If I have questions, I am aware that I should contact my doctor. Patient/Fitness Technician Signature: Date/Time: Relationship to Patient: ___ Witness Name/Signature: Date/Time: [facility] 03-04-2023 Note Date of Service 03/04/2023 Chief Complaint Right knee arthroplasty Subjective Patient seen and evaluated while resting in recliner, spouse at the bedside. Patient states she is doing well this morning except for a nagging headache. She states that, with the pain medications she is taking and the extra tylenol, it is hard to believe she would get a headache. Patient advised that it is not unusual. It could be from the anesthesia or other medications. She also reports that she drinks one cup of coffee a day and did not have her coffee until lunch time yesterday. It is possible it could be from that delay. Will give a one-time dose of ibuprofen and see if that helps. Patient denies any fever, chills, cough, shortness of breath, chest pain, abdominal pain, nausea or dysuria. Reviewed lab results and vital signs. Physical exam unremarkable. Patient is medically optimized for discharge home today when cleared by primary team. All questions answered. Objective Vitals and Measurements T: 36.3 C (Oral) TMIN: 36.1 C (Oral) TMAX: 36.8 C (Oral) HR: 89(Apical) HR: 84(Monitored) RR: 18 BP: 146/65 SpO2: 98% Intake and Output 7AM Yesterday to 7AM Today Intake and Output (Last 24 hours) Intake Oral Intake 790.00 Supplement Intake 0.00 Output Stool Count 0.00 Urine Count 4.00 Total Summary Total Intake 790.00 Total Output 0.00 Fluid Balance 790.00 Physical Exam General: No acute distress. Patient is alert and appropriate. Skin: No rash. Skin is warm, dry and intact. HEENT: Head is normocephalic, atraumatic. Pupils are equal, round and reactive. Neck: Supple. No lymphadenopathy, thyromegaly. Lungs: Bilaterally clear but diminished without crepitation or wheeze. Unlabored. Heart: Heart is regular rhythm, S1, S2. No murmurs, gallops or rubs. Abdomen: Abdomen is soft, nontender. Bowels sounds present in all quadrants. Extremities: No clubbing, cyanosis, or edema. Peripheral pulses palpable. No calf tenderness. Right knee surgical dressing is dry and intact. Neurological: Patient is awake and alert to person, place and time. Following simple commands, moving all extremities. Weight Dosing Weight: 100 kg (03/03/23) Dosing Weight: 100 kg (03/03/23) Medications Medications (27) Active Scheduled: (15) acetaminophen 500 mg Tablet 1,000 mg 2 tab(s), Oral, q6h amLODIPine 5 mg tablet 5 mg 1 tab(s), Oral, qPM aspirin 81 mg Chewable 81 mg 1 tab(s), Oral, BIDM docusate sodium 100 mg Capsule 100 mg 1 cap(s), Oral, BID docusate-senna (Senokot S) 50 mg-8.6 mg Tablet 2 tab(s), Oral, BID doxycycline hyclate 100 mg Capsule 100 mg 1 cap(s), Oral, q12h famotidine 20 mg tablet 20 mg 1 tab(s), Oral, qDay hydrochlorothiazide 25 mg tablet 25 mg 1 tab(s), Oral, q24h losartan 50 mg tablet 100 mg 2 tab(s), Oral, qDay magnesium hydroxide 8% Suspension 30 mL UD 30 mL, Oral, Daily meloxicam 7.5 mg tablet 7.5 mg 1 tab(s), Oral, BIDM multivitamin (Myadec) with minerals Therapeutic Multiple Vitamins with Minerals Tablet 1 tab(s), Oral, qDayM pregabalin 50 mg capsule 100 mg 2 cap(s), Oral, BID venlafaxine 75 mg Tablet 37.5 mg 0.5 tab(s), Oral, qPM venlafaxine 75 mg Tablet 75 mg 1 tab(s), Oral, qAM Continuous: (1) Lactated Ringers 1,000 mL 1,000 mL, Intravenous, 100 mL/hr PRN: (11) acetaminophen 325 mg Tablet 650 mg 2 tab(s), Oral, q4h ALPRAZOLam 0.5 mg tablet 1 mg 2 tab(s), Oral, TID diphenhydramine 25 mg tablet 25 mg 1 tab(s), Oral, q6h diphenhyDRAMINE 50 mg/mL (1 mL) INJ 25 mg 0.5 mL, IV Push, q6h melatonin 3 mg tablet 6 mg 2 tab(s), Oral, qHS morphine 2 mg/mL 1 mL syringe 2 mg 1 mL, IV Push, q1h ondansetron 2 mg/ 1 mL 2 mL INJ 4 mg 2 mL, IV Push, q8h oxycodone 5 mg tablet (immediate release) 5 mg 1 tab(s), Oral, q4h oxycodone 5 mg tablet (immediate release) 10 mg 2 tab(s), Oral, q4h prochlorperazine 10 mg/2 mL vial 5 mg 1 mL, IV Push, q6h sodium biphosphate-sodium phosphate 19 gm-7 gm Enema 133 mL, Rectal, qDay Lab Results 03/04 06:08 WBC: 10.2 Hgb: 13.2 Hct: 39.1 Platelet: 169 Neutrophil %: 86.0 H Glucose Level: 147 H Sodium Level: 143 Potassium Level: 3.8 BUN: 17 Creatinine Lvl (s): 0.67 Imaging Results and Diagnostics XR Knee 1 or 2 Views Right Result Date: March 03, 2023 Verified By: ROMA BERRIOS MD CLINICAL STATEMENT: IMPRESSION: Status post right knee replacement. EKG No qualifying data available. Assessment/Plan 1. Osteoarthritis Chronic, s/p right knee arthroplasty *POD # 1. *Management per primary team. *Lab results unremarkable this morning. *Continue PO pain medication and antiemetics. 2. Hypertension Chronic, controlled *Continue current home antihypertensives. *SBP goal of 140 or less. 3. Sleep apnea Chronic *May wear CPAP at bedtime. 4. Haney's esophagus Chronic *Continue current home medications. 5. Anxiety and depression Chronic *Continue current home medications. Patient seen and evaluated this morning while resting in recliner. Physical exam within normal limits. Lab results and vital signs reviewed. Patient is medically optimized for discharge home from hospitalist perspective. DVT prophylaxis with aspirin 81 mg PO BID. Code status: Full Code. Labs, diagnostic test and progress notes reviewed as noted in HPI. Plan of care discussed with patient. All questions answered. Patient verbalizes understanding and is agreeable with plan of care. Discussed with my collaborating physician Dr. Joanna Casey. Time Spent 35 minutes Digitally Signed by TOM YAO on 03/04/2023 01:53 PM [facility] 03-03-2023 Note ORIGINAL EXAMINATION: POSTOPERATIVE KNEE TECHNIQUE: 2 views of theright at knee were obtained. COMPARISON: CT right knee 02/02/2023 HISTORY: ORDERING SYSTEM PROVIDED HISTORY: Reason for Exam: Status Post Arthroplasty FINDINGS: No acute fracture or dislocation is seen. The patient is status post right knee replacement with appropriate positioning of the prosthesis. There are postsurgical changes with a small joint effusion. IMPRESSION: Status post right knee replacement. Interpreted by: Roma Berrios MD Preliminary Report By: Roma Berrios MD Electronically signed By Roma Berrios MD Dictated Date: 03/03/2023 10:54:09 AM Prelim Date: 03/03/2023 10:55:21 AM Sign Date: 03/03/2023 10:55:21 AM Ordering Provider: [facility] 03-03-2023 Note ORIGINAL EXAMINATION: POSTOPERATIVE KNEE TECHNIQUE: 2 views of theright at knee were obtained. COMPARISON: CT right knee 02/02/2023 HISTORY: ORDERING SYSTEM PROVIDED HISTORY: Reason for Exam: Status Post Arthroplasty FINDINGS: No acute fracture or dislocation is seen. The patient is status post right knee replacement with appropriate positioning of the prosthesis. There are postsurgical changes with a small joint effusion. IMPRESSION: Status post right knee replacement. Interpreted by: Roma Berrios MD Preliminary Report By: Roma Berrios MD Electronically signed By Roma Berrios MD Dictated Date: 03/03/2023 10:54:09 AM Prelim Date: 03/03/2023 10:55:21 AM Sign Date: 03/03/2023 10:55:21 AM [facility] [place] 03-03-[facility]23 Anesthesiology Consult note Patient: RICKIE OCONNOR Age: 72 years Sex: Female : 1950 Associated Diagnoses: None Author: WASHINGTON MOULTON APRN-ELECTROENCEPHALOGRAPHIC TECHNICIAN Preoperative Information Time of last food or liquid consumption: 03/02/2023 23:00:00 Anesthesia history Patient's history: negative. Family's history: negative. Review of Systems Ear/Nose/Mouth/Throat: Negative except as documented in history of present illness. Respiratory: Negative except as documented in history of present illness. Cardiovascular: Negative except as documented in history of present illness. Gastrointestinal: Negative except as documented in history of present illness. Genitourinary: Negative except as documented in history of present illness. Endocrine: Negative except as documented in history of present illness. Musculoskeletal: Negative except as documented in history of present illness. Integumentary: Negative except as documented in history of present illness. Neurologic: Negative except as documented in history of present illness. Health Status Allergies: Allergic Reactions (Selected) Severity Not Documented Sulfa drug- Hives., Allergies (1) ActiveReaction sulfa drugHives Current medications: (Selected) Inpatient Medications Ordered Betadine 10% topical solution: 17.5 mL, mL/hr, Topical (INT), PREOP pharm Bicitra: 30 mL, Oral, PREOP pharm Bolus LR 1000 mL: 1,000 mL, IV Bolus, PREOP pharm Decadron: 10 mg, 1 mL, IV Push, AsDirected Kefzol: 2 gram(s), 200 mL/hr, IV Piggyback, PREOP pharm LR 1000 mL: 20 mL/hr, Intravenous, Stop: 03/04/23 17:59:00 EDT Naropin 25 mg + Toradol 15 mg + EPINEPHrine 1 mg/mL injectable solution 0.3 mg + morphine 2.5 mg...: 25 mg, 5 mL, mL/hr, Other, PREOP pharm Naropin 25 mg + Toradol 15 mg + EPINEPHrine 1 mg/mL injectable solution 0.3 mg + morphine 2.5 mg...: 25 mg, 5 mL, mL/hr, Other, PREOP pharm tranexamic acid 1 g / 100 mL 0.7% NaCl PMX: 1 gram(s), 100 mL, 300 mL/hr, IV Piggyback, AsDirected tranexamic acid 1 g / 100 mL 0.7% NaCl PMX: 1 gram(s), 100 mL, 300 mL/hr, IV Piggyback, AsDirected Documented Medications Documented ALPRAZolam 1 mg oral tablet: 1 mg, 1 tab(s), Oral, TID, PRN: for anxiety, 0 Refill(s) CoQ10 100 mg oral capsule: 100 mg, 1 cap(s), Oral, qDay, 0 Refill(s) Magnesium 250 mg tablet: 500 mg, 2 tab(s), Oral, qDay, 0 Refill(s) Melatonin 1 mg oral tablet: 1 mg, 1 tab(s), Oral, qHS, PRN: as needed for insomnia, 90 tab(s), 0 Refill(s) Potassium Chloride (Xvw-Lbny-Icu M20) 20 mEq oral tablet, extended release: 20 mEq, 1 tab(s), Oral, BID, 180 tab(s), 0 Refill(s) PreserVision AREDS 2 oral capsule: 1 cap(s), Oral, Daily, 0 Refill(s) Vitamin B Complex 100: 0 Refill(s) Vitamin C 250 mg oral tablet: 250 mg, 1 tab(s), Oral, qDay, 30 tab(s), 0 Refill(s) Vitamin D3: 100 mcg, 1 tab(s), Oral, Daily, 90 tab(s), 0 Refill(s) amLODIPine 5 mg oral tablet: 5 mg, 1 tab(s), Oral, qDay, 30 tab(s), 0 Refill(s) biotin 2.5 mg oral tablet: 2.5 mg, 1 tab(s), Oral, qDay, 30 tab(s), 0 Refill(s) calcium (as calcium citrate) 250 mg oral tablet: 250 mg, 1 tab(s), Oral, BID, 0 Refill(s) dexlansoprazole 60 mg oral delayed release capsule: 60 mg, 1 cap(s), Oral, qDay, 30 cap(s), 0 Refill(s) folic acid 1 mg oral tablet: 1 mg, 1 tab(s), Oral, qDay, 30 tab(s), 0 Refill(s) hydroCHLOROthiazide 25 mg oral tablet: 25 mg, 1 tab(s), Oral, Daily, 0 Refill(s) losartan 100 mg oral tablet: 100 mg, 1 tab(s), Oral, qDay, 30 tab(s), 0 Refill(s) lutein: Oral, qDay, 0 Refill(s) methotrexate 2.5 mg oral tablet: 2.5 mg, 1 tab(s), Oral, qWeek, 4 tab(s), 0 Refill(s) pregabalin 100 mg oral capsule: 100 mg, 1 cap(s), Oral, BID, 0 Refill(s) venlafaxine 75 mg oral tablet: 75 mg, 1 tab(s), Oral, BIDM, 0 Refill(s), Medications (10) Active Scheduled: (9) ceFAZolin 2 gram(s), IV Piggyback, PREOP pharm citric acid-sodium citrate 334 mg-500 mg/5 mL (30 mL) Barbara UD 30 mL, Oral, PREOP pharm dexamethasone 10 mg/mL (1mL) SDV 10 mg 1 mL, IV Push, AsDirected Lactated Ringers Injection 1000 mL * Bolus * 1,000 mL, IV Bolus, PREOP pharm povidone iodine topical 17.5 mL, Topical (INT), PREOP pharm ropivacaine 25 mg + ketorolac 15 mg + epinephrine 0.3 mg + morphine 2.5 mg 25 mg 5 mL, Other, PREOP pharm ropivacaine 25 mg + ketorolac 15 mg + epinephrine 0.3 mg + morphine 2.5 mg 25 mg 5 mL, Other, PREOP pharm tranexamic acid PMX 1 gram(s) 100 mL, IV Piggyback, AsDirected tranexamic acid PMX 1 gram(s) 100 mL, IV Piggyback, AsDirected Continuous: (1) Lactated Ringers 1000 mL 1,000 mL, Intravenous, 20 mL/hr PRN: (0) Problem list: No problem items selected or recorded., Active Problems (8) Anxiety and depression Haney's esophagus Fibromyalgia Hypertension Meniere's disease Osteoarthritis Sarcoidosis Sleep apnea Histories Past Medical History: No active or resolved past medical history items have been selected or recorded. Family History: Cancer Brother Sister Breast cancer Mother Hypertension Mother Heart attack Father Coronary artery disease Father Procedure history: Arthroplasty of shoulder ([id number]) in 2020 at 70 Years. Comments: 03/03/2023 6:50 EDT - Rola Pretty Right shoulder Tubal ligation ([id number]) on 03/03/1979 at 28 Years. Appendectomy ([id number]). Cholecystectomy ([id number]). Carpal tunnel release ([id number]). Comments: 02/02/2023 14:42 EDT - [facility] [place] Social History Social & Psychosocial Habits Alcohol 02/02/2023 Use: Current Frequency: 1-2 times per week Substance Abuse 02/02/2023 Use: Never Tobacco 02/02/2023 Tobacco Use: Former smoker, quit more Home/Environment 02/02/2023 Domestic Concerns None Lives In Single level home Spouse Name PIETRO Marital Status of Patient if Patient Independent Adult: Nutrition/Health 02/02/2023 Type of diet: Regular Eating Difficulties None . Physical Examination Vital Signs 03/03/2023 6:51 EDT Apical Heart Rate 74 bpm Respiratory Rate 16 br/min Systolic Blood Pressure Non-Invasive 142 mmHg HI Diastolic Blood Pressure Non-Invasive 68 mmHg Vital Signs(last 24 hrs) Last Charted Resp Rate 16 br/min (MAR 03 06:51) SBPH 142mmHg (MAR 03 06:51) DBP68 mmHg (MAR 03 06:51) Measurements from flowsheet : Measurements 03/03/2023 6:51 EDT Height 153 cm Admission Weight 100 kg [place] Body Weight 46.04 kg Admission Body Mass Index 42.72 m2 Pain assessment: Pain Assessment 03/03/2023 7:09 EDT Primary Pain Intensity 4 03/03/2023 6:51 EDT Primary Pain Location Knee Primary Pain Laterality Right Primary Pain Intensity 4 Pain Scale Type 0-10 Pain scale . General: Alert and oriented. Airway: Normal neck range of motion. Mallampati classification: II (soft palate, fauces, uvula visible). Head: Normocephalic. Dentition Evaluation: Intact, Dentures, upper, Denies loose/chipped teeth, Upper is a partial . Neck: Full range of motion. Respiratory: Lungs are clear to auscultation. Cardiovascular: Normal rate. Heart Sounds: Normal. Gastrointestinal: Soft. Musculoskeletal Normal range of motion. Integumentary: Intact, Warm, Dry. Neurologic: Alert, Oriented. Review / Management Results review: No qualifying data available , Lab results 03/03/2023 7:24 EDT Time Out Procedure Verified Time Out Procedure Site Verified Yes Time Out Procedure Site Marked Yes Time Out Correct Patient Position Yes Consent Form Signed Yes Bedside Procedure Nerve Block Provider #1 Bedside Time Out WASHINGTON MOULTON APRN-ELECTROENCEPHALOGRAPHIC TECHNICIAN Provider #2 Bedside Time Out Rola Pretty NPO Status Maintained Allergy Band on and Verified Yes Patient ID Band on and Verified Yes Anesthesia Consent Signed Yes Blood Consent Signed Yes 03/03/2023 7:16 EDT SN - Proc - Actual Procedure ROBOTIC ASSISTED RIGHT TOTAL KNEE ARTHROPLASTY 03/03/2023 7:16 EDT SN - Assess - LOC Alert, Awake SN - Assess - Orientation Oriented X 3 SN - Assess - Post-op Skin Integrity Intact/Dry 03/03/2023 7:16 EDT SN - CAt - Case Attendee SN - CAt - Case Attendee SN - CAt - Case Attendee SN - CAt - Case Attendee SN - CAt - Case Attendee SN - CAt - Case Attendee SN - CAt - Case Attendee SN - CAt - Case Attendee SN - CAt - Case Attendee SN - CAt - Case Attendee SN - CAt - Case Attendee SN - CAt - Case Attendee SN - CAt - Role Performed Primary Surgeon SN - CAt - Role Performed ELECTROENCEPHALOGRAPHIC TECHNICIAN SN - CAt - Role Performed Core Worker 1 SN - CAt - Role Performed Scrub 1 SN - CAt - Role Performed [employer] Floorperson 1 SN - CAt - Role Performed Spar Finisher 03/03/2023 7:09 EDT Primary Pain Intensity 4 famotidine 20 mg mg oxyCODONE 10 mg mg 03/03/2023 6:51 EDT Height 153 cm Admission Weight 100 kg [place] Body Weight 46.04 kg Admission Body Mass Index 42.72 m2 Apical Heart Rate 74 bpm Respiratory Rate 16 br/min Systolic Blood Pressure Non-Invasive 142 mmHg HI Diastolic Blood Pressure Non-Invasive 68 mmHg Primary Pain Location Knee Primary Pain Laterality Right Primary Pain Intensity 4 Pain Scale Type 0-10 Pain scale Heart Rhythm Regular Oxygen Therapy Room air Oxygen Saturation 96 % Abdomen Description Non-distended, Soft Abdomen Palpation Non-Tender Bowel Sounds All Quadrants Present Urinary Elimination Voiding, no difficulties Skin Temperature Warm Skin Description [place], Normal for ethnicity Skin Integrity Intact Mucous Membrane Color Coffe[place] Skin Moisture General Dry IV Present Present Hand Left 03/03/2023 20 gauge Peripheral IV Activity: Insert new site Peripheral IV Dressing Condition: Clean, Dry, Intact Peripheral IV Dressing Activity: Applied, Transparent dressing Peripheral IV Line Status/Patency: Flushes easily, Continuous infusion Peripheral IV Line Care: Secured with tape Peripheral IV Site Condition: No complications Peripheral IV Equipment: Extension set, PRN Adaptor Peripheral IV Number of Attempts: 1 Neurological Symptoms Patient denies Extremity Movement Equal Characteristics of Speech Clear Level of Consciousness Alert Strength All Extremities Strong Tone All Extremities Normal Sensation All Extremities Intact Affect/Behavior Appropriate, Calm, Cooperative Orientation Oriented x 4 Allergies Yes Consent Form Signed Yes Patient Dressed In Hospital gown, No undergarments Pre-op Preparation Dentures, upper removed, Jewelry removed, Glasses not removed, Undergarments removed CHG Preoperative Wash/Wipe Night before procedure, Day of procedure Preop Nasal Swab Povidone-Iodine History & Physical Update On Chart Yes History & Physical On Chart Yes Obstructive Sleep Apnea Assess Completed Yes Orientation Assessment Oriented x 4 Belongings At Bedside CPAP, Dentures, upper, Glasses, Pants, Shirt, Shoes, Socks, Undergarments, Walker Activity Status ADL Awake, Resting SCD On/Re-applied left knee high Antiembolism Stocking On/Re-applied left thigh high NPO Status Maintained Standard Safety ID band on, Allergy Band on, Call device within reach, Bed in low position, Wheels locked, personal items within reach, Non-Slip footwear Allergy Band on and Verified Yes Patient ID Band on and Verified Yes Implants Verified Yes Pacemaker/AICD Verified Yes Anesthesia Consent Signed Yes Blood Consent Signed Yes Last Fluid Intake 03/03/2023 4:30 Last Food Intake 03/02/2023 21:30 Last Void 03/03/2023 6:56 03/03/2023 6:44 EDT Privacy Restrictions Requested None Sleep Apnea Snore Yes Sleep Apnea Tired Yes Sleep Apnea Obstruction Yes Sleep Apnea BMI Yes Sleep Apnea Neck No High Risk for Sleep Apnea Yes Safety Brochure Information Reviewed Yes Zeny Valero Video Viewed No Teaching Evaluation No further teaching needed Personal Devices, Patient Valuables Dentures, upper, Glasses, Hearing aid, left (Modified) Admission Note-Nursing Same Day Patient History (Modified) . Assessment and Plan [place] [employer] of Anesthesiologists (ASA) physical status classification: Class III. Anesthetic Preoperative Plan Premedication: intravenous. Anesthetic technique: MAC, Regional, Spinal. Induction: intravenously. Maintenance airway: Mask. Regional: Adductor Canal Block. Postoperative pain management: Per surgeon. Risks discussed: nausea, vomiting, headache, sore throat, dental injury, hypotension, allergic reaction, serious complications. Informed consent: signed by patient. Notes: HTN; Haney's esophagus; Meniere's disease; anxiety. Digitally Signed by WASHINGTON MOULTON on 03/03/2023 07:41 AM [facility] 02-02-2023 Note ORIGINAL EXAMINATION: CT OF THE RIGHT KNEE WITHOUT CONTRAST 02/02/2023 3:10 pm TECHNIQUE: CT of the right knee was performed without the administration of intravenous contrast. Multiplanar reformatted images are provided for review. Automated exposure control, iterative reconstruction, and/or weight based adjustment of the mA/kV was utilized to reduce the radiation dose to as low as reasonably achievable. COMPARISON: None. HISTORY ORDERING SYSTEM PROVIDED HISTORY: Reason for Exam: Unilateral primary osteoarthritis, right knee. FINDINGS: No acute fracture or dislocation. Normal osseous mineralization. No visible aggressive osseous lesions. Tiny focal ossicle of the posterior aspect of the intracondylar notch may reflect an intracapsular body measuring up to 0.2 cm. There is moderate to severe medial femorotibial compartment joint space narrowing with sizable marginal osteophytes as well as subchondral sclerosis. Subtle chondrocalcinosis. Medial meniscal body extrusion. There is moderate lateral femorotibial compartment joint space narrowing with marginal osteophytes and subchondral sclerosis. Subtle chondrocalcinosis. There is mild patellofemoral compartment joint space narrowing with marginal osteophytes and subchondral sclerosis. No significant joint effusion. No significant volume of fluid is evident of a popliteal cyst. Tendons and ligaments are suboptimally evaluated on this examination. Moderate gluteus medius and minimus muscle atrophy. Severe focal atrophy of medial gastrocnemius muscle. Otherwise, no significant muscle atrophy. Provided images of the hip and hemipelvis exhibit no acute osseous abnormalities or aggressive osseous lesions. Mild hip osteoarthrosis. Probable synovial herniation pit of right femoral head-neck junction anteriorly. The included intrapelvic contents exhibit no acute abnormalities. Provided images of the ankle exhibit no acute osseous abnormalities or aggressive osseous lesions. Prominent subchondral cysts are noted of the medial talar dome. There is a small focal area of irregularity of the medial talar dome. Similar findings are noted of the lateral talar dome with irregular subchondral bone plate. Mild atherosclerosis. IMPRESSION: 1. Fairly advanced tricompartmental degenerative change with subtle chondrocalcinosis of the medial and lateral femorotibial compartments. 2. No acute osseous abnormalities or aggressive osseous lesion. 3. Findings concerning for osteochondral defects of medial and lateral talar dome versus advanced subchondral cystic change. Consider dedicated CT or MRI of the ankle for further evaluation as deemed clinically warranted. Interpreted by: Tomas Modi DO Preliminary Report By: Tomas Modi DO Electronically signed By Tomas Modi DO Dictated Date: 02/02/2023 4:08:43 PM Prelim Date: 02/02/2023 4:18:18 PM Sign Date: 02/02/2023 4:18:18 PM Ordering Provider: VAN AFRICA [facility] 02-02-2023 Note ORIGINAL EXAMINATION: CT OF THE RIGHT KNEE WITHOUT CONTRAST 02/02/2023 3:10 pm TECHNIQUE: CT of the right knee was performed without the administration of intravenous contrast. Multiplanar reformatted images are provided for review. Automated exposure control, iterative reconstruction, and/or weight based adjustment of the mA/kV was utilized to reduce the radiation dose to as low as reasonably achievable. COMPARISON: None. HISTORY ORDERING SYSTEM PROVIDED HISTORY: Reason for Exam: Unilateral primary osteoarthritis, right knee. FINDINGS: No acute fracture or dislocation. Normal osseous mineralization. No visible aggressive osseous lesions. Tiny focal ossicle of the posterior aspect of the intracondylar notch may reflect an intracapsular body measuring up to 0.2 cm. There is moderate to severe medial femorotibial compartment joint space narrowing with sizable marginal osteophytes as well as subchondral sclerosis. Subtle chondrocalcinosis. Medial meniscal body extrusion. There is moderate lateral femorotibial compartment joint space narrowing with marginal osteophytes and subchondral sclerosis. Subtle chondrocalcinosis. There is mild patellofemoral compartment joint space narrowing with marginal osteophytes and subchondral sclerosis. No significant joint effusion. No significant volume of fluid is evident of a popliteal cyst. Tendons and ligaments are suboptimally evaluated on this examination. Moderate gluteus medius and minimus muscle atrophy. Severe focal atrophy of medial gastrocnemius muscle. Otherwise, no significant muscle atrophy. Provided images of the hip and hemipelvis exhibit no acute osseous abnormalities or aggressive osseous lesions. Mild hip osteoarthrosis. Probable synovial herniation pit of right femoral head-neck junction anteriorly. The included intrapelvic contents exhibit no acute abnormalities. Provided images of the ankle exhibit no acute osseous abnormalities or aggressive osseous lesions. Prominent subchondral cysts are noted of the medial talar dome. There is a small focal area of irregularity of the medial talar dome. Similar findings are noted of the lateral talar dome with irregular subchondral bone plate. Mild atherosclerosis. IMPRESSION: 1. Fairly advanced tricompartmental degenerative change with subtle chondrocalcinosis of the medial and lateral femorotibial compartments. 2. No acute osseous abnormalities or aggressive osseous lesion. 3. Findings concerning for osteochondral defects of medial and lateral talar dome versus advanced subchondral cystic change. Consider dedicated CT or MRI of the ankle for further evaluation as deemed clinically warranted. Interpreted by: Tomas Modi DO Preliminary Report By: Tomas Modi DO Electronically signed By Tomas Modi DO Dictated Date: 02/02/2023 4:08:43 PM Prelim Date: 02/02/2023 4:18:18 PM Sign Date: 02/02/2023 4:18:18 PM Ordering Provider: VAN LEGER [facility] Evaluation + Plan note Future Appointments [facility] Hospital course Narrative No data available for this section [facility] Hospital Discharge instructions No data available for this section [facility] Progress note No data available for this section [facility] Summary Purpose Family History No Family History Records Found Advance Directives No Advanced Directives Records Found Additional Source Comments Patient Care team informatio n (unrecognized section and content) Care Team Personnel Name: TOM DOTSON DO Member Role: Primary Care Physician Address: Address: [address] [place] [address] Care Team Related Persons Name: PIETRO OCONNOR Address: Home [address] [place] [address] Care Team Personnel Name: TOM DOTSON DO Member Role: Primary Care Physician Address: Address: [address] [place] [address]- Care Team Related Persons Name: PIETRO OCONNOR Address: Home [id number] [place] [address] Care Team Personnel Name: TOM DOTSON Member Role: Primary Care Physician Address: Address: [address] [place] [address] Care Team Related Persons Name: PIETRO OCONNOR Address: Home [address] [place] [address] INFORMATION SOURCE (unrecogn ized section and content) FOR RECORDS PERTAINING TO PATIENTS WHO ARE OR HAVE BEEN ENROLLED IN A CHEMICAL DEPENDENCY/SUBSTANCEABUSE PROGRAM, SOME INFORMATION MAY BE OMITTED. This clinical summary was aggregated from multiple sources. Caution should be exercised in using it in the provision of clinical care. This summary normalizes information from multiple sources, and as a consequence, information in this document may materially change the coding, format and clinical context of patient data. In addition, data may be omitted in some cases. CLINICAL DECISIONS SHOULD BE BASED ON THE PRIMARY CLINICAL RECORDS. [facility] [employer] provides no warranty or guarantee of the accuracy or completeness of information in this document.
[2023-10-09 13:19] LABS: Absolute Lymphocyte Count 1.35 X10^3/uL (0.83-4.51); Absolute Neutrophil Count 3.8 X10^3/uL (2.0-7.7); Basophil# 0.06 X10^3/uL; Eosinophil# 0.08 X10^3/uL; Eosinophils% 1.4 % (0-5); Hematocrit 43.9 % (37-47); Hemoglobin 14.1 g/dL (12.0-15.0); Lymphocyte # 1.35 X10^3/ul (0.83-4.51); Lymphocyte % 23.5 % (19-41); Mean Corp Hgb Conc 32.1 g/dL (32-36); Mean Corpuscular Hgb 29.8 pg (27.0-32.0); Mean Corpuscular Volume 92.8 fL (81-99); Mean Platelet Vol. 10.4 fl (6.2-12.0); Monocyte# 0.44 X10^3/uL; Monocyte% 7.7 % (0-10); NRBC Flagged by Analyzer 0 % (0-5); Neutrophil # 3.79 X10^3/uL (2.7-7.7); Neutrophil % 66.1 % (47-70); Platelet Count 197 K/mm3 (150-450); RBC Distribution Width CV 14.2 % (11.6-14.6); RBC Distribution Width SD 48.1 fl (35.1-43.9); Red Blood Count 4.73 M/mm3 (4.2-5.4); White Blood Count 5.7 K/mm3 (4.4-11.0)
[2023-10-09 13:36] LABS: ALB/GLOB Ratio 1.1 RATIO (0.9-2.4); AST(SGOT) 21 U/L (15-37); Alanine Aminotransfer ALT/SGPT 33 U/L (13-56); Albumin, Serum 3.7 g/dL (3.2-5.0); Alkaline Phosphatase 101 U/L (45-117); Anion Gap 5 (5-15); BUN 19 mg/dL (7-18); BUN/Creat Ratio 25.9 RATIO (10-20); Calcium,Total 9.8 mg/dL (8.5-10.1); Chloride 101 mmol/L (98-107); Creatinine, Serum 0.73 mg/dL (0.55-1.02); EST Glomerular Filtration Rate 82 mL/min (>60); Est Glom Filt Rate - Afr Amer 100 mL/min (>60); Globulin 3.5 g/dL (2.2-4.2); Glucose 103 mg/dL (74-106); Potassium 3.5 mmol/L (3.5-5.1); Protein, Total 7.2 g/dL (6.4-8.2); Sodium Level 139 mmol/L (136-145)
== END | disposition home or self-care (01) ==
LOC: LAB 12:22
PROVIDERS: PCP Family Medicine; Referring Provider Internal Medicine Rheumatology; Visit Provider Internal Medicine Rheumatology
DX: M06.4 Inflammatory polyarthropathy (principal); Z79.899 Other long term (current) drug therapy
CPT/HCPCS: 36415; 80053; 85025

== ENCOUNTER → 2023-12-08 | Outpatient (CLI) | payer MEDICARE, OTHER, SELFPAY ==
[2023-12-08 11:21] LABS: Absolute Lymphocyte Count 1.22 X10^3/uL (0.83-4.51); Absolute Neutrophil Count 3.6 X10^3/uL (2.0-7.7); Basophil# 0.05 X10^3/uL; Basophil% 0.9 % (0-1); Eosinophil# 0.11 X10^3/uL; Hemoglobin 14.9 g/dL (12.0-15.0); Lymphocyte # 1.22 X10^3/ul (0.83-4.51); Lymphocyte % 22.3 % (19-41); Mean Corp Hgb Conc 32.4 g/dL (32-36); Mean Corpuscular Hgb 30.5 pg (27.0-32.0); Mean Corpuscular Volume 94.3 fL (81-99); Mean Platelet Vol. 10.8 fl (6.2-12.0); Monocyte# 0.48 X10^3/uL; Monocyte% 8.8 % (0-10); NRBC Flagged by Analyzer 0 % (0-5); Neutrophil # 3.59 X10^3/uL (2.7-7.7); Neutrophil % 65.8 % (47-70); Platelet Count 195 K/mm3 (150-450); RBC Distribution Width CV 13.3 % (11.6-14.6); RBC Distribution Width SD 46.4 fl (35.1-43.9); Red Blood Count 4.88 M/mm3 (4.2-5.4); White Blood Count 5.5 K/mm3 (4.4-11.0)
[2023-12-08 11:44] LABS: ALB/GLOB Ratio 1.1 RATIO (0.9-2.4); AST(SGOT) 22 U/L (15-37); Alanine Aminotransfer ALT/SGPT 40 U/L (13-56); Albumin, Serum 3.8 g/dL (3.2-5.0); Alkaline Phosphatase 87 U/L (45-117); Anion Gap 4 (5-15); BUN 22 mg/dL (7-18); BUN/Creat Ratio 28.4 RATIO (10-20); Calcium,Total 9.8 mg/dL (8.5-10.1); Chloride 102 mmol/L (98-107); Creatinine, Serum 0.78 mg/dL (0.55-1.02); EST Glomerular Filtration Rate 77 mL/min (>60); Est Glom Filt Rate - Afr Amer 94 mL/min (>60); Globulin 3.5 g/dL (2.2-4.2); Glucose 108 mg/dL (74-106); Potassium 3.7 mmol/L (3.5-5.1); Protein, Total 7.3 g/dL (6.4-8.2); Sodium Level 139 mmol/L (136-145)
== END | disposition home or self-care (01) ==
PROVIDERS: PCP Family Medicine; Referring Provider Internal Medicine Rheumatology; Visit Provider Internal Medicine Rheumatology
DX: M06.4 Inflammatory polyarthropathy (principal); Z79.899 Other long term (current) drug therapy
CPT/HCPCS: 36415; 80053; 85025

== ENCOUNTER 2024-01-04 10:49 | Inpatient (IN) | payer MEDICARE, OTHER, SELFPAY ==
[2024-01-04] VITALS (12 sets, daily range): BP systolic 93–134; BP diastolic 59–81; PULSE 89–103; RESP 17–26; TEMP 36.9–38.2; O2SAT 87–97; BMI 45.7; BMI 44.4
--- NOTE | 2024-01-04 11:28 | RAD_ITS ---
STUDY: X-RAY CHEST REASON FOR EXAM: Female, 73 years old. Shortness of breath. Weakness. TECHNIQUE: PA and lateral views of the chest. COMPARISON: Comparison is made with prior study July 03, 2015. FINDINGS: EKG electrodes are seen. Basilar congestion and mild degree of CHF. Scattered calcified granulomas. Blunting of both costo phrenic angles posteriorly. Normal size heart. Normal mediastinum and jorge. Normal visualized pulmonary arteries. There is atherosclerotic calcification of the aortic arch with tortuosity. There is demineralization of the osseous structures. Prior left reverse shoulder replacement. There is no demonstrated abnormality of the visualized soft tissue structures of the upper abdomen. RAD/Chest PA and Lateral IMPRESSION: Vascular congestion and mild CHF. Electronically Signed: Jovanny Antoine MD at 12:10 EDT ,
--- NOTE | 2024-01-04 11:29 | EKG12_ITS ---
Test Reason : SOB Blood Pressure : / mmHG Vent. Rate : 093 BPM Atrial Rate : 093 BPM P-R Int : 164 ms QRS Dur : 082 ms QT Int : 348 ms P-R-T Axes : 066 008 043 degrees QTc Int : 432 ms Normal sinus rhythm Normal ECG Confirmed by Fili Gonzales ([id number]), sports editor TUTU FALCON ([id number]) on 01/06/2024 5:42:47 AM Referred By: TYRONE/JOANA Confirmed By:Fili Gonzales
--- NOTE | 2024-01-04 11:33 | EX.ED.DYSGE1 ---
HPI History of Present Illness Chief Complaint: General Illness Informant: patient Narrative Narrative: Patient is a 73-year-old female with history of sarcoidosis, hypertension, Haney's esophagus, fibromyalgia and anxiety presenting with shortness of breath. Patient states she has had worsening shortness of breath for the past week. It seems worse with exertion. She has chronic cough but has been more frequent. Is nonproductive. She denies any fever or chills. Is also been having neck pain that radiates to her jaw on both sides but denies any sore throat or other URI symptoms. She denies any swelling of her legs. Denies history of DVT or PE. Denies any nausea vomit or diarrhea. Was having some constipation but took MiraLAX and that resolved it. She does not report any black or blood in her stool. She notes that for the past week she is also had some increased pain in her lower back that radiates underneath her bra line on both sides. Does wear CPAP at night. Does not wear any home oxygen. Denies any sick contacts. No other complaints or concerns reported at this time. [facility] Medical History Barretts esophagus Fibromyalgia HTN (hypertension) Sarcoidosis Home Medications alprazolam 1 mg tablet 1 mg PO TID PRN Anxiety 30 days ##90 01/05/18 [History Last Taken Unknown] ascorbic acid (vitamin C) 500 mg capsule 1,000 mg PO DAILY SUPPLEMENT 01/05/18 [History Last Taken Unknown] calcium carbonate (Calcium 500) 600 mg PO DAILY SUPPLEMENT 01/05/18 [History Last Taken Unknown] cholecalciferol (vitamin D3) 25 mcg (1,000 unit) capsule 1,000 unit PO QDAY SUPPLEMENT 01/05/18 [History Last Taken Unknown] dexlansoprazole 60 mg capsule,biphase delayed release 60 mg PO DAILY BARRETTS ESOPHAGUS 90 days ##90 01/05/18 [History Last Taken Unknown] lutein 20 mg-zeaxanthin 1,000 mcg capsule 1 cap PO DAILY SUPPLEMENT 01/05/18 [History Last Taken Unknown] magnesium 30 mg tablet 250 mg PO DAILY SUPPLEMENT 01/05/18 [History Last Taken Unknown] potassium chloride 20 mEq tablet,extended release 20 meq PO BID SUPPLEMENT 90 days ##180 01/05/18 [History Last Taken Unknown] tramadol 50 mg tablet 50 mg PO PRN PRN Pain 30 days ##90 01/05/18 [History Last Taken Unknown] venlafaxine 75 mg tablet 75 mg PO DAILY ANXIETY 90 days ##90 01/05/18 [History Last Taken Unknown] vitamin B complex (B Complex-Vitamin B12 tablet) 1 tab PO QDAY SUPPPLEMENT 01/05/18 [History Last Taken Unknown] zinc 50 mg tablet 100 mg PO QDAY SUPPLEMENT 01/05/18 [History Last Taken Unknown] amlodipine 5 mg tablet (Norvasc) 5 mg PO DAILY BP 08/04/18 [History Last Taken Unknown] biotin 1 mg capsule 1 mg PO DAILY SUPPLEMENT 08/04/18 [History Last Taken Unknown] folic acid 1 mg tablet 1 mg PO DAILY SUPPLEMENT 08/04/18 [History Last Taken Unknown] melatonin 10 mg capsule 10 mg PO QHS SLEEP 08/04/18 [History Last Taken Unknown] methotrexate sodium 2.5 mg tablet 12.5 mg PO Q7D RA 08/04/18 [History Last Taken 01/03/24] pregabalin 100 mg capsule (Lyrica) 100 mg PO BID FIBROMYALGIA 08/04/18 [History Last Taken Unknown] hydrochlorothiazide 25 mg tablet 25 mg PO DAILY 06/21/19 [History Last Taken Unknown] losartan 100 mg tablet 100 mg PO DAILY 06/21/19 [History Last Taken Unknown] polyethylene glycol 3350 17 gram oral powder packet 17 gm PO PRN PRN Constipation 06/21/19 [History Last Taken Unknown] furosemide 40 mg tablet 40 mg PO DAILY 01/04/24 [History Last Taken Unknown] venlafaxine 37.5 mg tablet 37.5 mg PO QHS 01/04/24 [History Last Taken Unknown] Allergy/AdvReac Type Severity Reaction Status Date / Time Sulfa (Sulfonamide Allergy Mild Unknown Verified 01/04/24 10:52 Antibiotics) Family History Mother Breast cancer Hypertension Father Myocardial infarction Dementia Brother Cancer Surgical History History of appendectomy History of carpal tunnel surgery History of cholecystectomy History of reversal of tubal ligation History of tubal ligation Social History Smoking Status: Former smoker alcohol intake: current alcohol intake frequency: a few times a week Alcohol type: beer and wine what type of physical activity do you participate in: none ROS ROS ED Constitutional Constitutional ED: Denies chills or fever(s) Eyes Eyes: Denies change in vision ENT ENT ED: Reports other Details: jaw pain- bilateral ; Denies ear pain, rhinorrhea or sore throat Cardiovascular Cardiovascular: Denies chest pain or palpitations Respiratory/Chest Respiratory/Chest: Reports cough, dyspnea and dyspnea on exertion; Denies sputum Gastrointestinal Gastrointestinal: Denies abdominal pain, diarrhea, melena, nausea or vomiting Genitourinary Genitourinary ED: Denies dysuria or hematuria Musculoskeletal Musculoskeletal: Reports back pain, myalgias and neck pain Integumentary Denies rash Neurologic Neurologic: Denies headache(s) or weakness Hematologic/Lymphatic Hematologic/Lymphatic: Denies easy bleeding or easy bruising EXAM Physical Exam Const Vital Signs: 01/04/24 10:51 01/04/24 10:50 01/04/24 11:46 Temperature 98.7 F Temperature Source Temporal Pulse Rate 103 H 89 Respiratory Rate 20 H 22 H Respiratory Effort Normal Non-Labored Respiratory Depth Respiratory Pattern Normal Blood Pressure 132/68 H 93/59 L Blood Pressure Mean 89 70 Pulse Ox 97 91 Oxygen Delivery Method Room Air Room Air 01/04/24 11:46 01/04/24 12:50 01/04/24 12:54 Temperature Temperature Source Pulse Rate 91 Respiratory Rate 17 Respiratory Effort Normal Non-Labored Respiratory Depth Normal Respiratory Pattern Hyperpnea Blood Pressure 133/81 H Blood Pressure Mean 98 Pulse Ox 91 87 Oxygen Delivery Method Room Air Room Air Room Air Positive well nourished and well developed General Appearance ED: well developed and NAD HEENT Reports moist mucous membranes HEENT Narrative: No dental swelling or signs of dental trauma/acute dental infection. No submandibular edema appreciated. No pinpoint area of tenderness. Eyes PERRL and EOMs intact bilaterally Neck supple and no JVD Neck Narrative: Patient has diffuse muscle skeletal tenderness. No specific midline tenderness or step-off sign. Normal range of motion. Chest Wall inspection of chest normal and palpation of chest normal Resp normal respiratory effort Resp Narrative: Mild crackles at bilateral bases present. No wheezing or rhonchi appreciated. No retractions present. Cardio regular rate, regular rhythm and no murmurs GI normal to inspection, nondistended, normoactive bowel sounds and non-tender Extremity normal to inspection Extremity Narrative: No pedal edema appreciated General Extremety ED: Negative for edema or tenderness General Extremity: Negative for edema Neuro oriented x3 Sensorium / Orientation: alert Motor Exam: Negative for general weakness Psych mental status grossly normal Skin no rashes or lesions noted and no wounds MDM MDM MDM Narrative Medical decision making narrative: Patient evaluated for increased shortness of breath over the past week. She has had some mild chest discomfort describes it more as pain underneath her bilateral ribs. She appears nontoxic. While in the room with her she does have an episode where with good waveform she is admitted to O2 saturation of 88% however she takes a couple deep breaths and does go up to 93 to 94%. Cardiopulmonary workup is initiated. Differential includes ACS, exacerbation of sarcoidosis, pneumonia, viral syndrome, CHF. Workup shows a mildly elevated BNP. High since he troponin is in the normal range. Patient is intermittently hypoxic down to 87 to 88% in the emergency room. Chest x-ray shows vascular congestion and mild CHF. This is reviewed by myself as well as radiology. Patient states that she is on a water pill and wants that she takes 40 mg Lasix daily as well as hydrochlorothiazide. She is not hypoxic with ambulation but given how symptomatic she is as well as her hypoxia at rest will admit for further diuresis and evaluation. Has not had an echocardiogram in at least 10 years it seems. She is given 40 mg IV Lasix in the emergency room. Her kidney function is normal. Patient is agreeable this plan of care. Case discussed admitting physician, Dr. Slater. Lab Data Attestation: I reviewed the patient's lab results. Labs: Laboratory Results - last 24 hr 01/04/24 11:35 WBC 6.1 RBC 3.93 L Hgb 12.0 Hct 36.9 L MCV 93.9 MCH 30.5 MCHC 32.5 RDW Std Deviation 45.9 H RDW Coeff of Vivian 13.4 Plt Count 134 L MPV 10.4 Immature Gran % (Auto) 0.500 Neut % (Auto) 82.2 H Lymph % (Auto) 8.5 L Nelson % (Auto) 7.2 Eos % (Auto) 1.1 Baso % (Auto) 0.5 Absolute Neuts (auto) 5.0 Absolute Lymphs (auto) 0.52 L Nucleated RBC % 0 Sodium 133 L Potassium 3.6 Chloride 94 L Carbon Dioxide 33.0 H Anion Gap 6 BUN 12 Creatinine 0.74 Estim Creat Clear Calc 69.03 Est GFR (MDRD) Af Amer 99 Est GFR (MDRD) Non-Af 82 BUN/Creatinine Ratio 16.3 Glucose 96 Calcium 9.3 Total Creatine Kinase 94 Troponin I High Sens 25 B-Natriuretic Peptide 126.5 H Radiography Chest X-Ray - ED: 2 View, Read by ED Physician, Read by Radiologist, Chronic Changes and CHF Diagnostic Testing: Clinical Impression(s) from Imaging Studies Chest X-Ray 01/04/24 11:28 IMPRESSION: Vascular congestion and mild CHF. Electronically Signed: Jovanny Antoine MD at 12:10 EDT , Rhythm Strip Rhythm Strip: Sinus Rhythm Rate: 93 Ectopy: None EKG Initial EKG: Attestation: I personally reviewed and interpreted this EKG as follows: Interpretation: Sinus Rhythm Comments: Normal sinus rhythm rate of 93 bpm Normal axis Normal intervals Normal ST segments Management Discussion w/another healthcare provider: Hospitalist Discharge Plan Dx/Rx/DC Orders Clinical Impression: CHF exacerbation, Hypoxia Disposition Disposition: Acute Care Hospital [facility] Discharge Date/Time: 01/04/24 15:15
[2024-01-04 11:49] LABS: Absolute Lymphocyte Count 0.52 X10^3/uL (0.83-4.51); Basophil# 0.03 X10^3/uL; Basophil% 0.5 % (0-1); Eosinophil# 0.07 X10^3/uL; Eosinophils% 1.1 % (0-5); Hematocrit 36.9 % (37-47); Lymphocyte # 0.52 X10^3/ul (0.83-4.51); Lymphocyte % 8.5 % (19-41); Mean Corp Hgb Conc 32.5 g/dL (32-36); Mean Corpuscular Hgb 30.5 pg (27.0-32.0); Mean Corpuscular Volume 93.9 fL (81-99); Mean Platelet Vol. 10.4 fl (6.2-12.0); Monocyte# 0.44 X10^3/uL; Monocyte% 7.2 % (0-10); NRBC Flagged by Analyzer 0 % (0-5); Neutrophil % 82.2 % (47-70); POSITIVE DIFFERENTIAL YES; Platelet Count 134 K/mm3 (150-450); RBC Distribution Width CV 13.4 % (11.6-14.6); RBC Distribution Width SD 45.9 fl (35.1-43.9); Red Blood Count 3.93 M/mm3 (4.2-5.4); White Blood Count 6.1 K/mm3 (4.4-11.0)
[2024-01-04 12:00] LABS: Anion Gap 6 (5-15); BUN 12 mg/dL (7-18); BUN/Creat Ratio 16.3 RATIO (10-20); Calcium,Total 9.3 mg/dL (8.5-10.1); Chloride 94 mmol/L (98-107); Creatinine, Serum 0.74 mg/dL (0.55-1.02); EST Glomerular Filtration Rate 82 mL/min (>60); Est Glom Filt Rate - Afr Amer 99 mL/min (>60); Estimated Creatinine Clearance 69.03 ml/min; Glucose 96 mg/dL (74-106); Potassium 3.6 mmol/L (3.5-5.1); Sodium Level 133 mmol/L (136-145); Troponin-I HS 25 pg/mL (3.0-54.0)
[2024-01-04 12:01] LABS: CPK Total, Creatine Kinase 94 U/L (26-192)
[2024-01-04 12:14] LABS: BNP,B-Type NATRIURETIC PEPTIDE 126.5 pg/mL (0-100)
--- NOTE | 2024-01-04 13:58 | NURSING ---
DR KAUFFMAN FOR DR NOLASCO
[2024-01-04] MEDS: Furosemide 40 MG/4 ML Vial IV ×2 (14:03→18:26)
--- NOTE | 2024-01-04 14:15 | HP.PCM.HOS_ITS ---
HPI - General General Date of Admission: 01/04/24 HPI Narrative RICKIE OCONNOR, is a 73 F who presents to the hospital with shortness of breath for about a week. She is noticed that through this time she has been gaining approximately a pound every day. She notices that her legs swell throughout the day and then improved when she puts her feet up. She does not have a history of heart failure, she does have some hypertension as well as sarcoidosis. Her last echo was in 2011 with a normal EF and an RVSP of 16-21 mmHg. She denies any chest pain, or lightheadedness. She denies tobacco abuse. [facility] Medical History Barretts esophagus Fibromyalgia HTN (hypertension) Sarcoidosis Home Medications alprazolam 1 mg tablet 1 mg PO TID PRN Anxiety 30 days ##90 01/05/18 [History Last Taken Unknown] ascorbic acid (vitamin C) 500 mg capsule 1,000 mg PO DAILY SUPPLEMENT 01/05/18 [History Last Taken Unknown] calcium carbonate (Calcium 500) 600 mg PO DAILY SUPPLEMENT 01/05/18 [History Last Taken Unknown] cholecalciferol (vitamin D3) 25 mcg (1,000 unit) capsule 1,000 unit PO QDAY SUPPLEMENT 01/05/18 [History Last Taken Unknown] dexlansoprazole 60 mg capsule,biphase delayed release 60 mg PO DAILY BARRETTS ESOPHAGUS 90 days ##90 01/05/18 [History Last Taken Unknown] lutein 20 mg-zeaxanthin 1,000 mcg capsule 1 cap PO DAILY SUPPLEMENT 01/05/18 [History Last Taken Unknown] magnesium 30 mg tablet 250 mg PO DAILY SUPPLEMENT 01/05/18 [History Last Taken Unknown] potassium chloride 20 mEq tablet,extended release 20 meq PO BID SUPPLEMENT 90 days ##180 01/05/18 [History Last Taken Unknown] tramadol 50 mg tablet 50 mg PO PRN PRN Pain 30 days ##90 01/05/18 [History Last Taken Unknown] venlafaxine 75 mg tablet 75 mg PO DAILY ANXIETY 90 days ##90 01/05/18 [History Last Taken Unknown] vitamin B complex (B Complex-Vitamin B12 tablet) 1 tab PO QDAY SUPPPLEMENT 01/05/18 [History Last Taken Unknown] zinc 50 mg tablet 100 mg PO QDAY SUPPLEMENT 01/05/18 [History Last Taken Unknown] amlodipine 5 mg tablet (Norvasc) 5 mg PO DAILY BP 08/04/18 [History Last Taken Unknown] biotin 1 mg capsule 1 mg PO DAILY SUPPLEMENT 08/04/18 [History Last Taken Unknown] folic acid 1 mg tablet 1 mg PO DAILY SUPPLEMENT 08/04/18 [History Last Taken Unk nown] melatonin 10 mg capsule 10 mg PO QHS SLEEP 08/04/18 [History Last Taken Unknown] methotrexate sodium 2.5 mg tablet 12.5 mg PO Q7D RA 08/04/18 [History Last Taken 01/03/24] pregabalin 100 mg capsule (Lyrica) 100 mg PO BID FIBROMYALGIA 08/04/18 [History Last Taken Unknown] hydrochlorothiazide 25 mg tablet 25 mg PO DAILY 06/21/19 [History Last Taken Unknown] losartan 100 mg tablet 100 mg PO DAILY 06/21/19 [History Last Taken Unknown] polyethylene glycol 3350 17 gram oral powder packet 17 gm PO PRN PRN Constipation 06/21/19 [History Last Taken Unknown] furosemide 40 mg tablet 40 mg PO DAILY 01/04/24 [History Last Taken Unknown] venlafaxine 37.5 mg tablet 37.5 mg PO QHS 01/04/24 [History Last Taken Unknown] Allergy/AdvReac Type Severity Reaction Status Date / Time Sulfa (Sulfonamide Allergy Mild Unknown Verified 01/04/24 10:52 Antibiotics) Family History Mother Breast cancer Hypertension Father Myocardial infarction Dementia Brother Cancer Surgical History History of appendectomy History of carpal tunnel surgery History of cholecystectomy History of reversal of tubal ligation History of tubal ligation Social History Smoking Status: Former smoker alcohol intake: current alcohol intake frequency: a few times a week Alcohol type: beer and wine what type of physical activity do you participate in: none ROS Constitutional Constitutional: Denies chills, fatigue, fever(s) or malaise Eyes Eyes: Denies blurry vision ENT HEENT: Denies headache(s) or nasal discharge Cardiovascular Cardiovascular: Reports edema; Denies chest pain, dyspnea on exertion, orthopnea or syncope Respiratory/Chest Respiratory/Chest: Reports shortness of breath at rest and shortness of breath with exertion; Denies cough Gastrointestinal Gastrointestinal: Denies constipation, diarrhea, nausea or vomiting Genitourinary Genitourinary: Denies dysuria Neurologic Neurologic: Denies focal weakness, numbness or tremor(s) Psychiatric Psychiatric: Denies anxiety or depression Vital Signs Vital Signs Vital Signs: 01/04/24 10:51 01/04/24 10:50 01/04/24 11:46 Temperature 98.7 F Temperature Source Temporal Pulse Rate 103 H 89 Respiratory Rate 20 H 22 H Respiratory Effort Normal Non-Labored Respiratory Depth Respiratory Pattern Normal Blood Pressure 132/68 H 93/59 L Blood Pressure Mean 89 70 Pulse Ox 97 91 Oxygen Delivery Method Room Air Room Air 01/04/24 11:46 01/04/24 12:50 01/04/24 12:54 Temperature Temperature Source Pulse Rate 91 Respiratory Rate 17 Respiratory Effort Normal Non-Labored Respiratory Depth Normal Respiratory Pattern Hyperpnea Blood Pressure 133/81 H Blood Pressure Mean 98 Pulse Ox 91 87 Oxygen Delivery Method Room Air Room Air Room Air 01/04/24 14:07 Temperature 99.1 F Temperature Source Pulse Rate 93 Respiratory Rate 26 H Respiratory Effort Respiratory Depth Respiratory Pattern Blood Pressure 127/64 H Blood Pressure Mean 85 Pulse Ox 90 Oxygen Delivery Method Weight Weight: 234 lb 5.622 oz Body Mass Index (BMI) 45.7 Physical Exam Narrative General: Alert, Oriented x3, Cooperative, No apparent distress HEENT: Atraumatic, PERRLA, EOMI, Normocephalic Oral: Moist Mucosa Neck: Supple, No JVD Lungs: Diminished, Normal air movement, No rhonchi, No wheeze, No rales Cardiovascular: Regular rate, Regular Rhythm, Normal S1, Normal S2, No murmurs Abdomen: Soft, Non Tender, Non-Distended, No Hepato-splenomegaly Extremities: No edema, Capillary Refill Less than 3 Seconds Skin: No rashes, No breakdown Musculoskeletal: No Tenderness to Palpation of Joints or Extremities Neurological: No focal neurological deficits, Motor Exam 5/5 strength throughout, Sensory exam intact to light touch and pain Psych/Mental Status: Normal Affect, Appropriate Results Lab / Micro Data 01/04/24 11:35 01/04/24 11:35 Labs: Laboratory Results - last 24 hr 01/04/24 11:35: WBC 6.1, RBC 3.93 L, Hgb 12.0, Hct 36.9 L, MCV 93.9, MCH 30.5, MCHC 32.5, RDW Std Deviation 45.9 H, RDW Coeff of Vivian 13.4, Plt Count 134 L, MPV 10.4, Immature Gran % (Auto) 0.500, Neut % (Auto) 82.2 H, Lymph % (Auto) 8.5 L, [place] % (Auto) 7.2, Eos % (Auto) 1.1, Baso % (Auto) 0.5, Absolute Neuts (auto) 5.0, Absolute Lymphs (auto) 0.52 L, Nucleated RBC % 0, Sodium 133 L, Potassium 3.6, Chloride 94 L, Carbon Dioxide 33.0 H, Anion Gap 6, BUN 12, Creatinine 0.74, Estim Creat Clear Calc 69.03, Est GFR (MDRD) Af Amer 99, Est GFR (MDRD) Non-Af 82, BUN/Creatinine Ratio 16.3, Glucose 96, Calcium 9.3, Total Creatine Kinase 94, Troponin I High Sens 25, B-Natriuretic Peptide 126.5 H Micro: Microbiology 01/04/24 11:44 Mucosa - Nose SARS-CoV-2, Influenza & RSV (PCR) - Final Rhythm Strip Rhythm Strip: Sinus Rhythm Rate: 93 Ectopy: None Imaging Radiology Impression Chest X-Ray 01/04/24 11:28 IMPRESSION: Vascular congestion and mild CHF. Electronically Signed: Jovanny Antoine MD at 12:10 EDT Reading Location ID and State: [facility] / NH , Service support , Assessment & Plan Assessment/Plan (1) CHF exacerbation: PLAN: Plan 1. CHF exacerbation/essential HTN/HLD ? She is not requiring any oxygen at rest, and type of heart failure is unclear ? Will continue with IV Lasix twice daily ? I's and O's as well as daily weights ? Will obtain an echocardiogram to evaluate whether she has diastolic or systolic dysfunction ? Can resume her home blood pressure medications 2. Sarcoidosis ? Stable ? Can resume her home medications 3. Anxiety/depression ? Stable ? Can resume her home medications 4. GERD ? Stable ? Can resume her home medications DVT: SCDs 75 minutes was spent on direct patient care, including documentation as well as chart review and collaboration with colleagues Charges/Coding Visit Charges Inpatient E&M: 09625 Init Hosp L3
--- NOTE | 2024-01-04 14:20 | NURSING ---
PCMarc DIAZ, SOB
--- NOTE | 2024-01-04 15:43 | ECHOD_ITS ---
Reason For Study: CHF Procedure This was a 2D Doppler, Color Flow transthoracic echocardiogram. Exam performed portable in patient room. Left Ventricle Normal LV size. The estimated ejection fraction is 65 %. No evidence for diastolic dysfunction. No regional wall motion abnormalities noted. Right Ventricle Normal RV size. Normal systolic function. Atria Normal left atrium. Normal right atrium. No doppler evidence for ASD. Mitral Valve There is no mitral valve stenosis. No mitral valve insufficiency. Tricuspid Valve There is no tricuspid stenosis. Trivial tricuspid valve insufficiency. Unable to estimate RV systolic pressure due to insufficient tricuspid regurgitant envelope. Aortic Valve Trisinus/trileaflet aortic valve. There is no aortic stenosis. No aortic valve insufficiency. Pulmonic Valve There is no pulmonic valvular stenosis. No pulmonic valve insufficiency. Great Vessels Normal aortic root. Pericardium/Pleural No pericardial effusion. MMode/2D Measurements & Calculations LVIDd: 4.2 cm IVSd: 0.97 cm Ao root diam: 2.5 cm LVIDs: 2.9 cm LVPWd: 0.92 cm RVDd: 3.0 cm FS: 32.3 % LAV(MOD-bp): 50.4 ml LVAd ap4: 27.9 cm2 LVAd ap2: 23.5 cm2 LAV(MOD-bp) Indexed: 25.2 ml/m2 LVLd ap4: 7.5 cm LVLd ap2: 7.0 cm LAV(MOD-sp2): 45.8 ml EDV(MOD-sp4): 85.2 ml EDV(MOD-sp2): 66.0 ml LAV(MOD-sp4): 51.3 ml EDV(sp4-el): 89.0 ml EDV(sp2-el): 67.0 ml LVAs ap4: 13.3 cm2 LVAs ap2: 11.5 cm2 LVLs ap4: 5.6 cm LVLs ap2: 5.7 cm ESV(MOD-sp4): 25.7 ml ESV(MOD-sp2): 20.7 ml ESV(sp4-el): 26.7 ml ESV(sp2-el): 19.9 ml EF(MOD-sp4): 69.8 % EF(MOD-sp2): 68.6 % EF(sp4-el): 70.0 % SV(MOD-sp4): 59.5 ml SV(MOD-sp2): 45.3 ml SV(sp4-el): 62.3 ml LA dimension(2D): 3.6 cm LA A4 area: 18.5 cm2 RA A4 area: 14.0 cm2 TAPSE: 2.2 cm Time Measurements MV dec time: 0.16 sec Doppler Measurements & Calculations MV E max frederic: 103.2 cm/sec Lat Peak E' Frederic: 7.2 cm/sec Med Peak E' Frederic: 10.4 cm/sec MV A max frederic: 92.0 cm/sec E/E' lat: 14.4 E/E' med: 9.9 MV E/A: 1.1 MV V2 max: 122.4 cm/sec MV P1/2t max frederic: 123.7 cm/sec Ao V2 max: 156.9 cm/sec MV max P.0 mmHg MV P1/2t: 57.9 msec Ao max P.8 mmHg MV V2 mean: 79.1 cm/sec MV dec slope: 625.6 cm/sec2 Ao V2 mean: 106.7 cm/sec MV mean P.7 mmHg Ao mean P.0 mmHg MV V2 VTI: 28.0 cm MVA(P1/2t): 3.8 cm2 Ao V2 VTI: 32.8 cm AV (velocity ratio): 0.75 LV V1 max: 121.2 cm/sec PA V2 max: 120.6 cm/sec TR max frederic: 263.0 cm/sec LV V1 max P.9 mmHg PA V2 mean: 90.9 cm/sec TR max P.7 mmHg LV V1 mean P.0 mmHg LV V1 mean: 83.1 cm/sec LV V1 VTI: 24.6 cm ECHO/Echo Complete Interpretation Summary The estimated ejection fraction is 65 %. No evidence for diastolic dysfunction. Ordering Physician: Edilberto Slater Referring Physician: Shakira Fuchs Performed By: Sonia White, SHARONDA, RVT
[2024-01-04] MEDS: 0.9% Saline Lock 10 ML Syringe IV (18:26)
[2024-01-04] MEDS: Acetaminophen 325 MG Tablet 650 MG PO (22:35)
[2024-01-05 04:04] VITALS: BP 124/51; PULSE 87; RESP 16; TEMP 36.8; O2SAT 95
[2024-01-05 05:56] LABS: Absolute Lymphocyte Count 0.65 X10^3/uL (0.83-4.51); Basophil# 0.04 X10^3/uL; Basophil% 0.6 % (0-1); Eosinophil# 0.08 X10^3/uL; Eosinophils% 1.2 % (0-5); Hematocrit 38.1 % (37-47); Hemoglobin 12.6 g/dL (12.0-15.0); Lymphocyte # 0.65 X10^3/ul (0.83-4.51); Lymphocyte % 10.1 % (19-41); Mean Corp Hgb Conc 33.1 g/dL (32-36); Mean Corpuscular Hgb 31.2 pg (27.0-32.0); Mean Corpuscular Volume 94.3 fL (81-99); Mean Platelet Vol. 10.2 fl (6.2-12.0); Monocyte# 0.64 X10^3/uL; Monocyte% 9.9 % (0-10); NRBC Flagged by Analyzer 0 % (0-5); Neutrophil % 77.6 % (47-70); Platelet Count 149 K/mm3 (150-450); RBC Distribution Width CV 13.2 % (11.6-14.6); RBC Distribution Width SD 45.1 fl (35.1-43.9); Red Blood Count 4.04 M/mm3 (4.2-5.4); White Blood Count 6.5 K/mm3 (4.4-11.0)
[2024-01-05] MEDS: Acetaminophen 325 MG Tablet 650 MG PO ×2 (06:02→16:11)
--- NOTE | 2024-01-05 08:56 | PCM.PN.HOSP ---
Reason for Visit Reason for Visit: Shortness of breath Subjective Subjective Mrs. Edge is a 73-year-old white female with a history of sarcoidosis who is not on supplemental oxygen at baseline who presented to the emergency department at [facility] on 01/04/2024 with a chief complaint of shortness of breath. She reported that had been slowly worsening over the last week prior to presentation and is worse with exertion. She reported that she has a chronic cough at baseline but feels that it has been more frequent however it is nonproductive. She denied fever or chills. She also complained of having some neck pain that radiated to her jaw on both sides but denied any sore throat or URI symptoms. She denied any nausea, vomiting, or diarrhea. She does wear CPAP at night and has had no sick contacts. She feels like she has been gaining about a pound a day for the last several days and reported bilateral lower extremity leg swelling when her legs are in a dependent position but it resolves when she puts her feet up. Vital signs on presentation demonstrated a temperature of 98.7, heart rate 103, blood pressure 132/68, respiratory was 20 and oxygen saturations were initially 97% on room air however she desatted to 87% on room air and was placed on 2 L nasal cannula with improvement to her oxygen saturations to 92 to 93%. Her CBC was overtly unremarkable however she did have a left shift with an 82.2% neutrophilia. Her chemistry panel showed hyponatremia with an elevated serum bicarb that appears to be chronic and normal renal function. Her troponin was normal at 25. Her BNP was 126.5. Chest x-ray was consistent with volume overload. She was admitted to the telemetry floor for an acute exacerbation of CHF-type unclear and placed on IV Lasix. Echocardiogram was ordered. Patient states overall she is about 50% better. States her shortness of breath is much improved. Only complaint right now is a left-sided headache that starts in her neck and goes up to the left side of her head. She has no history of migraines and states she does not get headaches often. States she is peeing a lot with the Lasix. Objective Data Objective Data Vital Signs: Vital Signs Temp Pulse Resp BP Pulse Ox O2 Del Method O2 Flow Rate 98.3 F 87 16 124/51 H 95 Nasal Cannula 2 01/05/24 04:04 01/05/24 04:04 01/05/24 04:04 01/05/24 04:04 01/05/24 04:04 01/05/24 04:23 01/05/24 04:23 Oxygen Flow Rate (L/min) 2 Oxygen Delivery Method Nasal Cannula Weight: 103.3 kg Body Mass Index (BMI) 44.4 Intake & Output: Intake and Output for Last 24 Hours 01/03/24 01/04/24 01/05/24 23:59 23:59 23:59 Intake Total 400 / 400 Balance 400 / 400 Lab / Micro Data 01/05/24 05:38 01/05/24 05:38 Labs: Laboratory Results - last 24 hr 01/04/24 11:35: WBC 6.1, RBC 3.93 L, Hgb 12.0, Hct 36.9 L, MCV 93.9, MCH 30.5, MCHC 32.5, RDW Std Deviation 45.9 H, RDW Coeff of Vivian 13.4, Plt Count 134 L, MPV 10.4, Immature Gran % (Auto) 0.500, Neut % (Auto) 82.2 H, Lymph % (Auto) 8.5 L, [place] % (Auto) 7.2, Eos % (Auto) 1.1, Baso % (Auto) 0.5, Absolute Neuts (auto) 5.0, Absolute Lymphs (auto) 0.52 L, Nucleated RBC % 0, Sodium 133 L, Potassium 3.6, Chloride 94 L, Carbon Dioxide 33.0 H, Anion Gap 6, BUN 12, Creatinine 0.74, Estim Creat Clear Calc 69.03, Est GFR (MDRD) Af Amer 99, Est GFR (MDRD) Non-Af 82, BUN/Creatinine Ratio 16.3, Glucose 96, Calcium 9.3, Total Creatine Kinase 94, Troponin I High Sens 25, B-Natriuretic Peptide 126.5 H 01/05/24 05:38: WBC 6.5, RBC 4.04 L, Hgb 12.6, Hct 38.1, MCV 94.3, MCH 31.2, MCHC 33.1, RDW Std Deviation 45.1 H, RDW Coeff of Vivian 13.2, Plt Count 149 L, MPV 10.2, Immature Gran % (Auto) 0.600, Neut % (Auto) 77.6 H, Lymph % (Auto) 10.1 L, [place] % (Auto) 9.9, Eos % (Auto) 1.2, Baso % (Auto) 0.6, Absolute Neuts (auto) 5.0, Absolute Lymphs (auto) 0.65 L, Nucleated RBC % 0 Micro: Microbiology 01/04/24 11:44 Mucosa - Nose SARS-CoV-2, Influenza & RSV (PCR) - Final Radiography Diagnostic Testing: Radiology Impression Chest X-Ray 01/04/24 11:28 IMPRESSION: Vascular congestion and mild CHF. Electronically Signed: Jovanny Antoine MD at 12:10 EDT , Rhythm Strip Rhythm Strip: Sinus Rhythm Rate: 93 Ectopy: None Physical Exam Const alert, oriented x3, no apparent distress and well nourished; Negative for average body habitus Constitutional Narrative: Older, morbidly obese, white female, sitting up in bed, at bedside, patient currently appears comfortable and nontoxic HEENT head/scalp atraumatic and moist oral mucous membranes HEENT Narrative: Mallampati 3, no thrush Head and Scalp: normocephalic Resp normal respiratory effort, no retractions, no use of accessory muscles and clear to auscultation bilaterally Auscultation: Negative for rales, rhonchi or wheezes Cardio regular rate, regular rhythm, S1 normal heart sound, S2 normal heart sound, no rub, no gallops and no clicks; Negative for no murmurs Cardio Narrative: 2 out of 6 systolic murmur loudest at right upper sternal border GI normal to inspection, nondistended, normoactive bowel sounds, soft to palpation and non-tender Extremity no clubbing, cyanosis or edema Extremity Narrative: Radial and pedal pulses are 2+ bilaterally Neuro oriented x3, moves all extremities and no focal motor deficits Speech: speech normal Psych affect normal Psych Narrative: Very pleasant, eye contact is good, patient interacts appropriately Assessment & Plan Assessment/Plan (1) Hypoxia: (2) CHF exacerbation: (3) Shortness of breath: (4) Fever: PLAN: Plan Shortness of breath with hypoxia -Initially patient was stable on room air however she is desatted and was 87% on room air -Placed on 2 L nasal cannula--> has since been weaned to room air with oxygen saturation at 93% -BNP was elevated at 125 which is significant as her BMI is 44.5 -Will cycle cardiac enzymes -Continue IV Lasix twice daily -Continue daily weights -Add fluid restriction and sodium restriction to her diet -Accurate I's and O's -Echocardiogram is pending -Her last echocardiogram was done in 2011 and at that time she had an EF of 70% with trivial mitral valve, tricuspid valve, aortic valve, and pulmonic valve insufficiency with a right ventricular systolic pressure of 16 to 21 mmHg and diastolic dysfunction. Fever -Patient had 1 isolated elevated temperature last night of 100.7 -COVID/flu/RSV panel was negative -Check respiratory viral panel -Monitor clinically and hold off on antibiotics for now Hypertension -Restart home Norvasc -Restart home losartan -Hold home hydrochlorothiazide -Hold home Lasix History of rheumatoid arthritis/chronic pain -Continue home methotrexate -Continue home Lyrica -Continue home folic acid GERD -Continue home PPI Vitamin D deficiency -Continue home vitamin D supplementation Anxiety/depression -Continue home Xanax -Continue home venlafaxine GEOVANI -Continue home CPAP Morbid obesity BMI 44.5 Recommend weight loss next-complicates treatment, prognosis, outcomes DVT prophylaxis -Start Lovenox 40 twice daily GEOVANI CODE STATUS Full code Charges/Coding Visit Charges Inpatient E&M: 89775 Subs Hosp L2
[2024-01-05 10:07] VITALS: O2SAT 96
[2024-01-05 10:16] VITALS: BP 128/62; PULSE 81; RESP 18; TEMP 36.7; O2SAT 97
[2024-01-05] MEDS: Losartan Potassium 100 MG Tablet PO (10:22)
[2024-01-05] MEDS: Pregabalin 50 MG Capsule 100 MG PO ×2 (10:22→21:21)
[2024-01-05] MEDS: Venlafaxine HCl 75 MG Tablet PO (10:22)
[2024-01-05] MEDS: Cholecalciferol (VIT D3) 25 MCG TABLET (1,000 UNITS) PO (10:23)
[2024-01-05] MEDS: Pantoprazole Sodium 40 MG Tablet PO (10:23)
[2024-01-05] MEDS: amLODIPine 5 MG Tablet PO (10:23)
[2024-01-05] MEDS: Ascorbic Acid 500 MG Tablet 1000 MG PO (10:23)
[2024-01-05] MEDS: Potassium Chloride Oral Tablet 20 MEQ PO ×2 (10:23→18:16)
[2024-01-05] MEDS: Calcium (Elemental) 500 MG Tablet PO (10:23)
[2024-01-05] MEDS: Folic Acid 1 MG Tablet PO (10:24)
[2024-01-05] MEDS: Magnesium Chloride 64 MG Delay Rel.Tablet 128 MG PO (10:24)
[2024-01-05] MEDS: Zinc Sulfate 50 mg zinc (220 mg) ORAL capsule 100 MG PO (10:24)
[2024-01-05] MEDS: 0.9% Saline Lock 10 ML Syringe IV ×2 (10:26→18:16)
[2024-01-05] MEDS: Furosemide 40 MG/4 ML Vial IV ×2 (10:26→18:16)
[2024-01-05 10:28] VITALS: O2SAT 93
--- NOTE | 2024-01-05 10:40 | CASEMGMT ---
Met with pt to complete ABEL form. ABEL form explained to pt at this time who voiced understanding and signed form. Original form placed in pt?s chart and copy provided to the pt. Jasmina العلي RN CM
[2024-01-05] MEDS: traMADol 50 MG Tablet PO (11:29)
[2024-01-05 12:08] LABS: Troponin-I HS 39 pg/mL (3.0-54.0)
[2024-01-05 12:21] LABS: Anion Gap 10 (5-15); BUN 10 mg/dL (7-18); BUN/Creat Ratio 16.5 RATIO (10-20); Calcium,Total 9.5 mg/dL (8.5-10.1); Chloride 98 mmol/L (98-107); Cholesterol 139 mg/dL (200); Creatinine, Serum 0.61 mg/dL (0.55-1.02); EST Glomerular Filtration Rate 103 mL/min (>60); Est Glom Filt Rate - Afr Amer 124 mL/min (>60); Estimated Creatinine Clearance 67.85 ml/min; Glucose 95 mg/dL (74-106); High Density Lipoprotein 43 mg/dL; Potassium 3.2 mmol/L (3.5-5.1); Sodium Level 139 mmol/L (136-145); Triglycerides 82 mg/dL; Very Low Density Lipoprotein 16 mg/dL (5-40)
[2024-01-05 12:41] LABS: Troponin-I HS 36 pg/mL (3.0-54.0)
--- NOTE | 2024-01-05 13:19 | CHAPLAIN ---
Type of Pastoral Visit _x__ Initial Visit ___ Follow-up Visit ___ On-call Visit ___ General Patient Visit ___ Spiritual Assessment ___ Family Conference ___ Bereavement ___ Rapid Response ___ Code Blue ___ Other (describe below) Pastoral Care Referral From __x_ Patient ___ Family ___ Nurse ___ Physician ___ Health Sciences Department Chair ___ Classified Ad Clerk ___ Other (describe below) Sacrament/Intervention _x__ Active listening ___ Anointing ___ Jehovah'S Witness ___ Bereavement ___ Communion ___ Debra exploration ___ ___ Life review _x__ Prayer ___ Reconciliation ___ Sacrament of Sick ___ Supportive presence ___ Wedding ___ Other (describe below) Pastoral Comments patient reports having lots of family and friend support with too many calling and texting me when she feels like she needs quiet and rest; spouse is with her for support now; pt welcomes a prayer but has no other needs
[2024-01-05] MEDS: Ondansetron 4 MG/2 ML Vial IV (15:28)
--- NOTE | 2024-01-05 15:46 | CASEMGMT ---
Per Nursing assessment patient patient does not have a Healthcare Power of Field Service Rep or Healthcare Living Will and is not interested in documents. Carolina Nath [employer]
[2024-01-05] MEDS: Potassium Chloride Oral Tablet 20 MEQ 60 MEQ PO (16:11)
[2024-01-05 16:47] LABS: Troponin-I HS 41 pg/mL (3.0-54.0)
[2024-01-05 17:01] VITALS: BP 136/61; PULSE 92; RESP 18; TEMP 36.7; O2SAT 95
[2024-01-05] MEDS: MELATONIN 10 MG TABLET PO (20:57)
[2024-01-05] MEDS: Venlafaxine HCl 75 MG Tablet 37.5 MG PO (20:57)
[2024-01-05 22:34] VITALS: BP 117/61; PULSE 72; RESP 17; TEMP 36.7; O2SAT 92
[2024-01-06 03:20] VITALS: BP 123/58; PULSE 86; RESP 17; TEMP 37; O2SAT 98
[2024-01-06 03:21] VITALS: BP 123/58; PULSE 86; RESP 17; TEMP 37; O2SAT 98
[2024-01-06 03:27] VITALS: BMI 44.3
--- NOTE | 2024-01-06 03:47 | CPS ---
Pt using own cpap from home.
[2024-01-06 06:39] LABS: Absolute Lymphocyte Count 0.69 X10^3/uL (0.83-4.51); Absolute Neutrophil Count 2.3 X10^3/uL (2.0-7.7); Basophil# 0.03 X10^3/uL; Basophil% 0.8 % (0-1); Eosinophil# 0.19 X10^3/uL; Eosinophils% 5.2 % (0-5); Hematocrit 37.2 % (37-47); Hemoglobin 12.1 g/dL (12.0-15.0); Lymphocyte # 0.69 X10^3/ul (0.83-4.51); Mean Corp Hgb Conc 32.5 g/dL (32-36); Mean Corpuscular Hgb 30.9 pg (27.0-32.0); Mean Corpuscular Volume 95.1 fL (81-99); Mean Platelet Vol. 10.4 fl (6.2-12.0); Monocyte# 0.45 X10^3/uL; Monocyte% 12.4 % (0-10); NRBC Flagged by Analyzer 0 % (0-5); Neutrophil # 2.27 X10^3/uL (2.7-7.7); Neutrophil % 62.3 % (47-70); Platelet Count 171 K/mm3 (150-450); RBC Distribution Width CV 13.2 % (11.6-14.6); RBC Distribution Width SD 45.8 fl (35.1-43.9); Red Blood Count 3.91 M/mm3 (4.2-5.4); White Blood Count 3.6 K/mm3 (4.4-11.0)
[2024-01-06 07:04] VITALS: O2SAT 91
[2024-01-06 07:13] LABS: Anion Gap 8 (5-15); BUN 17 mg/dL (7-18); Calcium,Total 9.3 mg/dL (8.5-10.1); Chloride 100 mmol/L (98-107); Creatinine, Serum 0.55 mg/dL (0.55-1.02); EST Glomerular Filtration Rate 115 mL/min (>60); Est Glom Filt Rate - Afr Amer 139 mL/min (>60); Estimated Creatinine Clearance 67.73 ml/min; Glucose 88 mg/dL (74-106); Magnesium 2.1 mg/dL (1.6-2.6); Phosphorus 3.6 mg/dL (2.5-4.9); Potassium 3.4 mmol/L (3.5-5.1); Sodium Level 139 mmol/L (136-145); Thyroid Stim Hormone (TSH) 1.52 uIU/mL (0.358-3.74)
[2024-01-06 08:15] LABS: D-Dimer Quantitative (DVT/PE) 3.36 FEU/ug/m (0.27-0.49)
--- NOTE | 2024-01-06 09:26 | CT_ITS ---
STUDY: CTA CHEST REASON FOR EXAM: Female, 73 years old. One week history of shortness of breath. RADIATION DOSAGE (If Supplied By Facility): CTDIvol = ( 20.65 ) mGy, DLP = ( 677.08 ) mGycm TECHNIQUE: The examination was performed with the intravenous administration of IV 100mL Isovue-370. Post-processing of the angiographic images was performed, with multiplanar reformation and 3D reconstruction. Individualized dose optimization techniques were used for this CT. COMPARISON: Comparison is made with prior chest radiograph dated January 04, 2024. Comparison is also made with prior CT scan of the chest dated November 30, 2018. FINDINGS: Normal enhancement of the main pulmonary artery and right and left pulmonary arteries. Normal enhancement of the bilateral peripheral pulmonary arteries. There is no demonstrated pulmonary embolism. Normal thoracic aorta and visualized great vessels. There is no demonstrated aortic dissection. Normal heart and pericardium. Normal mediastinum. Normal hilar regions. Normal visualized trachea and bronchi. The lungs are well expanded. Minimal degree of bibasilar atelectasis. Minimal bilateral pleural effusions. Normal chest wall structures. Normal osseous structures. Fatty infiltration of the liver. There is a 5 cm x 3.4 cm x 5 cm predominantly low density lesion in the left adrenal gland. Punctate calcific density are seen within it. This is essentially unchanged. CT/CTA Chest W/WO Contrast IMPRESSION: No evidence of pulmonary embolism. Fatty infiltration of the liver. Stable left adrenal mass. Electronically Signed: Jovanny Antoine MD at 10:44 EDT ,
[2024-01-06 10:54] VITALS: BP 115/66; PULSE 83; RESP 16; TEMP 36.7; O2SAT 93
[2024-01-06] MEDS: Losartan Potassium 100 MG Tablet PO (10:57)
[2024-01-06] MEDS: traMADol 50 MG Tablet PO (10:57)
[2024-01-06] MEDS: Folic Acid 1 MG Tablet PO (10:57)
[2024-01-06] MEDS: Potassium Chloride Oral Tablet 20 MEQ PO (10:57)
[2024-01-06] MEDS: Cholecalciferol (VIT D3) 25 MCG TABLET (1,000 UNITS) PO (10:58)
[2024-01-06] MEDS: Calcium (Elemental) 500 MG Tablet PO (10:58)
[2024-01-06] MEDS: amLODIPine 5 MG Tablet PO (10:58)
[2024-01-06] MEDS: Zinc Sulfate 50 mg zinc (220 mg) ORAL capsule 100 MG PO (10:58)
[2024-01-06] MEDS: Pantoprazole Sodium 40 MG Tablet PO (10:58)
[2024-01-06] MEDS: Ascorbic Acid 500 MG Tablet 1000 MG PO (10:58)
[2024-01-06] MEDS: Furosemide 40 MG/4 ML Vial IV (10:58)
[2024-01-06] MEDS: Venlafaxine HCl 75 MG Tablet PO (10:59)
[2024-01-06] MEDS: Magnesium Chloride 64 MG Delay Rel.Tablet 128 MG PO (10:59)
--- NOTE | 2024-01-06 11:17 | VDLE_ITS ---
Reason For Study: Elevated D-Dimer RIGHT LEFT GSV is normal. GSV is normal. CFV is compressible, spontaneous, competent CFV is compressible, spontaneous, competent, and demonstrates pulsatile venous flow. and demonstrates pulsatile venous flow. FV is compressible, spontaneous, competent FV is compressible, spontaneous, competent and demonstrates pulsatile venous flow. and demonstrates pulsatile venous flow. POP V is compressible, spontaneous, competent POP V is compressible, spontaneous, competent and demonstrates pulsatile venous flow. and demonstrates pulsatile venous flow. T/P Trunk is compressible. T/P Trunk is compressible. PTV is compressible. PTV is compressible. RT PerV is compressible. LT PerV is compressible. Procedure This is a venous duplex using B-mode, color flow and spectral Doppler. Exam performed portable in patient room. The exam was diagnostic. A preliminary report was called and/or faxed to [facility] [employer] [facility] [facility]. VL/Venous Duplex US - Jimi Extrem Interpretation Summary Deep veins of the lower extremities are bilaterally patent and compressible seg mentally. There is no evidence of deep vein thrombosis on either side. Valvular competence appears in tact within the proximal deep venous systems bilaterally. The great saphenous veins appear bila terally patent and compressible segmentally. Pulsatile flow is noted in the deep venous system jimi aterally, which may be indicative of elevated central venous pressure (i.e. congestive heart failur e, pulmonary hypertension, etc.). Clinical correlation is advised. Ordering Physician: Azalea Milner Referring Physician: Shakira Fuchs Performed By: Jose Ewing RVT
[2024-01-06] MEDS: Potassium Chloride Oral Tablet 20 MEQ 40 MEQ PO (11:26)
[2024-01-06] MEDS: Pregabalin 50 MG Capsule 100 MG PO (11:27)
[2024-01-06 12:01] VITALS: O2SAT 89; O2SAT 97
--- NOTE | 2024-01-06 15:26 | CASEMGMT ---
RN CM Face to Face with patient for initial transition planning/care coordination assessment. RN CM introduced self and role at [facility]. Patient lying in bed, alert and oriented, at bedside. Patient willing to participate in assessment and is able to answer all questions appropriately. Care providers, pharmacy, and demographics verified. PCP: Shila Specialists: Jimy Crabtree Pharmacy: [facility] Insurance: [facility], MMO Prescription Benefit: yes Living Will/HPOA: none LNOK: , daughter Living Arrangements: Patient lives with in a 2 story home with bed and bath on first floor, 1 step to enter the home. Patient is independent at home. Transportation: self, DME/HHC: Patient has shower chair, cane, walker, grab bars, and cpap at home. No previous HHC or SNF Patient wishes to discharge home, denies need for home health at this time. Patient does not qualify for home oxygen. Patient states he has no further needs or concerns at this time. CM to follow for discharge planning needs that may arise. Disposition Plan: Patient to discharge home with family support and follow-up plans in place. Tiffany PATTERSON, RN, CM
--- NOTE | 2024-01-06 16:04 | DS.PCM_ITS ---
Providers Date of Admission: 01/05/24 Primary Care Physician: Dr. Shakira Fuchs DO Reason For Visit: CHF EXACERBATION Diagnosis Discharge Diagnosis (1) Hypoxia: Status: Acute Code(s): R09.02 - Hypoxemia (2) CHF exacerbation: Status: Chronic Code(s): I50.9 - Heart failure, unspecified (3) Shortness of breath: Status: Acute Code(s): R06.02 - Shortness of breath (4) Fever: Status: Acute Code(s): R50.9 - Fever, unspecified Plan Shortness of breath with hypoxia -Initially patient was stable on room air however she is desatted and was 87% on room air -Placed on 2 L nasal cannula--> has since been weaned to room air with oxygen saturation at 93% -BNP was elevated at 125 which is significant as her BMI is 44.5 -Will cycle cardiac enzymes -Continue IV Lasix twice daily -Continue daily weights -Add fluid restriction and sodium restriction to her diet -Accurate I's and O's -Echocardiogram is pending -Her last echocardiogram was done in 2011 and at that time she had an EF of 70% with trivial mitral valve, tricuspid valve, aortic valve, and pulmonic valve insufficiency with a right ventricular systolic pressure of 16 to 21 mmHg and diastolic dysfunction. Fever -Patient had 1 isolated elevated temperature last night of 100.7 -COVID/flu/RSV panel was negative -Check respiratory viral panel -Monitor clinically and hold off on antibiotics for now Hypertension -Restart home Norvasc -Restart home losartan -Hold home hydrochlorothiazide -Hold home Lasix History of rheumatoid arthritis/chronic pain -Continue home methotrexate -Continue home Lyrica -Continue home folic acid GERD -Continue home PPI Vitamin D deficiency -Continue home vitamin D supplementation Anxiety/depression -Continue home Xanax -Continue home venlafaxine GEOVANI -Continue home CPAP Morbid obesity BMI 44.5 Recommend weight loss next-complicates treatment, prognosis, outcomes DVT prophylaxis -Start Lovenox 40 twice daily GEOVANI CODE STATUS Full code Medications at Discharge Home Medications alprazolam 1 mg tablet 1 mg PO TID PRN Anxiety 30 days ##90 01/05/18 ascorbic acid (vitamin C) 500 mg capsule 1,000 mg PO DAILY SUPPLEMENT 01/05/18 calcium carbonate (Calcium 500) 600 mg PO DAILY SUPPLEMENT 01/05/18 cholecalciferol (vitamin D3) 25 mcg (1,000 unit) capsule 1,000 unit PO QDAY SUPPLEMENT 01/05/18 dexlansoprazole 60 mg capsule,biphase delayed release 60 mg PO DAILY BARRETTS ESOPHAGUS 90 days ##90 01/05/18 lutein 20 mg-zeaxanthin 1,000 mcg capsule 1 cap PO DAILY SUPPLEMENT 01/05/18 magnesium 30 mg tablet 250 mg PO DAILY SUPPLEMENT 01/05/18 potassium chloride 20 mEq tablet,extended release 20 meq PO BID SUPPLEMENT 90 days ##180 01/05/18 tramadol 50 mg tablet 50 mg PO PRN PRN Pain 30 days ##90 01/05/18 venlafaxine 75 mg tablet 75 mg PO DAILY ANXIETY 90 days ##90 01/05/18 vitamin B complex (B Complex-Vitamin B12 tablet) 1 tab PO QDAY SUPPPLEMENT 01/05/18 zinc 50 mg tablet 100 mg PO QDAY SUPPLEMENT 01/05/18 amlodipine 5 mg tablet (Norvasc) 5 mg PO DAILY BP 08/04/18 biotin 1 mg capsule 1 mg PO DAILY SUPPLEMENT 08/04/18 folic acid 1 mg tablet 1 mg PO DAILY SUPPLEMENT 08/04/18 melatonin 10 mg capsule 10 mg PO QHS SLEEP 08/04/18 methotrexate sodium 2.5 mg tablet 12.5 mg PO Q7D RA 08/04/18 pregabalin 100 mg capsule (Lyrica) 100 mg PO BID FIBROMYALGIA 08/04/18 losartan 100 mg tablet 100 mg PO DAILY 06/21/19 polyethylene glycol 3350 17 gram oral powder packet 17 gm PO PRN PRN Constipation 06/21/19 venlafaxine 37.5 mg tablet 37.5 mg PO QHS 01/04/24 furosemide 40 mg tablet (Lasix) 40 mg PO BID #60 tabs 01/06/24 Weight / BMI Weight Weight: 103 kg Body Mass Index (BMI) 44.3 ABG / Lab / Microbiology Data 01/06/24 05:50 01/06/24 05:50 Laboratory: Laboratory Results - last 24 hr 01/05/24 16:00: Troponin I High Sens 41 01/06/24 05:50: WBC 3.6 L, RBC 3.91 L, Hgb 12.1, Hct 37.2, MCV 95.1, MCH 30.9, MCHC 32.5, RDW Std Deviation 45.8 H, RDW Coeff of Vivian 13.2, Plt Count 171, MPV 10.4, Immature Gran % (Auto) 0.300, Neut % (Auto) 62.3, Lymph % (Auto) 19.0, Mo no % (Auto) 12.4 H, Eos % (Auto) 5.2 H, Baso % (Auto) 0.8, Absolute Neuts (auto) 2.3, Absolute Lymphs (auto) 0.69 L, Nucleated RBC % 0, D-Dimer Quant (PE/DVT) 3.36 H*, Sodium 139, Potassium 3.4 L, Chloride 100, Carbon Dioxide 31.0, Anion Gap 8, BUN 17, Creatinine 0.55, Estim Creat Clear Calc 67.73, Est GFR (MDRD) Af Amer 139, Est GFR (MDRD) Non-Af 115, BUN/Creatinine Ratio 31.0 H, Glucose 88, Calcium 9.3, Phosphorus 3.6, Magnesium 2.1, TSH 1.52 Microbiology: Microbiology 01/05/24 09:47 Mucosa - Nose Respiratory Panel (PCR) - Final 01/04/24 11:44 Mucosa - Nose SARS-CoV-2, Influenza & RSV (PCR) - Final Radiography Diagnostic Testing: Radiology Impression Chest CTA 01/06/24 09:26 IMPRESSION: No evidence of pulmonary embolism. Fatty infiltration of the liver. Stable left adrenal mass. Electronically Signed: Jovanny Antoine MD at 10:44 EDT Reading Location ID and State: [address] [place] [address] , Service support , D/C Instructions Discharge Diet: Low fat / Low cholesterol (Fluid intake to no more than 2 L daily/sodium intake to no more than 3 g daily or less) Discharge Activity: Return to Normal Activity Meaningful Use Info Meaningful Use Diagnoses (Choose all that apply): None applicable Discharge Plan Admission Admit Date/Time: 01/05/24 14:15 Primary Reason for Your Visit: Shortness of breath Attending Provider: Azalea Milner Primary Care Provider: Shakira Fuchs Consulting Providers: Edilberto Slater Instructions Additional Instructions / Restrictions: 1. Please call your truck service technician to set up an outpatient appointment to be reevaluated. You likely need pulmonary function tests and at least a 6-minute walk test. 2. Please restrict your fluid intake to about 2 L daily and your sodium intake to about 3 g daily or less. 3. Please call your primary care physician and ask that a basic metabolic profile be done in the next 5 to 7 days to recheck your electrolytes and potassium level with the change in your medications. Discharge Orders/Prescriptions Prescriptions: New furosemide [Lasix] 40 mg tablet 40 mg PO BID Qty: 60 0RF Continued venlafaxine 75 mg tablet 75 mg PO DAILY 90 Days Qty: 90 Patient Comments: in the morning alprazolam 1 mg tablet 1 mg PO TID PRN (Reason: Anxiety) 30 Days Qty: 90 Patient Comments: tramadol 50 mg tablet 50 mg PO PRN PRN (Reason: Pain) 30 Days Qty: 90 Patient Comments: dexlansoprazole 60 mg capsule,biphase delayed releas 60 mg PO DAILY 90 Days Qty: 90 Patient Comments: potassium chloride 20 mEq tablet extended release 20 meq PO BID 90 Days Qty: 180 Patient Comments: zinc 50 mg tablet 100 mg PO QDAY ascorbic acid (vitamin C) 500 mg capsule 1,000 mg PO DAILY lutein 20 mg-zeaxanthin 1,000 mcg capsule 20 mg- 1,000 mcg capsule 1 cap PO DAILY cholecalciferol (vitamin D3) 1,000 unit capsule 1,000 unit PO QDAY calcium carbonate [Calcium 500] 500 mg calcium (1,250 mg) tablet 600 mg PO DAILY magnesium 30 mg tablet 250 mg PO DAILY vitamin B complex [B Complex-Vitamin B12] tablet 1 tab PO QDAY amlodipine [Norvasc] 5 MG tablet 5 mg PO DAILY methotrexate sodium 2.5 MG tablet 12.5 mg PO Q7D Rx Instructions: EVERY THURSDAY folic acid 1 MG tablet 1 mg PO DAILY pregabalin [Lyrica] 100 MG capsule 100 mg PO BID melatonin 10 MG capsule 10 mg PO QHS biotin 1 MG capsule 1 mg PO DAILY polyethylene glycol 3350 17 GM packet 17 gm PO PRN PRN (Reason: Constipation) losartan 100 MG tablet 100 mg PO DAILY venlafaxine 37.5 mg tablet 37.5 mg PO QHS Discontinued hydrochlorothiazide 25 MG tablet 25 mg PO DAILY furosemide 40 mg tablet 40 mg PO DAILY Referrals / Follow Up: Shakira Fuchs DO [Primary Care Provider] - Within 1 Week Disposition Disposition (needs filled in before D/C Order can be placed): Home, Self Care Charges/Coding Visit Charges Inpatient E&M: 28495 Disch Hosp >30min
--- NOTE | 2024-01-06 16:09 | DS.PCM_ITS ---
Providers Date of Admission: 01/05/24 Date of Discharge: 01/06/24 Primary Care Physician: Dr. Shakira Fuchs DO Reason For Visit: CHF EXACERBATION Diagnosis Discharge Diagnosis (1) Hypoxia: Status: Acute Code(s): R09.02 - Hypoxemia (2) CHF exacerbation: Status: Chronic Code(s): I50.9 - Heart failure, unspecified (3) Shortness of breath: Status: Acute Code(s): R06.02 - Shortness of breath (4) Fever: Status: Acute Code(s): R50.9 - Fever, unspecified Medications at Discharge Home Medications alprazolam 1 mg tablet 1 mg PO TID PRN Anxiety 30 days ##90 01/05/18 ascorbic acid (vitamin C) 500 mg capsule 1,000 mg PO DAILY SUPPLEMENT 01/05/18 calcium carbonate (Calcium 500) 600 mg PO DAILY SUPPLEMENT 01/05/18 cholecalciferol (vitamin D3) 25 mcg (1,000 unit) capsule 1,000 unit PO QDAY SUPPLEMENT 01/05/18 dexlansoprazole 60 mg capsule,biphase delayed release 60 mg PO DAILY BARRETTS ESOPHAGUS 90 days ##90 01/05/18 lutein 20 mg-zeaxanthin 1,000 mcg capsule 1 cap PO DAILY SUPPLEMENT 01/05/18 magnesium 30 mg tablet 250 mg PO DAILY SUPPLEMENT 01/05/18 potassium chloride 20 mEq tablet,extended release 20 meq PO BID SUPPLEMENT 90 days ##180 01/05/18 tramadol 50 mg tablet 50 mg PO PRN PRN Pain 30 days ##90 01/05/18 venlafaxine 75 mg tablet 75 mg PO DAILY ANXIETY 90 days ##90 01/05/18 vitamin B complex (B Complex-Vitamin B12 tablet) 1 tab PO QDAY SUPPPLEMENT 01/05/18 zinc 50 mg tablet 100 mg PO QDAY SUPPLEMENT 01/05/18 amlodipine 5 mg tablet (Norvasc) 5 mg PO DAILY BP 08/04/18 biotin 1 mg capsule 1 mg PO DAILY SUPPLEMENT 08/04/18 folic acid 1 mg tablet 1 mg PO DAILY SUPPLEMENT 08/04/18 melatonin 10 mg capsule 10 mg PO QHS SLEEP 08/04/18 methotrexate sodium 2.5 mg tablet 12.5 mg PO Q7D RA 08/04/18 pregabalin 100 mg capsule (Lyrica) 100 mg PO BID FIBROMYALGIA 08/04/18 losartan 100 mg tablet 100 mg PO DAILY 06/21/19 polyethylene glycol 3350 17 gram oral powder packet 17 gm PO PRN PRN Constipation 06/21/19 venlafaxine 37.5 mg tablet 37.5 mg PO QHS 01/04/24 furosemide 40 mg tablet (Lasix) 40 mg PO BID #60 tabs 01/06/24 Hospital Course Procedures 2-D Echocardiogram, EKG and - (Chest x-ray/CTA of the chest/lower extremity Dopplers) Summary of Care Provided Minutes Spent on Discharge: 41 Hospital Course: Mrs. Edge is a 73-year-old white female with a history of sarcoidosis who is not on supplemental oxygen at baseline who presented to the emergency department at [facility] on 01/04/2024 with a chief complaint of shortness of breath. She reported that had been slowly worsening over the last week prior to presentation and is worse with exertion. She reported that she has a chronic cough at baseline but feels that it has been more frequent however it is nonproductive. She denied fever or chills. She also complained of having some neck pain that radiated to her jaw on both sides but denied any sore throat or URI symptoms. She denied any nausea, vomiting, or diarrhea. She does wear CPAP at night and has had no sick contacts. She feels like she has been gaining about a pound a day for the last several days and reported bilateral lower extremity leg swelling when her legs are in a dependent position but it resolves when she puts her feet up. Vital signs on presentation demonstrated a temperature of 98.7, heart rate 103, blood pressure 132/68, respiratory was 20 and oxygen saturations were initially 97% on room air however she desatted to 87% on room air and was placed on 2 L nasal cannula with improvement to her oxygen saturations to 92 to 93%. Her CBC was overtly unremarkable however she did have a left shift with an 82.2% neutrophilia. Her chemistry panel showed hyponatremia with an elevated serum bicarb that appears to be chronic and normal renal function. Her troponin was normal at 25. Her BNP was 126.5. Chest x-ray was consistent with volume overload. She was admitted to the telemetry floor for an acute exacerbation of CHF-type unclear and placed on IV Lasix. An echocardiogram was obtained due to her elevated BNP and she was found to have a normal EF at 65% with no evidence of diastolic dysfunction and no wall motion abnormality. Her cardiac's were cycled and completely unremarkable. Unfortunately pulmonary pressures were not read out and she does have a history of obesity and obstructive sleep apnea. I suspect that she may have some pulmonary hypertension that is contributing to her shortness of breath that she presented with at her admission. She has a known history of sarcoidosis and had previously followed up as an outpatient with pulmonary medicine but have not seen them in some time. We did obtain a D-dimer which was elevated at 3.13. CTA of the chest was performed and showed no pulmonary embolism, fatty infiltration of the liver and a stable left adrenal mass. The lung parenchyma were unremarkable. We check bilateral lower extremity Dopplers and they were negative for any DVT as well. She had an isolated fever during her hospital course at 100.7 so we did check a COVID/flu/RSV panel which was unremarkable as well as a respiratory viral panel which was also unremarkable. She had no further fevers, no elevated white count, and a chronic cough with no significant sputum production. She was markedly better by 01/06/2024 and anxious to go home. We did an ambulatory pulse ox and she did not qualify for any home oxygen. Oxygen saturations at rest were 97% and 89% with exertion. We discontinued her hydrochlorothiazide and increased her Lasix to 40 mg p.o. twice daily. We discussed fluid restriction to about 2 L daily and sodium restriction to no more than 3 g daily. Patient voiced understanding. I have asked her to follow-up with her primary care physician within 1 week and also with her state federal relations deputy director to get reestablished. She likely needs outpatient PFTs and a 6-minute walk test. Prescription for Lasix was sent to her pharmacy and no other medications were changed. She was discharged home in stable condition on 01/06/2024. Discharge diagnoses: Shortness of breath with hypoxia-resolved Fever-resolved Hypertension Elevated BNP History of sarcoidosis History of rheumatoid iritis Chronic pain GERD Vitamin D deficiency Anxiety Depression GEOVANI Morbid obesity Physical Exam Const alert, oriented x3, no apparent distress, no limitations, healthy appearing and well nourished; Negative for average body habitus Constitutional Narrative: Older, morbidly obese, white female, sitting up in bed, at bedside, patient currently appears comfortable and nontoxic General Appearance: cooperative, comfortable, well kempt and well developed Orientation / Consciousness: awake, oriented to person, oriented to place and oriented to time Exam Limitations: no limitations Nutritional Appearance: morbidly obese HEENT normocephalic, head/scalp atraumatic, hearing grossly normal bilaterally and m oist oral mucous membranes HEENT Narrative: Mallampati 3, no thrush Eyes PERRL, EOMs intact bilaterally and conjunctivae normal Eyes Narrative: No scleral icterus Neck no lymphadenopathy and supple Neck Narrative: Trachea midline, no thyroid enlargement Resp normal respiratory effort, no retractions, no use of accessory muscles and clear to auscultation bilaterally Auscultation: Negative for rales, rhonchi or wheezes Cardio regular rate, regular rhythm, S1 normal heart sound, S2 normal heart sound, no rub, no gallops and no clicks; Negative for no murmurs Cardio Narrative: 2 out of 6 systolic murmur loudest at right upper sternal border GI normal to inspection, nondistended, normoactive bowel sounds, soft to palpation and non-tender Extremity no clubbing, cyanosis or edema Extremity Narrative: Radial and pedal pulses are 2+ bilaterally Skin no rashes or lesions noted, no wounds, skin turgor normal and no jaundice Neuro oriented x3, CN's II-XII intact bilaterally, moves all extremities and no focal motor deficits Speech: speech normal Psych affect normal Psych Narrative: Very pleasant, eye contact is good, patient interacts appropriately Weight / BMI Weight Weight: 103 kg Body Mass Index (BMI) 44.3 ABG / Lab / Microbiology Data 01/06/24 05:50 01/06/24 05:50 Laboratory: Laboratory Results - last 24 hr 01/05/24 16:00: Troponin I High Sens 41 01/06/24 05:50: WBC 3.6 L, RBC 3.91 L, Hgb 12.1, Hct 37.2, MCV 95.1, MCH 30.9, MCHC 32.5, RDW Std Deviation 45.8 H, RDW Coeff of Vivian 13.2, Plt Count 171, MPV 10.4, Immature Gran % (Auto) 0.300, Neut % (Auto) 62.3, Lymph % (Auto) 19.0, Adams % (Auto) 12.4 H, Eos % (Auto) 5.2 H, Baso % (Auto) 0.8, Absolute Neuts (auto) 2.3, Absolute Lymphs (auto) 0.69 L, Nucleated RBC % 0, D-Dimer Quant (PE/DVT) 3.36 H*, Sodium 139, Potassium 3.4 L, Chloride 100, Carbon Dioxide 31.0, Anion Gap 8, BUN 17, Creatinine 0.55, Estim Creat Clear Calc 67.73, Est GFR (MDRD) Af Amer 139, Est GFR (MDRD) Non-Af 115, BUN/Creatinine Ratio 31.0 H, Glucose 88, Calcium 9.3, Phosphorus 3.6, Magnesium 2.1, TSH 1.52 Microbiology: Microbiology 01/05/24 09:47 Mucosa - Nose Respiratory Panel (PCR) - Final 01/04/24 11:44 Mucosa - Nose SARS-CoV-2, Influenza & RSV (PCR) - Final Radiography Diagnostic Testing: Radiology Impression Chest CTA 01/06/24 09:26 IMPRESSION: No evidence of pulmonary embolism. Fatty infiltration of the liver. Stable left adrenal mass. Electronically Signed: Jovanny Antoine MD at 10:44 EDT , D/C Instructions Discharge Diet: Low fat / Low cholesterol (Fluid intake to no more than 2 L daily/sodium intake to no more than 3 g daily or less) Discharge Activity: Return to Normal Activity Meaningful Use Info Meaningful Use Diagnoses (Choose all that apply): None applicable Discharge Plan Admission Admit Date/Time: 01/05/24 14:15 Primary Reason for Your Visit: Shortness of breath Attending Provider: Azalea Milner Primary Care Provider: Shakira Fuchs Consulting Providers: Edilberto Slater Instructions Additional Instructions / Restrictions: 1. Please call your state federal relations deputy director to set up an outpatient appointment to be reevaluated. You likely need pulmonary function tests and at least a 6-minute walk test. 2. Please restrict your fluid intake to about 2 L daily and your sodium intake to about 3 g daily or less. 3. Please call your primary care physician and ask that a basic metabolic profile be done in the next 5 to 7 days to recheck your electrolytes and potassium level with the change in your medications. Discharge Orders/Prescriptions Prescriptions: New furosemide [Lasix] 40 mg tablet 40 mg PO BID Qty: 60 0RF Continued venlafaxine 75 mg tablet 75 mg PO DAILY 90 Days Qty: 90 Patient Comments: in the morning alprazolam 1 mg tablet 1 mg PO TID PRN (Reason: Anxiety) 30 Days Qty: 90 Patient Comments: tramadol 50 mg tablet 50 mg PO PRN PRN (Reason: Pain) 30 Days Qty: 90 Patient Comments: dexlansoprazole 60 mg capsule,biphase delayed releas 60 mg PO DAILY 90 Days Qty: 90 Patient Comments: potassium chloride 20 mEq tablet extended release 20 meq PO BID 90 Days Qty: 180 Patient Comments: zinc 50 mg tablet 100 mg PO QDAY ascorbic acid (vitamin C) 500 mg capsule 1,000 mg PO DAILY lutein 20 mg-zeaxanthin 1,000 mcg capsule 20 mg- 1,000 mcg capsule 1 cap PO DAILY cholecalciferol (vitamin D3) 1,000 unit capsule 1,000 unit PO QDAY calcium carbonate [Calcium 500] 500 mg calcium (1,250 mg) tablet 600 mg PO DAILY magnesium 30 mg tablet 250 mg PO DAILY vitamin B complex [B Complex-Vitamin B12] tablet 1 tab PO QDAY amlodipine [Norvasc] 5 MG tablet 5 mg PO DAILY methotrexate sodium 2.5 MG tablet 12.5 mg PO Q7D Rx Instructions: EVERY THURSDAY folic acid 1 MG tablet 1 mg PO DAILY pregabalin [Lyrica] 100 MG capsule 100 mg PO BID melatonin 10 MG capsule 10 mg PO QHS biotin 1 MG capsule 1 mg PO DAILY polyethylene glycol 3350 17 GM packet 17 gm PO PRN PRN (Reason: Constipation) losartan 100 MG tablet 100 mg PO DAILY venlafaxine 37.5 mg tablet 37.5 mg PO QHS Discontinued hydrochlorothiazide 25 MG tablet 25 mg PO DAILY furosemide 40 mg tablet 40 mg PO DAILY Referrals / Follow Up: Shakira Fuchs DO [Primary Care Provider] - Within 1 Week Disposition Disposition (needs filled in before D/C Order can be placed): Home, Self Care Charges/Coding Visit Charges Inpatient E&M: 07732 Disch Hosp >30min
[2024-01-06 17:09] VITALS: BP 107/87; PULSE 92; RESP 16; TEMP 37.1; O2SAT 98
== END 2024-01-06 17:32 | disposition home or self-care (01) | DRG 291 ==
LOC: ED 14:15 → PCU 16:05
PROVIDERS: Admitting Provider Family Medicine; Emergency Provider Emergency Medicine; PCP Family Medicine; Visit Provider Internal Medicine
DX: I11.0 Hypertensive heart disease with heart failure (principal); I50.31 Acute diastolic (congestive) heart failure; E87.1 Hypo-osmolality and hyponatremia; Z68.42 Body mass index [BMI] 45.0-49.9, adult; Z68.41 Body mass index [BMI] 40.0-44.9, adult; E66.01 Morbid (severe) obesity due to excess calories; I08.2 Rheumatic disorders of both aortic and tricuspid valves; F32.A Depression, unspecified; F41.9 Anxiety disorder, unspecified; G47.33 Obstructive sleep apnea (adult) (pediatric); E55.9 Vitamin D deficiency, unspecified; K21.9 Gastro-esophageal reflux disease without esophagitis; Z87.891 Personal history of nicotine dependence; R09.02 Hypoxemia; R50.9 Fever, unspecified; Z99.89 Dependence on other enabling machines and devices
CPT/HCPCS: 36415; 71046; 71275; 80048; 80061; 82550; 83735; 83880; 84100; 84443; 84484; 85025; 85379; 87631; 87633; 93005; 93306; 93970; 99285; Q9957; Q9967; A4216; J1940; J2405

== ENCOUNTER → 2024-01-13 | Outpatient (CLI) | payer MEDICARE, OTHER, SELFPAY ==
[2024-01-13 12:57] LABS: Anion Gap 4 (5-15); BUN 15 mg/dL (7-18); BUN/Creat Ratio 25.1 RATIO (10-20); Calcium,Total 9.3 mg/dL (8.5-10.1); Chloride 106 mmol/L (98-107); EST Glomerular Filtration Rate 104 mL/min (>60); Est Glom Filt Rate - Afr Amer 126 mL/min (>60); Glucose 104 mg/dL (74-106); Potassium 3.7 mmol/L (3.5-5.1); Sodium Level 141 mmol/L (136-145)
== END | disposition home or self-care (01) ==
LOC: BFHLAB 11:00
PROVIDERS: PCP Family Medicine; Referring Provider Family Medicine; Visit Provider Family Medicine
DX: Z51.81 Encounter for therapeutic drug level monitoring (principal)
CPT/HCPCS: 36415; 80048

== ENCOUNTER → 2024-03-09 | Outpatient (CLI) | payer MEDICARE, OTHER, SELFPAY ==
[2024-03-09 16:26] LABS: Erythrocyte Sedimentation Rate 12 mm/hr (0-30)
[2024-03-09 16:29] LABS: Absolute Lymphocyte Count 0.93 X10^3/uL (0.83-4.51); Absolute Neutrophil Count 3.7 X10^3/uL (2.0-7.7); Basophil# 0.04 X10^3/uL; Basophil% 0.8 % (0-1); Eosinophil# 0.04 X10^3/uL; Eosinophils% 0.8 % (0-5); Hematocrit 43.8 % (37-47); Hemoglobin 14.3 g/dL (12.0-15.0); Lymphocyte # 0.93 X10^3/ul (0.83-4.51); Lymphocyte % 18.4 % (19-41); Mean Corp Hgb Conc 32.6 g/dL (32-36); Mean Corpuscular Hgb 30.1 pg (27.0-32.0); Mean Corpuscular Volume 92.2 fL (81-99); Mean Platelet Vol. 11.4 fl (6.2-12.0); Monocyte# 0.37 X10^3/uL; Monocyte% 7.3 % (0-10); NRBC Flagged by Analyzer 0 % (0-5); Neutrophil # 3.66 X10^3/uL (2.7-7.7); Neutrophil % 72.3 % (47-70); Platelet Count 188 K/mm3 (150-450); RBC Distribution Width CV 13.5 % (11.6-14.6); RBC Distribution Width SD 46.3 fl (35.1-43.9); Red Blood Count 4.75 M/mm3 (4.2-5.4); White Blood Count 5.1 K/mm3 (4.4-11.0)
[2024-03-09 16:31] LABS: ALB/GLOB Ratio 1.3 RATIO (0.9-2.4); AST(SGOT) 31 U/L (15-37); Alanine Aminotransfer ALT/SGPT 53 U/L (13-56); Albumin, Serum 3.9 g/dL (3.2-5.0); Alkaline Phosphatase 96 U/L (45-117); Anion Gap 6 (5-15); BUN 16 mg/dL (7-18); BUN/Creat Ratio 25.8 RATIO (10-20); CRP 3.54 mg/L (0.0-3.0); Calcium,Total 9.5 mg/dL (8.5-10.1); Chloride 105 mmol/L (98-107); Creatinine, Serum 0.62 mg/dL (0.55-1.02); EST Glomerular Filtration Rate 100 mL/min (>60); Est Glom Filt Rate - Afr Amer 121 mL/min (>60); Globulin 3.1 g/dL (2.2-4.2); Glucose 100 mg/dL (74-106); Potassium 3.6 mmol/L (3.5-5.1); Sodium Level 139 mmol/L (136-145)
[2024-03-11 15:08] LABS: Angiotensin Convert Enzyme 52 U/L (14-82)
== END | disposition home or self-care (01) ==
PROVIDERS: PCP Family Medicine; Referring Provider Internal Medicine Rheumatology; Visit Provider Internal Medicine Rheumatology
DX: M06.4 Inflammatory polyarthropathy (principal); Z79.899 Other long term (current) drug therapy
CPT/HCPCS: 36415; 80053; 82164; 85025; 85652; 86140

== ENCOUNTER → 2024-06-01 | Outpatient (CLI) | payer MEDICARE, OTHER, SELFPAY ==
[2024-06-01 15:18] LABS: Absolute Lymphocyte Count 1.03 X10^3/uL (0.83-4.51); Absolute Neutrophil Count 2.8 X10^3/uL (2.0-7.7); Basophil# 0.03 X10^3/uL; Basophil% 0.7 % (0-1); Eosinophil# 0.07 X10^3/uL; Eosinophils% 1.6 % (0-5); Hematocrit 43.5 % (37-47); Hemoglobin 14.1 g/dL (12.0-15.0); Lymphocyte # 1.03 X10^3/ul (0.83-4.51); Mean Corp Hgb Conc 32.4 g/dL (32-36); Mean Corpuscular Hgb 29.7 pg (27.0-32.0); Mean Corpuscular Volume 91.6 fL (81-99); Mean Platelet Vol. 11.7 fl (6.2-12.0); Monocyte# 0.38 X10^3/uL; Monocyte% 8.8 % (0-10); NRBC Flagged by Analyzer 0 % (0-5); Neutrophil # 2.78 X10^3/uL (2.7-7.7); Neutrophil % 64.7 % (47-70); Platelet Count 175 K/mm3 (150-450); RBC Distribution Width CV 12.7 % (11.6-14.6); RBC Distribution Width SD 42.3 fl (35.1-43.9); Red Blood Count 4.75 M/mm3 (4.2-5.4); White Blood Count 4.3 K/mm3 (4.4-11.0)
[2024-06-01 15:53] LABS: AST(SGOT) 40 U/L (15-37); Alanine Aminotransfer ALT/SGPT 68 U/L (13-56); Albumin, Serum 3.7 g/dL (3.2-5.0); Alkaline Phosphatase 98 U/L (45-117); Anion Gap 6 (5-15); BUN 13 mg/dL (7-18); BUN/Creat Ratio 19.2 RATIO (10-20); Calcium,Total 10.2 mg/dL (8.5-10.1); Chloride 103 mmol/L (98-107); Creatinine, Serum 0.68 mg/dL (0.55-1.02); EST Glomerular Filtration Rate 91 mL/min (>60); Est Glom Filt Rate - Afr Amer 110 mL/min (>60); Globulin 3.6 g/dL (2.2-4.2); Glucose 101 mg/dL (74-106); Potassium 3.3 mmol/L (3.5-5.1); Protein, Total 7.3 g/dL (6.4-8.2); Sodium Level 139 mmol/L (136-145)
== END | disposition home or self-care (01) ==
LOC: MTLAB 12:39
PROVIDERS: PCP Family Medicine; Referring Provider Internal Medicine Rheumatology; Visit Provider Internal Medicine Rheumatology
DX: M06.4 Inflammatory polyarthropathy (principal); Z79.899 Other long term (current) drug therapy; D86.9 Sarcoidosis, unspecified; M79.7 Fibromyalgia; M17.0 Bilateral primary osteoarthritis of knee; M18.12 Unilateral primary osteoarthritis of first carpometacarpal joint, left hand; M19.041 Primary osteoarthritis, right hand
CPT/HCPCS: 36415; 80053; 85025

== ENCOUNTER → 2024-06-28 | Outpatient (CLI) | payer MEDICARE, OTHER, SELFPAY ==
[2024-06-28 15:39] LABS: AST(SGOT) 34 U/L (15-37); Alanine Aminotransfer ALT/SGPT 71 U/L (13-56); Albumin, Serum 3.6 g/dL (3.2-5.0); Alkaline Phosphatase 89 U/L (45-117); Anion Gap 5 (5-15); BUN 14 mg/dL (7-18); BUN/Creat Ratio 18.9 RATIO (10-20); Calcium,Total 9.8 mg/dL (8.5-10.1); Chloride 102 mmol/L (98-107); Creatinine, Serum 0.74 mg/dL (0.55-1.02); EST Glomerular Filtration Rate 81 mL/min (>60); Est Glom Filt Rate - Afr Amer 98 mL/min (>60); Globulin 3.5 g/dL (2.2-4.2); Glucose 96 mg/dL (74-106); Potassium 3.7 mmol/L (3.5-5.1); Protein, Total 7.1 g/dL (6.4-8.2); Sodium Level 140 mmol/L (136-145)
== END | disposition home or self-care (01) ==
LOC: MTLAB 10:56
PROVIDERS: PCP Family Medicine; Referring Provider Family Medicine; Visit Provider Family Medicine
DX: Z51.81 Encounter for therapeutic drug level monitoring (principal)
CPT/HCPCS: 36415; 80053

== ENCOUNTER → 2024-07-14 | Outpatient (CLI) | payer MEDICARE, OTHER, SELFPAY ==
[2024-07-14 15:37] LABS: AST(SGOT) 30 U/L (15-37); Alanine Aminotransfer ALT/SGPT 60 U/L (13-56); Albumin, Serum 3.6 g/dL (3.2-5.0); Alkaline Phosphatase 99 U/L (45-117); Anion Gap 4 (5-15); BUN 12 mg/dL (7-18); BUN/Creat Ratio 19.1 RATIO (10-20); Calcium,Total 10.1 mg/dL (8.5-10.1); Chloride 105 mmol/L (98-107); Creatinine, Serum 0.63 mg/dL (0.55-1.02); EST Glomerular Filtration Rate 99 mL/min (>60); Est Glom Filt Rate - Afr Amer 119 mL/min (>60); Globulin 3.7 g/dL (2.2-4.2); Glucose 99 mg/dL (74-106); Potassium 3.8 mmol/L (3.5-5.1); Protein, Total 7.3 g/dL (6.4-8.2); Sodium Level 139 mmol/L (136-145)
== END | disposition home or self-care (01) ==
PROVIDERS: PCP Family Medicine; Referring Provider Internal Medicine Rheumatology; Visit Provider Internal Medicine Rheumatology
DX: M06.4 Inflammatory polyarthropathy (principal); Z79.899 Other long term (current) drug therapy; K76.0 Fatty (change of) liver, not elsewhere classified
CPT/HCPCS: 36415; 80053

== ENCOUNTER → 2024-09-01 | Outpatient (CLI) | payer MEDICARE, OTHER, SELFPAY ==
[2024-09-01 15:23] LABS: Absolute Lymphocyte Count 1.32 X10^3/uL (0.83-4.51); Absolute Neutrophil Count 3.3 X10^3/uL (2.0-7.7); Basophil# 0.04 X10^3/uL; Basophil% 0.8 % (0-1); Eosinophil# 0.05 X10^3/uL; Hematocrit 42.3 % (37-47); Hemoglobin 13.6 g/dL (12.0-15.0); Lymphocyte # 1.32 X10^3/ul (0.83-4.51); Lymphocyte % 25.6 % (19-41); Mean Corp Hgb Conc 32.2 g/dL (32-36); Mean Corpuscular Volume 93.2 fL (81-99); Mean Platelet Vol. 10.8 fl (6.2-12.0); Monocyte% 7.8 % (0-10); NRBC Flagged by Analyzer 0 % (0-5); Neutrophil # 3.33 X10^3/uL (2.7-7.7); Neutrophil % 64.6 % (47-70); Platelet Count 190 K/mm3 (150-450); RBC Distribution Width CV 12.5 % (11.6-14.6); RBC Distribution Width SD 42.8 fl (35.1-43.9); Red Blood Count 4.54 M/mm3 (4.2-5.4); White Blood Count 5.2 K/mm3 (4.4-11.0)
[2024-09-01 16:04] LABS: AST(SGOT) 25 U/L (15-37); Alanine Aminotransfer ALT/SGPT 50 U/L (13-56); Albumin, Serum 3.5 g/dL (3.2-5.0); Alkaline Phosphatase 87 U/L (45-117); Anion Gap 7 (5-15); BUN 21 mg/dL (7-18); BUN/Creat Ratio 32.8 RATIO (10-20); Calcium,Total 9.7 mg/dL (8.5-10.1); Chloride 103 mmol/L (98-107); Creatinine, Serum 0.64 mg/dL (0.55-1.02); EST Glomerular Filtration Rate 96 mL/min (>60); Est Glom Filt Rate - Afr Amer 117 mL/min (>60); Globulin 3.6 g/dL (2.2-4.2); Glucose 105 mg/dL (74-106); Potassium 3.5 mmol/L (3.5-5.1); Protein, Total 7.1 g/dL (6.4-8.2); Sodium Level 138 mmol/L (136-145)
== END | disposition home or self-care (01) ==
LOC: MTLAB 12:53
PROVIDERS: PCP Family Medicine; Referring Provider Internal Medicine Rheumatology; Visit Provider Internal Medicine Rheumatology
DX: M06.4 Inflammatory polyarthropathy (principal); Z79.899 Other long term (current) drug therapy; D86.9 Sarcoidosis, unspecified; M79.7 Fibromyalgia; M17.0 Bilateral primary osteoarthritis of knee
CPT/HCPCS: 36415; 80053; 85025

== ENCOUNTER → 2024-09-08 | Outpatient (CLI) | payer MEDICARE, OTHER, SELFPAY | END | disposition home or self-care (01) | LOC: BFHLAB 11:24 | PROVIDERS: PCP Family Medicine; Visit Provider Family Medicine | DX: Z00.00 Encounter for general adult medical examination without abnormal findings (principal) ==

== ENCOUNTER → 2024-09-09 | Outpatient (CLI) | payer MEDICARE, OTHER, SELFPAY ==
--- NOTE | 2024-09-09 08:06 | BI_ITS ---
MAMMOGRAPHY - BILATERAL SCREENING REASON FOR EXAM: Female, 74 years old. Routine annual screening examination. PERTINENT HISTORY: Mother with breast cancer. TECHNIQUE: Digital bilateral breast anne marie (3D mammographic acquisition) in the CC and MLO projections. 2-D mediolateral oblique (MLO) and craniocaudad (CC) views of both breasts were obtained. CAD: Full Field Digital Mammography with Computer Added Detection was performed. COMPARISON: Comparison is made with prior study September 08, 2023 and February 21, 2002. FINDINGS: Breast Composition: There are scattered areas of fibroglandular density. There are no dominant masses or suspicious calcifications. No other significant abnormalities are identified. There has been no significant change since the prior study. BI/SCRN MAMM (CAD)W/ANNE MARIE BILAT IMPRESSION: Stable bilateral screening mammogram. Yearly follow-up mammogram recommended. (A) ASSESSMENT CATEGORY: BIRADS Category 1: Negative. A letter regarding these results will be sent to the patient by the facility within 30 days. Approximately 10% of breast cancers are not detected by mammography. A normal mammogram should not delay biopsy of a clinically suspicious abnormality. [id number] Electronically Signed: Jovanny Antoine MD at 9:48 EST ,
== END | disposition home or self-care (01) ==
LOC: OPBI 08:05
PROVIDERS: PCP Family Medicine; Referring Provider Family Medicine; Visit Provider Family Medicine
DX: Z12.31 Encounter for screening mammogram for malignant neoplasm of breast (principal); Z80.3 Family history of malignant neoplasm of breast
CPT/HCPCS: 77063; 77067

== ENCOUNTER 2024-10-17 06:50 | Day surgery (SDC) | payer MEDICARE, OTHER, SELFPAY ==
--- NOTE | 2024-10-14 15:50 | PAT.ANESEVAL ---
Pre-Assessment Diagnosis/Proposed Procedure Planned Operative Procedure(s): EGD/CSCOPE Anesthesia History Anesthesia History - education and development manager: Anesthesia History - education and development manager Hx Hospitalization Yes: 12/2023 DIFFICULTY 10/14/24 08:47 BREATHING/FLARE OF SARCOIDOSIS Any Problems With Anesthesia No 10/14/24 08:47 Cholinesterase deficiency No 10/14/24 08:47 You/Your Family Experience No 10/14/24 08:47 fever (hyperthermia) with Relationship Recent Exposure to Contagious No 06/21/19 08:44 Disease Does patient have nerve No 10/14/24 08:47 stimulator Patient instructed to have device shut off --Does patient have Pacemaker or ICD? When Was Last Pacemaker Check QUESTION #4 FULL TEXT: You/Your Family Experience fever (hyperthermia) with Anesthesia Last Oral Intake Last Oral intake: Last Oral Intake NPO since Meds taken in AM with sips of water? Meds patient instructed to take am of surgery PONV PONV - education and development manager: PONV - education and development manager Female Yes 10/14/24 08:47 HX of Motion Sickness Yes 10/14/24 08:47 HX of N/V After Surgery No 10/14/24 08:47 Non-Smoker Yes 10/14/24 08:47 Duration of Surgery greater No 10/14/24 08:47 than 60 minutes Number of Risk Factors 3 10/14/24 08:47 PONV Score Moderate Risk 10/14/24 08:47 Height & Weight Height & Weight: Anesthesia: Height & Weight Height 5 ft 4 in 09/13/24 09:51 Respiratory Assessment Respiratory Assessment - education and development manager: Respiratory Tract Infection Hx - education and development manager Hx Respiratory Tract Infection No 10/14/24 08:47 STOP Sleep Apnea STOP Sleep Apnea - education and development manager: STOP Sleep Apnea - education and development manager Hx Hypertension Yes: CONTROLLED WITH MEDS 10/14/24 08:47 Hx Sleep Apnea Yes 10/14/24 08:47 CPAP Yes 10/14/24 08:47 BIPAP No 10/14/24 08:47 Do you snore loudly (louder than talking or can be heard Do you often feel tired/ fatigued/ sleepy during daytime? Has anyone observed you stop breathing during sleep? STOP Results Positive 10/14/24 08:47 QUESTION #5 FULL TEXT : Do you snore loudly (louder than talking or can be heard through closed doors)? Tobacco Use History Tobacco Use History - education and development manager: Tobacco Use History - education and development manager Tobacco Use Smoking Status Former smoker 10/14/24 08:47 Hx Tobacco Use No 10/14/24 08:47 Years Smoking Packs Smoked per Day Smoking Cessation Date was Yes - quit smoking within 15 10/14/24 08:47 within the last 15 years years Hx Smoking Cessation Date Hx Smoking Cessation No 10/14/24 08:47 Counseling Hematologic Medial History Hematologic Hx - education and development manager: Hematologic Medical Hx - memorial designer Hx of Blood Transfusion No 10/14/24 08:47 Hx of Transfusion in last 3 No 10/14/24 08:47 Months Date of Last Transfusion (if within last 3 months) Ever experience any problems No 10/14/24 08:47 with transfusion(s)? Specify any problems Hx of Preganancy in last 3 No 10/14/24 08:47 Months Nurse Filling Out Transfusion DSCHRIBER 10/14/24 08:47 & Questions: Date: 10/14/24 10/14/24 08:47 Time: 08:51 10/14/24 08:47 Patient unable to answer at this time (ie. confused, unrespo /Reproduction History /Reproductive History - education and development manager: /Reproductive Hx- education and development manager Hx Now No 10/14/24 08:47 Gestational Age (in weeks): EDC: Hx Hx Para Hx Section SAB No 10/14/24 08:47 PFSH Medical History (Updated 10/14/24 @ 09:01 by Zully Fish) Loss of hearing Wears glasses Wears partial dentures Depression Anxiety Diabetes Rheumatoid arthritis Anemia Fatty liver Back pain Dietary restriction Gastric reflux Shortness of breath on exertion CPAP (continuous positive airway pressure) dependence History of pain when walking History of edema History of echocardiogram Cardiology follow-up encounter Pulmonary edema Neuropathy Meniere disease GEOVANI (obstructive sleep apnea) CHF (congestive heart failure) Barretts esophagus Fibromyalgia Sarcoidosis HTN (hypertension) Home Medications ?Medication ?Instructions ?Recorded ?Last Taken ?Type alprazolam 1 mg tablet 1 mg PO TID PRN Anxiety 30 days 01/05/18 Unknown History ##90 ascorbic acid (vitamin C) 500 mg 1,000 mg PO DAILY SUPPLEMENT 01/05/18 Unknown History capsule calcium carbonate (Calcium 500) 600 mg PO DAILY SUPPLEMENT 01/05/18 Unknown History cholecalciferol (vitamin D3) 25 1,000 unit PO QDAY SUPPLEMENT 01/05/18 Unknown History mcg (1,000 unit) capsule dexlansoprazole 60 mg 60 mg PO QHS BARRETTS ESOPHAGUS 90 01/05/18 Unknown History capsule,biphase delayed release days ##90 lutein 20 mg-zeaxanthin 1,000 mcg 1 cap PO DAILY SUPPLEMENT 01/05/18 Unknown History capsule potassium chloride 20 mEq 20 meq PO BID SUPPLEMENT 90 days 01/05/18 Unknown History tablet,extended release ##180 venlafaxine 75 mg tablet 75 mg PO DAILY ANXIETY 90 days ##90 01/05/18 Unknown History vitamin B complex (B 1 tab PO QDAY SUPPPLEMENT 01/05/18 Unknown History Complex-Vitamin B12 tablet) zinc 50 mg tablet 100 mg PO QDAY SUPPLEMENT 01/05/18 Unknown History amlodipine 5 mg tablet (Norvasc) 5 mg PO DAILY BP 08/04/18 Unknown History biotin 1 mg capsule 1 mg PO DAILY SUPPLEMENT 08/04/18 Unknown History folic acid 1 mg tablet 2 mg PO DAILY SUPPLEMENT 08/04/18 Unknown History melatonin 10 mg capsule 10 mg PO QHS SLEEP 08/04/18 Unknown History losartan 100 mg tablet 100 mg PO DAILY 06/21/19 Unknown History polyethylene glycol 3350 17 gram 17 g PO PRN PRN Constipation 06/21/19 Unknown History oral powder packet venlafaxine 37.5 mg tablet 37.5 mg PO QHS 01/04/24 Unknown History magnesium oxide 1,000 mg PO DAILY 02/05/24 Unknown History pregabalin 100 mg capsule (Lyrica) 200 mg PO BID FIBROMYALGIA 02/26/24 Unknown History Hydrocortisone 2.5%/lidocaine 5% #30 ea 09/13/24 Unknown Rx suppository (cmpd) (hydrocortisone 2.5%/lidocaine 5% suppository (compound)) semaglutide 0.25 mg or 0.5 mg (2 0.25 mg subcut PEREZ 09/13/24 10/09/24 History mg/3 mL) subcutaneous pen injector (Ozempic) methotrexate sodium 2.5 mg tablet 10 mg PO PEREZ RA 10/11/24 Unknown History qyxH-I6-G-B-orwomk-asrnflf-min 1 tab PO DAILY 10/14/24 Unknown History 3,300 unit-5 mg-200mg-75 unit tablet ER Allergy/AdvReac Type Severity Reaction Status Date / Time Sulfa (Sulfonamide Allergy Intermediate Swelling Verified 10/14/24 08:38 Antibiotics) Family History Mother Breast cancer Hypertension Father Myocardial infarction Dementia Brother Cancer Surgical History (Updated 10/14/24 @ 09:01 by Zully Fish) Hx of right cataract extraction Hx of left cataract extraction History of esophagogastroduodenoscopy (EGD) Hx of colonoscopy Hx of total shoulder replacement Hx of total knee arthroplasty History of reversal of tubal ligation History of carpal tunnel surgery History of tubal ligation History of appendectomy History of cholecystectomy Social History Smoking Status: Former smoker alcohol intake: current alcohol intake frequency: a few times a week Alcohol type: beer and wine what type of physical activity do you participate in: none Audit: Pertinent Findings Pertinent Findings EKG Perinent findings: January 06, 2024. Normal sinus rhythm. Echo (EF%) pertinent findings: January 05, 2024. Ejection fraction 65%. There is no aortic stenosis. Consult pertinent findings: October 11, 2024. Dr. Gonzales. 1. Congestive heart failure-patient denies any orthopnea. She denies any significant lower extremity edema. She is not requiring any diuretic at this time. 2. Obstructive sleep apnea. Patient is tolerating her CPAP. 3. Hypertension-153/83 in the office today. Defer management to primary service. 4. Sarcoidosis?in remission. Recommendation Anesthesia Recommendation Anesthesia recommendation: OPTIMIZED for anesthesia
[2024-10-17] VITALS (8 sets, daily range): BP systolic 96–136; BP diastolic 46–74; PULSE 65–98; RESP 12–18; TEMP 36.1–36.7; O2SAT 95–100; BMI 42.5
--- NOTE | 2024-10-17 07:21 | H&P.OPEN ---
HPI - General General Date of Service: 10/17/24 HPI Narrative RICKIE OCONNOR, is a 74 F who presents for an EGD and colonoscopy. Colonoscopy due to history of colon polyp and EGD for Haney's. Patient denies any changes since office visit. 09/13/24 office visit HPI HPI: 74-year-old female presents for EGD and colonoscopy. Patient had colonoscopy in 2019 had a tubular adenoma at that time. Prior to this patient did have an EGD which showed Haney's. Patient has not had a repeat EGD recently. Patient has been on Dexlansoprazole and states she only has reflux symptoms rarely. Patient denies any family history of colon cancer. Patient does state that she does have issues with her hemorrhoids with occasional pain does think they have gotten little bit bigger did have some occasional blood last week small amount of bright red. [facility] Medical History (Updated 10/14/24 @ 09:01 by Zully Fish) Loss of hearing Wears glasses Wears partial dentures Depression Anxiety Diabetes Rheumatoid arthritis Anemia Fatty liver Back pain Dietary restriction Gastric reflux Shortness of breath on exertion CPAP (continuous positive airway pressure) dependence History of pain when walking History of edema History of echocardiogram Cardiology follow-up encounter Pulmonary edema Neuropathy Meniere disease GEOVANI (obstructive sleep apnea) CHF (congestive heart failure) Barretts esophagus Fibromyalgia Sarcoidosis HTN (hypertension) Home Medications ?Medication ?Instructions ?Recorded ?Last Taken ?Type alprazolam 1 mg tablet 1 mg PO TID PRN Anxiety 30 days 01/05/18 10/17/24 History ##90 ascorbic acid (vitamin C) 500 mg 1,000 mg PO DAILY SUPPLEMENT 01/05/18 10/16/24 History capsule calcium carbonate (Calcium 500) 600 mg PO DAILY SUPPLEMENT 01/05/18 10/16/24 History cholecalciferol (vitamin D3) 25 1,000 unit PO QDAY SUPPLEMENT 01/05/18 10/16/24 History mcg (1,000 unit) capsule dexlansoprazole 60 mg 60 mg PO QHS BARRETTS ESOPHAGUS 90 01/05/18 10/17/24 History capsule,biphase delayed release days ##90 lutein 20 mg-zeaxanthin 1,000 mcg 1 cap PO DAILY SUPPLEMENT 01/05/18 10/16/24 History capsule potassium chloride 20 mEq 20 meq PO BID SUPPLEMENT 90 days 01/05/18 10/17/24 History tablet,extended release ##180 venlafaxine 75 mg tablet 75 mg PO DAILY ANXIETY 90 days ##90 01/05/18 10/16/24 History vitamin B complex (B 1 tab PO QDAY SUPPPLEMENT 01/05/18 10/16/24 History Complex-Vitamin B12 tablet) zinc 50 mg tablet 100 mg PO QDAY SUPPLEMENT 01/05/18 10/16/24 History amlodipine 5 mg tablet (Norvasc) 5 mg PO DAILY BP 08/04/18 10/17/24 History biotin 1 mg capsule 1 mg PO DAILY SUPPLEMENT 08/04/18 10/16/24 History folic acid 1 mg tablet 2 mg PO DAILY SUPPLEMENT 08/04/18 10/16/24 History melatonin 10 mg capsule 10 mg PO QHS SLEEP 08/04/18 10/16/24 History losartan 100 mg tablet 100 mg PO DAILY 06/21/19 10/17/24 History polyethylene glycol 3350 17 gram 17 g PO PRN PRN Constipation 06/21/19 10/16/24 History oral powder packet venlafaxine 37.5 mg tablet 37.5 mg PO QHS 01/04/24 10/16/24 History magnesium oxide 1,000 mg PO DAILY 02/05/24 10/16/24 History pregabalin 100 mg capsule (Lyrica) 200 mg PO BID FIBROMYALGIA 02/26/24 10/17/24 History Hydrocortisone 2.5%/lidocaine 5% #30 ea 09/13/24 Unknown Rx suppository (cmpd) (hydrocortisone 2.5%/lidocaine 5% suppository (compound)) semaglutide 0.25 mg or 0.5 mg (2 0.25 mg subcut PEREZ 09/13/24 10/09/24 History mg/3 mL) subcutaneous pen injector (Ozempic) methotrexate sodium 2.5 mg tablet 10 mg PO PEREZ RA 10/11/24 10/16/24 History tlgJ-F6-Q-M-ilttsl-rmxraol-min 1 tab PO DAILY 10/14/24 10/16/24 History 3,300 unit-5 mg-200mg-75 unit tablet ER Allergy/AdvReac Type Severity Reaction Status Date / Time Sulfa (Sulfonamide Allergy Intermediate Swelling Verified 10/17/24 07:28 Antibiotics) Family History Mother Breast cancer Hypertension Father Myocardial infarction Dementia Brother Cancer Surgical History (Updated 10/14/24 @ 09:01 by Zully Fish) Hx of right cataract extraction Hx of left cataract extraction History of esophagogastroduodenoscopy (EGD) Hx of colonoscopy Hx of total shoulder replacement Hx of total knee arthroplasty History of reversal of tubal ligation History of carpal tunnel surgery History of tubal ligation History of appendectomy History of cholecystectomy Social History Smoking Status: Former smoker alcohol intake: current alcohol intake frequency: a few times a week Alcohol type: beer and wine what type of physical activity do you participate in: none Past Medical/Surgical History Planned Operation Planned Operative Procedure(s): EGD/CSCOPE S.O.S: No Previous Hospitalizations/Surgeries HX Hospitalizations: Yes (12/2023 DIFFICULTY BREATHING/FLARE OF SARCOIDOSIS) HX of Surgeries: GALLBLADDER, APPENDECTOMY TUBAL, REVERSAL TUBAL SYDNEE CTR TONSILS R REVERSE TOTAL SHOULDER 08/15 Any Problems With Anesthesia: No You/Your Family Experience Fever (Hyperthermia) With Anes: No Cholinesterase deficiency: No Cardiovascular Hx Chest Pain within Last 2 months: No Hx of Irregular Heartbeat and/or Afib: No Hx Heart Attack: No Hx Congestive Heart Failure: No Hx Rheumatic Fever: No Hx Hypertension: Yes (CONTROLLED WITH MEDS) Hx Internal Defibrillator: No Hx Pacemaker: No Hx Cardiac Catheterization: No Hx Cardiac Surgery/Stents/Etc.: No Hx Stress Test: Yes (KATHYA 20+ YRS AGO) Hx Pain in Legs when Walking/Leg Cramps: Yes (FIBROMYALGIA) Respiratory Chronic Cough: No HX of Shortness of Breath: Yes Hoarseness: No Hx Chronic Obstructive Pulmonary Disease (COPD): No Hx Asthma: No Hx Emphysema: No Hx Sleep Apnea: Yes CPAP: Yes BIPAP: No Hx Respiratory Tract Infection/Cold (presently): No Result (for STOP score): Positive Hx Smoking: Yes (QUIT 2006) Smoking Status: Former smoker Gastrointestinal Controlled With Meds: Yes (BARRETTS ESOPHAGUS) Hx Gastrointestinal Disorders: No Hx Gastrointestinal Bleed: No Hx Ulcer: No Hx Hiatal Hernia: No Difficulty Chewing/Swallowing: No Special diet followed at home: No Hx Unplanned Weight Loss of 20#: No HX Unplanned Weight Gain of 20#: No Neurological Hx Seizures: No HX Syncope/Blackout Spells/Unconsciousness: No (VERTIGO) Hx Transient Ischemic Attacks (TIA): No Hx Multiple Sclerosis: No Hx Parkinson's Disease: No Hx Head/Neck Injury: No Hx Headaches: No Hx Back Injury/Pain: No Recent Onset of Speech Difficulty: No Restless Legs: Yes Does patient have nerve stimulator: No Blood Disorder Hx Leukemia: No Bleeding Tendencies: No Hx Deep Vein Thrombosis: No Hx High Cholesterol: No Blood Transmitted Disease: No Hx Hepatitis: No Hx Cirrhosis: No Hx Anemia: No Hx Blood Disorders: No Reproduction : No Is Patient Lactating: No Hx Hysterectomy: No Hx Tubal Ligation: Yes (THEN REVERSAL) Are You Post Menopause: Yes Genitourinary Hx Renal Disease: No Musculoskeletal Hx Arthritis: Yes Hx Rheumatoid Arthritis: Yes (ON METHOTREXATE) Hx Gout: No Recent Onset of an Orthopedic Problem: Yes Endocrine Hx Diabetes: No Thyroid Disease: No Hx Steroid Therapy: No Psycho/Social Hx Substance Use: No Hx Alcohol Use: Yes (SOCIAL) Hx Anxiety: No Hx Depression: No Mental Illness: No Hx Dementia: No Miscellaneous Hx Cancer: No Recent Exposure to Contagious Disease: No Hx of C-Diff: No Any Loose Teeth: Yes (UPPER PARTIAL) Allergies Sulfa (Sulfonamide Antibiotics) Allergy (Intermediate, Verified 10/17/24 07:28) Swelling Discharge Is Pt Admitted From a Detention, or a M[facility]: No After D/C, Where Do you Plan to Go: Return Home From the PAT History Number of Risk Factors: 3 Physical Exam Const alert, oriented x3 and no apparent distress HEENT normocephalic and head/scalp atraumatic Resp normal respiratory effort Cardio regular rate GI soft to palpation and non-tender; Negative for non-distended Palpation: Negative for guarding Extremity no clubbing, cyanosis or edema Skin no rashes or lesions noted Neuro CN's II-XII intact bilaterally Psych mental status grossly normal Assessment & Plan Assessment/Plan (1) Barretts esophagus: (2) Encounter for colonoscopy due to history of colonic polyp: Surgery Risks - Colonoscopy I discussed with the patient the risks of the procedure: Yes Risks Include but are not Limited To: Plan for an EGD and colonoscopy risks include but are not limited to: Bleeding, perforation requiring further surgery, inability to complete colonoscopy requiring barium enema.
--- NOTE | 2024-10-17 08:00 | EGD_PTH ---
PATIENT: RICKIE OCONNOR LOC: EN U#:[id number] AGE/SX: 74/F ROOM: RE10/17/[address]: Dr. Betsy Cartwright MD : 1950 BED: DIS: 10/17/2024 SPEC #: [id number] RECD: 10/17/24 12:55 STATUS: EILEEN RERabia #: [id number] HELEN: 10/17/24 08:[address]: Betsy Cartwright DEPT: SURGICAL PATHOLOGY RECD BY: Rhonda Allan ENTERED: 10/17/24 13:33 SP TYPE: EGD BIOPSY EMILIO DR: Dr. Shakira Fuchs DO Tissues: A - Gastric mucous membrane B - Cardioesophageal junction C - Esophagus, NOS Procedures: Special Stain Group I Surgery Specimen Level IV Alcian Blue/PAS (control) HEADER OPERATION: Colonoscopy, EGD biopsy PRE-OP DIAGNOSIS: Haney's esophagus, encounter for colonoscopy due to history of colonic polyp TISSUE SUBMITTED: A- Gastric antrum, B- Adjacent to gastroesophageal junction cardia biopsy,C- Gastroesophageal junction biopsy MICROSCOPIC DIAGNOSIS A. Gastric antrum, biopsy: Mild gastritis. See microscopic description and comment. B. Gastric cardia, adjacent to gastroesophageal junction biopsy: Fragments of gastric mucosa with congestion, hemorrhage and chronic inflammation. C. Gastroesophageal junction, biopsy: Fragments of gastric mucosa with congestion, hemorrhage and chronic inflammation. Intestinal metaplasia (goblet cell metaplasia) not identified. See comment. 10/18/2024 COMMENT A. The results of immunohistochemistry for Helicobacter pylori will be reported separately ([id number]). C. Alcian blue/PAS and mucin stains with matched controls are used in the evaluation of the specimen. Focal area shows clusters of plasma cells with Ji bodies. Immunohistochemistry ([id number]) shows plasma cells to be polytypic in nature. This case has been reviewed in consultation with Dr. Duran who concurs with the above diagnosis. IDC:PW MICROSCOPIC DESCRIPTION Slides are reviewed. A. The specimen shows fragments of gastric mucosa with chronic inflammatory cell infiltrates in the lamina propria consisting of lymphocytes and plasma cells, consistent with mild chronic gastritis. GROSS DESCRIPTION A. Received in fixative is one container labeled with the patient's name and designated Gastric antrum biopsy. The specimen consists of one irregular fragment of light hernandez soft tissue that measures 0.5 x 0.2 x 0.1 cm. The specimen is totally submitted in one cassette. B. Received in fixative is one container labeled with the patient's name and designated Adjacent to ge junction gastric cardia biopsy. The specimen consists of multiple irregular fragments of light hernandez soft tissue that in aggregate measure 1.2 x 0.3 x 0.2 cm. The specimen is totally submitted in one cassette. C. Received in fixative is one container labeled with the patient's name and designated GE junction biopsy. The specimen consists of multiple irregular fragments of light hernandez soft tissue that in aggregate measure 1.1 x 0.3 x 0.2 cm. The specimen is totally submitted in one cassette. 10/17/2024 TC:3 CPT:77328a5,94144 x2
--- NOTE | 2024-10-17 08:00 | IMM_PTH ---
PATIENT: RICKIE OCONNOR LOC: EN U#:[id number] AGE/SX: 74/F ROOM: RE10/17/[address]: Dr. Betsy Cartwright MD : 1950 BED: DIS: 10/17/2024 SPEC #: [id number] RECD: 10/17/24 13:46 STATUS: EILEEN REQ #: [id number] HELEN: 10/17/24 08:[address]: Betsy Cartwright DEPT: IMMUNOHISTOCHEMISTRY RECD BY: To Mccabe ENTERED: 10/17/24 13:47 SP TYPE: IMMUNO OTHR DR: Dr. Shakira Fuchs DO Tissues: A - Gastric mucous membrane C - Esophagus, NOS Procedures: H Pylori (initial) CD138 (add) CK8 (add) KAPPA (add) LAMBDA (add) Pankeratin (initial) PHYSICIAN & INSTITUTION [place] [id number] SPECIMEN INFORMATION: Tissue Source: A- Gastric antrum biopsy, C- Gastroesophageal junction biopsy Clinical Info: Haney's esophagus, encounter for colonoscopy due to history of polyp Specimen Number: [id number] Jabier Travis CPT code: [id number] METHODOLOGY: Deparaffinized sections of prefer/formalin-fixed tissue or PAP/DQ stained slides are incubated with monoclonal/polyclonal antibodies/oligonucleotide probes. Localization is made via biotin free immunoperoxidase method. Appropriate controls are performed and reacted as expected. Results on target cell population are indicated in the following table: RESULTS: ANTIBODY / CLONE RESULT Block A H Pylori (polyclonal) negative Block C AE1-3 (AE1/AE3/PCK26) negative CK8 ([id number]) negative [place] (polyclonal) positive Lambda (polyclonal) positive CD138 (B-A38) positive These tests were developed and their performance characteristics determined by [facility]. They may not have been cleared or approved by the U.[place]. Food and Drug Administration. The FDA has determined that such clearance or approval is not necessary. The above immunohistochemical/dualISH markers are ordered and reviewed by the Pathologist. INTERPRETATION: A. Gastric antrum, biopsy: Negative for Helicobacter pylori organisms. C. Gastroesophageal junction, biopsy: Negative for malignancy. See comment. COMMENT: Clusters of plasma cells with Ji bodies are noted, polytypic in nature. This case has been reviewed in consultation with Dr. Duran who concurs with the above diagnosis. IDC:[email or web address] 10/19/2024
--- NOTE | 2024-10-17 08:01 | PRE.ANES_ITS ---
ASA Classification* ASA Classification ASA Classification: 3 Assessment & Plan Anesthesia* Anesthesia Assessment Anesthesia Assessment: Discussed sedation and/or anesthesia options, risks, benefits, and alternatives with patient/parents/legal guardian/POA. Questions invited. The patient/parents/legal guardian/POA seems to understand and agrees to proceed with anesthesia plan. Reviewed the physical assessment, medical history, allergy history and patient home medications list prior to surgery/procedure/anesthetic and documented any changes. Performed airway and anesthesia risk assessments. Anesthesia Type Anesthesia Type: MAC History Source History Obtained from:: Patient, Chart and Significant Other () Anesthesia Focused Assessment* Temperature: 97 F Pulse Rate: 98 Blood Pressure: 136/74 Respiratory Rate: 16 Pulse Ox: 100 Oxygen Delivery Method: Room Air Airway Assessment Mouth opens: >3 cm Mallampati Score: II Teeth Condition: Loose (top front left, infected ) and Partial Neck Range of motion (ROM): Full ROM Focused Labs Anesthesia Preop lab: CBC WBC 5.2 K/mm3 (4.4-11.0) 09/01/24 12:56 RBC 4.54 M/mm3 (4.2-5.4) 09/01/24 12:56 Hgb 13.6 g/dL (12.0-15.0) 09/01/24 12:56 Hct 42.3 % (37-47) 09/01/24 12:56 Plt Count 190 K/mm3 (150-450) 09/01/24 12:56 CHEMISTRY Potassium 3.5 mmol/L (3.5-5.1) 09/01/24 12:56 Sodium 138 mmol/L (136-145) 09/01/24 12:56 Magnesium 2.1 mg/dL (1.6-2.6) 01/06/24 05:50 Phosphorus 3.6 mg/dL (2.5-4.9) 01/06/24 05:50 BUN 21 mg/dL (7-18) H 09/01/24 12:56 Creatinine 0.64 mg/dL (0.55-1.02) 09/01/24 12:56 Glucose 105 mg/dL (74-106) 09/01/24 12:56 TSH 1.52 uIU/mL (0.358-3.74) 01/06/24 05:50 COAG Pre-Assessment Diagnosis/Proposed Procedure Planned Operative Procedure(s): EGD/CSCOPE Anesthesia History 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 When Was Last Pacemaker Check QUESTION #4 FULL TEXT: You/Your Family Experience fever (hyperthermia) with Anesthesia Last Oral Intake Last Oral intake: Last Oral Intake NPO since 20:30 10/17/24 07:33 Meds taken in AM with sips of Yes 10/17/24 07:33 water? Meds patient instructed to see chart 10/17/24 07:33 take am of surgery PONV PONV - cloth mercerizing supervisor: PONV - cloth mercerizing supervisor Female Yes 10/14/24 08:47 HX of Motion Sickness Yes 10/14/24 08:47 HX of N/V After Surgery No 10/14/24 08:47 Non-Smoker Yes 10/14/24 08:47 Duration of Surgery greater No 10/14/24 08:47 than 60 minutes Number of Risk Factors 3 10/14/24 08:47 PONV Score Moderate Risk 10/14/24 08:47 Height & Weight Height & Weight: Anesthesia: Height & Weight Height 5 ft 10/17/24 07:33 Weight: 98.7 kg 10/17/24 07:33 Body Mass Index (BMI) 42.5 10/17/24 07:33 Respiratory Assessment Respiratory Assessment - cloth mercerizing supervisor: Respiratory Tract Infection Hx - cloth mercerizing supervisor Hx Respiratory Tract Infection No 10/17/24 07:23 STOP Sleep Apnea STOP Sleep Apnea - cloth mercerizing supervisor: STOP Sleep Apnea - cloth mercerizing supervisor Hx Hypertension Yes: CONTROLLED WITH MEDS 10/17/24 07:23 Hx Sleep Apnea Yes 10/17/24 07:23 CPAP Yes 10/17/24 07:23 BIPAP No 10/17/24 07:23 Do you snore loudly (louder than talking or can be heard Do you often feel tired/ fatigued/ sleepy during daytime? Has anyone observed you stop breathing during sleep? STOP Results Positive 10/17/24 07:38 QUESTION #5 FULL TEXT : Do you snore loudly (louder than talking or can be heard through closed doors)? 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 Specify any problems Hx of Preganancy in last 3 No 10/14/24 08:47 Months Nurse Filling Out Transfusion DSCHRIBER 10/14/24 08:47 & Questions: Date: 10/14/24 10/14/24 08:47 Time: 08:51 10/14/24 08:47 Patient unable to answer at this time (ie. confused, unrespo /Reproduction History /Reproductive History - cloth mercerizing supervisor: /Reproductive Hx- cloth mercerizing supervisor Hx Now No 10/17/24 07:23 Gestational Age (in weeks): EDC: Hx Hx Para Hx Section SAB No 10/14/24 08:47 PFSH Medical History (Updated 10/14/24 @ 09:01 by Zully Fish) Loss of hearing Wears glasses Wears partial dentures Depression Anxiety Diabetes Rheumatoid arthritis Anemia Fatty liver Back pain Dietary restriction Gastric reflux Shortness of breath on exertion CPAP (continuous positive airway pressure) dependence History of pain when walking History of edema History of echocardiogram Cardiology follow-up encounter Pulmonary edema Neuropathy Meniere disease GEOVANI (obstructive sleep apnea) CHF (congestive heart failure) Barretts esophagus Fibromyalgia Sarcoidosis HTN (hypertension) Home Medications ?Medication ?Instructions ?Recorded ?Last Taken ?Type alprazolam 1 mg tablet 1 mg PO TID PRN Anxiety 30 days 01/05/18 10/17/24 History ##90 ascorbic acid (vitamin C) 500 mg 1,000 mg PO DAILY SUPPLEMENT 01/05/18 10/16/24 History capsule calcium carbonate (Calcium 500) 600 mg PO DAILY SUPPLEMENT 01/05/18 10/16/24 History cholecalciferol (vitamin D3) 25 1,000 unit PO QDAY SUPPLEMENT 01/05/18 10/16/24 History mcg (1,000 unit) capsule dexlansoprazole 60 mg 60 mg PO QHS BARRETTS ESOPHAGUS 90 01/05/18 10/17/24 History capsule,biphase delayed release days ##90 lutein 20 mg-zeaxanthin 1,000 mcg 1 cap PO DAILY SUPPLEMENT 01/05/18 10/16/24 History capsule potassium chloride 20 mEq 20 meq PO BID SUPPLEMENT 90 days 01/05/18 10/17/24 History tablet,extended release ##180 venlafaxine 75 mg tablet 75 mg PO DAILY ANXIETY 90 days ##90 01/05/18 10/16/24 History vitamin B complex (B 1 tab PO QDAY SUPPPLEMENT 01/05/18 10/16/24 History Complex-Vitamin B12 tablet) zinc 50 mg tablet 100 mg PO QDAY SUPPLEMENT 01/05/18 10/16/24 History amlodipine 5 mg tablet (Norvasc) 5 mg PO DAILY BP 08/04/18 10/17/24 History biotin 1 mg capsule 1 mg PO DAILY SUPPLEMENT 08/04/18 10/16/24 History folic acid 1 mg tablet 2 mg PO DAILY SUPPLEMENT 08/04/18 10/16/24 History melatonin 10 mg capsule 10 mg PO QHS SLEEP 08/04/18 10/16/24 History losartan 100 mg tablet 100 mg PO DAILY 06/21/19 10/17/24 History polyethylene glycol 3350 17 gram 17 g PO PRN PRN Constipation 06/21/19 10/16/24 History oral powder packet venlafaxine 37.5 mg tablet 37.5 mg PO QHS 01/04/24 10/16/24 History magnesium oxide 1,000 mg PO DAILY 02/05/24 10/16/24 History pregabalin 100 mg capsule (Lyrica) 200 mg PO BID FIBROMYALGIA 02/26/24 10/17/24 History Hydrocortisone 2.5%/lidocaine 5% #30 ea 09/13/24 Unknown Rx suppository (cmpd) (hydrocortisone 2.5%/lidocaine 5% suppository (compound)) semaglutide 0.25 mg or 0.5 mg (2 0.25 mg subcut PEREZ 09/13/24 10/09/24 History mg/3 mL) subcutaneous pen injector (Ozempic) methotrexate sodium 2.5 mg tablet 10 mg PO PEREZ RA 10/11/24 10/16/24 History [id number]-jkkldu-dbhkalq-min 1 tab PO DAILY 10/14/24 10/16/24 History 3,300 unit-5 mg-200mg-75 unit tablet ER Allergy/AdvReac Type Severity Reaction Status Date / Time Sulfa (Sulfonamide Allergy Intermediate Swelling Verified 10/17/24 07:28 Antibiotics) Family History Mother Breast cancer Hypertension Father Myocardial infarction Dementia Brother Cancer Surgical History (Updated 10/14/24 @ 09:01 by Zully Fish) Hx of right cataract extraction Hx of left cataract extraction History of esophagogastroduodenoscopy (EGD) Hx of colonoscopy Hx of total shoulder replacement Hx of total knee arthroplasty History of reversal of tubal ligation History of carpal tunnel surgery History of tubal ligation History of appendectomy History of cholecystectomy Social History Smoking Status: Former smoker alcohol intake: current alcohol intake frequency: a few times a week Alcohol t ype: beer and wine what type of physical activity do you participate in: none Review of Systems (Anesthesia) ROS Narrative System reviewed and no additional complaints, except as documented.
[2024-10-17 08:21] LABS: Bedside Glucose 95 mg/dL (74-106)
--- NOTE | 2024-10-17 09:12 | PCM.POST.ANE ---
Anesthesia: Postop Eval I Current Vital Signs Temperature: 97.3 F Pulse Rate: 65 Blood Pressure: 96/46 Respiratory Rate: 16 Pulse Ox: 98 Oxygen Delivery Method: Room Air Assessment Airway patent: Yes Spontaneous unlabored respirations: Yes Mental status: Asleep nausea: No Vomiting: No Anesthesia Complication: No Fluid Hydration Crystalloid volume administer (ml): 60 Total IV fluid infused: 60 Progress Note Anesthesia document: Postop Eval 1 completed: Yes
--- NOTE | 2024-10-17 09:13 | OP.CCLET_ITS ---
10/17/2024 Shakira Fuchs [address] [facility] [place] [address] Re : Upper GI endoscopy procedure for Jamilah Edge Dear Dr. Fuchs This procedure was performed on Thursday, October 17, 2024. My impressions and recommendations are as follows: Impressions : - Z-line irregular, 35 cm from the incisors. Biopsied. - Erythematous mucosa in the antrum. Biopsied. - Normal examined duodenum. - A single gastric polyp. Resected and retrieved. 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 Biopsied. Recommendations : - Discharge patient to home. - Resume previous diet. - Continue present medications. - Await pathology results. - Repeat upper endoscopy 2-3 years for surveillance of Haney's esophagus. My findings are described in the full procedure note, which is enclosed. If I can be of further assistance, please feel free to contact me at Doctor phone number(s): , Work: . Sincerely, MD Betsy Copeland MD 10/17/2024 9:12:44 AM This report has been signed electronically.
--- NOTE | 2024-10-17 09:13 | OP.EGD_ITS ---
Patient Name: Jamilah Edge Procedure Date: 10/17/2024 7:45 AM Date of : 1950 Age: 74 Procedure: Upper GI endoscopy Indications: Haney's esophagus Providers: Betsy Cartwright MD Referring MD: Shakira Fuchs Medicines: Monitored Anesthesia Care Patient Profile: This is a 74 year old female. Complications: No immediate complications. Procedure: Pre-Anesthesia Assessment: - Prior to the procedure, a History and Physical was performed, and patient medications and allergies were reviewed. The patient's tolerance of previous anesthesia was also reviewed. The risks and benefits of the procedure and the sedation options and risks were discussed with the patient. All questions were answered, and informed consent was obtained. Prior Anticoagulants: The patient has taken no anticoagulant or antiplatelet agents. ASA Grade Assessment: Per anesthesia. After reviewing the risks and benefits, the patient was deemed in satisfactory condition to undergo the procedure. After obtaining informed consent, the endoscope was passed under direct vision. Throughout the procedure, the patient's blood pressure, pulse, and oxygen saturations were monitored continuously. The Colonoscope was introduced through the mouth, and advanced to the second part of duodenum. The upper GI endoscopy was accomplished without difficulty. The patient tolerated the procedure well. Scope In: 8:35:33 AM Scope Out: 8:42:42 AM Total Procedure Duration Time 0 hours 7 minutes 9 seconds Findings: The Z-line was irregular and was found 35 cm from the incisors. Biopsies were taken with a cold forceps for histology. Mildly erythematous mucosa without bleeding was found in the gastric antrum. Biopsies were taken with a cold forceps for histology. Biopsies were taken with a cold forceps for Helicobacter pylori cultures. The examined duodenum was normal. The cardia and gastric fundus were normal on retroflexion. A single less than 5 mm sessile polyp with no bleeding and no stigmata of recent bleeding was found in the cardia. The polyp was removed with a cold biopsy forceps. Resection and retrieval were complete. 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 Biopsies were taken with a cold forceps for histology. Impression: - Z-line irregular, 35 cm from the incisors. Biopsied. - Erythematous mucosa in the antrum. Biopsied. - Normal examined duodenum. - A single gastric polyp. Resected and retrieved. 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 Biopsied. Recommendation: - Discharge patient to home. - Resume previous diet. - Continue present medications. - Await pathology results. - Repeat upper endoscopy 2-3 years for surveillance of Haney's esophagus. Procedure Code(s): --- Professional --- 24356, PT, Esophagogastroduodenoscopy, flexible, transoral; with biopsy, single or multiple Diagnosis Code(s): --- Professional --- K22.89, Other specified disease of esophagus K31.89, Other diseases of stomach and duodenum K22.70, Haney's esophagus without dysplasia K31.7, Polyp of stomach and duodenum CPT copyright 2021 [employer]. All rights reserved. The codes documented in this report are preliminary and upon java websphere developer review may be revised to meet current compliance requirements. MD Betsy Copeland MD 10/17/2024 9:12:44 AM This report has been signed electronically. Number of Addenda: 0 Note Initiated On: 10/17/2024 7:45 AM
--- NOTE | 2024-10-17 09:17 | OP.COLON_ITS ---
Patient Name: Jamilah Edge Procedure Date: 10/17/2024 8:43 AM Date of : 1950 Age: 74 Procedure: Colonoscopy Indications: High risk colon cancer surveillance: Personal history of colonic polyps Providers: Betsy Cartwright MD Referring MD: Shakira Fuchs Medicines: Monitored Anesthesia Care Patient Profile: Last Colonoscopy: 2019. This is a 74 year old female. Complications: No immediate complications. Procedure: Pre-Anesthesia Assessment: - Prior to the procedure, a History and Physical was performed, and patient medications and allergies were reviewed. The patient's tolerance of previous anesthesia was also reviewed. The risks and benefits of the procedure and the sedation options and risks were discussed with the patient. All questions were answered, and informed consent was obtained. Prior Anticoagulants: The patient has taken no anticoagulant or antiplatelet agents. ASA Grade Assessment: Per anesthesia. After reviewing the risks and benefits, the patient was deemed in satisfactory condition to undergo the procedure. After I obtained informed consent, the scope was passed under direct vision. Throughout the procedure, the patient's blood pressure, pulse, and oxygen saturations were monitored continuously. The Colonoscope was introduced through the anus and advanced to the cecum, identified by the ileocecal valve. The colonoscopy was performed without difficulty. The patient tolerated the procedure well. The quality of the bowel preparation was good. Scope In: 8:43:04 AM Scope Withdrawal Time 0 hours 9 minutes 52 seconds Scope Out: 9:04:23 AM Total Procedure Duration Time 0 hours 21 minutes 19 seconds Findings: Hemorrhoids were found on perianal exam. Non-bleeding internal hemorrhoids were found. The hemorrhoids were Grade I (internal hemorrhoids that do not prolapse). Scattered small-mouthed diverticula were found in the sigmoid colon. The exam was otherwise without abnormality. Impression: - Hemorrhoids found on perianal exam. - Non-bleeding internal hemorrhoids. - Diverticulosis in the sigmoid colon. - The examination was otherwise normal. - No specimens collected. Recommendation: - Discharge patient to home. - Resume previous diet. - Continue present medications. - Repeat colonoscopy in 10 years for screening purposes. - depending on overall health at time of possible repeat Procedure Code(s): --- Professional --- G0105, PT, Colorectal cancer screening; colonoscopy on individual at high risk Diagnosis Code(s): --- Professional --- Z86.010, Personal history of colonic polyps K64.0, First degree hemorrhoids K57.30, Diverticulosis of large intestine without perforation or abscess without bleeding CPT copyright 2021 [employer]. All rights reserved. The codes documented in this report are preliminary and upon supervisor plating and point assembly review may be revised to meet current compliance requirements. MD Betsy Copeland MD 10/17/2024 9:16:36 AM This report has been signed electronically. Number of Addenda: 0 Note Initiated On: 10/17/2024 8:43 AM
--- NOTE | 2024-10-17 09:17 | OP.CCLET_ITS ---
10/17/2024 Shakira Fuchs [address] [place] [address] Re : Colonoscopy procedure for Jamilah Edge Dear Dr. Fuchs This procedure was performed on Thursday, October 17, 2024. My impressions and recommendations are as follows: Impressions : - Hemorrhoids found on perianal exam. - Non-bleeding internal hemorrhoids. - Diverticulosis in the sigmoid colon. - The examination was otherwise normal. - No specimens collected. Recommendations : - Discharge patient to home. - Resume previous diet. - Continue present medications. - Repeat colonoscopy in 10 years for screening purposes. - depending on overall health at time of possible repeat My findings are described in the full procedure note, which is enclosed. If I can be of further assistance, please feel free to contact me at Doctor phone number(s): , Work: . Sincerely, MD Betsy Copeland MD 10/17/2024 9:16:36 AM This report has been signed electronically.
--- NOTE | 2024-10-17 11:26 | PCM.POSTANE2 ---
Anesthesia Postop Eval I Sum Postop Eval Completion status Anesthesia document: Postop Eval 1 completed: Yes Anesthesia Postop Eval I Summary Anesthesia Postop Eval I Summary: Anesthesia Postop Eval I: Assessment Summary Airway patent Yes 10/17/24 09:14 [email or web address] Spontaneous unlabored Yes 10/17/24 09:14 [email or web address] respirations Mental status Asleep 10/17/24 09:14 [email or web address] nausea No 10/17/24 09:14 [email or web address] Vomiting No 10/17/24 09:14 [email or web address] Anesthesia Postop Eval I: Fluid Summary Crystalloid volume administer 60 10/17/24 09:14 [email or web address] (ml) Colloids volume administered ( ml) Blood Product volume administered (ml) Total IV fluid infused 60 10/17/24 09:14 [email or web address] Anesthesia Postop Eval I: Summary Notes Anesthesia Complication No 10/17/24 09:14 [email or web address] Anesthesia Complication Comment: Post-operative progress note Anesthesia: Postop Eval II Evaluation Mental status: Awake Pain Level: 0 nausea: No Vomiting: No Complications Anesthesia Complication: No
== END 2024-10-17 10:07 | disposition home or self-care (01) ==
LOC: EN 06:51 → AC 06:52
PROVIDERS: PCP Family Medicine; Referring Provider Family Medicine; Visit Provider Surgery
PROC: 0DJD8ZZ Inspection of Lower Intestinal Tract, Via Natural or Artificial Opening Endoscopic (ICD-10-PCS; CPT 45378; principal; 2024-10-17 07:55)
DX: Z12.11 Encounter for screening for malignant neoplasm of colon (principal); I11.0 Hypertensive heart disease with heart failure; I50.9 Heart failure, unspecified; E11.9 Type 2 diabetes mellitus without complications; K22.70 Barrett's esophagus without dysplasia; Z86.0100 Personal history of colon polyps, unspecified; Z79.85 Long-term (current) use of injectable non-insulin antidiabetic drugs; K31.7 Polyp of stomach and duodenum; K22.89 Other specified disease of esophagus; K57.30 Diverticulosis of large intestine without perforation or abscess without bleeding; K64.0 First degree hemorrhoids; Z87.891 Personal history of nicotine dependence; Z79.899 Other long term (current) drug therapy; Z80.0 Family history of malignant neoplasm of digestive organs; G47.33 Obstructive sleep apnea (adult) (pediatric); Z99.89 Dependence on other enabling machines and devices; F41.9 Anxiety disorder, unspecified; F32.A Depression, unspecified; Z98.41 Cataract extraction status, right eye; Z98.42 Cataract extraction status, left eye; Z96.619 Presence of unspecified artificial shoulder joint; Z96.659 Presence of unspecified artificial knee joint; Z90.49 Acquired absence of other specified parts of digestive tract; K31.89 Other diseases of stomach and duodenum; K64.4 Residual hemorrhoidal skin tags; K29.70 Gastritis, unspecified, without bleeding
CPT/HCPCS: 43239; G0105; 82962; 88305; 88312; 88341; 88342; A4216; J2405

== ENCOUNTER → 2024-11-08 | Outpatient (CLI) | payer MEDICARE, OTHER, SELFPAY ==
[2024-11-08 12:37] LABS: Absolute Lymphocyte Count 1.16 X10^3/uL (0.83-4.51); Absolute Neutrophil Count 3.1 X10^3/uL (2.0-7.7); Basophil# 0.04 X10^3/uL; Basophil% 0.8 % (0-1); Eosinophil# 0.08 X10^3/uL; Eosinophils% 1.7 % (0-5); Hematocrit 46.3 % (37-47); Hemoglobin 14.9 g/dL (12.0-15.0); Lymphocyte # 1.16 X10^3/ul (0.83-4.51); Lymphocyte % 24.3 % (19-41); Mean Corp Hgb Conc 32.2 g/dL (32-36); Mean Corpuscular Hgb 30.1 pg (27.0-32.0); Mean Corpuscular Volume 93.5 fL (81-99); Mean Platelet Vol. 11.1 fl (6.2-12.0); Monocyte# 0.39 X10^3/uL; Monocyte% 8.2 % (0-10); NRBC Flagged by Analyzer 0 % (0-5); Neutrophil # 3.09 X10^3/uL (2.7-7.7); Neutrophil % 64.8 % (47-70); Platelet Count 205 K/mm3 (150-450); RBC Distribution Width CV 12.6 % (11.6-14.6); RBC Distribution Width SD 43.4 fl (35.1-43.9); Red Blood Count 4.95 M/mm3 (4.2-5.4); White Blood Count 4.8 K/mm3 (4.4-11.0)
[2024-11-08 13:18] LABS: AST(SGOT) 32 U/L (15-37); Alanine Aminotransfer ALT/SGPT 51 U/L (13-56); Albumin, Serum 3.8 g/dL (3.2-5.0); Alkaline Phosphatase 101 U/L (45-117); Anion Gap 6 (5-15); BUN 13 mg/dL (7-18); BUN/Creat Ratio 18.1 RATIO (10-20); Chloride 102 mmol/L (98-107); Creatinine, Serum 0.72 mg/dL (0.55-1.02); EST Glomerular Filtration Rate 84 mL/min (>60); Est Glom Filt Rate - Afr Amer 102 mL/min (>60); Globulin 3.8 g/dL (2.2-4.2); Glucose 96 mg/dL (74-106); Potassium 3.6 mmol/L (3.5-5.1); Protein, Total 7.6 g/dL (6.4-8.2); Sodium Level 140 mmol/L (136-145)
== END | disposition home or self-care (01) ==
LOC: MTLAB 10:40
PROVIDERS: PCP Family Medicine; Referring Provider Internal Medicine Rheumatology; Visit Provider Internal Medicine Rheumatology
DX: M06.4 Inflammatory polyarthropathy (principal); Z79.899 Other long term (current) drug therapy
CPT/HCPCS: 36415; 80053; 85025

== ENCOUNTER → 2024-12-05 | Outpatient (CLI) | payer MEDICARE, OTHER, SELFPAY ==
[2024-12-05 16:29] LABS: ALB/GLOB Ratio 1.5 RATIO (0.9-2.4); AST(SGOT) 29 U/L (<=31); Alanine Aminotransfer ALT/SGPT 50 U/L (<=34); Albumin, Serum 4.1 g/dL (3.4-4.8); Alkaline Phosphatase 101 U/L (35-104); Anion Gap 10 (5-15); BUN 19 mg/dL (4-19); BUN/Creat Ratio 31.5 RATIO (10-20); CORTISOL AM 6.87 ug/dL (6.02-18.40); Carbon Dioxide 31.4 mmol/L (21.0-32.0); Chloride 100 mmol/L (98-108); EST Glomerular Filtration Rate 94 (>60); Free T3 2.7 pg/mL (2.18-3.98); Globulin 2.7 g/dL (2.2-4.2); Glucose 94 mg/dL (70-99); Potassium 3.9 mmol/L (3.3-5.1); Protein, Total 6.9 g/dL (5.9-8.4); Sodium Level 141 mmol/L (133-145); Total Bilirubin 0.18 mg/dL (0.00-1.30)
[2024-12-07 15:08] LABS: Thyroglobulin Antibody 1.1 IU/mL (0.0-0.9); Thyroid Peroxidase AB 12 IU/mL (0-34)
== END | disposition home or self-care (01) ==
PROVIDERS: PCP Family Medicine; Referring Provider Family Medicine; Visit Provider Family Medicine
DX: E03.9 Hypothyroidism, unspecified (principal); I10 Essential (primary) hypertension; R53.83 Other fatigue; D35.00 Benign neoplasm of unspecified adrenal gland
CPT/HCPCS: 36415; 80053; 82533; 84439; 84443; 84481; 86376; 86800

== ENCOUNTER → 2025-01-03 | Outpatient (CLI) | payer MEDICARE, SELFPAY ==
[2025-01-03 14:58] LABS: Absolute Lymphocyte Count 1.19 X10^3/uL (0.83-4.51); Absolute Neutrophil Count 3.2 X10^3/uL (2.0-7.7); Basophil# 0.05 X10^3/uL; Eosinophil# 0.05 X10^3/uL; Hematocrit 46.4 % (37-47); Hemoglobin 15.3 g/dL (12.0-15.0); Lymphocyte # 1.19 X10^3/ul (0.83-4.51); Lymphocyte % 24.1 % (19-41); Mean Corpuscular Volume 94.1 fL (81-99); Mean Platelet Vol. 11.3 fl (6.2-12.0); Monocyte% 8.1 % (0-10); NRBC Flagged by Analyzer 0 % (0-5); Neutrophil # 3.23 X10^3/uL (2.7-7.7); Neutrophil % 65.6 % (47-70); Platelet Count 196 K/mm3 (150-450); RBC Distribution Width CV 13.2 % (11.6-14.6); RBC Distribution Width SD 45.3 fl (35.1-43.9); Red Blood Count 4.93 M/mm3 (4.2-5.4); White Blood Count 4.9 K/mm3 (4.4-11.0)
[2025-01-03 15:23] LABS: ALB/GLOB Ratio 1.5 RATIO (0.9-2.4); AST(SGOT) 37 U/L (<=31); Alanine Aminotransfer ALT/SGPT 49 U/L (<=34); Albumin, Serum 4.3 g/dL (3.4-4.8); Alkaline Phosphatase 98 U/L (35-104); Anion Gap 12 (5-15); BUN 18 mg/dL (4-19); BUN/Creat Ratio 24.5 RATIO (10-20); Calcium,Total 9.8 mg/dL (7.6-11.0); Carbon Dioxide 32.3 mmol/L (21.0-32.0); Chloride 97 mmol/L (98-108); Creatinine, Serum 0.74 mg/dL (0.70-1.20); EST Glomerular Filtration Rate 84 (>60); Globulin 2.9 g/dL (2.2-4.2); Glucose 99 mg/dL (70-99); Potassium 4.2 mmol/L (3.3-5.1); Protein, Total 7.2 g/dL (5.9-8.4); Sodium Level 141 mmol/L (133-145); Total Bilirubin 0.27 mg/dL (0.00-1.30)
== END | disposition home or self-care (01) ==
LOC: MTLAB 12:44
PROVIDERS: PCP Family Medicine; Referring Provider Internal Medicine Rheumatology; Visit Provider Internal Medicine Rheumatology
DX: M06.4 Inflammatory polyarthropathy (principal); D86.9 Sarcoidosis, unspecified; M79.7 Fibromyalgia; Z79.899 Other long term (current) drug therapy
CPT/HCPCS: 36415; 80053; 85025

== ENCOUNTER → 2025-02-13 | Outpatient (CLI) | payer MEDICARE, SELFPAY ==
[2025-02-13 15:21] LABS: Absolute Lymphocyte Count 1.18 X10^3/uL (0.83-4.51); Absolute Neutrophil Count 2.6 X10^3/uL (2.0-7.7); Basophil# 0.05 X10^3/uL; Basophil% 1.2 % (0-1); Eosinophil# 0.07 X10^3/uL; Eosinophils% 1.6 % (0-5); Hematocrit 44.9 % (37-47); Hemoglobin 15.2 g/dL (12.0-15.0); Lymphocyte # 1.18 X10^3/ul (0.83-4.51); Lymphocyte % 27.3 % (19-41); Mean Corp Hgb Conc 33.9 g/dL (32-36); Mean Corpuscular Hgb 31.2 pg (27.0-32.0); Mean Corpuscular Volume 92.2 fL (81-99); Mean Platelet Vol. 11.9 fl (6.2-12.0); Monocyte# 0.39 X10^3/uL; NRBC Flagged by Analyzer 0 % (0-5); Neutrophil # 2.63 X10^3/uL (2.7-7.7); Neutrophil % 60.7 % (47-70); Platelet Count 192 K/mm3 (150-450); RBC Distribution Width CV 12.7 % (11.6-14.6); RBC Distribution Width SD 43.1 fl (35.1-43.9); Red Blood Count 4.87 M/mm3 (4.2-5.4); White Blood Count 4.3 K/mm3 (4.4-11.0)
[2025-02-13 16:12] LABS: ALB/GLOB Ratio 1.6 RATIO (0.9-2.4); AST(SGOT) 36 U/L (<=31); Alanine Aminotransfer ALT/SGPT 42 U/L (<=34); Albumin, Serum 4.3 g/dL (3.4-4.8); Alkaline Phosphatase 97 U/L (35-104); Anion Gap 14 (5-15); BUN 14 mg/dL (4-19); Calcium,Total 10.2 mg/dL (7.6-11.0); Chloride 98 mmol/L (98-108); Creatinine, Serum 0.77 mg/dL (0.70-1.20); EST Glomerular Filtration Rate 80 (>60); Globulin 2.7 g/dL (2.2-4.2); Glucose 95 mg/dL (70-99); Potassium 2.9 mmol/L (3.3-5.1); Sodium Level 143 mmol/L (133-145); Total Bilirubin 0.42 mg/dL (0.00-1.30)
== END | disposition home or self-care (01) ==
LOC: MTLAB 11:42
PROVIDERS: PCP Family Medicine; Referring Provider Internal Medicine Rheumatology; Visit Provider Internal Medicine Rheumatology
DX: M06.4 Inflammatory polyarthropathy (principal); D86.9 Sarcoidosis, unspecified; M79.7 Fibromyalgia; M17.0 Bilateral primary osteoarthritis of knee; M18.12 Unilateral primary osteoarthritis of first carpometacarpal joint, left hand; M19.041 Primary osteoarthritis, right hand; Z79.899 Other long term (current) drug therapy
CPT/HCPCS: 36415; 80053; 85025

== ENCOUNTER → 2025-03-24 | Outpatient (CLI) | payer MEDICARE, SELFPAY ==
[2025-03-24 10:35] LABS: Glucose GTT- Fasting 99 mg/dL (70-99)
[2025-03-24 11:02] LABS: Hemoglobin A1c 5.3 % (<=5.6)
[2025-03-24 13:34] LABS: Glucose GTT- 1 Hour 206 mg/dL (120-170)
[2025-03-24 13:37] LABS: Glucose GTT-30 minutes 177 mg/dL (110-170)
[2025-03-24 14:22] LABS: Glucose GTT- 2 Hour 128 mg/dL (70-120)
== END | disposition home or self-care (01) ==
LOC: LAB 09:50
PROVIDERS: PCP Family Medicine; Referring Provider Family Medicine; Visit Provider Family Medicine
DX: R73.02 Impaired glucose tolerance (oral) (principal)
CPT/HCPCS: 36415; 82951; 82952; 83036

== ENCOUNTER → 2025-04-12 | Outpatient (CLI) | payer MEDICARE, SELFPAY ==
[2025-04-12 17:51] LABS: Hematocrit 40.9 % (37-47); Hemoglobin 13.5 g/dL (12.0-15.0); Immature Granulocytes Count 0.010 X10^3/uL (0.0-0.0); Mean Corp Hgb Conc 33.0 g/dL (32-36); Mean Corpuscular Volume 93.0 fL (81-99); Mean Platelet Vol. 11.0 fl (6.2-12.0); NRBC Flagged by Analyzer 0 % (0-5); Platelet Count 210 K/mm3 (150-450); RBC Distribution Width CV 12.3 % (11.6-14.6); RBC Distribution Width SD 42.2 fl (35.1-43.9); Red Blood Count 4.40 M/mm3 (4.2-5.4); White Blood Count 5.2 K/mm3 (4.4-11.0)
[2025-04-12 18:51] LABS: AST(SGOT) 28 U/L (<=31); Alanine Aminotransfer ALT/SGPT 32 U/L (<=34); Albumin, Serum 4.0 g/dL (3.4-4.8); Alkaline Phosphatase 98 U/L (35-104); Anion Gap 12 (5-15); BUN 18 mg/dL (4-19); BUN/Creat Ratio 26.1 RATIO (10-20); Calcium,Total 9.7 mg/dL (7.6-11.0); Carbon Dioxide 30.1 mmol/L (21.0-32.0); Chloride 99 mmol/L (98-108); Globulin 3.0 g/dL (2.2-4.2); Glucose 98 mg/dL (70-99); Potassium 2.9 mmol/L (3.3-5.1)
== END | disposition home or self-care (01) ==
LOC: MTLAB 13:46
PROVIDERS: PCP Family Medicine; Referring Provider Internal Medicine Rheumatology; Visit Provider Internal Medicine Rheumatology
DX: M06.4 Inflammatory polyarthropathy (principal); M79.7 Fibromyalgia; Z79.899 Other long term (current) drug therapy
CPT/HCPCS: 36415; 80053; 85025

== ENCOUNTER → 2025-06-01 | Outpatient (CLI) | payer MEDICARE, SELFPAY ==
[2025-06-01 12:37] LABS: Hematocrit 42.4 % (37-47); Hemoglobin 14.0 g/dL (12.0-15.0); Immature Granulocytes Count 0.020 X10^3/uL (0.0-0.0); Mean Corp Hgb Conc 33.0 g/dL (32-36); Mean Corpuscular Volume 90.2 fL (81-99); Mean Platelet Vol. 11.4 fl (6.2-12.0); NRBC Flagged by Analyzer 0 % (0-5); Platelet Count 197 K/mm3 (150-450); RBC Distribution Width CV 12.5 % (11.6-14.6); RBC Distribution Width SD 41.2 fl (35.1-43.9); Red Blood Count 4.70 M/mm3 (4.2-5.4); White Blood Count 5.5 K/mm3 (4.4-11.0)
[2025-06-01 13:03] LABS: AST(SGOT) 27 U/L (<=31); Alanine Aminotransfer ALT/SGPT 27 U/L (<=34); Albumin, Serum 4.2 g/dL (3.4-4.8); Alkaline Phosphatase 96 U/L (35-104); Anion Gap 12 (5-15); BUN 19 mg/dL (4-19); BUN/Creat Ratio 25.8 RATIO (10-20); Calcium,Total 9.7 mg/dL (7.6-11.0); Carbon Dioxide 30.8 mmol/L (21.0-32.0); Chloride 99 mmol/L (98-108); Globulin 3.1 g/dL (2.2-4.2); Glucose 99 mg/dL (70-99); Potassium 3.1 mmol/L (3.3-5.1)
== END | disposition home or self-care (01) ==
LOC: MTLAB 10:07
PROVIDERS: PCP Family Medicine; Referring Provider Internal Medicine Rheumatology; Visit Provider Internal Medicine Rheumatology
DX: M06.4 Inflammatory polyarthropathy (principal); Z79.899 Other long term (current) drug therapy
CPT/HCPCS: 36415; 80053; 85025

== ENCOUNTER → 2025-07-13 | Outpatient (CLI) | payer MEDICARE, SELFPAY ==
[2025-07-13 14:55] LABS: Hematocrit 39.6 % (37-47); Hemoglobin 13.1 g/dL (12.0-15.0); Immature Granulocytes Count 0.000 X10^3/uL (0.0-0.0); Mean Corp Hgb Conc 33.1 g/dL (32-36); Mean Corpuscular Volume 89.6 fL (81-99); Mean Platelet Vol. 11.0 fl (6.2-12.0); NRBC Flagged by Analyzer 0 % (0-5); Platelet Count 248 K/mm3 (150-450); RBC Distribution Width CV 13.2 % (11.6-14.6); RBC Distribution Width SD 42.9 fl (35.1-43.9); Red Blood Count 4.42 M/mm3 (4.2-5.4); White Blood Count 5.0 K/mm3 (4.4-11.0)
[2025-07-13 15:48] LABS: AST(SGOT) 26 U/L (<=31); Alanine Aminotransfer ALT/SGPT 30 U/L (<=34); Albumin, Serum 4.2 g/dL (3.4-4.8); Alkaline Phosphatase 99 U/L (35-104); Anion Gap 13 (5-15); BUN 16 mg/dL (4-19); BUN/Creat Ratio 23.9 RATIO (10-20); Calcium,Total 9.9 mg/dL (7.6-11.0); Carbon Dioxide 30.2 mmol/L (21.0-32.0); Chloride 99 mmol/L (98-108); Globulin 3.1 g/dL (2.2-4.2); Glucose 83 mg/dL (70-99); Potassium 3.6 mmol/L (3.3-5.1)
== END | disposition home or self-care (01) ==
LOC: LAB 13:09
PROVIDERS: PCP Family Medicine; Referring Provider Internal Medicine Rheumatology; Visit Provider Internal Medicine Rheumatology
DX: M06.4 Inflammatory polyarthropathy (principal); Z79.899 Other long term (current) drug therapy
CPT/HCPCS: 36415; 80053; 85025